=== PATIENT | female | born 1940 | race Hispanic/Latino ===

== ENCOUNTER 2017-10-24 17:06 | Inpatient (IN) | payer MEDICARE ==
[~2017-10-24] VITALS: Ht 154.9 cm; Wt 66.8 kg
[~2017-10-24 17:06] MED LIST: ATORVASTATIN CA20 MG PO; CAPSAICIN TOP; CARVEDILOL3.125 MG PO; CLOPIDOGREL75 MG PO; ECONAZOLE NITRA15 GM TOP; FUROSEMIDE40 MG PO; HEMATINIC-FOLI1 EACH PO; HYDRALAZINE HCL25 MG PO; JANUVIA100 MG PO; LOSARTAN POTASS25 MG PO; METOPROLOL TART25 MG PO; PREDNISONE10 MG PO; PROTONIX IV40 MG IV; SPIRIVA18 MCG INH; VASOTEC20 MG PO; enalapril PO; furosemide PO; metformin PO; pantoprazole PO
[2017-10-24] MEDS ORDERED: SODIUM CHLORIDE 0.9% 250ML 250 ML IV ONE (17:45)
[2017-10-24 17:48] LABS: BASOPHILS % 0.3 % (0.0-1.0); EOSINOPHILS # (AUTO) 0.1 (0.0-0.4); EOSINOPHILS % 0.8 % (0.0-6.0); LYMPHOCYTES % 13.1 % (18.0-39.1); MEAN CORPUSCULAR HEMOGLOBIN 35.2 pg (28-32); MEAN CORPUSCULAR HGB CONC 33.2 g/dL (31-35); MEAN CORPUSCULAR VOLUME 106.1 fL (81-99); MONOCYTES # (AUTO) 0.6 (0.2-0.8); NEUTROPHILS # (AUTO) 5.7 (2.1-6.9); NEUTROPHILS % 75.9 % (38.7-80.0); PLATELET COUNT 187 x10e3/uL (140-360); RED BLOOD COUNT 1.96 x10e6/uL (3.6-5.1); RED CELL DISTRIBUTION WIDTH 15.9 % (11.7-14.4)
[2017-10-24] MEDS ORDERED: LISINOPRIL2.5 MG PO (17:49)
[2017-10-24] MEDS ORDERED: METOPROLOL SUCC50 MG PO (17:49)
[2017-10-24] MEDS ORDERED: BUMETANIDE1 MG PO (17:49)
[2017-10-24 17:50] LABS: HEMATOCRIT 20.8 % (34.2-44.1); HEMOGLOBIN 6.9 g/dL (12.0-16.0)
[2017-10-24] MEDS ORDERED: WARFARIN SODIUM3 MG PO (17:51)
[2017-10-24] MEDS ORDERED: DIPHENHYDRAMINE25 M1 PO (17:51)
[2017-10-24] MEDS ORDERED: AMIODARONE HCL200 MG PO (17:51)
[2017-10-24 17:53] LABS: INR 1.95; PROTHROMBIN TIME 20.9 seconds (11.9-14.5)
[2017-10-24 17:54] LABS: PARTIAL THROMBOPLASTIN TIME 33.7 seconds (23.8-35.5)
[2017-10-24] MEDS ORDERED: PANTOPRAZOLE 40 MG 10ML VIAL IV ONE (17:56)
[2017-10-24 18:00] LABS: ANION GAP 12.3 mmol/L (8-16); CALCIUM 8.6 mg/dL (8.4-10.2); CREATININE, SERUM 1.54 mg/dL (0.57-1.11); POTASSIUM 3.3 mmol/L (3.5-5.1)
[2017-10-24] MEDS ORDERED: PANTOPRAZOLE INJ 40 MG in SODIUM CHLORIDE 0.9% 50ML 50 ML IV SCH (18:00)
[2017-10-24] MEDS ORDERED: PHYTONADIONE 10 MG/ML AMP SQ ONE ×2 (18:15→23:15)
--- NOTE | 2017-10-24 18:17 | Diagnostic Imaging Report ---
PROCEDURE: A single AP view of the chest. COMPARISON: Chest radiograph 06/04/2016 INDICATIONS: SOB, LOW HEMOGLOBIN FINDINGS: Lines/tubes: Right IJ catheter dual lumen dialysis catheter with tip overlying the cavoatrial junction. Left chest wall AICD with leads overlying the right atrium, coronary sinus, and right ventricle. Lungs: The lungs are well inflated. Mild interstitial edema. There is no evidence of pneumonia. Pleura: There is no pleural effusion or pneumothorax. Heart and mediastinum: Stable moderate enlargement of the cardiac silhouette. Bones: No acute bony abnormality. Median sternotomy wires. IMPRESSION: Stable cardiomegaly with mild interstitial edema. Dictated by: Eitan Brantley M.D. on 10/24/2017 at 18:22 Electronically approved by: Eitan Brantley M.D. on 10/24/2017 at 18:22
[2017-10-24] MEDS ORDERED: SODIUM CHLORIDE FLUSH 10 ML SYR INJ PRN (19:00)
[2017-10-24] MEDS ORDERED: DEXTROSE 50% SYRINGE 50 ML IV PRN (19:00)
[2017-10-24] MEDS ORDERED: PANTOPRAZOLE INJ 80 MG in SODIUM CHLORIDE 0.9% 100 ML IV SCH (19:00)
[2017-10-24] MEDS ORDERED: POTASSIUM CHLORIDE 20MEQ/100ML 100 ML IV ONE (19:15)
[2017-10-24] MEDS ORDERED: ONDANSETRON HCL INJ 2 MG/ML VIAL IV PRN (19:15)
[2017-10-24] MEDS ORDERED: ACETAMINOPHEN 325 MG TAB PO PRN (19:15)
[2017-10-24] MEDS ORDERED: HYDRALAZINE HCL 20 MG/ML VIAL IV PRN (19:15)
[2017-10-24] MEDS: PANTOPRAZOL 40MG/SOD CHL 0.9% 50 ML IV SCH (19:30)
[2017-10-24] MEDS ORDERED: ATORVASTATIN 20 MG TAB PO SCH (21:00)
[2017-10-24] MEDS ORDERED: SIMVASTATIN 40 MG TAB PO SCH (21:00)
[2017-10-24 22:00] VITALS: BP 150/78
[2017-10-24 23:00] VITALS: BP 159/54
[2017-10-24] MEDS: HYDRALAZINE HCL 25 MG TAB PO SCH (23:39)
[2017-10-24] MEDS: ATORVASTATIN 40 MG TAB PO SCH (23:40)
[2017-10-24] MEDS: INSULIN REGULAR, HUMAN 100 UNIT/1 ML 3ML VIAL SQ SCH (23:40)
[2017-10-25] VITALS (7 sets, daily range): BP systolic 121–164; BP diastolic 34–82
[2017-10-25] MEDS ORDERED: ALBUTEROL/IPRATROPIUM 3 ML NEB NEB PRN
[2017-10-25] MEDS: PANTOPRAZOL 40MG/SOD CHL 0.9% 50 ML IV SCH ×5 (04:32→20:00)
[2017-10-25 04:43] LABS: BASOPHILS % 0.3 % (0.0-1.0); EOSINOPHILS # (AUTO) 0.1 (0.0-0.4); EOSINOPHILS % 1.5 % (0.0-6.0); HEMATOCRIT 24.7 % (34.2-44.1); HEMOGLOBIN 8.3 g/dL (12.0-16.0); LYMPHOCYTES # (AUTO) 0.8 (1.0-3.2); LYMPHOCYTES % 12.3 % (18.0-39.1); MEAN CORPUSCULAR HEMOGLOBIN 33.3 pg (28-32); MEAN CORPUSCULAR HGB CONC 33.6 g/dL (31-35); MONOCYTES # (AUTO) 0.6 (0.2-0.8); MONOCYTES % 8.7 % (4.4-11.3); NEUTROPHILS % 75.7 % (38.7-80.0); PLATELET COUNT 137 x10e3/uL (140-360); RED BLOOD COUNT 2.49 x10e6/uL (3.6-5.1)
[2017-10-25 04:47] LABS: MEAN CORPUSCULAR VOLUME 99.2 fL (81-99); RED CELL DISTRIBUTION WIDTH 18.8 % (11.7-14.4)
[2017-10-25 04:52] LABS: INR 1.65; PROTHROMBIN TIME 18.3 seconds (11.9-14.5)
[2017-10-25 04:53] LABS: PARTIAL THROMBOPLASTIN TIME 26.9 seconds (23.8-35.5)
[2017-10-25 04:58] LABS: ANION GAP 12.5 mmol/L (8-16); CALCIUM 7.8 mg/dL (8.4-10.2); POTASSIUM 3.5 mmol/L (3.5-5.1)
[2017-10-25 05:03] LABS: CREATININE, SERUM 2.45 mg/dL (0.57-1.11)
[2017-10-25] MEDS ORDERED: CALCIUM GLUCONATE 10% INJ 9.3 MEQ in SODIUM CHLORIDE 0.9% 100 ML 100 ML IV ONE (07:30)
[2017-10-25] MEDS: INSULIN REGULAR, HUMAN 100 UNIT/1 ML 3ML VIAL SQ SCH ×4 (07:30→21:53)
[2017-10-25] MEDS: DOCUSATE SODIUM 100 MG CAP PO SCH ×2 (09:00→17:00)
[2017-10-25] MEDS: CARVEDILOL 3.125 MG TAB PO SCH ×2 (09:00→17:00)
[2017-10-25] MEDS: LISINOPRIL 2.5 MG TAB PO SCH (09:00)
[2017-10-25] MEDS: SITAGLIPTIN 100 MG TAB PO SCH (09:00)
[2017-10-25] MEDS: POLYETHYLENE GLYCOL 3350 17 GM PACK PO SCH ×2 (09:00→17:00)
[2017-10-25] MEDS: HYDRALAZINE HCL 25 MG TAB PO SCH ×3 (09:00→21:00)
[2017-10-25] MEDS: BUMETANIDE 1 MG TAB PO SCH (09:00)
[2017-10-25] MEDS: AMIODARONE HCL 200 MG TAB PO SCH (09:00)
[2017-10-25] MEDS: METOPROLOL SUCCINATE 50 MG TAB XL PO SCH (09:00)
[2017-10-25] MEDS ORDERED: PHYTONADIONE 10 MG/ML AMP IV ONE (11:00)
[2017-10-25] MEDS ORDERED: PHYTONADIONE 10MG/ML 20 MG in SODIUM CHLORIDE 0.9% 100 ML IV ONE (12:00)
[2017-10-25 12:11] LABS: HEMATOCRIT 26.6 % (34.2-44.1); HEMOGLOBIN 8.9 g/dL (12.0-16.0)
[2017-10-25] MEDS: TIOTROPIUM 18 MCG INH POWDER INH SCH (13:00)
[2017-10-25 14:42] LABS: INR 1.39
[2017-10-25] MEDS ORDERED: PROPOFOL IV EMULSION 10 MG/ML 20 ML VIAL ONE (16:50)
--- NOTE | 2017-10-25 17:11 | Consultation ---
DATE OF CONSULTATION: October 25, 2017 NEPHROLOGY CONSULTATION REASON FOR CONSULTATION: End-stage renal disease, fluid overload. Ms. Blelo is a 77-year-old female with the following problem list: Morbid obesity, end-stage renal disease, diabetes mellitus type 2, hypertension. The patient was admitted after shortened dialysis treatment due to GI bleed. She is due to undergo an endoscopy very shortly. The family is at the bedside. The patient is complaining of shortness of breath. She has had dark stools. She had been on Plavix. FAMILY HISTORY: Noncontributory. SOCIAL HISTORY: No tobacco, alcohol, illicits or recreational drug use. MEDICATIONS: Per medication list. ALLERGIES: PER ALLERGY LIST. PHYSICAL EXAMINATION GENERAL: Alert, oriented, and in no acute distress. VITAL SIGNS: Blood pressure 157/66, heart rate 62 per minute. HEENT: Fundi not visualized. Conjunctivae anicteric. NECK: Supple. LUNGS: Bilateral rales. HEART: Normal heart sounds. No additional sounds. ABDOMEN: Soft and nontender. No organomegaly. Obese. EXTREMITIES: No cyanosis, clubbing or edema. Dialysis access is right tunneled internal jugular catheter. LABORATORY DATA: Noted and reviewed. ASSESSMENT AND PLAN: 1. End-stage renal disease. The patient will be receiving hemodialysis today for fluid overload and due to her incomplete dialysis treatment yesterday. 2. Anemia, [id number], secondary to gastrointestinal bleed. 3. Hypertension. Blood pressure is fair. 4. Gastrointestinal bleed. The patient is undergoing a workup per gastroenterology. 5. Disposition: Will follow this patient with you. Job#: [id number]
[2017-10-25 17:29] LABS: HEMATOCRIT 28.3 % (34.2-44.1); HEMOGLOBIN 9.4 g/dL (12.0-16.0)
--- NOTE | 2017-10-25 21:23 | Discharge Summary ---
No dictation 15 seconds. SMITA GOTTI MD Job#: [id number]
[2017-10-26] VITALS (7 sets, daily range): BP systolic 81–156; BP diastolic 38–69
[2017-10-26] MEDS: ATORVASTATIN 40 MG TAB PO SCH ×2 (00:18→21:46)
[2017-10-26] MEDS: PANTOPRAZOL 40MG/SOD CHL 0.9% 50 ML IV SCH ×3 (01:00→06:00)
[2017-10-26 05:09] LABS: BASOPHILS % 0.3 % (0.0-1.0); EOSINOPHILS # (AUTO) 0.1 (0.0-0.4); EOSINOPHILS % 1.5 % (0.0-6.0); HEMATOCRIT 27.7 % (34.2-44.1); HEMOGLOBIN 9.1 g/dL (12.0-16.0); LYMPHOCYTES # (AUTO) 0.8 (1.0-3.2); LYMPHOCYTES % 10.9 % (18.0-39.1); MEAN CORPUSCULAR HEMOGLOBIN 33.5 pg (28-32); MEAN CORPUSCULAR HGB CONC 32.9 g/dL (31-35); MEAN CORPUSCULAR VOLUME 101.8 fL (81-99); MONOCYTES # (AUTO) 0.5 (0.2-0.8); MONOCYTES % 7.5 % (4.4-11.3); NEUTROPHILS # (AUTO) 5.7 (2.1-6.9); NEUTROPHILS % 79.1 % (38.7-80.0); PLATELET COUNT 152 x10e3/uL (140-360); RED BLOOD COUNT 2.72 x10e6/uL (3.6-5.1); RED CELL DISTRIBUTION WIDTH 19.5 % (11.7-14.4)
[2017-10-26 05:29] LABS: ANION GAP 15.7 mmol/L (8-16); CALCIUM 8.4 mg/dL (8.4-10.2); MAGNESIUM 1.9 MG/DL (1.3-2.1); POTASSIUM 3.7 mmol/L (3.5-5.1)
[2017-10-26 05:31] LABS: CREATININE, SERUM 4.07 mg/dL (0.57-1.11)
[2017-10-26] MEDS ORDERED: FUROSEMIDE INJ 10 MG/ML 4 ML VIAL IV ONE ×2 (07:00→12:00)
[2017-10-26] MEDS: INSULIN REGULAR, HUMAN 100 UNIT/1 ML 3ML VIAL SQ SCH ×4 (07:30→21:00)
[2017-10-26] MEDS: POLYETHYLENE GLYCOL 3350 17 GM PACK PO SCH ×2 (09:00→16:05)
[2017-10-26] MEDS: DOCUSATE SODIUM 100 MG CAP PO SCH ×2 (09:00→16:05)
--- NOTE | 2017-10-26 09:24 | Operative Report ---
DATE OF PROCEDURE: October 26, 2017 REFERRING PHYSICIAN: Dr. Daniel Rowan. PROCEDURE PERFORMED: Esophagogastroduodenoscopy. INDICATIONS FOR ESOPHAGOGASTRODUODENOSCOPY: Anemia. History of melena. MEDICATION: Patient was done under MAC. Please see anesthesiologist's note. PROCEDURE: With patient in the left lateral decubitus position, the flexible fiberoptic Olympus gastroscope was introduced into the esophagus under direct visualization without any difficulty. There was some patchy erythema noted in the distal esophagus. The scope was then advanced with ease into the stomach, and mucosa overlying the antrum and the body revealed some patchy erythema and low-grade edema, and biopsies were obtained and sent to stain for H. pylori. Pylorus was intubated with ease, and the scope was advanced all the way to the 2nd portion of the duodenum. The scope was then withdrawn slowly, and mucosa overlying the proximal 2nd portion and the duodenal bulb appeared to be within normal limits. The scope was then withdrawn back into the stomach and retroflexed, and mucosa overlying the fundus and the cardia appeared to be within normal limits. The scope was then straightened out. The stomach was decompressed. The scope was subsequently withdrawn. Patient tolerated the procedure well. IMPRESSION: 1. Distal esophagitis, mild. 2. Gastritis biopsied. Biopsies sent to stain for H. pylori. PLAN: Follow up histology. Findings do not necessarily explain patient's anemia, will need colonoscopy. Job#: [id number] EV cc:DANIEL ROWAN MD
[2017-10-26] MEDS: AMIODARONE HCL 200 MG TAB PO SCH (11:22)
[2017-10-26] MEDS: SITAGLIPTIN 100 MG TAB PO SCH (11:22)
[2017-10-26] MEDS: HYDRALAZINE HCL 25 MG TAB PO SCH ×3 (11:27→21:46)
[2017-10-26] MEDS: BUMETANIDE 1 MG TAB PO SCH (11:27)
[2017-10-26] MEDS: LISINOPRIL 2.5 MG TAB PO SCH (11:28)
[2017-10-26] MEDS: CARVEDILOL 3.125 MG TAB PO SCH ×2 (11:29→16:59)
[2017-10-26] MEDS: METOPROLOL SUCCINATE 50 MG TAB XL PO SCH (11:29)
[2017-10-26 12:13] LABS: HEMATOCRIT 27.2 % (34.2-44.1); HEMOGLOBIN 8.9 g/dL (12.0-16.0)
[2017-10-26] MEDS: PANTOPRAZOLE SOD 40 MG TABEC PO SCH (12:21)
[2017-10-26] MEDS ORDERED: PEG (High)/E-LYTE SOLN 4,000 ML BTL PO ONE (13:30)
[2017-10-26 18:08] LABS: HEMATOCRIT 26.2 % (34.2-44.1); HEMOGLOBIN 8.6 g/dL (12.0-16.0)
[2017-10-26] MEDS: TIOTROPIUM 18 MCG INH POWDER INH SCH (23:30)
[2017-10-27] VITALS (35 sets, daily range): BP systolic 100–162; BP diastolic 43–75
[2017-10-27] MEDS ORDERED: ONDANSETRON HCL INJ 2 MG/ML VIAL IV STA (00:55)
[2017-10-27 05:34] LABS: BASOPHILS % 0.3 % (0.0-1.0); EOSINOPHILS # (AUTO) 0.2 (0.0-0.4); EOSINOPHILS % 3.5 % (0.0-6.0); HEMOGLOBIN 8.4 g/dL (12.0-16.0); LYMPHOCYTES # (AUTO) 0.9 (1.0-3.2); MEAN CORPUSCULAR HEMOGLOBIN 33.9 pg (28-32); MEAN CORPUSCULAR HGB CONC 32.3 g/dL (31-35); MEAN CORPUSCULAR VOLUME 104.8 fL (81-99); MONOCYTES # (AUTO) 0.6 (0.2-0.8); MONOCYTES % 8.6 % (4.4-11.3); NEUTROPHILS # (AUTO) 4.8 (2.1-6.9); NEUTROPHILS % 73.7 % (38.7-80.0); PLATELET COUNT 134 x10e3/uL (140-360); RED BLOOD COUNT 2.48 x10e6/uL (3.6-5.1); RED CELL DISTRIBUTION WIDTH 18.8 % (11.7-14.4)
[2017-10-27 05:54] LABS: ANION GAP 14.3 mmol/L (8-16); CALCIUM 7.7 mg/dL (8.4-10.2); CREATININE, SERUM 5.35 mg/dL (0.57-1.11); MAGNESIUM 1.7 MG/DL (1.3-2.1); POTASSIUM 4.3 mmol/L (3.5-5.1)
[2017-10-27] MEDS: INSULIN REGULAR, HUMAN 100 UNIT/1 ML 3ML VIAL SQ SCH ×4 (07:30→20:21)
[2017-10-27] MEDS: PANTOPRAZOLE SOD 40 MG TABEC PO SCH (07:30)
[2017-10-27] MEDS ORDERED: SODIUM CHLORIDE 0.9% 1000ML 2,000 ML ONE (07:55)
[2017-10-27] MEDS ORDERED: SODIUM CHLORIDE 0.9% 250ML 250 ML IV ONE (08:20)
[2017-10-27] MEDS: HYDRALAZINE HCL 25 MG TAB PO SCH ×3 (09:00→20:22)
[2017-10-27] MEDS: METOPROLOL SUCCINATE 50 MG TAB XL PO SCH (09:00)
[2017-10-27] MEDS: BUMETANIDE 1 MG TAB PO SCH (09:00)
[2017-10-27] MEDS: LISINOPRIL 2.5 MG TAB PO SCH (09:00)
[2017-10-27] MEDS: CARVEDILOL 3.125 MG TAB PO SCH ×2 (09:00→17:47)
[2017-10-27] MEDS: SITAGLIPTIN 100 MG TAB PO SCH (09:00)
[2017-10-27] MEDS: AMIODARONE HCL 200 MG TAB PO SCH (09:00)
[2017-10-27] MEDS ORDERED: CITRATE OF MAGNESIA 300ML BOTTLE PO ONE (10:30)
[2017-10-27] MEDS ORDERED: HEPARIN SOD (PORCINE) 1000 UNIT/ML SDV ONE (10:49)
[2017-10-27] MEDS ORDERED: CALCIUM GLUCONATE 10% INJ 9.3 MEQ in SODIUM CHLORIDE 0.9% 100 ML 100 ML IV ONE (11:45)
[2017-10-27] MEDS ORDERED: SODIUM CHLORIDE 0.9% 1000ML 2,000 ML IV PRN (11:45)
[2017-10-27] MEDS ORDERED: HEPARIN SOD (PORCINE) 1000 UNIT/ML SDV IV PRN (11:45)
[2017-10-27] MEDS: DOCUSATE SODIUM 100 MG CAP PO SCH ×2 (13:02→16:10)
[2017-10-27] MEDS: POLYETHYLENE GLYCOL 3350 17 GM PACK PO SCH ×2 (13:02→16:10)
[2017-10-27 13:47] LABS: HEMATOCRIT 35.7 % (34.2-44.1); HEMOGLOBIN 11.7 g/dL (12.0-16.0)
[2017-10-27 18:49] LABS: HEMATOCRIT 31.7 % (34.2-44.1); HEMOGLOBIN 10.5 g/dL (12.0-16.0)
[2017-10-27] MEDS: TIOTROPIUM 18 MCG INH POWDER INH SCH (19:30)
[2017-10-27] MEDS: ATORVASTATIN 40 MG TAB PO SCH (20:59)
[2017-10-28] VITALS (7 sets, daily range): BP systolic 97–123; BP diastolic 44–52
[2017-10-28 05:34] LABS: CALCIUM 7.8 mg/dL (8.4-10.2); CREATININE, SERUM 4.26 mg/dL (0.57-1.11); MAGNESIUM 2.1 MG/DL (1.3-2.1)
[2017-10-28 05:56] LABS: BASOPHILS % 0.4 % (0.0-1.0); EOSINOPHILS # (AUTO) 0.3 (0.0-0.4); EOSINOPHILS % 3.1 % (0.0-6.0); HEMATOCRIT 32.5 % (34.2-44.1); HEMOGLOBIN 10.6 g/dL (12.0-16.0); LYMPHOCYTES # (AUTO) 0.8 (1.0-3.2); LYMPHOCYTES % 9.6 % (18.0-39.1); MEAN CORPUSCULAR HEMOGLOBIN 32.7 pg (28-32); MEAN CORPUSCULAR HGB CONC 32.6 g/dL (31-35); MEAN CORPUSCULAR VOLUME 100.3 fL (81-99); MONOCYTES # (AUTO) 0.8 (0.2-0.8); MONOCYTES % 9.8 % (4.4-11.3); NEUTROPHILS # (AUTO) 6.4 (2.1-6.9); NEUTROPHILS % 76.5 % (38.7-80.0); PLATELET COUNT 140 x10e3/uL (140-360); RED BLOOD COUNT 3.24 x10e6/uL (3.6-5.1); RED CELL DISTRIBUTION WIDTH 19.9 % (11.7-14.4)
[2017-10-28] MEDS: INSULIN REGULAR, HUMAN 100 UNIT/1 ML 3ML VIAL SQ SCH ×3 (07:30→20:53)
[2017-10-28] MEDS: HYDRALAZINE HCL 25 MG TAB PO SCH ×3 (08:15→20:52)
[2017-10-28] MEDS: CARVEDILOL 3.125 MG TAB PO SCH ×2 (08:15→17:27)
[2017-10-28] MEDS: BUMETANIDE 1 MG TAB PO SCH (08:15)
[2017-10-28] MEDS: SITAGLIPTIN 100 MG TAB PO SCH (08:15)
[2017-10-28] MEDS: AMIODARONE HCL 200 MG TAB PO SCH (08:15)
[2017-10-28] MEDS: PANTOPRAZOLE SOD 40 MG TABEC PO SCH (08:15)
[2017-10-28] MEDS: LISINOPRIL 2.5 MG TAB PO SCH (08:15)
[2017-10-28] MEDS: METOPROLOL SUCCINATE 50 MG TAB XL PO SCH (08:15)
[2017-10-28] MEDS: DOCUSATE SODIUM 100 MG CAP PO SCH (09:00)
[2017-10-28] MEDS: POLYETHYLENE GLYCOL 3350 17 GM PACK PO SCH (09:00)
[2017-10-28] MEDS ORDERED: GLUCAGON FOR INJ 1 MG VIAL IV ONE (14:17)
[2017-10-28] MEDS ORDERED: HYOSCYAMINE SULFATE 0.5 MG/ML AMP IV ONE (14:17)
[2017-10-28] MEDS ORDERED: DOCUSATE SODIUM 100 MG CAP PO PRN (17:00)
[2017-10-28] MEDS ORDERED: POLYETHYLENE GLYCOL 3350 17 GM PACK PO PRN (17:00)
[2017-10-28] MEDS: TIOTROPIUM 18 MCG INH POWDER INH SCH (19:20)
[2017-10-28] MEDS: ATORVASTATIN 40 MG TAB PO SCH (20:53)
[2017-10-28] MEDS ORDERED: MELATONIN 3 MG TAB PO PRN (21:00)
--- NOTE | 2017-10-29 01:50 | Operative Report ---
DATE OF PROCEDURE: October 27, 2017 REFERRING PHYSICIAN: Dr. Daniel Rowan. PROCEDURES PERFORMED: Colonoscopy and polypectomy. INDICATION FOR COLONOSCOPY: Anemia. MEDICATION: Patient was done under MAC. Please see anesthesiologist's note. PROCEDURE: With the patient in left lateral decubitus position, flexible fiberoptic Olympus colonoscope was inserted into the rectum with ease and advanced all the way to the ileocolic anastomosis. The anastomosis was intact. One polyp was snared from the ascending colon. The transverse and descending appeared to be within normal limits. One polyp was hot biopsied from the sigmoid colon. The scope was then retroflexed into the distal rectum and small internal hemorrhoids were noted, none of which was actively bleeding. The scope was then straightened out. It was subsequently withdrawn. Patient tolerated the procedure well. IMPRESSIONS 1. Ileocolic anastomosis, intact. 2. Ascending colon polyp, snared. 3. Sigmoid colon polyp, hot biopsied. 4. Internal hemorrhoids, none actively bleeding. PLAN 1. Follow up histology. 2. Resume renal diet. 3. Patient will need a followup colonoscopy in 3 years. Job#: [id number] CF cc:DANIEL ROWAN MD
[2017-10-29 05:18] LABS: BASOPHILS % 0.4 % (0.0-1.0); EOSINOPHILS # (AUTO) 0.2 (0.0-0.4); EOSINOPHILS % 2.6 % (0.0-6.0); HEMATOCRIT 29.1 % (34.2-44.1); HEMOGLOBIN 9.4 g/dL (12.0-16.0); MEAN CORPUSCULAR HEMOGLOBIN 33.1 pg (28-32); MEAN CORPUSCULAR HGB CONC 32.3 g/dL (31-35); MEAN CORPUSCULAR VOLUME 102.5 fL (81-99); MONOCYTES # (AUTO) 0.8 (0.2-0.8); MONOCYTES % 10.5 % (4.4-11.3); NEUTROPHILS # (AUTO) 5.6 (2.1-6.9); NEUTROPHILS % 72.8 % (38.7-80.0); PLATELET COUNT 129 x10e3/uL (140-360); RED BLOOD COUNT 2.84 x10e6/uL (3.6-5.1); RED CELL DISTRIBUTION WIDTH 18.7 % (11.7-14.4)
[2017-10-29 06:00] LABS: ANION GAP 16.5 mmol/L (8-16); CALCIUM 7.8 mg/dL (8.4-10.2); CREATININE, SERUM 6.21 mg/dL (0.57-1.11); MAGNESIUM 2.2 MG/DL (1.3-2.1); POTASSIUM 4.5 mmol/L (3.5-5.1)
[2017-10-29] MEDS: INSULIN REGULAR, HUMAN 100 UNIT/1 ML 3ML VIAL SQ SCH ×2 (07:30→11:30)
[2017-10-29 08:00] VITALS: BP 115/51
[2017-10-29] MEDS: BUMETANIDE 1 MG TAB PO SCH (08:00)
[2017-10-29] MEDS: SITAGLIPTIN 100 MG TAB PO SCH (08:00)
[2017-10-29] MEDS: AMIODARONE HCL 200 MG TAB PO SCH (08:00)
[2017-10-29] MEDS: PANTOPRAZOLE SOD 40 MG TABEC PO SCH (08:00)
[2017-10-29] MEDS ORDERED: FERROUS SULFAT325 MG PO (08:10)
[2017-10-29] MEDS ORDERED: ASCORBIC ACID500 MG PO (08:10)
[2017-10-29] MEDS ORDERED: PANTOPRAZOLE SO40 MG PO (08:12)
[2017-10-29] MEDS ORDERED: DOCUSATE SODIU100 MG PO (08:16)
[2017-10-29] MEDS: LISINOPRIL 2.5 MG TAB PO SCH (09:00)
[2017-10-29] MEDS: METOPROLOL SUCCINATE 50 MG TAB XL PO SCH (09:00)
[2017-10-29] MEDS: CARVEDILOL 3.125 MG TAB PO SCH (09:00)
[2017-10-29] MEDS: HYDRALAZINE HCL 25 MG TAB PO SCH (09:00)
[2017-10-29] MEDS ORDERED: ALBUMIN 25% 25GM 0.25 GM/ML BTL IV ONE (10:15)
[2017-10-29] MEDS ORDERED: ALBUMIN 25% 25GM 100 ML IV ONE (10:30)
[2017-10-29 12:13] VITALS: BP 146/45
[2017-10-29 12:19] VITALS: BP 146/45
[2017-10-29 15:45] VITALS: BP 133/66
--- NOTE | 2017-10-29 16:46 | Discharge Summary ---
ADMISSION DIAGNOSES 1. Gastrointestinal bleed. 2. End stage renal disease. 3. Hypertension. 4. Type 2 diabetes. 5. Hyperlipidemia. 6. Congestive heart failure. 7. Hypokalemia. 8. Hypocalcemia. DISCHARGE DIAGNOSES 1. Gastrointestinal bleed. 2. End stage renal disease. 3. Hypertension. 4. Type 2 diabetes. 5. Hyperlipidemia. 6. Congestive heart failure. 7. Hypokalemia. 8. Hypocalcemia. 9. Esophagitis. 10. Gastritis. 11. Internal hemorrhoids. 12. Sigmoid colon polyp. 13. Ascending colon polyp. 14. Ileocolic anastomosis. HISTORY: Patient has a history of type 2 diabetes, CHF with defibrillator, CAD with stent, hyperlipidemia, hypertension, end stage renal disease with dialysis Friday, Friday, Friday and an PR in 2013. Surgical history of AICD placement, cardiac stent and a CABG in 2016. HOSPITAL COURSE: A 77-year-old female complains of dark stools that began Friday. She also complained of nausea on Friday but was able to tolerate food. After dialysis patient was brought due to a hemoglobin of 6.9, patient is confused and HPI received from daughter. On admission, patient was given 2 PRBCs, put on a PPI drip. She was kept n.p.o. for an EGD and nephrology was consulted for dialysis. Chest x-ray on admission showed stable cardiomegaly with mild interstitial edema. EGD showed distal esophagitis and gastritis. Since that did not explain the patient's bleeding, patient also had a colonoscopy the following day that showed ileocolic anastomosis, ascending colon polyp, sigmoid colon polyp, internal hemorrhoids, none actively bleeding. Patient is now tolerating her food and received an additional PRBC on October 27 with dialysis. Patient will be discharged October 29 with a stable hemoglobin of 9.4, hematocrit 29.1, WBC 7.68, sodium 134, potassium 4.5, creatinine 6.21 before dialysis, GFR of 7 before dialysis. Patient will discharge home as she is tolerating diet and no longer having bloody or black stool as well as stable hemoglobin. She will discharge after dialysis. Patient and family agree to plan. She will return home with family as well as physical therapy. Dictated by: Micheline Caro NP. DANIEL RAMOS MD Job#: [id number] DG
--- NOTE | 2017-10-31 11:29 | Operative Report ---
DATE OF PROCEDURE: October 27, 2017 REFERRING PHYSICIAN: Dr. Daniel Abdi PROCEDURE PERFORMED: Colonoscopy and polypectomy note. INDICATIONS FOR COLONOSCOPY: Anemia. MEDICATION: Patient was done under MAC. Please see anesthesiologist's note. PROCEDURE: With patient in left lateral decubitus position, a flexible fiberoptic Olympus colonoscope was inserted into the rectum with ease and advanced all the way to the ileocolic anastomosis. Anastomosis was intact. One polyp was snared from the ascending colon. Transverse and descending appeared to be within normal limits. One polyp was hot biopsied from the sigmoid colon. The rectum appeared to be within normal limits. The scope was then retroflexed into the distal rectum and small internal hemorrhoids were noted, none of which was actively bleeding. The scope was then straightened out. It was subsequently withdrawn. Patient tolerated the procedure well. IMPRESSION 1. Ileocolic anastomosis intact. 2. Ascending colon polyps snared. 3. Sigmoid colon polyp hot biopsied. 4. Internal hemorrhoids none actively bleeding. PLAN: Follow up histology. Initiate renal diet. Patient might benefit from a followup colonoscopy in 3 years. Patient will need to have a small bowel series to complete workup. Job#: [id number] DG cc:DANIEL RAMOS MD
== END 2017-10-29 15:50 | disposition home health service (06) | DRG 377 ==
LOC: ER 17:06 → ERHOLD 18:56 → ICU 20:56 → IMCU 10-25 01:05
PROVIDERS: ADMIT Internal Medicine; ATTEND Internal Medicine
PROC: 5A1D70Z Performance of Urinary Filtration, Intermittent, Less than 6 Hours Per Day (ICD-10-PCS; 2017-10-25)
PROC: 0DB78ZX Excision of Stomach, Pylorus, Via Natural or Artificial Opening Endoscopic, Diagnostic (ICD-10-PCS; 2017-10-26)
PROC: 5A1D70Z Performance of Urinary Filtration, Intermittent, Less than 6 Hours Per Day (ICD-10-PCS; 2017-10-27)
PROC: 30243N1 Transfusion of Nonautologous Red Blood Cells into Central Vein, Percutaneous Approach (ICD-10-PCS; 2017-10-27)
PROC: 0DBK8ZX Excision of Ascending Colon, Via Natural or Artificial Opening Endoscopic, Diagnostic (ICD-10-PCS; principal; 2017-10-27 14:38)
PROC: 0DBN8ZX Excision of Sigmoid Colon, Via Natural or Artificial Opening Endoscopic, Diagnostic (ICD-10-PCS; 2017-10-27 14:38)
PROC: 5A1D70Z Performance of Urinary Filtration, Intermittent, Less than 6 Hours Per Day (ICD-10-PCS; 2017-10-29)
DX: K92.2 Gastrointestinal hemorrhage, unspecified (principal); N18.6 End stage renal disease; I13.2 Hypertensive heart and chronic kidney disease with heart failure and with stage 5 chronic kidney disease, or end stage renal disease; D62 Acute posthemorrhagic anemia; E11.22 Type 2 diabetes mellitus with diabetic chronic kidney disease; Z99.2 Dependence on renal dialysis; Z79.4 Long term (current) use of insulin; E78.5 Hyperlipidemia, unspecified; K29.70 Gastritis, unspecified, without bleeding; K63.5 Polyp of colon; Z95.1 Presence of aortocoronary bypass graft; Z95.810 Presence of automatic (implantable) cardiac defibrillator; E87.6 Hypokalemia; K64.8 Other hemorrhoids; I50.9 Heart failure, unspecified
CPT/HCPCS: 36415; 43239; 45378; 45384; 45385; 71045; 80048; 80053; 82140; 82947; 82948; 83036; 83735; 83880; 84132; 85014; 85018; 85025; 85610; 85730; 86704; 86707; 86850; 86900; 86920; 87340; 87350; 88305; 88312; 90962; 93005; 94640; 96361; 96365; 96372; 96376; 97139; 99285; J0360; J0610; J1610; J1644; J1940; J1980; J2405; J3430; J7030; J7050; P9016; P9047

== ENCOUNTER 2017-11-20 14:24 | Emergency (ER) | payer MEDICARE ==
[~2017-11-20] VITALS: Ht 307.3 cm; Wt 66.7 kg
[~2017-11-20 14:24] MED LIST changes: +AMIODARONE HCL200 MG PO; +ASCORBIC ACID500 MG PO; +BUMETANIDE1 MG PO; +DIPHENHYDRAMINE25 M1 PO; +DOCUSATE SODIU100 MG PO; +FERROUS SULFAT325 MG PO; +LISINOPRIL2.5 MG PO; +METOPROLOL SUCC50 MG PO; +PANTOPRAZOLE SO40 MG PO; +WARFARIN SODIUM3 MG PO
== END 2017-11-20 15:17 | disposition left against medical advice (07) ==
LOC: ER 14:24
DX: I10 Essential (primary) hypertension (principal)
CPT/HCPCS: 36415; 82948

== ENCOUNTER 2018-02-02 14:16 | Observation (INO) | payer MEDICARE ==
[~2018-02-02] VITALS: Ht 307.3 cm; Wt 65.4 kg
--- OUTSIDE RECORDS SUMMARY | 2018-02-02 14:22 | XMS REPORT ---
Author Author Isadora Suero Organization [employer] Address Unknown Phone Unavailable Care Team Providers Care Exterminator Name Role Phone Isadora Suero CP Unavailable Allergies No Known Allergies Problems Problem Type Condition Code Onset Dates Condition Status Problem Patient unable to exercise Z72.89 Active Problem Presence of automatic implantable cardioverter-defibrillator Z95.810 Active Problem Atherosclerotic heart disease of [place] coronary artery with angina pectoris I25.119 Active Problem Atherosclerosis of coronary artery bypass graft of [place] heart without angina pectoris I25.810 Active Problem Status post catheter ablation of atrial flutter Z98.89 Active Problem Acute on chronic combined systolic and diastolic congestive heart failure I50.43 Active Problem 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 Active Problem End stage renal disease N18.6 Active Problem Cri (chronic renal insufficiency), stage 4 (severe) N18.4 Active Problem Stented coronary artery Z95.5 Active Problem Paroxysmal atrial fibrillation I48.0 Active Problem Status post aorto-coronary artery bypass graft Z95.1 Active Problem S/P PTCA (percutaneous transluminal coronary angioplasty) Z98.61 Active Problem Systolic CHF, chronic I50.22 Active Problem Former smokeless tobacco use Z87.891 Active Problem OH, old I25.2 Active Problem CAD in [place] artery I25.10 Active Problem Diabetes mellitus type II, controlled E11.9 Active Problem Hypercholesteremia E78.00 Active Problem LBBB (left bundle branch block) I44.7 Active Problem ICD (implantable cardioverter-defibrillator) battery depletion Z45.02 Active Problem Abnormal EKG R94.31 Active Medications Medication Code System Code Instructions Start Date End Date Status Dosage Lisinopril [facility] [id number] 2.5 MG Orally Once a day August 06, 2017 Active 1 tablet Results No Known Results Summary Purpose [employer] Submission
--- OUTSIDE RECORDS SUMMARY | 2018-02-02 14:22 | XMS REPORT | Continuity of Care Document ---
Author Author [facility] Interface Address Unknown Phone Unavailable Problems Problem Status Onset Date Classification Date Reported Comments Source CHRONIC STOLIC CONGESTIVE HEART FAILURE, Active 12/26/2016 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 Problem 12/03/2017 Isadora Suero Acute on chronic combined systolic and diastolic congestive heart failure Active Problem 12/03/2017 Isadora Suero Status post catheter ablation of atrial flutter Active Problem 12/03/2017 Isadora Suero End stage renal disease Active Problem 12/03/2017 Isadora Suero ICD battery depletion Active Problem 12/03/2017 Isadora Suero Atherosclerosis of coronary artery bypass graft of [place] heart without angina pectoris Active Problem 12/03/2017 Isadora Suero Cri , stage 4 (severe) Active Problem 12/03/2017 Isadora Suero Stented coronary artery Active Problem 12/03/2017 Isadora Suero Paroxysmal atrial fibrillation Active Problem 12/03/2017 Isadora Suero Status post aorto-coronary artery bypass graft Active Problem 12/03/2017 Isadora Suero Abnormal EKG Active Problem 12/03/2017 Isadora Suero S/P PTCA Active Problem 12/03/2017 Isadora Suero Generalized osteoarthritis Active Problem 12/03/2017 Isadora Suero Former smokeless tobacco use Active Problem 12/03/2017 Isadora Suero Hypercholesteremia Active Problem 12/03/2017 Isadora Suero [place], old Active Problem 12/03/2017 Isadora Suero LBBB Active Problem 12/03/2017 Isadora Suero Diabetes mellitus type II, controlled Active Problem 12/03/2017 Isadora Suero Systolic CHF, chronic Active Problem 12/03/2017 Isadora Suero CAD in [place] artery Active Problem 12/03/2017 Isadora Suero 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 , sequela Active Diagnosis 07/19/2017 Isadora Suero Diabetes mellitus Active Diagnosis 07/20/2015 Isadora Suero Generalized osteoarthrosis Active Diagnosis 07/20/2015 Isadora Suero Hypercholesterolemia Active Diagnosis 07/20/2015 Isadora Suero HTN heart dis, benign, with CHF Active Problem 03/02/2015 Isadora Suero Abnormal EKG Active Diagnosis 07/20/2015 Isadora Suero CAD, [place] Coronary Artery Active Diagnosis 07/20/2015 Isadora Suero S/P PTCA Active Diagnosis 07/20/2015 Isadora Suero Equivalent angina Active Diagnosis 07/20/2015 Isadora Suero [place] Old myocardial infarction Active Diagnosis 07/20/2015 Isadora Suero Hypercholesteremia Active Diagnosis 07/20/2015 Isadora Suero Renal failure Active Problem 03/02/2015 Isadora Suero Equivalent angina Active Diagnosis 07/20/2015 Isadora Suero CHF Chronic Systolic Heart Failure Active Diagnosis 07/20/2015 Isadora Suero Anemia Active Problem 03/02/2015 Isadora Suero AI Active Problem 03/02/2015 Isadora Suero Mitral regurgitation Active Problem 03/02/2015 Isadora Suero Nonrheumatic tricuspid insufficiency Active Problem 03/02/2015 Isadora Suero Former smoker Active Diagnosis 07/20/2015 Isadora Suero Bronchitis Active Diagnosis 07/20/2015 Isadora Suero LBBB Active Diagnosis 07/20/2015 Isadora Suero Asthma Resolved Problem [facility]/02[facility] COPD (<span ID="[id number]">Confirmed</span>) Resolved Problem 02/02/2017 [facility] CAD (<span ID="[id number]">Confirmed</span>) Resolved Problem 02/02/2017 [facility] ESRD on hemodialysis<sup>1</sup> Resolved Problem 02/02/2017 as of 3 months ago on HD [facility] DM - Diabetes mellitus Resolved Problem 02/02/2017 [facility] HTN - Hypertension Resolved Problem 02/02/2017 [facility] Hyperlipidemia Resolved Problem 02/02/2017 [facility] [place] (<span ID="[id number]">Confirmed</span>) Resolved Problem 02/02/2017 [facility] CHRONIC COMBINED SYSTOLIC AND DIASTOLIC Active [facility] Medications Medication Details Route Status Patient Instructions Ordering Provider Order Date Source Lisinopril 1 tablet Orally Active 2.5 MG Orally Once a day Nimo 08/06/2017 Isadora Suero atorvastatin 40 mg, 1 tab, Route: PO, Drug form: TAB, Daily, Dosing Weight 68.295, kg, Start date: 01/30/17 21:00:00 [employer], Duration: 30 day, Stop date: 02/28/17 21:00:00 CSTNotes: (Same as: Lipitor) Inactive 01/31/2017 [facility] Acetaminophen 300 MG / Codeine Phosphate 30 MG Oral Tablet [Tylenol with Codeine #3] 1 - 2 tab, PO, Q8H, PRN Pain, X 4 day, # 30 tab, 0 Refill(s) Active 01/30/2017 [facility] Bumetanide 2 mg, 4 tab, Route: PO, Drug form: TAB, Daily, Dosing Weight 68.295, kg, Start date: 01/30/17 9:00:00 [employer], Duration: 30 day, Stop date: 02/28/17 9:00:00 CSTNotes: (Same As: Bumex) Inactive 01/30/2017 [facility] Amiodarone 200 mg, 1 tab, Route: PO, Drug form: TAB, Daily, Dosing Weight 68.295, kg, Start date: 01/30/17 9:00:00 [employer], Duration: 30 day, Stop date: 02/28/17 9:00:00 CSTNotes: (Same as: Cordarone) Inactive 01/30/2017 [facility] tiotropium 0.018 MG/ACTUAT Inhalant Powder [Spiriva] 18 microgram, 1 inhalation, Route: INHALATION, Drug form: CAP, Daily, Dosing Weight 68.295, kg, Start date: 01/30/17 9:00:00 [employer], Duration: 30 day, Stop date: 02/28/17 9:00:00 CSTNotes: (Same As: Spiriva) Inactive 01/30/2017 [facility] Prednisone 5 mg, 1 tab, Route: PO, Drug form: TAB, Daily, Dosing Weight 68.295, kg, Start date: 01/30/17 9:00:00 [employer], Duration: 30 day, Stop date: 02/28/17 9:00:00 CSTNotes: Take with food. Inactive 01/30/2017 [facility] Zofran 4 mg, 2 mL, Route: IVP, Drug form: INJ, Q8H, Dosing Weight 68.295, kg, PRN Nausea, Start date: 01/30/17 5:10:00 [employer], Duration: 30 day, Stop date: 03/01/17 5:09:00 CSTNotes: (Same as: Zofran) MEDICATION WASTE Product Size: 4 mg Product Wasted: ___ mg Inactive 01/30/2017 [facility] Melatonin 3 mg, 1 tab, Route: PO, Drug form: TAB, Bedtime, Dosing Weight 68.295, kg, PRN Sleep, Start date: 01/29/17 21:09:00 [employer], Duration: 30 day, Stop date: 02/28/17 21:08:00 CSTNotes: (Same as: Melatonin) No Longer Active 01/30/2017 [facility] Acetaminophen 325 MG / Hydrocodone Bitartrate 5 MG Oral Tablet [[place] 5/325] 1 tab, Route: PO, Drug Form: TAB, Dosing Weight 68.295, kg, Q6H, PRN Pain Score 1-3, Start date: 01/29/17 21:09:00 [employer], Duration: 30 day, Stop date: 02/28/17 21:08:00 CSTNotes: (Same as: [place] 325/5) Do not exceed 4gm/day of acetaminophen. No Longer Active 01/30/2017 [facility] metoprolol tartrate 50 mg, 1 tab, Route: PO, Drug form: TAB, Q12H, Dosing Weight 68.295, kg, Start date: 01/29/17 21:00:00 [employer], Duration: 30 day, Stop date: 02/28/17 9:00:00 CSTNotes: (Same as: Lopressor) No Longer Active 01/30/2017 [facility] Saline Flush 0.9% 10 ml, Route: IVP, Drug Form: INJ, Dosing Weight 68.295, kg, Q12H, Start date: 01/29/17 21:00:00 [employer], Duration: 30 day, Stop date: 02/28/17 9:00:00 CSTNotes: (Same as: BD Posiflush) No Longer Active 01/30/2017 [facility] Glucagon 1 mg, Route: IM, Drug form: PDR/INJ, PRN, Dosing Weight 68.295, kg, PRN Blood Glucose Results, Start date: 01/29/17 14:20:00 [employer], Duration: 30 day, Stop date: 02/28/17 14:19:00 [employer] No Longer Active 01/29/2017 [facility] Dextrose 50% Syringe 12.5 gm, 25 mL, Route: IVP, Drug Form: INJ, Dosing Weight 68.295, kg, PRN, PRN Blood Glucose Results, Start date: 01/29/17 14:20:00 [employer], Duration: 30 day, Stop date: 02/28/17 14:19:00 [employer] No Longer Active 01/29/2017 [facility] Saline Flush 0.9% 10 ml, Route: IVP, Drug Form: INJ, Dosing Weight 68.295, kg, PRN, PRN Line Flush, Start date: 01/29/17 14:18:00 [employer], Duration: 30 day, Stop date: 02/28/17 14:17:00 CSTNotes: (Same as: BD Posiflush) No Longer Active 01/29/2017 [facility] heparin 2,100 unit, Route: DIALYSIS, ONCALL, Dosing Weight 68.295, kg, Start date: 01/29/17 14:00:00 [employer], Duration: 1 doses or times Inactive 01/29/2017 [facility] Phenergan 12.5 mg, Route: IV Central, ONCE, Dosing Weight 68.295, kg, Start date: 01/29/17 11:49:00 [employer], Stop date: 01/29/17 11:49:00 [employer] Inactive 01/29/2017 [facility] acetaminophen (ANES) Route: IV, Drug form: INJ, ONCE, Stop date: 01/29/17 11:01:00 [employer] Inactive 01/29/2017 [facility] fentaNYL (ANES) Route: IV, Drug form: INJ, ONCE, Stop date: 01/29/17 9:02:00 [employer] Inactive 01/29/2017 [facility] cisatracurium (ANES) Route: IV, Drug form: INJ, ONCE, Stop date: 01/29/17 9:02:00 [employer] Inactive 01/29/2017 [facility] lidocaine (ANES) Route: IV, Drug form: INJ, ONCE, Stop date: 01/29/17 9:02:00 [employer] Inactive 01/29/2017 [facility] ceFAZolin (ANES) Route: IV, Drug form: INJ, ONCE, Stop date: 01/29/17 9:02:00 [employer] Inactive 01/29/2017 [facility] propofol (ANES) Route: IV, Drug form: INJ, ONCE, Stop date: 01/29/17 9:02:00 [employer] Inactive 01/29/2017 [facility] Naloxone 0.4 mg, 1 mL, Route: IVP, Drug form: INJ, Q2MIN, Dosing Weight 68.295, kg, PRN Narcotic Reversal, Start date: 01/29/17 8:34:00 [employer], Duration: 8 doses or times, Stop date: 01/30/17 0:00:00 CSTNotes: Same as Narcan Inactive 01/29/2017 [facility] Hydralazine 10 mg, 0.5 mL, Route: IVP, Drug form: INJ, Q20Min, Dosing Weight 68.295, kg, PRN Elevated BP, Start date: 01/29/17 8:34:00 [employer], Duration: 2 doses or times, Stop date: 01/30/17 0:00:00 CSTNotes: (Same as: Apresoline) Push over 5 minutes Inactive 01/29/2017 [facility] Ondansetron 4 mg, Route: IVP, ONCE, Dosing Weight 68.295, kg, PRN Nausea & Vomiting, Start date: 01/29/17 8:34:00 [employer] Inactive 01/29/2017 [facility] Fentanyl 25 microgram, 0.5 mL, Route: IVP, Drug form: INJ, Q5Min, Dosing Weight 68.295, kg, PRN Pain Score 4-6, Priority: Routine, Start date: 01/29/17 8:34:00 [employer], Duration: 4 doses or times, Stop date: 01/30/17 0:00:00 CSTNotes: (Same as: Sublimaze) Preservative free. Inactive 01/29/2017 [facility] Flumazenil 0.2 mg, 2 mL, Route: IVP, Drug form: INJ, PRN, Dosing Weight 68.295, kg, PRN Benzodiazepine Reversal, Initial dose, Start date: 01/29/17 8:34:00 [employer], Duration: 30 day, Stop date: 02/28/17 8:33:00 [employer] Notes: (Same as: Romazicon) Inactive 01/29/2017 [facility] sodium chloride 0.9% 1000 ml INJ (ANES) Route: IV, Total Volume: 1,000, Start date: 01/29/17 8:10:00 [employer], Stop date: 01/29/17 9:10:00 [employer] Inactive 01/29/2017 [facility] Insulin, Aspart, Human SUB-Q, PRN, PRN Blood Glucose Results, fsbg >160, 0 Refill(s) Active 01/29/2017 [facility] tiotropium 0.018 MG/ACTUAT Inhalant Powder [Spiriva] 18 microgram=1 cap, INHALATION, Daily, 0 Refill(s) Active 01/29/2017 [facility] AMIODarone 200 mg oral tablet 200 mg=1 tab, PO, Daily, 0 Refill(s) Active 01/29/2017 [facility] atorvastatin 40 mg oral tablet 40 mg=1 tab, PO, Daily, 0 Refill(s) Active 01/29/2017 [facility] predniSONE 10 mg oral tablet 5 mg=0.5 tab, PO, Daily, 0 Refill(s) Active 01/29/2017 [facility] metoprolol tartrate 50 mg oral tablet 50 mg=1 tab, PO, BID, 0 Refill(s) Active 01/29/2017 [facility] bumetanide 2 mg oral tablet 2 mg=1 tab, PO, Daily, 0 Refill(s) Active 01/29/2017 [facility] Aspirin Adult Low Strength 1 tablet Orally Active 81 MG Orally Once a day Nimo 02/06/2015 Isadora Suero Azithromycin 2 tablets on the first day, then 1 tablet daily for 4 days Orally Active 250 MG Orally Once a day Nimo 09/14/2014 Isadora Suero Hematinic/Folic Acid 1 tablet Orally Active 324-1 MG Orally Once a day Nimo 11/04/2013 Isadora Suero Bumetanide 1 tablet Orally Active 2 MG Orally twice a day (bid) Nimo Suero PredniSONE 1 tablet Orally Active 10 mg Orally as directed Nimo Suero Insulin 70/30 not defined NA Active Nimo Suero Ipratropium [place] 2 applications in each nostril as needed Nasally Active 0.03 % Nasally Twice a day Nimo Suero Metoprolol Succinate ER 1 tablet Orally Active 50 MG Orally Once a day Nimo Suero Warfarin Sodium 1 tablet Orally Active 3 MG Orally Once a day Nimo Suero Bumetanide 1 tablet Orally Active 2 MG Orally twice a day (bid) Nimo Suero Budesonide 2 ml Inhalation Active 0.5 MG/2ML Inhalation Once a day Nimo Suero Levalbuterol HCl 3 ml Inhalation Active 1.25 MG/3ML Inhalation every 8 hrs Nimo Suero Atorvastatin Calcium 1 tablet Orally Active 40 MG Orally Once a day Nimo Suero Tiotropium [place] Monohydrate 1 capsule Inhalation Active 18 MCG Inhalation Once a day Nimo Suero Amiodarone HCl 1 tablet Orally Active 200 MG Orally Once a day Nimo Suero Aspirin Adult Low Strength 1 tablet Orally Active 81 MG Orally Once a day Nimo Suero PredniSONE 1 tablet Orally Active 10 mg Orally as directed Nimo Suero Warfarin Sodium 1 tablet Orally Active 2 MG Orally Once a day Nimo Suero Spiriva HandiHaler not defined Inhalation Active 18 MCG Inhalation Nimo Suero Minocycline 1 capsule Orally Active 100 MG Orally every 12 hrs [facility] Losartan Potassium 1 tablet Orally Active 25 MG Orally Once a day [facility] Warfarin Sodium 1 tablet Orally Active 1 MG Orally Once a day [facility] Furosemide 1 tablet Orally Active 40 MG Orally Once a day [facility] Aspirin Adult Low Strength 1 tablet Orally Active 81 MG Orally Once a day [facility] Losartan Potassium 1 tablet Orally Active 25 MG Orally Once a day [facility] Atorvastatin Calcium 1 tablet Orally Active 40 MG Orally Once a day [facility] Tiotropium [place] Monohydrate 1 capsule Inhalation Active 18 MCG Inhalation Once a day [facility] Spiriva HandiHaler 1 capsule Inhalation Active 18 MCG Inhalation Once a day [facility] Carvedilol 1 tablet with food Orally Active 6.25 MG Orally Twice a day [facility] Metformin HCl 1 tablet Orally Active 1000 mg Orally Twice a day [facility] Pantoprazole Sodium 1 tablet Orally Active 40 mg Orally Once a day [facility] Furosemide 1 tablet Orally Active 20 MG Orally Once a day [facility] Clopidogrel Bisulfate 1 tablet Orally No Longer Active 75 mg Orally Once a day [facility] Metoprolol Tartrate 1/2 tablet Orally Active 25 MG Orally Twice a day [facility] Enalapril Maleate 1 tablet Orally Active 2.5 MG Orally Twice a day [facility] Aspirin 1 tablet Orally No Longer Active 81 MG Orally Once a day [facility] Warfarin Sodium 1 tablet Orally Active 5 MG Orally Once a day [facility] Minocycline 1 tablet Orally Active 100 MG Orally Twice a day [facility] Tylenol Unknown Orally Active 500 MG/15ML Orally [facility] Hydrochlorothiazide-25 mg 1 tablet Orally No Longer Active 25 MG Orally Once a day [facility] Allergies, Adverse Reactions, Alerts Substance Category Reaction Severity Reaction type Status Date Reported Comments Source N.K.D.A. Adverse Reaction Info Not Available Adverse Reaction Active 02/11/2017 Isadora Suero Immunizations Immunization Date Given Site Status Last Updated Comments Source Results Order Name Results Value Reference Range Date Interpretation Comments Source CHEM PANEL Phosphorus 3.3 mg/dL 2.5 - 4.5 01/30/2017 [facility] Chest 1view DX Chest 1view DX EXAM: XR CHEST 1 VIEW DATE: 01/30/2017 10:03 AM [employer] INDICATION: - post ppm COMPARISON: 03/13/2016 TECHNIQUE: AP chest FINDINGS: Lines, tubes and hardware: A new left chest wall automatic implantable cardiac defibrillator has its leads in the right atrium, coronary sinus, and right ventricle. A right IJ central line terminates in the distal SVC. Lungs and pleura: No definite pneumothorax is seen within the limitations of this semierect radiograph. A streaky opacity in the left midlung likely represents subsegmental atelectasis. The costophrenic sulci are sharp. Heart and mediastinum: The cardiomediastinal silhouette is mildly enlarged. The aorta is mildly tortuous. Bones: Changes of median sternotomy are noted. IMPRESSION: 1. Interval placement of a new left chest wall automatic implantable cardiac defibrillator without evidence of a pneumothorax. 2. Subsegmental atelectasis of the left midlung. 3. Cardiomegaly. 01/30/2017 - - Read by: Demetris Patterson MD Dictated Date/time: 01/30/17 11:24 Electronically Signed by: Demetris Patterson MD 01/30/17 11:27 FINAL REPORT [facility] CHEM PANEL Magnesium Lvl 2.1 mg/dL 1.8 - 2.4 01/30/2017 [facility] CHEM PANEL BUN 12 mg/dL 7 - 22 01/30/2017 [facility] CHEM PANEL Calcium Lvl 8.7 mg/dL 8.5 - 10.5 01/30/2017 [facility] CHEM PANEL Creatinine Lvl 2.02 mg/dL 0.50 - 1.40 01/30/2017 [facility] CHEM PANEL Glucose Lvl 120 mg/dL 70 - 99 01/30/2017 [facility] CHEM PANEL Sodium Lvl 138 meq/L 135 - 145 01/30/2017 [facility] CHEM PANEL Potassium Lvl 4.3 meq/L 3.5 - 5.1 01/30/2017 [facility] CHEM PANEL AGAP 11.3 meq/L 10.0 - 20.0 01/30/2017 [facility] CHEM PANEL Chloride Lvl 102 meq/L 95 - 109 01/30/2017 [facility] CHEM PANEL CO2 29 meq/L 24 - 32 01/30/2017 [facility] CHEM PANEL eGFR 23 mL/min/1.73m2 01/30/2017 Result Comment: The eGFR is calculated using the CKD-EPI formula. In most young, healthy individuals the eGFR will be >90 mL/min/1.73m2. The eGFR declines with age. An eGFR of 60-89 may be normal in some populations, particularly the elderly, for whom the CKD-EPI formula has not been extensively validated. Use of the eGFR is not recommended in the following populations: Individuals with unstable creatinine concentrations, including patients and those with serious co-morbid conditions. Patients with extremes in muscle mass or diet. The data above are obtained from the National Kidney Disease Education Program (NKDEP) which additionally recommends that when the eGFR is used in patients with extremes of body mass index for purposes of drug dosing, the eGFR should be multiplied by the estimated BMI. [facility] HEMATOLOGY PT 15.2 s 12.0 - 14.7 01/30/2017 [facility] HEMATOLOGY INR 1.19 0.85 - 1.17 01/30/2017 [facility] HEMATOLOGY PTT 25.7 s 22.9 - 35.8 01/30/2017 [facility] HEMATOLOGY Hct 26.9 % 36.0 - 48.0 01/30/2017 [facility] HEMATOLOGY MPV 8.4 fL 7.4 - 10.4 01/30/2017 [facility] HEMATOLOGY MCV 96.7 fL 80.0 - 98.0 01/30/2017 [facility] HEMATOLOGY MCH 32.6 pg 27.0 - 31.0 01/30/2017 [facility] HEMATOLOGY MCHC 33.8 g/dL 32.0 - 36.0 01/30/2017 [facility] HEMATOLOGY RDW 19.3 % 11.5 - 14.5 01/30/2017 [facility] HEMATOLOGY Platelet 136 K/CMM 133 - 450 01/30/2017 [facility] HEMATOLOGY WBC 8.2 K/CMM 3.7 - 10.4 01/30/2017 [facility] HEMATOLOGY RBC 2.78 M/CMM 4.20 - 5.40 01/30/2017 [facility] HEMATOLOGY Hgb 9.1 g/dL 12.0 - 16.0 01/30/2017 [facility] HEMATOLOGY Lymphocytes # 1.0 K/CMM 1.0 - 5.5 01/30/2017 [facility] HEMATOLOGY Monocytes # 0.7 K/CMM 0.0 - 0.8 01/30/2017 [facility] HEMATOLOGY Eosinophils # 0.1 K/CMM 0.0 - 0.5 01/30/2017 [facility] HEMATOLOGY Segs 78.0 % 45.0 - 75.0 01/30/2017 [facility] HEMATOLOGY Lymphocytes 11.8 % 20.0 - 40.0 01/30/2017 [facility] HEMATOLOGY Monocytes 8.8 % 2.0 - 12.0 01/30/2017 [facility] HEMATOLOGY Basophils 0.3 % 0.0 - 1.0 01/30/2017 [facility] HEMATOLOGY Segs-Bands # 6.4 K/CMM 1.5 - 8.1 01/30/2017 [facility] HEMATOLOGY Eosinophils 1.1 % 0.0 - 4.0 01/30/2017 [facility] IMMUNOLOGY Hep B Core Ab Negative *NA* (01/29/17 7:47 PM) Negative 01/30/2017 [facility] IMMUNOLOGY Hep C Ab Negative *NA* (01/29/17 7:47 PM) 01/30/2017 [facility] IMMUNOLOGY Hep Bs Ab null <=7.4 mIU/mL 01/30/2017 [facility] IMMUNOLOGY Hep Bs Ag Negative *NA* (01/29/17 7:47 PM) Negative 01/30/2017 [facility] CARDIAC ENZYMES BNP 1815 pg/mL <=100 pg/mL 01/29/2017 [facility] CHEM PANEL Magnesium Lvl 2.0 mg/dL 1.8 - 2.4 01/29/2017 [facility] CHEM PANEL Globulin 3.2 g/dL 2.7 - 4.2 01/29/2017 [facility] CHEM PANEL A/G Ratio 0.8 0.7 - 1.6 01/29/2017 [facility] CHEM PANEL AST 41 unit/L 0 - 37 01/29/2017 [facility] CHEM PANEL Total Protein 5.8 g/dL 6.4 - 8.4 01/29/2017 [facility] CHEM PANEL Bili Total 0.4 mg/dL 0.2 - 1.3 01/29/2017 [facility] CHEM PANEL Albumin Lvl 2.6 g/dL 3.5 - 5.0 01/29/2017 [facility] CHEM PANEL Alk Phos 87 unit/L 39 - 136 01/29/2017 [facility] CHEM PANEL ALT 30 unit/L 0 - 65 01/29/2017 [facility] CHEM PANEL eGFR 10 mL/min/1.73m2 01/29/2017 Result Comment: The eGFR is calculated using the CKD-EPI formula. In most young, healthy individuals the eGFR will be >90 mL/min/1.73m2. The eGFR declines with age. An eGFR of 60-89 may be normal in some populations, particularly the elderly, for whom the CKD-EPI formula has not been extensively validated. Use of the eGFR is not recommended in the following populations: Individuals with unstable creatinine concentrations, including patients and those with serious co-morbid conditions. Patients with extremes in muscle mass or diet. The data above are obtained from the National Kidney Disease Education Program (NKDEP) which additionally recommends that when the eGFR is used in patients with extremes of body mass index for purposes of drug dosing, the eGFR should be multiplied by the estimated BMI. [facility] CHEM PANEL B/C Ratio 12 6 - 25 01/29/2017 [facility] CHEM PANEL Sodium Lvl 136 meq/L 135 - 145 01/29/2017 [facility] CHEM PANEL Creatinine Lvl 4.16 mg/dL 0.50 - 1.40 01/29/2017 [facility] CHEM PANEL BUN 50 mg/dL 7 - 22 01/29/2017 [facility] CHEM PANEL AGAP 15.1 meq/L 10.0 - 20.0 01/29/2017 [facility] CHEM PANEL Calcium Lvl 7.2 mg/dL 8.5 - 10.5 01/29/2017 [facility] CHEM PANEL CO2 27 meq/L 24 - 32 01/29/2017 [facility] CHEM PANEL Chloride Lvl 99 meq/L 95 - 109 01/29/2017 [facility] CHEM PANEL Potassium Lvl 5.1 meq/L 3.5 - 5.1 01/29/2017 [facility] CHEM PANEL Glucose Lvl 97 mg/dL 70 - 99 01/29/2017 [facility] HEMATOLOGY INR 1.22 0.85 - 1.17 01/29/2017 [facility] HEMATOLOGY PT 15.5 s 12.0 - 14.7 01/29/2017 [facility] HEMATOLOGY PTT 26.1 s 22.9 - 35.8 01/29/2017 [facility] LIPIDS VLDL 27 01/29/2017 [facility] LIPIDS LDL (Calculated) 65 mg/dL <=99 mg/dL 01/29/2017 [facility] LIPIDS Trig 135 mg/dL <=149 mg/dL 01/29/2017 [facility] LIPIDS Chol 169 mg/dL <=199 mg/dL 01/29/2017 [facility] LIPIDS HDL 77 mg/dL >=61 mg/dL 01/29/2017 [facility] LIPIDS CHD Risk 2.19 3.90 - 5.80 01/29/2017 [facility] SPECIAL CHEMISTRY Hgb A1C 7.0 % <=5.6 % 01/29/2017 [facility] BLOOD BANK RESULTS RBC product Product available (01/29/17 8:59 AM) 01/29/2017 [facility] BLOOD BANK RESULTS Antibody Scrn Negative (01/29/17 6:33 AM) 01/29/2017 [facility] BLOOD BANK RESULTS ABO/Rh A POS 01/29/2017 [facility] CHEM PANEL Magnesium Lvl 2.0 mg/dL 1.8 - 2.4 01/29/2017 [facility] CHEM PANEL Total Protein 6.1 g/dL 6.4 - 8.4 01/29/2017 [facility] CHEM PANEL Bili Total 0.4 mg/dL 0.2 - 1.3 01/29/2017 [facility] CHEM PANEL AST 24 unit/L 0 - 37 01/29/2017 [facility] CHEM PANEL ALT 29 unit/L 0 - 65 01/29/2017 [facility] CHEM PANEL Albumin Lvl 2.7 g/dL 3.5 - 5.0 01/29/2017 [facility] CHEM PANEL Alk Phos 105 unit/L 39 - 136 01/29/2017 [facility] CHEM PANEL eGFR 10 mL/min/1.73m2 01/29/2017 Result Comment: The eGFR is calculated using the CKD-EPI formula. In most young, healthy individuals the eGFR will be >90 mL/min/1.73m2. The eGFR declines with age. An eGFR of 60-89 may be normal in some populations, particularly the elderly, for whom the CKD-EPI formula has not been extensively validated. Use of the eGFR is not recommended in the following populations: Individuals with unstable creatinine concentrations, including patients and those with serious co-morbid conditions. Patients with extremes in muscle mass or diet. The data above are obtained from the National Kidney Disease Education Program (NKDEP) which additionally recommends that when the eGFR is used in patients with extremes of body mass index for purposes of drug dosing, the eGFR should be multiplied by the estimated BMI. [facility] CHEM PANEL Chloride Lvl 99 meq/L 95 - 109 01/29/2017 [facility] CHEM PANEL Potassium Lvl 4.7 meq/L 3.5 - 5.1 01/29/2017 [facility] CHEM PANEL Sodium Lvl 136 meq/L 135 - 145 01/29/2017 [facility] CHEM PANEL Calcium Lvl 7.4 mg/dL 8.5 - 10.5 01/29/2017 [facility] CHEM PANEL CO2 29 meq/L 24 - 32 01/29/2017 [facility] CHEM PANEL Creatinine Lvl 4.02 mg/dL 0.50 - 1.40 01/29/2017 [facility] CHEM PANEL BUN 53 mg/dL 7 - 22 01/29/2017 [facility] CHEM PANEL Glucose Lvl 157 mg/dL 70 - 99 01/29/2017 [facility] CHEM PANEL A/G Ratio 0.8 0.7 - 1.6 01/29/2017 [facility] CHEM PANEL Globulin 3.4 g/dL 2.7 - 4.2 01/29/2017 [facility] CHEM PANEL AGAP 12.7 meq/L 10.0 - 20.0 01/29/2017 [facility] CHEM PANEL B/C Ratio 13 6 - 25 01/29/2017 [facility] HEMATOLOGY Eosinophils 1.4 % 0.0 - 4.0 01/29/2017 [facility] HEMATOLOGY Basophils 0.5 % 0.0 - 1.0 01/29/2017 [facility] HEMATOLOGY Segs-Bands # 5.0 K/CMM 1.5 - 8.1 01/29/2017 [facility] HEMATOLOGY Lymphocytes # 1.2 K/CMM 1.0 - 5.5 01/29/2017 [facility] HEMATOLOGY Lymphocytes 17.7 % 20.0 - 40.0 01/29/2017 [facility] HEMATOLOGY Segs 72.0 % 45.0 - 75.0 01/29/2017 [facility] HEMATOLOGY Monocytes # 0.6 K/CMM 0.0 - 0.8 01/29/2017 [facility] HEMATOLOGY Eosinophils # 0.1 K/CMM 0.0 - 0.5 01/29/2017 [facility] HEMATOLOGY Monocytes 8.4 % 2.0 - 12.0 01/29/2017 [facility] HEMATOLOGY PTT 35.5 s 22.9 - 35.8 01/29/2017 [facility] HEMATOLOGY INR 1.21 0.85 - 1.17 01/29/2017 [facility] HEMATOLOGY PT 15.4 s 12.0 - 14.7 01/29/2017 [facility] HEMATOLOGY MCHC 33.7 g/dL 32.0 - 36.0 01/29/2017 [facility] HEMATOLOGY RDW 19.0 % 11.5 - 14.5 01/29/2017 [facility] HEMATOLOGY MCH 32.0 pg 27.0 - 31.0 01/29/2017 [facility] HEMATOLOGY Platelet 143 K/CMM 133 - 450 01/29/2017 [facility] HEMATOLOGY MPV 7.8 fL 7.4 - 10.4 01/29/2017 [facility] HEMATOLOGY MCV 94.8 fL 80.0 - 98.0 01/29/2017 [facility] HEMATOLOGY RBC 2.68 M/CMM 4.20 - 5.40 01/29/2017 [facility] HEMATOLOGY WBC 7.0 K/CMM 3.7 - 10.4 01/29/2017 [facility] HEMATOLOGY Hct 25.4 % 36.0 - 48.0 01/29/2017 [facility] HEMATOLOGY Hgb 8.6 g/dL 12.0 - 16.0 01/29/2017 [facility] BLOOD BANK RESULTS RBC product Product available (01/29/17 6:29 AM) 01/29/2017 [facility] Chest 2 views DX Chest 2 views DX EXAM: Chest 2 views DX HISTORY: CHF, shortness of breath, Biv Icd COMPARISON: 09/20/2014 The cardiac silhouette is prominent with pacing leads placed since the prior study. The leads project in expected position. No pneumothorax is seen. No significant pleural effusion. Moderate discogenic degenerative changes are noted. IMPRESSION: No acute abnormality. 03/13/2016 - - Read by: Terrell Javed MD Dictated Date/time: 03/13/16 15:21 Electronically Signed by: Terrell Javed MD 03/13/16 15:22 FINAL REPORT JUVENAL Mcgee Chest 2 views DX Chest 2 views DX CHEST RADIOGRAPHY CLINICAL HISTORY: 305.1 tobacco use disorder COMPARISON IMAGIN04/08/2013 FINDINGS: Two views of the chest were acquired and submitted for evaluation. There is bibasilar airspace disease noted. The left hemidiaphragm is not well visualized, underlying effusion cannot be excluded. Cardiac silhouette and pulmonary vascularity within normal limits. Degenerative changes of the spine noted. IMPRESSION: Bibasilar airspace disease. Recommend follow-up chest radiograph in 4 to 6 weeks to ensure resolution. 09/20/2014 - - Read by: Marry Stout DO Dictated Date/time: 09/20/14 10:54 Electronically Signed by: Marry Stout DO 09/20/14 11:00 FINAL REPORT JUVENAL ROJASJazz Arely Vital Signs Vital Sign Value Date Comments Source Weight 146 02/11/2017 Isadora Suero Height 64 02/11/2017 Isadora Suero Temperature Oral (F) 97.5 F 02/11/2017 Isadora Suero Heart Rate 60 02/11/2017 Isadora Lozoya Jerjennifer Diastolic (mm Hg) 76 02/11/2017 Mohlily O Mikieouseymour Systolic (mm Hg) 122 02/11/2017 Isadora Sanchezdi Respitory Rate 18 01/30/2017 [facility] Systolic (mm Hg) 105 01/30/2017 [facility] Diastolic (mm Hg) 52 01/30/2017 [facility] Systolic (mm Hg) 106 01/30/2017 [facility] Diastolic (mm Hg) 51 01/30/2017 [facility] Temperature Oral (F) 97.9 F 01/30/2017 [facility] Systolic (mm Hg) 114 01/30/2017 [facility] Diastolic (mm Hg) 55 01/30/2017 [facility] Temperature Oral (F) 97.4 F 01/30/2017 [facility] Temperature Oral (F) 99.6 F 01/30/2017 [facility] Respitory Rate 18 01/30/2017 [facility] Respitory Rate 17 01/29/2017 [facility] Weight 68.295 01/29/2017 [facility] BMI Calculated 25.84 01/29/2017 [facility] Height 162.56 cm 01/29/2017 [facility] Weight 140 12/26/2016 Mohamed O Jeroudi Height 64 12/26/2016 Mohamed O Jeroudi Temperature Oral (F) 96.9 F 12/26/2016 Mohamed O Jeroudi Heart Rate 60 12/26/2016 Mohamed O Jeroudi Diastolic (mm Hg) 70 12/26/2016 Mohamed O Jeroudi Systolic (mm Hg) 130 12/26/2016 Mohamed O Jeroudi Weight 140 11/21/2016 Mohamed O Jeroudi Height 64 11/21/2016 Mohamed O Jeroudi Temperature Oral (F) 97.1 F 11/21/2016 Mohamed O Jeroudi Heart Rate 60 11/21/2016 Mohamed O Jeroudi Diastolic (mm Hg) 80 11/21/2016 Mohamed O Jeroudi Systolic (mm Hg) 130 11/21/2016 Mohamed O Jeroudi Weight 144 10/10/2016 Mohamed O Jeroudi Height 64 10/10/2016 Mohamed O Jeroudi Temperature Oral (F) 97.6 F 10/10/2016 Mohamed O Jeroudi Heart Rate 60 10/10/2016 Mohamed O Jeroudi Diastolic (mm Hg) 80 10/10/2016 Mohamed O Jeroudi Systolic (mm Hg) 132 10/10/2016 Mohamed O Jeroudi Weight 160 09/19/2016 Mohamed O Jeroudi Height 64 09/19/2016 Mohamed O Jeroudi Temperature Oral (F) 97.3 F 09/19/2016 Mohamed O Jeroudi Heart Rate 60 09/19/2016 Mohamed O Jeroudi Diastolic (mm Hg) 82 09/19/2016 Mohamed O Jeroudi Systolic (mm Hg) 130 09/19/2016 Mohamed O Jeroudi Weight 160 09/09/2016 Mohamed O Jeroudi Height 64 09/09/2016 Mohamed O Jeroudi Temperature Oral (F) 98.2 F 09/09/2016 Mohamed O Jeroudi Heart Rate 60 09/09/2016 Mohamed O Jeroudi Diastolic (mm Hg) 92 09/09/2016 Mohamed O Jeroudi Systolic (mm Hg) 146 09/09/2016 Mohamed O Jeroudi Weight 148 03/29/2015 Mohamed O Jeroudi Height 64 03/29/2015 Mohamed O Jeroudi Temperature Oral (F) 97.3 F 03/29/2015 Mohamed O Jeroudi Heart Rate 60 03/29/2015 Mohamed O Jeroudi Diastolic (mm Hg) 70 03/29/2015 Mohamed O Jeroudi Systolic (mm Hg) 140 03/29/2015 Mohamed O Jeroudi Weight 149 03/08/2015 Mohamed O Jeroudi Height 64 03/08/2015 Mohamed O Jeroudi Temperature Oral (F) 97 F 03/08/2015 Mohamed O Jeroudi Heart Rate 60 03/08/2015 Mohamed O Jeroudi Diastolic (mm Hg) 60 03/08/2015 Mohamed O Jeroudi Systolic (mm Hg) 110 03/08/2015 Mohamed O Jeroudi Weight 149 02/06/2015 Mohamed O Jeroudi Height 64 02/06/2015 Mohamed O Jeroudi Temperature Oral (F) 96.3 F 02/06/2015 Mohamed O Jeroudi Heart Rate 63 02/06/2015 Mohamed O Jeroudi Diastolic (mm Hg) 60 02/06/2015 Mohamed O Jeroudi Systolic (mm Hg) 110 02/06/2015 Mohamed O Jeroudi Weight 144 01/02/2015 Mohamed O Jeroudi Height 64 01/02/2015 Mohamed O Jeroudi Temperature Oral (F) 96.7 F 01/02/2015 Mohamed O Jeroudi Heart Rate 63 01/02/2015 Mohamed O Jeroudi Diastolic (mm Hg) 60 01/02/2015 Mohamed O Jeroudi Systolic (mm Hg) 110 01/02/2015 Mohamed O Jeroudi Weight 148 09/14/2014 Mohamed O Jeroudi Height 64 09/14/2014 Mohamed O Jeroudi Temperature Oral (F) 97.2 F 09/14/2014 Isadora Darell Suero Heart Rate 91 09/14/2014 Isadora Darell Mikiejennifer Diastolic (mm Hg) 80 09/14/2014 Isadora Suero Systolic (mm Hg) 130 09/14/2014 Isadora Suero Weight 155 11/04/2013 Isadora Suero Height 64 11/04/2013 Isadora Suero Temperature Oral (F) 97.2 F 11/04/2013 Isadora Delunajennifer Heart Rate 75 11/04/2013 Isadora Darell Mikiejennifer Diastolic (mm Hg) 65 11/04/2013 Isadora Delunajennifer Systolic (mm Hg) 130 11/04/2013 Isadora Suero Encounters Location Location Details Encounter Type Encounter Number Reason For Visit Attending Provider ADM Date DC Date Status Source Isadora Suero MD PA F/U for LAb results [id number] 11/04/2013 11/04/2013 Isadora Suero MD PA F/U for LAb results [id number] 11/04/2013 11/04/2013 Isadora Suero MD PA F/U for LAb results [id number] 11/04/2013 11/04/2013 Isadora Suero MD PA F/U for LAb results [id number] 11/04/2013 11/04/2013 Isadora Suero MD PA F/U for LAb results [id number] 11/04/2013 11/04/2013 Isadora Suero MD PA F/U for LAb results [id number] 11/04/2013 11/04/2013 Isadora Suero, MD PA F/U for LAb results [id number] 11/04/2013 11/04/2013 Isadora Suero [facility] [place] [facility] [id number] Johanna Talbot 12/07/2013 12/08/2013 [facility] [place] MD MARLA Cummins Unknown [id number] 09/14/2014 09/14/2014 MD MARLA Chau Unknown [id number] 09/14/2014 09/14/2014 MD MARLA Chau Unknown [id number] 09/14/2014 09/14/2014 MD MARLA Chau Unknown [id number] 09/14/2014 09/14/2014 Isadora Suero MD PA Unknown [id number] 09/14/2014 09/14/2014 Isadora Suero [facility] [place] [facility] [id number] Enrique Farrar 09/20/2014 09/21/2014 [facility] [place] Isadora Suero MD PA hospital follow up [id number] 01/02/2015 01/02/2015 MD MARLA Chau hospital follow up [id number] 01/02/2015 01/02/2015 MD MARLA Chau hospital follow up [id number] 01/02/2015 01/02/2015 MD MARLA Chau hospital follow up [id number] 01/02/2015 01/02/2015 MD MARLA Chau hospital follow up [id number] 01/02/2015 01/02/2015 Isadora Suero MD PA 4 weeks [id number] 02/06/2015 02/06/2015 Isadora Suero MD PA 4 weeks [id number] 02/06/2015 02/06/2015 Isadora Suero MD PA 4 weeks [id number] 02/06/2015 02/06/2015 Isadora Suero MD PA 4 weeks [id number] 02/06/2015 02/06/2015 Isadora Suero MD PA 4 weeks [id number] 02/06/2015 02/06/2015 Isadora Suero MD PA Unknown [id number] 03/01/2015 03/01/2015 Isadora Suero MD PA Unknown [id number] 03/01/2015 03/01/2015 Isadora Suero MD PA Unknown [id number] 03/01/2015 03/01/2015 Isadora Suero MD PA Unknown [id number] 03/01/2015 03/01/2015 Isadora Suero MD PA Unknown [id number] 03/01/2015 03/01/2015 Isadora Suero MD PA Unknown [id number] 03/01/2015 03/01/2015 Isadora Suero MD PA Results and pacemaker check [id number] 03/08/2015 03/08/2015 Isadora Suero MD PA Results and pacemaker check [id number] 03/08/2015 03/08/2015 Isadora Suero MD PA Results and pacemaker check [id number] 03/08/2015 03/08/2015 Isadora Suero MD PA Results and pacemaker check [id number] 03/08/2015 03/08/2015 Isadora Suero MD PA Results and pacemaker check [id number] 03/08/2015 03/08/2015 Isadora Suero MD PA Unknown [id number] 03/29/2015 03/29/2015 Isadora Suero MD PA Unknown [id number] 03/29/2015 03/29/2015 Isadora Suero MD PA Unknown [id number] 03/29/2015 03/29/2015 Isadora Suero MD PA Unknown [id number] 03/29/2015 03/29/2015 Isadora Suero MD PA Unknown [id number] 03/29/2015 03/29/2015 Isadora Suero [facility] [place] [facility] [id number] Isadora Suero 03/13/2016 03/14/2016 [facility] Inpatient [id number] Oliviakieshadanny Hematpour 01/29/2017 01/30/2017 [facility] Procedures Procedure Code Date Perfomer Comments Source Removal of permanent pacemaker pulse generator with replacement of pacemaker pulse generator; multiple lead system [id number] 01/29/2017 [facility] Kidney operation [id number] [facility] CABG x 2 - Coronary artery bypass grafts x 2 [id number] [facility] Cardiac catheterization<sup>1</sup> [id number] with stent placement [facility] Dialysis catheter [id number] [facility] Kidney operation [id number] [facility]
[2018-02-02 15:28] LABS: BASOPHILS % 0.1 % (0.0-1.0); EOSINOPHILS # (AUTO) 0.1 (0.0-0.4); EOSINOPHILS % 1.5 % (0.0-6.0); HEMATOCRIT 31.2 % (34.2-44.1); HEMOGLOBIN 10.2 g/dL (12.0-16.0); LYMPHOCYTES # (AUTO) 0.9 (1.0-3.2); LYMPHOCYTES % 11.4 % (18.0-39.1); MEAN CORPUSCULAR HEMOGLOBIN 34.2 pg (28-32); MEAN CORPUSCULAR HGB CONC 32.7 g/dL (31-35); MEAN CORPUSCULAR VOLUME 104.7 fL (81-99); MONOCYTES # (AUTO) 0.6 (0.2-0.8); MONOCYTES % 7.7 % (4.4-11.3); NEUTROPHILS # (AUTO) 6.1 (2.1-6.9); NEUTROPHILS % 77.9 % (38.7-80.0); PLATELET COUNT 160 x10e3/uL (140-360); RED BLOOD COUNT 2.98 x10e6/uL (3.6-5.1); RED CELL DISTRIBUTION WIDTH 18.4 % (11.7-14.4)
[2018-02-02 15:46] LABS: ALBUMIN 3.3 g/dL (3.5-5.0); ALBUMIN/GLOBULIN RATIO 1.1 (0.8-2.0); ANION GAP 20.2 mmol/L (8-16); CALCIUM 7.9 mg/dL (8.4-10.2); CREATININE, SERUM 2.32 mg/dL (0.57-1.11); POTASSIUM 4.2 mmol/L (3.5-5.1)
[2018-02-02] MEDS ORDERED: PANTOPRAZOLE 40 MG 10ML VIAL IV ONE (16:24)
[2018-02-02 16:37] LABS: INR 1.19; PROTHROMBIN TIME 16.1 seconds (11.9-14.5)
[2018-02-02 16:38] LABS: PARTIAL THROMBOPLASTIN TIME 29.7 seconds (23.8-35.5)
[2018-02-02 16:52] LABS: CREATINE KINASE MB 0.8 ng/mL (0-5.0)
[2018-02-02] MEDS ORDERED: DEXTROSE 50% SYRINGE 50 ML IV PRN (17:00)
[2018-02-02] MEDS ORDERED: SODIUM CHLORIDE FLUSH 10 ML SYR INJ PRN (17:00)
[2018-02-02] MEDS: PANTOPRAZOL 40MG/SOD CHL 0.9% 50 ML IV SCH ×2 (17:39→22:54)
--- OUTSIDE RECORDS SUMMARY | 2018-02-02 18:31 | XMS REPORT | Clinical Summary ---
Author Author [facility] Address Unknown Phone Unavailable Care Team Providers Care Project Internship Name Role Phone Enrique Farrar PCP Allergies No Known Allergies Medications End Date Status Medication Sig Dispensed Refills Start Date Active tiotropium (SPIRIVA) 18 Inhale 18 mcg 0 mcg inhalation capsule by mouth via inhaler daily. Active predniSONE (DELTASONE) 10 Take 10 mg by 0 MG tablet mouth daily TAKE WITH FOOD . Active atorvastatin (LIPITOR) 40 Take 40 mg by 0 MG tablet mouth daily. Active warfarin (COUMADIN) 1 MG Coumadin 3 mg 30 tablet 0 tablet daily, follow 7 PT/INR with your micro lab analyst for dose adjustment. Goal INR 2-3. First PT/INR Friday with your Medical Billing Service. . Active lisinopril Take 2.5 mg 0 (PRINIVIL,ZESTRIL) 2.5 MG by mouth tablet daily. Active bumetanide (BUMEX) 2 MG Take 2 mg by 0 tablet mouth daily. Active metoprolol (TOPROL-XL) 50 Take 50 mg by 0 MG 24 hr tablet mouth daily. Active amiodarone (PACERONE) 200 Take 200 mg 0 MG tablet by mouth daily. 08/26/2018 Active traMADol (ULTRAM) 50 mg Take 1 tablet 20 tablet 0 tablet (50 mg total) 8 by mouth every 6 (six) hours as needed for Pain. Max Daily Amount: 200 mg 09/04/2017 aspirin 81 MG chewable Take 1 tablet 90 tablet 3 tablet (81 mg total) 7 by mouth daily. Active Problems Problem Noted Date ESRD (end stage renal disease) on dialysis 08/26/2017 ASCENCION (acute kidney injury) 08/24/2016 Oliguria 08/24/2016 Atrial fibrillation 08/24/2016 Acute respiratory insufficiency, postoperative 08/20/2016 Shock circulatory 08/20/2016 Left main coronary artery disease 08/16/2016 Anemia 08/16/2016 Chronic systolic heart failure 08/16/2016 Type 2 diabetes mellitus with hyperglycemia, without long-term current use 08/16/2016 of insulin CAD (coronary atherosclerotic disease): history of PCI in 201308/16/2016 CKD (chronic kidney disease) stage 3, GFR 30-59 ml/min 08/16/2016 COPD (chronic obstructive pulmonary disease) 08/16/2016 Abnormal LFTs 02/23/2014 Metabolic syndrome 01/27/2014 Hepatitis, unspecified 01/27/2014 ASCVD (arteriosclerotic cardiovascular disease) Encounters Care Team Description Date Type Specialty Sandra Parekh MD 08/26/2017 Anesthesia Event John Galindo MD REVISION/LIGATION,A-V FISTULA 08/26/2017 Surgery John Galindo MD Abnormal LFTs 08/26/2017 Hospital Encounter Danelle Monzon RN 08/25/2017 Orders Only Transplant John Galindo MD End stage renal disease (HCC) (Primary Dx) 08/07/2017 Outside Orders Central Scheduling after 02/01/2017 Family History Medical History Relation Name Comments Asthma Mother Relation Name Status Comments Father Mother Social History Date Tobacco Use Types Packs/Day Years Used Former Smoker Smokeless Tobacco: Former Quit: 06/23/2013 User Alcohol Use Drinks/Week oz/Week Comments No Sex Assigned at Date Recorded Not on file Industry Job Start Date Occupation Not on file Not on file Not on file Travel End Travel History Travel Start No recent travel history available. Last Filed Vital Signs Time Taken Vital Sign Reading 08/26/2017 10:15 PM CDT Blood Pressure 156/70 08/26/2017 10:15 PM CDT Pulse 72 08/26/2017 10:15 PM CDT Temperature 36.9 C (98.4 F) 08/26/2017 10:15 PM CDT Respiratory Rate 21 08/26/2017 10:15 PM CDT Oxygen Saturation 95% - Inhaled Oxygen - Concentration 08/26/2017 10:38 AM CDT Weight 70.5 kg (155 lb 6.4 oz) 08/26/2017 10:38 AM CDT Height 167.6 cm (5' 6") 08/26/2017 10:38 AM CDT Body Mass Index 25.08 Plan of Treatment Health Maintenance Due Date Last Done Comments INFLUENZA VACCINE 12/22/2017 Implants Device Identifier Shelf Expiration Date Model / Serial / Lot Implanted Type Area Manufactur er 08/21/2017 [id number] / / [id number] Cath Dlys Trialysis Pwr 30cm Catheter Right: Groin [id number] - [id number] Dialysis BARD:ACCES Implanted: Qty: 1 on 08/20/2016 by Trim Mounter S RAMSES Galindo, John Chang MD Procedures Comments Procedure Name Priority Date/Time Associated Diagnosis TRANSFUSION SERVICE 08/28/2017 REPORT - SCAN 7:52 AM CDT REVISION/LIGATION,A-V 08/26/2017 ESRD (end stage renal FISTULA 6:00 PM CDT disease) (HCC) POCT-GLUCOSE METER Routine 08/26/2017 4:44 PM CDT IR VENOGRAM - EXTREMITY STAT 08/26/2017 UNILATERAL 3:26 PM CDT ECG 12-LEAD Routine 08/26/2017 12:19 PM CDT CBC W/PLT COUNT & AUTO STAT 08/26/2017 DIFFERENTIAL 11:27 AM CDT TYPE AND SCREEN, STAT 08/26/2017 AUTOMATED 11:27 AM CDT HGB/HCT (H&H) - STAT LAB Routine 08/26/2017 11:27 AM CDT GLUCOSE-STAT LAB STAT 08/26/2017 11:27 AM CDT POTASSIUM-STAT LAB STAT 08/26/2017 11:27 AM CDT CBC W/PLT COUNT & AUTO STAT 08/26/2017 DIFFERENTIAL 11:27 AM CDT BASIC METABOLIC PANEL (7) STAT 08/26/2017 11:27 AM CDT PROTHROMBIN TIME/INR STAT 08/26/2017 11:27 AM CDT RHYTHM STRIP - SCAN 04/03/2017 2:21 PM SENIOR DIRECTOR CREATIVE SERVICES after 02/01/2017 Results * TRANSFUSION SERVICE REPORT - SCAN (08/28/2017 7:52 AM CDT) Narrative Performed At * POC-Glucose meter (08/26/2017 4:44 PM CDT) POC-Glucose Meter 99Comment: TESTED AT [facility] 70 - 110 mg/dL [address] Specimen Blood Performing Organization Address City/State/[place] [address] [facility] * IR Venogram - Extremity Unilateral (08/26/2017 3:26 PM CDT) Narrative Performed At FINAL REPORT [facility] Left upper extremity venogram, 08/26/2017. History: Left upper extremity swelling, concern for subclavian occlusion Modality: Fluoroscopy. Approach:Left forearm IV. Specimen: None. Fluoroscopy Time: 2.0 min.Dose: 9.5 mGy. Technique:Contrast was injected via a left forearm IV.Sequential digital images of the left upper extremity were obtained from the wrist through central veins. DSA run of the central vasculature was performed. The patient tolerated the procedure well and left the department in the same condition. 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 Numerous chest wall collaterals are present. 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 History: Left upper extremity swelling, concern for subclavian occlusion Modality: Fluoroscopy. Approach: Left forearm IV. Specimen: None. Fluoroscopy Time: 2.0 min. Dose: 9.5 mGy. Technique: Contrast was injected via a left forearm IV. Sequential digital images of the left upper extremity were obtained from the wrist through central veins. DSA run of the central vasculature was performed. The patient tolerated the procedure well and left the department in the same condition. 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 Numerous chest wall collaterals are present. 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 Signed: Nasim Delgado MD Report Verified Date/Time: 08/26/2017 15:55:31 Reading Location: [place] [address] Angio Body Reading Room Performing Organization Address City/[facility] Phone Number [facility] * Electrocardiogram, 12-lead (08/26/2017 12:19 PM CDT) Narrative Performed At Ventricular Rate 82 BPM GE MUSE Atrial Rate 82 BPM P-R Interval 142 ms QRS Duration 162 ms Q-T Interval 478 ms QTC Calculation(Bazett) 558 ms P [place] 71 degrees R [place] -67 degrees T [place] 90 degrees Electronic ventricular pacemaker No previous ECGs available Underlying atrial rhythm is likely sinus. Confirmed by MD Aburto Mahboob ([id number]) on 08/26/2017 4:12:04 PM Procedure Note Interface, External Ris In - 08/26/2017 4:12 PM CDT Ventricular Rate 82 BPM Atrial Rate 82 BPM P-R Interval 142 ms QRS Duration 162 ms Q-T Interval 478 ms QTC Calculation(Bazett) 558 ms P [place] 71 degrees R [place] -67 degrees T [place] 90 degrees Electronic ventricular pacemaker No previous ECGs available Underlying atrial rhythm is likely sinus. Confirmed by MD Aburto Mahboob ([id number]) on 08/26/2017 4:12:04 PM Performing Organization Address City/[facility] Phone Number [facility] * Potassium-Stat Lab (08/26/2017 11:27 AM CDT) Potassium 3.7 3.6 - 5.5 meq/L [facility] Specimen Blood, Arterial Performing Organization Address City/State[facility] Phone Number [address] * Glucose-Stat Lab (08/26/2017 11:27 AM CDT) Glucose 119 (H) 70 - 110 mg/dL [facility] Specimen Blood, Arterial Performing Organization Address [facility] Phone Number [address] * Type and screen, automated (08/26/2017 11:27 AM CDT) ABO/RH AUTOMATED (BEAKER) A POSITIVE [facility] Ab Scrn NEGATIVE [facility] Specimen Blood Performing Organization Address [facility] Phone Number [address] * HGB/HCT (H&H)-Stat Lab (08/26/2017 11:27 AM CDT) Hemoglobin 11.4 (L) 12.0 - 15.0 g/dL [facility] Hematocrit 34.0 (L) 36.0 - 45.0 % [facility] Specimen Blood, Arterial Performing Organization Address [facility] Phone Number [address] * CBC with platelet count + automated diff (08/26/2017 11:27 AM CDT) WBC 6.4 3.5 - 10.5 K/L [facility] RBC 3.13 (L) 3.93 - 5.22 M/L [facility] Hemoglobin 10.5 (L) 11.2 - 15.7 GM/DL [facility] Hematocrit 32.2 (L) 34.1 - 44.9 % [facility] MCV 102.9 (H) 79.4 - 94.8 fL [facility] MCH 33.5 (H) 25.6 - 32.2 pg [facility] MCHC 32.6 32.2 - 35.5 GM/DL [facility] RDW 15.4 (H) 11.7 - 14.4 % [facility] Platelets 146 (L) 150 - 450 K/CU MM [facility] MPV 9.9 9.4 - 12.3 fL [facility] nRBC 0 0 - 0 /100 WBC [facility] % Neutros 61 % [facility] % Lymphs 20 % [facility] % Monos 10 % [facility] % Eos 8 % [facility] % Baso 0 % [facility] # Neutros 3.90 1.56 - 6.13 K/L [facility] # Lymphs 1.27 1.18 - 3.74 K/L [facility] # Monos 0.62 (H) 0.24 - 0.36 K/L [facility] # Eos 0.50 (H) 0.04 - 0.36 K/L [facility] # Baso 0.02 0.01 - 0.08 K/L [facility] Immature 1 0 - 1 % [facility] Granulocytes-[facility] Specimen Blood Performing Organization Address City/State/Zipcode Phone Number [facility] [address] [place] [address] MEDICAL CENTER * Prothrombin time/INR (08/26/2017 11:27 AM CDT) Protime 15.5 (H) 11.7 - 14.7 seconds [facility] INR 1.2 <=5.9 [facility] Specimen Blood Narrative Performed At RECOMMENDED COUMADIN/WARFARIN INR THERAPY RANGES [facility] STANDARD DOSE: 2.0 - 3.0 Includes: PROPHYLAXIS for venous thrombosis, [facility] systemic embolization; TREATMENT for venous thrombosis and/or pulmonary embolus. HIGH RISK: Target INR is 2.5-3.5 for patients with mechanical heart valves. Performing Organization Address City/[facility] Phone Number [facility] [address] [place], [place] [id number] [facility] * Basic Metabolic Panel (08/26/2017 11:27 AM CDT) Sodium 140 136 - 145 meq/L [facility] Potassium 3.8 3.5 - 5.1 meq/L [facility] Chloride 99 98 - 107 meq/L [facility] CO2 30 (H) 22 - 29 meq/L [facility] BUN 13 7 - 21 mg/dL [facility] Creatinine 3.51 (H) 0.57 - 1.25 mg/dL [facility] Glucose 120 (H) 70 - 105 mg/dL [facility] Calcium 8.5 8.4 - 10.2 mg/dL [facility] EGFR 13Comment: ESTIMATED GFR IS mL/min/1.[address] [facility] NOT ACCURATE CREATININE [facility] CLEARANCE IN PREDICTING GLOMERULAR FILTRATION RATE. ESTIMATED GFR IS NOT APPLICABLE FOR DIALYSIS PATIENTS. Specimen Blood Performing Organization Address City/[facility] Phone Number [facility] [address] [place] [address] [facility] * RHYTHM STRIP - SCAN (04/03/2017 2:21 PM SENIOR DIRECTOR CREATIVE SERVICES) Narrative Performed At after 02/01/2017 Insurance Payer Benefit Subscriber ID Type Phone Address Plan / Group CARE IMPROVEMENT MEDICARE CARE xxxxxxxxx D [id number] Advance Directives For more information, please contact: [facility] [address] [place] [address] Date Inactivated Comments Code Status Date Activated 08/27/2017 12:53 AM Full Code 08/26/2017 10:34 AM This code status was determined by: Patient 09/05/2016 1:31 AM Full Code 08/20/2016 2:50 PM This code status was determined by: Person holding Power of Foreign Broadcast Specialist 08/20/2016 2:50 PM Full Code 08/16/2016 12:29 AM This code status was determined by: Patient
[2018-02-02 19:58] LABS: HEMATOCRIT 25.8 % (34.2-44.1); HEMOGLOBIN 8.4 g/dL (12.0-16.0)
[2018-02-02] MEDS: INSULIN REGULAR, HUMAN 100 UNIT/1 ML 3ML VIAL SQ SCH (22:15)
[2018-02-02 22:40] VITALS: BP 175/72
[2018-02-02 23:11] VITALS: BP 175/72
[2018-02-03] VITALS (7 sets, daily range): BP systolic 111–175; BP diastolic 47–72
[2018-02-03 00:26] LABS: HEMATOCRIT 27.4 % (34.2-44.1); HEMOGLOBIN 8.7 g/dL (12.0-16.0)
[2018-02-03] MEDS: PANTOPRAZOL 40MG/SOD CHL 0.9% 50 ML IV SCH ×5 (02:45→22:38)
[2018-02-03 05:47] LABS: HEMATOCRIT 26.7 % (34.2-44.1); HEMOGLOBIN 8.6 g/dL (12.0-16.0)
[2018-02-03] MEDS: INSULIN REGULAR, HUMAN 100 UNIT/1 ML 3ML VIAL SQ SCH ×4 (07:30→21:00)
[2018-02-03] MEDS: BUMETANIDE 1 MG TAB PO SCH (09:25)
[2018-02-03] MEDS: HYDRALAZINE HCL 25 MG TAB PO SCH ×3 (09:25→21:00)
[2018-02-03] MEDS: CARVEDILOL 3.125 MG TAB PO SCH ×2 (09:26→17:00)
[2018-02-03] MEDS: DOCUSATE SODIUM 100 MG CAP PO SCH ×2 (09:26→17:01)
[2018-02-03] MEDS: AMIODARONE HCL 200 MG TAB PO SCH (09:26)
[2018-02-03] MEDS: ASCORBIC ACID 500 MG TAB PO SCH (09:27)
[2018-02-03] MEDS: METOPROLOL SUCCINATE 50 MG TAB XL PO SCH (09:27)
[2018-02-03] MEDS: LISINOPRIL 2.5 MG TAB PO SCH (09:27)
[2018-02-03] MEDS: SITAGLIPTIN 100 MG TAB PO SCH (09:27)
[2018-02-03] MEDS: FERROUS SULFATE 325 MG TAB PO SCH (09:27)
--- NOTE | 2018-02-03 13:27 | Consultation ---
DATE OF CONSULTATION: February 03, 2018 HISTORY OF PRESENT ILLNESS: This is a 77-year-old female with multiple medical issues who was admitted because of gradual development of anemia apparently. Patient is currently supine, lying in no apparent distress. Denies shortness of breath, nausea or vomiting. Labs show white count 7.8. Hemoglobin 10.2. Potassium 4.2 with a creatinine 2.3. She is status post packed RBC transfusion. LFTs noted. Calcium 7.9. She was last dialyzed yesterday. PAST MEDICAL HISTORY 1. History of GI bleed. 2. Anemia with prior transfusions. 3. Congestive heart failure. 4. Coronary artery disease. 5. Type-2 diabetes. 6. Chronic kidney disease due to type-2 diabetes. 7. History of hypertension. 8. Prior history of cigarette smoking, now has quit. 9. Had an AR, status post angioplasty and stent placement. 10. History of AICD placement. 11. History of secondary hyperparathyroidism. ALLERGIES: NO APPARENT DRUG ALLERGIES. CURRENT MEDICATIONS: Patient is on: 1. Spiriva inhaler. 2. Januvia 100 mg daily. 3. Pantoprazole. 4. Metoprolol 50 mg daily. 5. Lisinopril 2.5 mg daily. 6. Hydralazine 25 mg p.o. t.i.d. 7. Carvedilol 6.25 twice a day. 8. Bumex 2 mg p.o. daily. 9. Amiodarone 200 mg daily. 10. Ascorbic acid 500 mg p.o. daily. SOCIAL HISTORY: Does not smoke or drink. FAMILY HISTORY: Significant for type-2 diabetes and hypertension. PHYSICAL EXAMINATION GENERAL: Awake, alert, lying supine in no apparent distress. VITALS: Blood pressure 111/47. Pulse rate 60. Afebrile. Oxygen saturation 100% on 3 liters nasal cannula. HEAD AND NECK: Arcus senilis noted. Oral mucosa is moist. Neck veins are not distended. LUNGS: Occasional bibasilar rales. HEART: S1 and S2 audible. Soft 2/6 to 3/6 ejection systolic murmur heard over the left sternal border. ABDOMEN: Otherwise soft and nontender. Distended abdomen. Flanks full. No visceromegaly. LOWER EXTREMITIES: No edema. IMPRESSION AND PLAN 1. End-stage renal disease. 2. Mild congestive heart failure. 3. Anemia. 4. Hypertension. 5. Type-2 diabetes. 6. Multiple comorbidities. 7. Possible gastrointestinal bleed. GI has been consulted. Defer workup to GI. I will plan on dialysis tomorrow morning. Will start fluid restriction. Renal diet as well as phosphorus binders. Please see orders. Job#: [id number]
[2018-02-03 14:55] LABS: HEMATOCRIT 27.7 % (34.2-44.1); HEMOGLOBIN 8.7 g/dL (12.0-16.0)
[2018-02-03] MEDS: SEVELAMER CARBONATE 800 MG TAB PO SCH (17:01)
[2018-02-03] MEDS ORDERED: ATORVASTATIN 20 MG TAB PO SCH (21:00)
[2018-02-03] MEDS: ATORVASTATIN 40 MG TAB PO SCH (21:00)
[2018-02-03 21:02] LABS: HEMATOCRIT 26.9 % (34.2-44.1); HEMOGLOBIN 8.5 g/dL (12.0-16.0)
[2018-02-04] VITALS: BP 124/52
[2018-02-04 04:00] VITALS: BP 130/56
[2018-02-04] MEDS: PANTOPRAZOL 40MG/SOD CHL 0.9% 50 ML IV SCH ×5 (05:18→23:49)
[2018-02-04 05:58] LABS: BASOPHILS % 0.4 % (0.0-1.0); EOSINOPHILS # (AUTO) 0.2 (0.0-0.4); EOSINOPHILS % 3.7 % (0.0-6.0); HEMATOCRIT 26.9 % (34.2-44.1); HEMOGLOBIN 8.5 g/dL (12.0-16.0); LYMPHOCYTES # (AUTO) 0.9 (1.0-3.2); LYMPHOCYTES % 15.7 % (18.0-39.1); MEAN CORPUSCULAR HEMOGLOBIN 33.9 pg (28-32); MEAN CORPUSCULAR HGB CONC 31.6 g/dL (31-35); MEAN CORPUSCULAR VOLUME 107.2 fL (81-99); MONOCYTES # (AUTO) 0.4 (0.2-0.8); MONOCYTES % 7.7 % (4.4-11.3); NEUTROPHILS # (AUTO) 3.9 (2.1-6.9); NEUTROPHILS % 71.8 % (38.7-80.0); PLATELET COUNT 123 x10e3/uL (140-360); RED BLOOD COUNT 2.51 x10e6/uL (3.6-5.1); RED CELL DISTRIBUTION WIDTH 17.9 % (11.7-14.4)
[2018-02-04 06:04] LABS: INR 1.06; PROTHROMBIN TIME 14.8 seconds (11.9-14.5)
[2018-02-04 06:12] LABS: ANION GAP 15.7 mmol/L (8-16); CALCIUM 7.3 mg/dL (8.4-10.2); CREATININE, SERUM 4.92 mg/dL (0.57-1.11); MAGNESIUM 1.8 MG/DL (1.3-2.1); POTASSIUM 4.7 mmol/L (3.5-5.1)
[2018-02-04 06:34] LABS: B-TYPE NATRIURETIC PEPTIDE2 545.6 pg/mL (0-100)
[2018-02-04 06:50] LABS: FOLATE 8.6 ng/mL (7.0-15.4)
[2018-02-04] MEDS: TIOTROPIUM 18 MCG INH POWDER INH SCH (06:55)
[2018-02-04 07:27] LABS: FERRITIN 629.51 ng/mL (4.63-204.00)
[2018-02-04] MEDS: INSULIN REGULAR, HUMAN 100 UNIT/1 ML 3ML VIAL SQ SCH ×4 (07:30→21:00)
[2018-02-04 08:11] VITALS: BP 117/56
[2018-02-04] MEDS: CARVEDILOL 3.125 MG TAB PO SCH ×2 (09:00→18:55)
[2018-02-04] MEDS: ASCORBIC ACID 500 MG TAB PO SCH (09:00)
[2018-02-04] MEDS: HYDRALAZINE HCL 25 MG TAB PO SCH ×3 (09:00→21:00)
[2018-02-04] MEDS: SITAGLIPTIN 100 MG TAB PO SCH (09:00)
[2018-02-04] MEDS: DOCUSATE SODIUM 100 MG CAP PO SCH ×2 (09:00→18:54)
[2018-02-04 09:22] VITALS: BP 117/56
[2018-02-04] MEDS: LISINOPRIL 2.5 MG TAB PO SCH (09:22)
[2018-02-04] MEDS: SEVELAMER CARBONATE 800 MG TAB PO SCH ×3 (09:22→17:00)
[2018-02-04] MEDS: BUMETANIDE 1 MG TAB PO SCH (09:22)
[2018-02-04] MEDS: AMIODARONE HCL 200 MG TAB PO SCH (09:22)
[2018-02-04] MEDS: METOPROLOL SUCCINATE 50 MG TAB XL PO SCH (09:22)
[2018-02-04] MEDS: FERROUS SULFATE 325 MG TAB PO SCH (09:22)
[2018-02-04 12:21] LABS: HEMATOCRIT 28.6 % (34.2-44.1); HEMOGLOBIN 9.1 g/dL (12.0-16.0)
[2018-02-04 12:40] VITALS: BP 110/55
[2018-02-04] MEDS ORDERED: HEPARIN SOD (PORCINE) 1000 UNIT/ML SDV IV PRN (16:15)
[2018-02-04] MEDS ORDERED: SODIUM CHLORIDE 0.9% 1000ML 2,000 ML IV PRN (16:15)
[2018-02-04 16:58] LABS: HEMATOCRIT 26.7 % (34.2-44.1); HEMOGLOBIN 8.4 g/dL (12.0-16.0)
[2018-02-04 20:00] VITALS: BP 100/50
[2018-02-04] MEDS: ATORVASTATIN 40 MG TAB PO SCH (21:19)
[2018-02-05] VITALS: BP 98/45
[2018-02-05 04:00] VITALS: BP 119/58
[2018-02-05 04:46] LABS: BASOPHILS % 0.2 % (0.0-1.0); EOSINOPHILS # (AUTO) 0.2 (0.0-0.4); HEMATOCRIT 27.9 % (34.2-44.1); HEMOGLOBIN 8.5 g/dL (12.0-16.0); LYMPHOCYTES # (AUTO) 0.8 (1.0-3.2); LYMPHOCYTES % 14.6 % (18.0-39.1); MEAN CORPUSCULAR HEMOGLOBIN 33.1 pg (28-32); MEAN CORPUSCULAR HGB CONC 30.5 g/dL (31-35); MEAN CORPUSCULAR VOLUME 108.6 fL (81-99); MONOCYTES # (AUTO) 0.5 (0.2-0.8); MONOCYTES % 9.4 % (4.4-11.3); NEUTROPHILS # (AUTO) 3.9 (2.1-6.9); NEUTROPHILS % 72.2 % (38.7-80.0); PLATELET COUNT 129 x10e3/uL (140-360); RED BLOOD COUNT 2.57 x10e6/uL (3.6-5.1); RED CELL DISTRIBUTION WIDTH 18.1 % (11.7-14.4)
[2018-02-05 05:10] LABS: ANION GAP 13.3 mmol/L (8-16); CALCIUM 7.5 mg/dL (8.4-10.2); CREATININE, SERUM 3.23 mg/dL (0.57-1.11); MAGNESIUM 1.8 MG/DL (1.3-2.1); POTASSIUM 4.3 mmol/L (3.5-5.1)
[2018-02-05] MEDS: PANTOPRAZOL 40MG/SOD CHL 0.9% 50 ML IV SCH ×3 (05:36→14:30)
[2018-02-05] MEDS: INSULIN REGULAR, HUMAN 100 UNIT/1 ML 3ML VIAL SQ SCH ×3 (07:30→16:30)
[2018-02-05 08:00] VITALS: BP 115/53
[2018-02-05 08:10] VITALS: BP 119/58
[2018-02-05] MEDS: TIOTROPIUM 18 MCG INH POWDER INH SCH (08:16)
[2018-02-05] MEDS: LISINOPRIL 2.5 MG TAB PO SCH (08:35)
[2018-02-05] MEDS: DOCUSATE SODIUM 100 MG CAP PO SCH ×2 (08:35→17:25)
[2018-02-05] MEDS: BUMETANIDE 1 MG TAB PO SCH (08:35)
[2018-02-05] MEDS: HYDRALAZINE HCL 25 MG TAB PO SCH ×2 (08:35→15:00)
[2018-02-05] MEDS: METOPROLOL SUCCINATE 50 MG TAB XL PO SCH (08:35)
[2018-02-05] MEDS: ASCORBIC ACID 500 MG TAB PO SCH (08:35)
[2018-02-05] MEDS: CARVEDILOL 3.125 MG TAB PO SCH ×2 (08:35→17:26)
[2018-02-05] MEDS: AMIODARONE HCL 200 MG TAB PO SCH (08:35)
[2018-02-05] MEDS: SITAGLIPTIN 100 MG TAB PO SCH (09:00)
[2018-02-05] MEDS ORDERED: PANTOPRAZOLE SO40 MG PO (09:18)
[2018-02-05] MEDS ORDERED: FERROUS SULFAT325 MG PO ×2 (09:21→09:29)
[2018-02-05] MEDS ORDERED: DOCUSATE SODIU100 MG PO (09:21)
[2018-02-05] MEDS ORDERED: OSCAL D PO (09:21)
[2018-02-05] MEDS ORDERED: ASCORBIC ACID500 MG PO (09:21)
[2018-02-05] MEDS ORDERED: LORAZEPAM INJ 2 MG/ML VIAL IV NR (09:30)
[2018-02-05] MEDS: FERROUS SULFATE 325 MG TAB PO SCH (09:41)
[2018-02-05] MEDS ORDERED: FUROSEMIDE INJ 10 MG/ML 2 ML VIAL IV NR (09:45)
[2018-02-05] MEDS: SEVELAMER CARBONATE 800 MG TAB PO SCH ×3 (09:47→17:26)
[2018-02-05] MEDS ORDERED: PROPOFOL IV EMULSION 10 MG/ML 50 ML VIAL ONE (11:00)
[2018-02-05 12:00] VITALS: BP 108/54
[2018-02-05 12:13] LABS: HEMATOCRIT 29.3 % (34.2-44.1); HEMOGLOBIN 8.9 g/dL (12.0-16.0)
[2018-02-05 16:52] VITALS: BP 118/50
--- NOTE | 2018-02-05 17:14 | Operative Report ---
DATE OF PROCEDURE: February 05, 2018 REFERRING PHYSICIAN: Dr. Daniel Rowan. PROCEDURE PERFORMED: Esophagogastroduodenoscopy with biopsies. INDICATIONS FOR PROCEDURE: Anemia, guaiac positive stools. MEDICATION: Patient was done under MAC. Please see anesthesiologist's note. PROCEDURE: With the patient in the left lateral decubitus position, the flexible fiberoptic Olympus gastroscope was introduced into the esophagus under direct visualization without any difficulty. There was some patchy erythema noted in the distal esophagus. The scope was then advanced with ease into the stomach, traversing a small sliding hiatal hernia. Mucosa overlying the antrum and the body revealed some patchy erythema and moderate edema, and biopsies were obtained and sent to stain for H. pylori. Pylorus was of normal contour and shape, was intubated with ease, and the scope was advanced all the way to the 2nd portion of the duodenum. The scope was then withdrawn slowly, and approximately a 5 mm nodule was noted in the distal bulb and that was biopsied. The scope was then withdrawn back into the stomach and retroflexed. Mucosa overlying the fundus and the cardia appeared to be within normal limits. The scope was then straightened out. It was subsequently withdrawn. Patient tolerated procedure well. IMPRESSION: 1. Distal esophagitis, mild. 2. Small sliding hiatal hernia. 3. Gastritis biopsied. Biopsies sent to stain for H. pylori. 4. Approximately 5 mm nodule, distal duodenal bulb, biopsied. PLAN: Follow up histology. Continue current therapy. Job#: [id number] EV cc:DANIEL ROWAN MD
--- NOTE | 2018-02-05 20:18 | Discharge Summary ---
ADMISSION DIAGNOSES 1. Gastrointestinal bleed. 2. End-stage renal disease requiring dialysis. 3. Hypertension. 4. Hyperlipidemia. 5. Atrial fibrillation. 6. Coronary artery disease with stent. 7. Congestive heart failure. DISCHARGE DIAGNOSES 1. Gastrointestinal bleed. 2. End-stage renal disease requiring dialysis. 3. Hypertension. 4. Hyperlipidemia. 5. Atrial fibrillation. 6. Coronary artery disease with stent. 7. Congestive heart failure. 8. Hyponatremia. 9. Hypocalcemia. 10. Gastritis. 11. Esophagitis. HISTORY: The patient has a history of end-stage renal disease with dialysis Friday, Friday, Friday, hypertension, type 2 diabetes, hyperlipidemia, CHF, gastritis, CAD with stent, atrial fibrillation. SURGICAL HISTORY: AICD placement, CABG in 2017, left AV fistula placement, right chest HD catheter placement. FAMILY HISTORY: The patient's daughters have diabetes. SOCIAL HISTORY: The patient denies alcohol and illicit drug use. She admits to quitting tobacco 5 years ago. HOSPITAL COURSE: A 77-year-old female who complains of black stool since last week. Over the last one to two days, the stools have not been black every time. She complains of nausea, but denies vomiting, diarrhea and fever. She was brought from dialysis yesterday per dialysis center staff. On admission, the patient's hemoglobin was 10.2 which quickly dropped to 8.6 the next day. She was started on a PPI drip and GI was consulted. Nephrology was also consulted for dialysis. The patient was resumed on home dose of Bumex, metoprolol and amiodarone. Echo showed an EF of 30% to 35%. EKG showed ventricular pacing. The patient had an EGD on the day of discharge that showed esophagitis and gastritis. The patient will discharge home on home medicines including amiodarone, Lipitor, Bumex, lisinopril, metoprolol, Januvia, Spiriva. She got a new prescription for Protonix, iron. She will also resume her Coumadin 3 mg daily. She will follow up with Dr. Sanford in one week and primary care in one to two weeks. The patient and daughter understand discharge instructions and agree to plan. Vital signs stable. The patient is afebrile. Dictated by: Micheline Caro NP DANIEL RAMOS MD Job#: [id number] [facility]
== END 2018-02-05 18:38 | disposition home or self-care (01) ==
LOC: ER 14:16 → ERHOLD 18:27 → INTOOBSV 18:27 → MED/SURG 22:41 → MED/SURG2 02-04 12:50
PROVIDERS: ADMIT Internal Medicine; ATTEND Internal Medicine
DX: K92.1 Melena (principal); E11.22 Type 2 diabetes mellitus with diabetic chronic kidney disease; N18.6 End stage renal disease; D63.1 Anemia in chronic kidney disease; E11.65 Type 2 diabetes mellitus with hyperglycemia; Z99.2 Dependence on renal dialysis; Z95.0 Presence of cardiac pacemaker; Z95.1 Presence of aortocoronary bypass graft; Z95.810 Presence of automatic (implantable) cardiac defibrillator; I13.2 Hypertensive heart and chronic kidney disease with heart failure and with stage 5 chronic kidney disease, or end stage renal disease; I50.9 Heart failure, unspecified; E78.5 Hyperlipidemia, unspecified; E83.51 Hypocalcemia; I25.10 Atherosclerotic heart disease of native coronary artery without angina pectoris; Z95.5 Presence of coronary angioplasty implant and graft; K20.9 Esophagitis, unspecified; K44.9 Diaphragmatic hernia without obstruction or gangrene; K31.7 Polyp of stomach and duodenum; K21.9 Gastro-esophageal reflux disease without esophagitis; I48.91 Unspecified atrial fibrillation; E87.1 Hypo-osmolality and hyponatremia; Z83.3 Family history of diabetes mellitus; K29.50 Unspecified chronic gastritis without bleeding; K29.80 Duodenitis without bleeding
CPT/HCPCS: 36415 ×4; 43239; 80048 ×2; 80053; 82270; 82550; 82553; 82607; 82728; 82746; 82948 ×4; 83036; 83540; 83735 ×2; 83880 ×2; 84466; 84484; 85014 ×4; 85018 ×4; 85025 ×3; 85610 ×2; 85730 ×2; 86706; 86707; 86850; 86900; 87340; 87350; 88305; 88312; 90935; 93005; 93306; 96361; 99284; G0378 ×4; J1644; J1940; J2060; J7030; 96360

== ENCOUNTER → 2018-03-03 | Outpatient (CLI) | payer MEDICARE ==
[~2018-03-03] MED LIST changes: +OSCAL D PO
--- NOTE | 2018-03-05 10:42 | Diagnostic Imaging Report ---
Examination: Small bowel series. Clinical indication: Anemia. Technique: Barium was ingested by mouth and multiple spot images were obtained of the small bowel, with compression images of the terminal ileum. Fluoroscopy time: 0.3 minutes Air Kerma: 25 mGy Findings: Field Observer abdominal radiograph shows a nonobstructive bowel gas pattern. Multilevel degenerative disc changes of the lumbar spine and degenerative joint disease of the hips. No mass effect or organomegaly. Left upper quadrant calcifications are likely atherosclerotic calcifications of the splenic artery. Small bowel loops are normal in caliber and distribution. Peristalsis, as observed under fluoroscopy, is normal. No evidence of mass or fixed stricture. Spot compression views of the terminal ileum were normal. Lung bases are clear. Cardiomegaly with postsurgical changes of the mediastinum partially visualized. Multiple healing right-sided rib fractures incidentally noted. Impression: Unremarkable fluoroscopic small bowel series. Signed by: Dr. Jose Figueroa M.D. on 03/05/2018 10:39 AM
== END ==
LOC: DX 07:43
PROVIDERS: ATTEND Internal Medicine Gastroenterology
DX: D64.9 Anemia, unspecified (principal)
CPT/HCPCS: 74250

== ENCOUNTER 2018-07-03 17:41 | Inpatient (IN) | payer MEDICARE ==
[~2018-07-03] VITALS: Ht 307.3 cm; Wt 70.3 kg
--- OUTSIDE RECORDS SUMMARY | 2018-07-03 17:44 | XMS REPORT | Clinical Summary ---
Author Author [facility] Address Unknown Phone Unavailable Care Team Providers Care Complaint Investigations Officer Name Role Phone Enrique Farrar PCP Allergies [...] tablet daily, follow 7 PT/INR with your sap portal architect for dose adjustment. Goal INR 2-3. First PT/INR Friday with your Airplane Flight Attendant. . Active lisinopril Take 2.5 mg 0 [...] Dx) 08/07/2017 Outside Orders Central Scheduling after 07/02/2017 Family History Medical History Relation Name Comments [...] Body Mass Index 25.08 Plan of Treatment Not on file Implants Device Identifier Shelf Expiration Date Model / Serial / Lot Implanted Type Area Manufactur er 08/21/2017 [id number] / / [id number] Cath Dlys Trialysis Pwr 30cm Catheter Right: Groin CR [id number] - [id number] Dialysis BARD:ACCES Implanted: Qty: 1 on 08/20/2016 by [facility] Galindo, John Chang MD Procedures [...] PROTHROMBIN TIME/INR STAT 08/26/2017 11:27 AM CDT after 07/02/2017 Results * TRANSFUSION SERVICE REPORT - SCAN (08/28/2017 7:52 AM CDT) Narrative Performed At * POC-Glucose meter (08/26/2017 4:44 PM CDT) POC-Glucose Meter 99Comment: TESTED AT [facility] 70 - 110 mg/dL [address] Specimen Blood Performing Organization Address City/State/[place] [address] [facility] * IR Venogram - Extremity Unilateral (08/26/2017 3:26 PM CDT) Narrative Performed At [facility] Left upper extremity venogram, 08/26/2017. History: Left [...] MD Report Verified Date/Time:08/26/2017 15:55:31 Reading Location: [place] [id number] Angio Body Reading Room Procedure Note Interface, [...] Report Verified Date/Time: 08/26/2017 15:55:31 Reading Location: [place] [id number] Angio Body Reading Room Performing Organization Address City/State/[facility] Phone Number [facility] * Electrocardiogram, 12-lead (08/26/2017 12:19 PM CDT) Narrative Performed At Ventricular Rate 82 BPM GE MUSE Atrial Rate 82 BPM P-R Interval 142 ms QRS Duration 162 ms Q-T Interval 478 ms QTC Calculation(Bazett) 558 ms P Linden 71 degrees R Linden -67 degrees T Linden 90 degrees Electronic ventricular pacemaker No previous ECGs available Underlying atrial rhythm is likely sinus. Confirmed by MD Aburto Mahboob ([id number]) on 08/26/2017 4:12:04 PM Procedure Note Interface, External Ris In - 08/26/2017 4:12 PM CDT Ventricular Rate 82 BPM Atrial Rate 82 BPM P-R Interval 142 ms QRS Duration 162 ms Q-T Interval 478 ms QTC Calculation(Bazett) 558 ms P Linden 71 degrees R Linden -67 degrees T [place]en 90 degrees Electronic ventricular pacemaker No previous ECGs available Underlying atrial rhythm is likely sinus. Confirmed by MD Aburto Mahboob ([id number]) on 08/26/2017 4:12:04 PM Performing Organization Address City/State/Zipcode Phone Number [facility] * Potassium-Stat Lab (08/26/2017 11:27 AM CDT) Potassium 3.7 3.6 - 5.5 meq/L [facility] Specimen Blood, Arterial Performing Organization Address City/State/Zipcode Phone Number [place] [phone] * Glucose-Stat Lab (08/26/2017 11:27 AM CDT) Glucose 119 (H) 70 - 110 mg/dL [facility] Specimen Blood, Arterial Performing Organization Address [facility] Phone Number [address] * Type and screen, automated (08/26/2017 11:27 AM CDT) ABO/RH AUTOMATED (BEAKER) A POSITIVE [facility] Ab Scrn NEGATIVE [facility] Specimen Blood Performing Organization Address [facility] Phone Number [address] * HGB/HCT (H&H)-Stat Lab (08/26/2017 11:27 AM CDT) Hemoglobin 11.4 (L) 12.0 - 15.0 g/dL [facility] Hematocrit 34.0 (L) 36.0 - 45.0 % [facility] Specimen Blood, Arterial Performing Organization Address [facility] Phone Number [address] * CBC with platelet count + automated diff (08/26/2017 11:27 AM CDT) WBC 6.4 3.5 - 10.5 K/L [facility] RBC 3.13 (L) 3.93 - 5.22 M/L [facility] Hemoglobin 10.5 (L) 11.2 - 15.7 GM/DL [facility] Hematocrit 32.2 (L) 34.1 - 44.9 % [facility] MCV 102.9 (H) 79.4 - 94.8 fL [facility] MCH 33.5 (H) 25.6 - 32.2 pg [facility] MCHC 32.6 32.2 - 35.5 GM/DL [facility] RDW 15.4 (H) 11.7 - 14.4 % [facility] Platelets 146 (L) 150 - 450 K/CU MM [facility] MPV 9.9 9.4 - 12.3 fL [facility] nRBC 0 0 - 0 /100 WBC [facility] % Neutros 61 % [facility] % Lymphs 20 % [facility] % Monos 10 % [facility] % Eos 8 % [facility] % Baso 0 % [facility] # Neutros 3.90 1.56 - 6.13 K/L [facility] # Lymphs 1.27 1.18 - 3.74 K/L [facility] # Monos 0.62 (H) 0.24 - 0.36 K/L [facility] # Eos 0.50 (H) 0.04 - 0.36 K/L [facility] # Baso 0.02 0.01 - 0.08 K/L [facility] Immature 1 0 - 1 % [facility] Granulocytes-[facility] Specimen Blood Performing Organization Address City/State/Zipcode Phone Number [facility] [address] [place] [address] MED[facility]ENTER * Prothrombin time/INR (08/26/2017 11:27 AM CDT) Protime 15.5 (H) 11.7 - 14.7 seconds [facility] INR 1.2 <=5.9 [facility] Specimen Blood Narrative Performed At RECOMMENDED COUMADIN/WARFARIN INR THERAPY RANGES [facility] STANDARD DOSE: 2.0 - 3.0 Includes: PROPHYLAXIS for venous thrombosis, [facility] systemic embolization; TREATMENT for venous thrombosis and/or pulmonary embolus. HIGH RISK: Target INR is 2.5-3.5 for patients with mechanical heart valves. Performing Organization Address [facility] Phone Number [facility] [address] [place], [place] [id number] [facility] * Basic Metabolic Panel (08/26/2017 11:27 AM CDT) Sodium 140 136 - 145 meq/L [facility] Potassium 3.8 3.5 - 5.1 meq/L [facility] Chloride 99 98 - 107 meq/L [facility] CO2 30 (H) 22 - 29 meq/L [facility] BUN 13 7 - 21 mg/dL [facility] Creatinine 3.51 (H) 0.57 - 1.25 mg/dL [facility] Glucose 120 (H) 70 - 105 mg/dL [facility] Calcium 8.5 8.4 - 10.2 mg/dL [facility] EGFR 13Comment: ESTIMATED GFR IS mL/min/1.73 sq m [facility] NOT ACCURATE CREATININE [facility] CLEARANCE IN PREDICTING GLOMERULAR FILTRATION RATE. ESTIMATED GFR IS NOT APPLICABLE FOR DIALYSIS PATIENTS. Specimen Blood Performing Organization Address City/[facility] Phone Number [facility] [address] [place] [address] [facility] after 07/02/2017 Insurance Payer Benefit Subscriber ID Type Phone Address Plan / Group CARE IMPROVEMENT MEDICARE CARE xxxxxxxxx [facility] Advance Directives For more information, please contact: [facility] [address] [place] [address] Date Inactivated Comments Code Status Date Activated 08/27/2017 12:53 AM Full Code 08/26/2017 10:34 AM This code status was determined by: Patient 09/05/2016 1:31 AM Full Code 08/20/2016 2:50 PM This code status was determined by: Person holding Power of Insights Manager 08/20/2016 2:50 PM Full Code 08/16/2016 12:29 AM This code status was determined by: Patient
--- OUTSIDE RECORDS SUMMARY | 2018-07-03 17:45 | XMS REPORT ---
Author Author Isadora Suero Organization [employer] Address Unknown Phone Unavailable Care Team Providers Care Sql Server Dba Name Role Phone Isadora Suero CP Unavailable Allergies, Adverse Reactions, Alerts Substance Reaction Event Type N.K.D.A. Info Not Available Non Drug Allergy Problems Problem Type Condition Code Onset Dates Condition Status Assessment Abnormal EKG R94.31 Active Assessment MT, old I25.2 Active Assessment LBBB (left bundle branch block) I44.7 Active Assessment Diabetes mellitus type II, controlled E11.9 Active Assessment Stented coronary artery Z95.5 Active Assessment 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 (ICD), sequela T82.118S Active Assessment Presence of automatic implantable cardioverter-defibrillator Z95.810 Active Assessment End stage renal disease N18.6 Active Assessment Acute on chronic combined systolic and diastolic congestive heart failure I50.43 Active Problem LBBB (left bundle branch block) I44.7 Active Assessment Atherosclerosis of coronary artery bypass graft of [place] heart without angina pectoris I25.810 Active Problem Abnormal EKG R94.31 Active Assessment Paroxysmal atrial fibrillation I48.0 Active Problem Patient unable to exercise Z72.89 Active Problem Presence of automatic implantable cardioverter-defibrillator Z95.810 Active Problem Atherosclerotic heart disease of [place] coronary artery with angina pectoris I25.119 Active Problem Atherosclerosis of coronary artery bypass graft of [place] heart without angina pectoris I25.810 Active Problem Acute on chronic combined systolic and diastolic congestive heart failure I50.43 Active Problem Status post catheter ablation of atrial flutter Z98.89 Active Problem 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 Active Problem End stage renal disease N18.6 Active Problem Cri (chronic renal insufficiency), stage 4 (severe) N18.4 Active Problem Stented coronary artery Z95.5 Active Problem Paroxysmal atrial fibrillation I48.0 Active Problem Status post aorto-coronary artery bypass graft Z95.1 Active Assessment Status post catheter ablation of atrial flutter Z98.89 Active Problem S/P PTCA (percutaneous transluminal coronary angioplasty) Z98.61 Active Assessment Hypercholesteremia E78.00 Active Problem Systolic CHF, chronic I50.22 Active Problem Former smokeless tobacco use Z87.891 Active Problem MT, old I25.2 Active Problem CAD in [place] artery I25.10 Active Problem Diabetes mellitus type II, controlled E11.9 Active Problem Hypercholesteremia E78.00 Active Problem ICD (implantable cardioverter-defibrillator) battery depletion Z45.02 Active Medications Medication Code System Code Instructions Start Date End Date Status Dosage Warfarin Sodium [facility] 07491180129 3 MG Orally Once a day Active 1 tablet Atorvastatin Calcium [facility] 42725019305 40 mg Orally Once a day Active 1 tablet Amiodarone HCl [facility] 83672875326 200 MG Orally Once a day Active 1 tablet Levalbuterol HCl [facility] 16868249909 1.25 MG/3ML Inhalation every 8 hrs Active 3 ml Spiriva HandiHaler [facility] 25949312084 18 MCG Inhalation Active not defined Insulin 70/30 NDC 0 Active not defined Bumetanide [facility] 09355876222 2 MG Orally Once a day Active 1 tablet Metoprolol Succinate ER [facility] 26201151654 50 MG Orally Once a day Active 1 tablet PredniSONE [facility] 16284514007 10 mg Orally as directed Active 1 tablet Vital Signs Date/Time: July 08, 2017 BMI 26.95 Index Weight 157 lbs Height 64 in Temperature 97.5 F Cardiac Monitoring Heart Rate 60 /min Blood Pressure Diastolic 70 mm Hg Blood Pressure Systolic 142 mm Hg Results No Known Results Summary Purpose [employer] Submission
--- OUTSIDE RECORDS SUMMARY | 2018-07-03 17:45 | XMS REPORT ---
Author Author Mariama Suero Organization [employer] Address Unknown Phone Unavailable Care Team Providers Care Grader Green Meat Name Role Phone Mariama Suero Unavailable Allergies, Adverse Reactions, Alerts Substance Reaction Event Type N.K.D.A. Info Not Available Non Drug Allergy Problems Problem Type Condition Code Onset Dates Condition Status Assessment Abnormal EKG R94.31 Active Assessment PA, old I25.2 Active Assessment LBBB (left bundle [...] Atherosclerosis of coronary artery bypass graft of [place] heart without angina pectoris I25.810 Active Problem Abnormal EKG R94.31 Active Assessment Paroxysmal atrial fibrillation I48.0 Active Problem Patient unable to exercise Z72.89 Active Problem Presence of automatic implantable cardioverter-defibrillator Z95.810 Active Problem Atherosclerotic heart disease of [place] coronary artery with angina pectoris I25.119 Active Problem Atherosclerosis of coronary artery bypass graft of [place] heart without angina pectoris I25.810 Active Problem [...] Former smokeless tobacco use Z87.891 Active Problem PA, old I25.2 Active Problem CAD in [place] artery I25.10 Active Problem Diabetes mellitus type II, controlled E11.9 Active Problem Hypercholesteremia E78.00 Active Problem ICD (implantable cardioverter-defibrillator) battery depletion Z45.02 Active Medications Medication Code System Code Instructions Start Date End Date Status Dosage Atorvastatin Calcium [facility]NOTE 2] 84445637557 40 mg Orally Once a day Active 1 tablet Metoprolol Succinate ER [facility] [place]NOTE 2] 03499169183 50 MG Orally Once a day Active 1 tablet Warfarin Sodium [facility] [place]NOTE 2] 49602680190 3 MG Orally Tu//Sat/Sun; 2 Tablets Fri/Fri/Friday Active 1 tablet Bumetanide [facility] [place]NOTE 2] 81567151044 2 MG Orally Once a day Active 1 tablet Amiodarone HCl [facility] [place]NOTE 2] 19446638270 200 MG Orally Once a day Active 1 tablet PredniSONE [facility] [place]NOTE 2] 88721677369 10 mg Orally as directed Active 1 tablet Lisinopril [facility] [place]NOTE 2] 69901471466 2.5 MG Orally Once a day August 06, 2017 Active 1 tablet Vital Signs Date/Time: Dec 02, 2017 BMI 26.60 Index Weight 155 lbs Height 64 in Temperature 97.7 F Cardiac Monitoring Heart Rate 60 /min Blood Pressure Diastolic 74 mm Hg Blood Pressure Systolic 124 mm Hg Results No Known Results Summary Purpose [employer] Submission
--- OUTSIDE RECORDS SUMMARY | 2018-07-03 17:45 | XMS REPORT | Continuity of Care Document ---
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 Problem 05/27/2018 Isadora Suero Acute on chronic combined systolic and diastolic congestive heart failure Active Diagnosis 05/27/2018 Isadora Suero Status post catheter ablation of atrial flutter Active Problem 05/27/2018 Isadora Suero End stage renal disease Active Diagnosis 05/27/2018 Isadora Suero ICD battery depletion Active Problem 05/27/2018 Isadora Suero Status post aorto-coronary artery bypass graft Active Problem 05/27/2018 Isadora Suero Atherosclerosis of coronary artery bypass graft of [place] heart without angina pectoris Active Diagnosis 05/27/2018 Isadora Suero Cri , stage 4 (severe) Active Problem 05/27/2018 Isadora Suero Stented coronary artery Active Diagnosis 05/27/2018 Isadora Suero Paroxysmal atrial fibrillation Active Diagnosis 05/27/2018 Isadora Suero Abnormal EKG Active Diagnosis 05/27/2018 Isadora Suero S/P PTCA Active Problem 05/27/2018 Isadora Suero Generalized osteoarthritis Active Problem 05/27/2018 Isadora Suero Former smokeless tobacco use Active Problem 05/27/2018 Isadora Suero Hypercholesteremia Active Diagnosis 05/27/2018 Isadora Suero HI, old Active Diagnosis 05/27/2018 Isadora Suero LBBB Active Diagnosis 05/27/2018 Isadora Suero Diabetes mellitus type II, controlled Active Diagnosis 05/27/2018 Isadora Suero Systolic CHF, chronic Active Problem 05/27/2018 Isadora Suero CAD in [place] artery Active Problem 05/27/2018 Isadora Suero 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 , sequela Active Diagnosis 05/27/2018 Isadora Suero Diabetes mellitus Active Diagnosis 07/20/2015 Isadora Suero Generalized osteoarthrosis Active Diagnosis 07/20/2015 Isadora Suero Hypercholesterolemia Active Diagnosis 07/20/2015 Isadora Suero HTN heart dis, benign, with CHF Active Problem 03/02/2015 Isadora Suero Abnormal EKG Active Diagnosis 07/20/2015 Isadora Suero CAD, [place] Coronary Artery Active Diagnosis 07/20/2015 Isadora Suero S/P PTCA Active Diagnosis 07/20/2015 Isadora Suero Equivalent angina Active Diagnosis 07/20/2015 Isadora Suero HI Old myocardial infarction Active Diagnosis 07/20/2015 Isadora [...] Isadora Suero Asthma [facility] (<span ID="[id number]">Confirmed</span>) Resolved Problem 02/02/2017 [facility] CAD (<span ID="[id number]">Confirmed</span>) Resolved Problem 02/02/2017 [facility] ESRD on hemodialysis<sup>1</sup> Resolved Problem 02/02/2017 as of 3 months ago on HD [facility] DM - Diabetes mellitus Resolved Problem 02/02/2017 [facility] HTN - Hypertension Resolved Problem 02/02/2017 [facility] Hyperlipidemia Resolved Problem 02/02/2017 [facility] HI (<span ID="[id number]">Confirmed</span>) Resolved Problem 02/02/2017 [facility] CHRONIC COMBINED SYSTOLIC AND DIASTOLIC Active [facility] Medications Medication Details Route Status Patient Instructions Ordering Provider Order Date Source Lisinopril 1 tablet Orally Active 2.5 MG Orally Once a day Nimo 08/06/2017 Isadora Suero atorvastatin 40 mg, 1 tab, Route: PO, Drug form: TAB, Daily, Dosing Weight 68.295, kg, Start date: 01/30/17 21:00:00 ASSISTANT CLINICAL DIRECTOR, Duration: 30 day, Stop date: 02/28/17 21:00:00 CSTNotes: (Same as: Lipitor) Inactive 01/31/2017 [facility] Acetaminophen 300 MG / Codeine Phosphate 30 MG Oral Tablet [Tylenol with Codeine #3] 1 - 2 tab, PO, Q8H, PRN Pain, X 4 day, # 30 tab, 0 Refill(s) Active 01/30/2017 [facility] Bumetanide 2 mg, 4 tab, Route: PO, Drug form: TAB, Daily, Dosing Weight 68.295, kg, Start date: 01/30/17 9:00:00 ASSISTANT CLINICAL DIRECTOR, Duration: 30 day, Stop date: 02/28/17 9:00:00 CSTNotes: (Same As: Bumex) Inactive 01/30/2017 [facility] Amiodarone 200 mg, 1 tab, Route: PO, Drug form: TAB, Daily, Dosing Weight 68.295, kg, Start date: 01/30/17 9:00:00 ASSISTANT CLINICAL DIRECTOR, Duration: 30 day, Stop date: 02/28/17 9:00:00 CSTNotes: (Same as: Cordarone) Inactive 01/30/2017 [facility] tiotropium 0.018 MG/ACTUAT Inhalant Powder [Spiriva] 18 microgram, 1 inhalation, Route: INHALATION, Drug form: CAP, Daily, Dosing Weight 68.295, kg, Start date: 01/30/17 9:00:00 ASSISTANT CLINICAL DIRECTOR, Duration: 30 day, Stop date: 02/28/17 9:00:00 CSTNotes: (Same As: Spiriva) Inactive 01/30/2017 [facility] Prednisone 5 mg, 1 tab, Route: PO, Drug form: TAB, Daily, Dosing Weight 68.295, kg, Start date: 01/30/17 9:00:00 ASSISTANT CLINICAL DIRECTOR, Duration: 30 day, Stop date: 02/28/17 9:00:00 CSTNotes: Take with food. Inactive 01/30/2017 [facility] Zofran 4 mg, 2 mL, Route: IVP, Drug form: INJ, Q8H, Dosing Weight 68.295, kg, PRN Nausea, Start date: 01/30/17 5:10:00 ASSISTANT CLINICAL DIRECTOR, Duration: 30 day, Stop date: 03/01/17 5:09:00 CSTNotes: (Same as: Zofran) MEDICATION WASTE Product Size: 4 mg Product Wasted: ___ mg Inactive 01/30/2017 [facility] Melatonin 3 mg, 1 tab, Route: PO, Drug form: TAB, Bedtime, Dosing Weight 68.295, kg, PRN Sleep, Start date: 01/29/17 21:09:00 ASSISTANT CLINICAL DIRECTOR, Duration: 30 day, Stop date: 02/28/17 21:08:00 CSTNotes: (Same as: Melatonin) No Longer Active 01/30/2017 [facility] Acetaminophen 325 MG / Hydrocodone Bitartrate 5 MG Oral Tablet [[place] 5/325] 1 tab, Route: PO, Drug Form: TAB, Dosing Weight 68.295, kg, Q6H, PRN Pain Score 1-3, Start date: 01/29/17 21:09:00 ASSISTANT CLINICAL DIRECTOR, Duration: 30 day, Stop date: 02/28/17 21:08:00 CSTNotes: (Same as: [place] 325/5) Do not exceed 4gm/day of acetaminophen. No Longer Active 01/30/2017 [facility] metoprolol tartrate 50 mg, 1 tab, Route: PO, Drug form: TAB, Q12H, Dosing Weight 68.295, kg, Start date: 01/29/17 21:00:00 ASSISTANT CLINICAL DIRECTOR, Duration: 30 day, Stop date: 02/28/17 9:00:00 CSTNotes: (Same as: Lopressor) No Longer Active 01/30/2017 [facility] Saline Flush 0.9% 10 ml, Route: IVP, Drug Form: INJ, Dosing Weight 68.295, kg, Q12H, Start date: 01/29/17 21:00:00 ASSISTANT CLINICAL DIRECTOR, Duration: 30 day, Stop date: 02/28/17 9:00:00 CSTNotes: (Same as: BD Posiflush) No Longer Active 01/30/2017 [facility] Glucagon 1 mg, Route: IM, Drug form: PDR/INJ, PRN, Dosing Weight 68.295, kg, PRN Blood Glucose Results, Start date: 01/29/17 14:20:00 ASSISTANT CLINICAL DIRECTOR, Duration: 30 day, Stop date: 02/28/17 14:19:00 ASSISTANT CLINICAL DIRECTOR No Longer Active 01/29/2017 [facility] Dextrose 50% Syringe 12.5 gm, 25 mL, Route: IVP, Drug Form: INJ, Dosing Weight 68.295, kg, PRN, PRN Blood Glucose Results, Start date: 01/29/17 14:20:00 ASSISTANT CLINICAL DIRECTOR, Duration: 30 day, Stop date: 02/28/17 14:19:00 ASSISTANT CLINICAL DIRECTOR No Longer Active 01/29/2017 [facility] Saline Flush 0.9% 10 ml, Route: IVP, Drug Form: INJ, Dosing Weight 68.295, kg, PRN, PRN Line Flush, Start date: 01/29/17 14:18:00 ASSISTANT CLINICAL DIRECTOR, Duration: 30 day, Stop date: 02/28/17 14:17:00 CSTNotes: (Same as: BD Posiflush) No Longer Active 01/29/2017 [facility] heparin 2,100 unit, Route: DIALYSIS, ONCALL, Dosing Weight 68.295, kg, Start date: 01/29/17 14:00:00 ASSISTANT CLINICAL DIRECTOR, Duration: 1 doses or times Inactive 01/29/2017 [facility] Phenergan 12.5 mg, Route: IV Central, ONCE, Dosing Weight 68.295, kg, Start date: 01/29/17 11:49:00 ASSISTANT CLINICAL DIRECTOR, Stop date: 01/29/17 11:49:00 ASSISTANT CLINICAL DIRECTOR Inactive 01/29/2017 [facility] acetaminophen (ANES) Route: IV, Drug form: INJ, ONCE, Stop date: 01/29/17 11:01:00 ASSISTANT CLINICAL DIRECTOR Inactive 01/29/2017 [facility] fentaNYL (ANES) Route: IV, Drug form: INJ, ONCE, Stop date: 01/29/17 9:02:00 ASSISTANT CLINICAL DIRECTOR Inactive 01/29/2017 [facility] cisatracurium (ANES) Route: IV, Drug form: INJ, ONCE, Stop date: 01/29/17 9:02:00 ASSISTANT CLINICAL DIRECTOR Inactive 01/29/2017 [facility] lidocaine (ANES) Route: IV, Drug form: INJ, ONCE, Stop date: 01/29/17 9:02:00 ASSISTANT CLINICAL DIRECTOR Inactive 01/29/2017 [facility] ceFAZolin (ANES) Route: IV, Drug form: INJ, ONCE, Stop date: 01/29/17 9:02:00 ASSISTANT CLINICAL DIRECTOR Inactive 01/29/2017 [facility] propofol (ANES) Route: IV, Drug form: INJ, ONCE, Stop date: 01/29/17 9:02:00 ASSISTANT CLINICAL DIRECTOR Inactive 01/29/2017 [facility] Naloxone 0.4 mg, 1 mL, Route: IVP, Drug form: INJ, Q2MIN, Dosing Weight 68.295, kg, PRN Narcotic Reversal, Start date: 01/29/17 8:34:00 ASSISTANT CLINICAL DIRECTOR, Duration: 8 doses or times, Stop date: 01/30/17 0:00:00 CSTNotes: Same as Narcan Inactive 01/29/2017 [facility] Hydralazine 10 mg, 0.5 mL, Route: IVP, Drug form: INJ, Q20Min, Dosing Weight 68.295, kg, PRN Elevated BP, Start date: 01/29/17 8:34:00 ASSISTANT CLINICAL DIRECTOR, Duration: 2 doses or times, Stop date: 01/30/17 0:00:00 CSTNotes: (Same as: Apresoline) Push over 5 minutes Inactive 01/29/2017 [facility] Ondansetron 4 mg, Route: IVP, ONCE, Dosing Weight 68.295, kg, PRN Nausea & Vomiting, Start date: 01/29/17 8:34:00 ASSISTANT CLINICAL DIRECTOR Inactive 01/29/2017 [facility] Fentanyl 25 microgram, 0.5 mL, Route: IVP, Drug form: INJ, Q5Min, Dosing Weight 68.295, kg, PRN Pain Score 4-6, Priority: Routine, Start date: 01/29/17 8:34:00 ASSISTANT CLINICAL DIRECTOR, Duration: 4 doses or times, Stop date: 01/30/17 0:00:00 CSTNotes: (Same as: Sublimaze) Preservative free. Inactive 01/29/2017 [facility] Flumazenil 0.2 mg, 2 mL, Route: IVP, Drug form: INJ, PRN, Dosing Weight 68.295, kg, PRN Benzodiazepine Reversal, Initial dose, Start date: 01/29/17 8:34:00 ASSISTANT CLINICAL DIRECTOR, Duration: 30 day, Stop date: 02/28/17 8:33:00 ASSISTANT CLINICAL DIRECTOR Notes: (Same as: Romazicon) Inactive 01/29/2017 [facility] sodium chloride 0.9% 1000 ml INJ (ANES) Route: IV, Total Volume: 1,000, Start date: 01/29/17 8:10:00 ASSISTANT CLINICAL DIRECTOR, Stop date: 01/29/17 9:10:00 ASSISTANT CLINICAL DIRECTOR Inactive 01/29/2017 [facility] Insulin, Aspart, Human SUB-Q, PRN, PRN Blood Glucose Results, fsbg >160, 0 Refill(s) Active 01/29/2017 [facility] tiotropium 0.018 MG/ACTUAT Inhalant Powder [Spiriva] 18 microgram=1 cap, INHALATION, Daily, 0 Refill(s) Active 01/29/2017 [facility] AMIODarone 200 mg oral tablet 200 mg=1 tab, PO, Daily, 0 Refill(s) Active 01/29/2017 [facility] atorvastatin 40 mg oral tablet 40 mg=1 tab, PO, Daily, 0 Refill(s) Active 01/29/2017 [facility] predniSONE 10 mg oral tablet 5 mg=0.5 tab, PO, Daily, 0 Refill(s) Active 01/29/2017 [facility] metoprolol tartrate 50 mg oral tablet 50 mg=1 tab, PO, BID, 0 Refill(s) Active 01/29/2017 [facility] bumetanide 2 mg oral tablet 2 mg=1 tab, PO, Daily, 0 Refill(s) Active 01/29/2017 [facility] Aspirin Adult Low Strength 1 tablet Orally [...] 10 mg Orally as directed Nimo Suero Minocycline 1 capsule Orally Active 100 MG Orally every 12 hrs Nimo Suero Tiotropium [place] Monohydrate 1 capsule Inhalation Active 18 MCG Inhalation Once a day Nimo Suero Metoprolol Succinate ER 1 tablet Orally Active 50 MG Orally Once a day Nimo Suero PredniSONE 1 tablet Orally Active 10 mg Orally as directed Nimo Suero Atorvastatin Calcium 1 tablet Orally Active 40 MG Orally Once a day Nimo Suero Levalbuterol HCl 3 ml Inhalation Active 1.25 MG/3ML Inhalation every 8 hrs Nimo Suero Ipratropium [place] 2 applications in each nostril as needed Nasally Active 0.03 % Nasally Twice a day Nimo Suero Bumetanide 1 tablet Orally Active 2 MG Orally Once a day Nimo Suero Amiodarone HCl 1 tablet Orally Active 200 MG Orally Once a day Nimo Suero Aspirin Adult Low Strength 1 tablet Orally Active 81 MG Orally Once a day Nimo Suero Insulin 70/30 not defined NA Active Nimo Suero Warfarin Sodium 1 tablet Orally Active 3 MG Orally Once a day Nimo Suero Budesonide 2 ml Inhalation Active 0.5 MG/2ML Inhalation Once a day Nimo Suero Warfarin Sodium 1 tablet Orally Active 1 MG Orally Once a day Nimo Suero Spiriva HandiHaler not defined Inhalation Active 18 MCG Inhalation [facility] Warfarin Sodium 1 tablet Orally Active 2 MG Orally Once a day [facility] Losartan Potassium 1 tablet Orally Active 25 MG Orally Once a day [facility] Furosemide 1 tablet Orally Active 40 MG Orally Once a day [facility] Clopidogrel Bisulfate 1 tablet Orally No Longer Active 75 mg Orally Once a day [facility] Pantoprazole Sodium 1 tablet Orally Active 40 mg Orally Once a day [facility] Metoprolol Tartrate 1/2 tablet Orally Active 25 MG Orally Twice a day [facility] Metformin HCl 1 tablet Orally Active 1000 mg Orally Twice a day [facility] Enalapril Maleate 1 tablet Orally Active 2.5 MG Orally Twice a day [facility] Atorvastatin Calcium 1 tablet Orally Active 40 MG Orally Once a day [facility] Tiotropium [place] Monohydrate 1 capsule Inhalation Active 18 MCG Inhalation Once a day [facility] Furosemide 1 tablet Orally Active 20 MG Orally Once a day [facility] Aspirin 1 tablet Orally No Longer Active 81 MG Orally Once a day [facility] Losartan Potassium 1 tablet Orally Active 25 MG Orally Once a day [facility] Spiriva HandiHaler 1 capsule Inhalation Active 18 MCG Inhalation Once a day [facility] Carvedilol 1 tablet with food Orally Active 6.25 MG Orally Twice a day [facility] Aspirin Adult Low Strength 1 tablet Orally Active 81 MG Orally Once a day [facility] Minocycline 1 tablet Orally Active 100 MG Orally Twice a day [facility] Hydrochlorothiazide-25 mg 1 tablet Orally No Longer Active 25 MG Orally Once a day [facility] Tylenol Unknown Orally Active 500 MG/15ML Orally [facility] Warfarin Sodium 1 tablet Orally Active 5 MG Orally Once a day [facility] Atorvastatin Calcium 1 tablet Orally Active 40 mg Orally Once a day [facility] Allergies, Adverse Reactions, Alerts Substance Category Reaction Severity Reaction type Status Date Reported Comments Source N.K.D.A. Adverse Reaction Info Not Available Adverse Reaction Active 12/02/2017 Isadora Suero Immunizations Immunization Date Given Site Status Last Updated Comments Source Results Order Name Results Value Reference Range Date Interpretation Comments Source CHEM PANEL Phosphorus 3.3 mg/dL 2.5 - 4.5 01/30/2017 [facility] Chest 1view DX Chest 1view DX EXAM: XR CHEST 1 VIEW DATE: 01/30/2017 10:03 AM ASSISTANT CLINICAL DIRECTOR INDICATION: - post ppm COMPARISON: 03/13/2016 TECHNIQUE: [...] Demetris Patterson MD 01/30/17 11:27 FINAL REPORT [facility] CHEM PANEL Magnesium Lvl 2.1 mg/dL 1.8 - 2.4 01/30/2017 [facility] CHEM PANEL BUN 12 mg/dL 7 - 22 01/30/2017 [facility] CHEM PANEL Calcium Lvl 8.7 mg/dL 8.5 - 10.5 01/30/2017 [facility] CHEM PANEL Creatinine Lvl 2.02 mg/dL 0.50 - 1.40 01/30/2017 [facility] CHEM PANEL Glucose Lvl 120 mg/dL 70 - 99 01/30/2017 [facility] CHEM PANEL Sodium Lvl 138 meq/L 135 - 145 01/30/2017 [facility] CHEM PANEL Potassium Lvl 4.3 meq/L 3.5 - 5.1 01/30/2017 [facility] CHEM PANEL AGAP 11.3 meq/L 10.0 - 20.0 01/30/2017 [facility] CHEM PANEL Chloride Lvl 102 meq/L 95 - 109 01/30/2017 [facility] CHEM PANEL CO2 29 meq/L 24 - 32 01/30/2017 [facility] CHEM PANEL eGFR 23 mL/min/1.73m2 01/30/2017 Result [...] should be multiplied by the estimated BMI. [facility] HEMATOLOGY PT 15.2 s 12.0 - 14.7 01/30/2017 [facility] HEMATOLOGY INR 1.19 0.85 - 1.17 01/30/2017 [facility] HEMATOLOGY PTT 25.7 s 22.9 - 35.8 01/30/2017 [facility] HEMATOLOGY Hct 26.9 % 36.0 - 48.0 01/30/2017 [facility] HEMATOLOGY MPV 8.4 fL 7.4 - 10.4 01/30/2017 [facility] HEMATOLOGY MCV 96.7 fL 80.0 - 98.0 01/30/2017 [facility] HEMATOLOGY MCH 32.6 pg 27.0 - 31.0 01/30/2017 [facility] HEMATOLOGY MCHC 33.8 g/dL 32.0 - 36.0 01/30/2017 [facility] HEMATOLOGY RDW 19.3 % 11.5 - 14.5 01/30/2017 [facility] HEMATOLOGY Platelet 136 K/CMM 133 - 450 01/30/2017 [facility] HEMATOLOGY WBC 8.2 K/CMM 3.7 - 10.4 01/30/2017 [facility] HEMATOLOGY RBC 2.78 M/CMM 4.20 - 5.40 01/30/2017 [facility] HEMATOLOGY Hgb 9.1 g/dL 12.0 - 16.0 01/30/2017 [facility] HEMATOLOGY Lymphocytes # 1.0 K/CMM 1.0 - 5.5 01/30/2017 [facility] HEMATOLOGY Monocytes # 0.7 K/CMM 0.0 - 0.8 01/30/2017 [facility] HEMATOLOGY Eosinophils # 0.1 K/CMM 0.0 - 0.5 01/30/2017 [facility] HEMATOLOGY Segs 78.0 % 45.0 - 75.0 01/30/2017 [facility] HEMATOLOGY Lymphocytes 11.8 % 20.0 - 40.0 01/30/2017 [facility] HEMATOLOGY Monocytes 8.8 % 2.0 - 12.0 01/30/2017 [facility] HEMATOLOGY Basophils 0.3 % 0.0 - 1.0 01/30/2017 [facility] HEMATOLOGY Segs-Bands # 6.4 K/CMM 1.5 - 8.1 01/30/2017 [facility] HEMATOLOGY Eosinophils 1.1 % 0.0 - 4.0 01/30/2017 [facility] IMMUNOLOGY Hep B Core Ab Negative *NA* (01/29/17 7:47 PM) Negative 01/30/2017 [facility] IMMUNOLOGY Hep C Ab Negative *NA* (01/29/17 7:47 PM) 01/30/2017 [facility] IMMUNOLOGY Hep Bs Ab null <=7.4 mIU/mL 01/30/2017 [facility] IMMUNOLOGY Hep Bs Ag Negative *NA* (01/29/17 7:47 PM) Negative 01/30/2017 [facility] CARDIAC ENZYMES BNP 1815 pg/mL <=100 pg/mL 01/29/2017 [facility] CHEM PANEL Magnesium Lvl 2.0 mg/dL 1.8 - 2.4 01/29/2017 [facility] CHEM PANEL Globulin 3.2 g/dL 2.7 - 4.2 01/29/2017 [facility] CHEM PANEL A/G Ratio 0.8 0.7 - 1.6 01/29/2017 [facility] CHEM PANEL AST 41 unit/L 0 - 37 01/29/2017 [facility] CHEM PANEL Total Protein 5.8 g/dL 6.4 - 8.4 01/29/2017 [facility] CHEM PANEL Bili Total 0.4 mg/dL 0.2 - 1.3 01/29/2017 [facility] CHEM PANEL Albumin Lvl 2.6 g/dL 3.5 - 5.0 01/29/2017 [facility] CHEM PANEL Alk Phos 87 unit/L 39 - 136 01/29/2017 [facility] CHEM PANEL ALT 30 unit/L 0 - 65 01/29/2017 [facility] CHEM PANEL eGFR 10 mL/min/1.73m2 01/29/2017 Result [...] should be multiplied by the estimated BMI. [facility] CHEM PANEL B/C Ratio 12 6 - 25 01/29/2017 [facility] CHEM PANEL Sodium Lvl 136 meq/L 135 - 145 01/29/2017 [facility] CHEM PANEL Creatinine Lvl 4.16 mg/dL 0.50 - 1.40 01/29/2017 [facility] CHEM PANEL BUN 50 mg/dL 7 - 22 01/29/2017 [facility] CHEM PANEL AGAP 15.1 meq/L 10.0 - 20.0 01/29/2017 [facility] CHEM PANEL Calcium Lvl 7.2 mg/dL 8.5 - 10.5 01/29/2017 [facility] CHEM PANEL CO2 27 meq/L 24 - 32 01/29/2017 [facility] CHEM PANEL Chloride Lvl 99 meq/L 95 - 109 01/29/2017 [facility] CHEM PANEL Potassium Lvl 5.1 meq/L 3.5 - 5.1 01/29/2017 [facility] CHEM PANEL Glucose Lvl 97 mg/dL 70 - 99 01/29/2017 [facility] HEMATOLOGY INR 1.22 0.85 - 1.17 01/29/2017 [facility] HEMATOLOGY PT 15.5 s 12.0 - 14.7 01/29/2017 [facility] HEMATOLOGY PTT 26.1 s 22.9 - 35.8 01/29/2017 [facility] LIPIDS VLDL 27 01/29/2017 [facility] LIPIDS LDL (Calculated) 65 mg/dL <=99 mg/dL 01/29/2017 [facility] LIPIDS Trig 135 mg/dL <=149 mg/dL 01/29/2017 [facility] LIPIDS Chol 169 mg/dL <=199 mg/dL 01/29/2017 [facility] LIPIDS HDL 77 mg/dL >=61 mg/dL 01/29/2017 [facility] LIPIDS CHD Risk 2.19 3.90 - 5.80 01/29/2017 [facility] SPECIAL CHEMISTRY Hgb A1C 7.0 % <=5.6 % 01/29/2017 [facility] BLOOD BANK RESULTS RBC product Product available (01/29/17 8:59 AM) 01/29/2017 [facility] BLOOD BANK RESULTS Antibody Scrn Negative (01/29/17 6:33 AM) 01/29/2017 [facility] BLOOD BANK RESULTS ABO/Rh A POS 01/29/2017 [facility] CHEM PANEL Magnesium Lvl 2.0 mg/dL 1.8 - 2.4 01/29/2017 [facility] CHEM PANEL Total Protein 6.1 g/dL 6.4 - 8.4 01/29/2017 [facility] CHEM PANEL Bili Total 0.4 mg/dL 0.2 - 1.3 01/29/2017 [facility] CHEM PANEL AST 24 unit/L 0 - 37 01/29/2017 [facility] CHEM PANEL ALT 29 unit/L 0 - 65 01/29/2017 [facility] CHEM PANEL Albumin Lvl 2.7 g/dL 3.5 - 5.0 01/29/2017 [facility] CHEM PANEL Alk Phos 105 unit/L 39 - 136 01/29/2017 [facility] CHEM PANEL eGFR 10 mL/min/1.73m2 01/29/2017 Result [...] should be multiplied by the estimated BMI. [facility] CHEM PANEL Chloride Lvl 99 meq/L 95 - 109 01/29/2017 [facility] CHEM PANEL Potassium Lvl 4.7 meq/L 3.5 - 5.1 01/29/2017 [facility] CHEM PANEL Sodium Lvl 136 meq/L 135 - 145 01/29/2017 [facility] CHEM PANEL Calcium Lvl 7.4 mg/dL 8.5 - 10.5 01/29/2017 [facility] CHEM PANEL CO2 29 meq/L 24 - 32 01/29/2017 [facility] CHEM PANEL Creatinine Lvl 4.02 mg/dL 0.50 - 1.40 01/29/2017 [facility] CHEM PANEL BUN 53 mg/dL 7 - 22 01/29/2017 [facility] CHEM PANEL Glucose Lvl 157 mg/dL 70 - 99 01/29/2017 [facility] CHEM PANEL A/G Ratio 0.8 0.7 - 1.6 01/29/2017 [facility] CHEM PANEL Globulin 3.4 g/dL 2.7 - 4.2 01/29/2017 [facility] CHEM PANEL AGAP 12.7 meq/L 10.0 - 20.0 01/29/2017 [facility] CHEM PANEL B/C Ratio 13 6 - 25 01/29/2017 [facility] HEMATOLOGY Eosinophils 1.4 % 0.0 - 4.0 01/29/2017 [facility] HEMATOLOGY Basophils 0.5 % 0.0 - 1.0 01/29/2017 [facility] HEMATOLOGY Segs-Bands # 5.0 K/CMM 1.5 - 8.1 01/29/2017 [facility] HEMATOLOGY Lymphocytes # 1.2 K/CMM 1.0 - 5.5 01/29/2017 [facility] HEMATOLOGY Lymphocytes 17.7 % 20.0 - 40.0 01/29/2017 [facility] HEMATOLOGY Segs 72.0 % 45.0 - 75.0 01/29/2017 [facility] HEMATOLOGY Monocytes # 0.6 K/CMM 0.0 - 0.8 01/29/2017 [facility] HEMATOLOGY Eosinophils # 0.1 K/CMM 0.0 - 0.5 01/29/2017 [facility] HEMATOLOGY Monocytes 8.4 % 2.0 - 12.0 01/29/2017 [facility] HEMATOLOGY PTT 35.5 s 22.9 - 35.8 01/29/2017 [facility] HEMATOLOGY INR 1.21 0.85 - 1.17 01/29/2017 [facility] HEMATOLOGY PT 15.4 s 12.0 - 14.7 01/29/2017 [facility] HEMATOLOGY MCHC 33.7 g/dL 32.0 - 36.0 01/29/2017 [facility] HEMATOLOGY RDW 19.0 % 11.5 - 14.5 01/29/2017 [facility] HEMATOLOGY MCH 32.0 pg 27.0 - 31.0 01/29/2017 [facility] HEMATOLOGY Platelet 143 K/CMM 133 - 450 01/29/2017 [facility] HEMATOLOGY MPV 7.8 fL 7.4 - 10.4 01/29/2017 [facility] HEMATOLOGY MCV 94.8 fL 80.0 - 98.0 01/29/2017 [facility] HEMATOLOGY RBC 2.68 M/CMM 4.20 - 5.40 01/29/2017 [facility] HEMATOLOGY WBC 7.0 K/CMM 3.7 - 10.4 01/29/2017 [facility] HEMATOLOGY Hct 25.4 % 36.0 - 48.0 01/29/2017 [facility] HEMATOLOGY Hgb 8.6 g/dL 12.0 - 16.0 01/29/2017 [facility] BLOOD BANK RESULTS RBC product Product available (01/29/17 6:29 AM) 01/29/2017 [facility] Chest 2 views DX Chest 2 views [...] Stout DO 09/20/14 11:00 FINAL REPORT JUVENAL Eugeneadena Vital Signs Vital Sign Value Date Comments Source Weight 155 12/02/2017 [facility] Height 64 12/02/2017 [facility] Temperature Oral (F) 97.7 F 12/02/2017 [facility] Heart Rate 60 12/02/2017 [facility] Diastolic (mm Hg) 74 12/02/2017 [facility] Systolic (mm Hg) 124 12/02/2017 [facility] Weight 154 09/30/2017 [facility] Height 64 09/30/2017 [facility] Temperature Oral (F) 98.2 F 09/30/2017 [facility] Heart Rate 60 09/30/2017 [facility] Diastolic (mm Hg) 62 09/30/2017 [facility] Systolic (mm Hg) 118 09/30/2017 [facility] Weight 157 07/08/2017 [facility] Height 64 07/08/2017 [facility] Temperature Oral (F) 97.5 F 07/08/2017 [facility] Heart Rate 60 07/08/2017 [facility] Diastolic (mm Hg) 70 07/08/2017 [facility] Systolic (mm Hg) 142 07/08/2017 [facility] Weight 146 02/11/2017 [facility] Height 64 02/11/2017 [facility] Temperature Oral (F) 97.5 F 02/11/2017 [facility] Heart Rate 60 02/11/2017 [facility] Diastolic (mm Hg) 76 02/11/2017 [facility] Systolic (mm Hg) 122 02/11/2017 [facility] Respitory Rate 18 01/30/2017 [facility] Systolic (mm Hg) 105 01/30/2017 [facility] Diastolic (mm Hg) 52 01/30/2017 [facility] Systolic (mm Hg) 106 01/30/2017 [facility] Diastolic (mm Hg) 51 01/30/2017 [facility] Temperature Oral (F) 97.9 F 01/30/2017 [facility] Systolic (mm Hg) 114 01/30/2017 [facility] Diastolic (mm Hg) 55 01/30/2017 [facility] Temperature Oral (F) 97.4 F 01/30/2017 [facility] Temperature Oral (F) 99.6 F 01/30/2017 [facility] Respitory Rate 18 01/30/2017 [facility] Respitory Rate 17 01/29/2017 [facility] Weight 68.295 01/29/2017 [facility] BMI Calculated 25.84 01/29/2017 [facility] Height 162.56 cm 01/29/2017 [facility] Weight 140 12/26/2016 [facility] O Jer[facility]i Height 64 12/26/2016 Mohamed O [...] Jeroudi Temperature Oral (F) 97.2 F 09/14/2014 [facility] O [facility] Heart Rate 91 09/14/2014 [facility] Diastolic (mm Hg) 80 09/14/2014 [facility] Systolic (mm Hg) 130 09/14/2014 [facility] Weight 155 11/04/2013 [facility] Height 64 11/04/2013 [facility] Temperature Oral (F) 97.2 F 11/04/2013 [facility] O [facility] Heart Rate 75 11/04/2013 [facility] Diastolic (mm Hg) 65 11/04/2013 [facility] O Jer[facility]i Systolic (mm Hg) 130 11/04/2013 [facility]i Encounters Location Location Details Encounter Type Encounter Number Reason For Visit Attending Provider ADM Date DC Date Status Source Isadora Suero MD PA F/U for LAb results [id number] 11/04/2013 11/04/2013 Isadora Suero MD PA F/U for LAb results [id number] 11/04/2013 11/04/2013 Isadora Suero MD PA F/U for LAb results [id number] 11/04/2013 11/04/2013 Isadora Suero MD PA F/U for LAb results [id number] 11/04/2013 11/04/2013 Isadora Suero MD PA F/U for LAb results [id number] 11/04/2013 11/04/2013 Isadora Suero MD PA F/U for LAb results [id number] 11/04/2013 11/04/2013 Isadora Suero MD PA F/U for LAb results [id number] 11/04/2013 11/04/2013 Isadora Suero [facility] [place] [facility] [id number] Johanna [facility] 12/07/2013 12/08/2013 [facility] Unknown [id number] 09/14/2014 09/14/2014 Isadora Suero MD PA Unknown [id number] 09/14/2014 09/14/2014 Isadora Suero MD PA Unknown [id number] 09/14/2014 09/14/2014 MD MARLA Chau Unknown [id number] 09/14/2014 09/14/2014 MD MARLA Chau Unknown [id number] 09/14/2014 09/14/2014 Isadora Suero [facility] [place] [facility] [id number] Enrique Charan 09/20/2014 09/21/2014 [facility] MD MARLA [place] [facility] follow up [id number] 01/02/2015 01/02/2015 MD MARLA Chau hospital follow up [id number] 01/02/2015 01/02/2015 MD MARLA Chau hospital follow up [id number] 01/02/2015 01/02/2015 MD MARLA Chau hospital follow up [id number] 01/02/2015 01/02/2015 MD MARLA Chau hospital follow up [id number] 01/02/2015 01/02/2015 MD MARLA Chau 4 weeks [id number] 02/06/2015 02/06/2015 MD MARLA Chau 4 weeks [id number] 02/06/2015 02/06/2015 Isadora Suero MD PA 4 weeks [id number] 02/06/2015 02/06/2015 Isadora Suero MD PA 4 weeks [id number] 02/06/2015 02/06/2015 Isadora Suero MD PA 4 weeks [id number] 02/06/2015 02/06/2015 MD MARLA Chau Unknown [id number] 03/01/2015 03/01/2015 Isadora Suero MD PA Unknown [id number] 03/01/2015 03/01/2015 Isadora Suero MD PA Unknown [id number] 03/01/2015 03/01/2015 Isadora Suero MD PA Unknown [id number] 03/01/2015 03/01/2015 Isadora Suero MD PA Unknown [id number] 03/01/2015 03/01/2015 Isadora Suero MD PA Unknown [id number] 03/01/2015 03/01/2015 Isadora Suero MD PA Results and pacemaker check [id number] 03/08/2015 03/08/2015 Isadora Suero MD PA Results and pacemaker check [id number] 03/08/2015 03/08/2015 Isadora Suero MD PA Results and pacemaker check [id number] 03/08/2015 03/08/2015 Isadora Suero MD PA Results and pacemaker check [id number] 03/08/2015 03/08/2015 Isadora Suero MD PA Results and pacemaker check [id number] 03/08/2015 03/08/2015 Isadora Suero MD PA Unknown [id number] 03/29/2015 03/29/2015 Isadora Suero MD PA Unknown [id number] 03/29/2015 03/29/2015 Isadora Suero MD PA Unknown [id number] 03/29/2015 03/29/2015 Isadora Suero MD PA Unknown [id number] 03/29/2015 03/29/2015 Isadora Suero MD PA Unknown [id number] 03/29/2015 03/29/2015 Isadora Suero [facility] [place] [facility] [id number] Jessicalily Delunajennifer 03/13/2016 03/14/2016 [facility] [id number] Dedra Hematpour 01/29/2017 01/30/2017 [facility] Procedures Procedure Code Date Perfomer Comments Source Removal of permanent pacemaker pulse generator with replacement of pacemaker pulse generator; multiple lead system [id number] 01/29/2017 [facility] Kidney operation [id number] HARSAH Diaza CABG x 2 - Coronary artery bypass grafts x 2 [id number] [facility] Cardiac catheterization<sup>1</sup> [id number] with stent placement [facility] Dialysis catheter [id number] [facility] Kidney operation [id number] [facility]
--- OUTSIDE RECORDS SUMMARY | 2018-07-03 17:45 | XMS REPORT ---
Author Author Isadora Suero Organization [employer] Address Unknown Phone Unavailable Care Team Providers Care Round Kiln Drawer Name Role Phone Isadora Suero CP Unavailable Allergies, Adverse Reactions, Alerts Substance Reaction Event Type N.K.D.A. 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.] Former smokeless tobacco use Z87.891 Active Problem LA, 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 Active Problem CAD in [place] artery I25.10 Active Problem Diabetes mellitus type II, controlled E11.9 Active Problem Hypercholesteremia E78.00 Active Problem ICD (implantable cardioverter-defibrillator) battery depletion Z45.02 Active Medications Medication Code System Code Instructions Start Date End Date Status Dosage Amiodarone HCl [facility] 36663719326 200 MG Orally Once a day Active 1 tablet Bumetanide [facility] 30246405491 2 MG Orally Once a day Active 1 tablet PredniSONE [facility] 97999731329 10 mg Orally as directed Active 1 tablet Levalbuterol HCl [facility] 83731108786 1.25 MG/3ML Inhalation every 8 hrs Active 3 ml Lisinopril [facility] 91853395254 2.5 MG Orally Once a day August 06, 2017 Active 1 tablet Warfarin Sodium [facility] 82336625883 3 MG Orally Once a day Active 1 tablet Atorvastatin Calcium [facility] 67816900321 40 mg Orally Once a day Active 1 tablet Metoprolol Succinate ER [facility] 20861711908 50 MG Orally Once a day Active 1 tablet Spiriva HandiHaler [facility] 26369073028 18 MCG Inhalation Active not defined Insulin 70/30 NDC 0 Active not defined Vital Signs Date/Time: September 30, 2017 BMI 26.43 Index Weight 154 lbs Height 64 in Temperature 98.2 F Cardiac Monitoring Heart Rate 60 /min Blood Pressure Diastolic 62 mm Hg Blood Pressure Systolic 118 mm Hg Results No Known Results Summary Purpose [employer] Submission
--- NOTE | 2018-07-03 17:58 | NUR ---
Pt offerred the language line for translation. Pt refused stated she wanted her daughter to translate if necessary because she is her apprentice technician.
[2018-07-03] MEDS ORDERED: ALBUTEROL/IPRATROPIUM 3 ML NEB NEB ONE (18:15)
[2018-07-03 18:48] LABS: BASOPHILS % 0.4 % (0.0-1.0); EOSINOPHILS % 0.1 % (0.0-6.0); HEMATOCRIT 38.1 % (34.2-44.1); HEMOGLOBIN 12.2 g/dL (12.0-16.0); LYMPHOCYTES # (AUTO) 0.5 (1.0-3.2); LYMPHOCYTES % 4.5 % (18.0-39.1); MEAN CORPUSCULAR HEMOGLOBIN 32.5 pg (28-32); MEAN CORPUSCULAR VOLUME 101.6 fL (81-99); MONOCYTES # (AUTO) 0.9 (0.2-0.8); MONOCYTES % 8.6 % (4.4-11.3); NEUTROPHILS # (AUTO) 8.8 (2.1-6.9); NEUTROPHILS % 85.1 % (38.7-80.0); PLATELET COUNT 136 x10e3/uL (140-360); RED BLOOD COUNT 3.75 x10e6/uL (3.6-5.1); RED CELL DISTRIBUTION WIDTH 14.6 % (11.7-14.4)
--- NOTE | 2018-07-03 18:51 | Diagnostic Imaging Report ---
EXAMINATION: CHEST SINGLE (PORTABLE) INDICATION: Shortness of breath ^SOB ^[id number] ^1822 COMPARISON: 10/24/2017 Findings: TUBES and LINES: AICD is intact. LUNGS: Lungs are not well inflated. There are bibasilar atelectasis. There is perihilar interstitial opacities, consistent with interstitial edema. PLEURA: No pleural effusion or pneumothorax. HEART AND MEDIASTINUM: Cardiac size is moderately enlarged. There are atherosclerotic calcifications within the aorta. BONES AND SOFT TISSUES: No acute osseous lesion. Soft tissues are unremarkable. UPPER ABDOMEN: No free air under the diaphragm. IMPRESSION: 1. Findings consistent with cardiogenic pulmonary edema. 2. No evidence of lobar pneumonia. Signed by: Dr. Bereket Winn M.D. on 07/03/2018 6:47 PM
[2018-07-03 19:07] LABS: ALBUMIN 3.5 g/dL (3.5-5.0); ALBUMIN/GLOBULIN RATIO 0.9 (0.8-2.0); CALCIUM 9.1 mg/dL (8.4-10.2); CREATININE, SERUM 2.18 mg/dL (0.57-1.11); MAGNESIUM 1.8 MG/DL (1.3-2.1)
[2018-07-03] MEDS ORDERED: SODIUM CHLORIDE 0.9% 250ML 250 ML IV ONE (19:15)
[2018-07-03 19:56] LABS: INR 2.87; PROTHROMBIN TIME 30.8 seconds (11.9-14.5)
[2018-07-03 19:57] LABS: PARTIAL THROMBOPLASTIN TIME 82.8 seconds (23.8-35.5)
[2018-07-03] MEDS ORDERED: FUROSEMIDE INJ 10 MG/ML 4 ML VIAL IV ONE (20:00)
[2018-07-03] MEDS ORDERED: VANCOMYCIN 1GM/NS 250 ML 250 ML IV ONE (20:30)
[2018-07-03 20:53] LABS: ABG HCO3 30 mmol/L (23-28); ABG PCO2 45 mmHg (41-51); ABG PH 7.43 (7.31-7.41); ABG PO2 86 mmHg (80-105)
[2018-07-03 21:07] LABS: CLARITY,URINE SL CLOUDY (CLEAR); COLOR,URINE STRAW (YELLOW); KETONES,URINE TRACE (NEGATIVE); LEUKOCYTE ESTERASE ,URINE NEGATIVE (NEGATIVE); NITRITE,URINE NEGATIVE (NEGATIVE); PROTEIN,URINE DIPSTICK 2+ (NEGATIVE); URINE UROBILINOGEN 0.2 mg/dL (0.2 - 1)
[2018-07-03 21:08] LABS: BILIRUBIN,URINE 1+ (NEGATIVE)
[2018-07-03] MEDS: CEFEPIME 2 GM/NS 0.9% 100 ML 100 ML IV SCH (21:11)
[2018-07-03 21:18] LABS: BACTERIA,URINE FEW /HPF; EPITHELIAL CELLS,URINE FEW /LPF
[2018-07-03] MEDS ORDERED: DEXTROSE 50% SYRINGE 50 ML IV PRN (21:30)
--- OUTSIDE RECORDS SUMMARY | 2018-07-03 21:40 | XMS REPORT | Clinical Summary ---
Author Author [facility] Address Unknown Phone Unavailable Care Team Providers Care In Shop Service Technician Name Role Phone Enrique Farrar PCP Allergies [...] tablet daily, follow 7 PT/INR with your sql server consultant for dose adjustment. Goal INR 2-3. First PT/INR Friday with your Beam House Inspector. . Active lisinopril Take 2.5 mg 0 [...] Lot Implanted Type Area Manufactur er 08/21/2017 [id number] / / [id number] Cath Dlys Trialysis Pwr 30cm Catheter Right: Groin CR [id number] - [id number] Dialysis BARD:ACCES Implanted: Qty: 1 on 08/20/2016 by Mcc S RAMSES Galindo, John Chang MD Procedures [...] PM CDT) POC-Glucose Meter 99Comment: TESTED AT [facility] 70 - 110 mg/dL [address] Specimen Blood Performing Organization Address City/State/[place] [address] [facility] * IR Venogram - Extremity Unilateral (08/26/2017 3:26 PM CDT) Narrative Performed At FINAL REPORT [facility] Left upper extremity venogram, 08/26/2017. History: Left [...] MD Report Verified Date/Time:08/26/2017 15:55:31 Reading Location: [place] [address] Angio Body Reading Room Procedure Note Interface, [...] Report Verified Date/Time: 08/26/2017 15:55:31 Reading Location: [place] [address] Angio Body Reading Room Performing Organization Address City/State/[facility] Phone Number [facility] * Electrocardiogram, 12-lead (08/26/2017 12:19 PM CDT) Narrative Performed At Ventricular Rate 82 BPM GE MUSE Atrial Rate 82 BPM P-R Interval 142 ms QRS Duration 162 ms Q-T Interval 478 ms QTC Calculation(Bazett) 558 ms P Elburn 71 degrees R Elburn -67 degrees T Elburn 90 degrees Electronic ventricular pacemaker No previous ECGs available Underlying atrial rhythm is likely sinus. Confirmed by MD Aburto Mahboob ([id number]) on 08/26/2017 4:12:04 PM Procedure Note Interface, External Ris In - 08/26/2017 4:12 PM CDT Ventricular Rate 82 BPM Atrial Rate 82 BPM P-R Interval 142 ms QRS Duration 162 ms Q-T Interval 478 ms QTC Calculation(Bazett) 558 ms P Elburn 71 degrees R Elburn -67 degrees T [place]burn 90 degrees Electronic ventricular pacemaker No previous ECGs available Underlying atrial rhythm is likely sinus. Confirmed by MD Aburto Mahboob ([id number]) on 08/26/2017 4:12:04 PM Performing Organization Address City/State/Zipcode Phone Number [facility] * Potassium-Stat Lab (08/26/2017 11:27 AM CDT) Potassium 3.7 3.6 - 5.5 meq/L [facility] Specimen Blood, Arterial Performing Organization Address City/State/Zipcode Phone Number [place] [phone] [address] * Glucose-Stat Lab (08/26/2017 11:27 AM CDT) Glucose 119 (H) 70 - 110 mg/dL [facility] Specimen Blood, Arterial Performing Organization Address [facility] Phone Number [address] * Type and screen, automated (08/26/2017 11:27 AM CDT) ABO/RH AUTOMATED (BEAKER) A POSITIVE [facility] Ab Scrn NEGATIVE [facility] Specimen Blood Performing Organization Address [facility] Phone Number [address] * HGB/HCT (H&H)-Stat Lab (08/26/2017 11:27 AM CDT) Hemoglobin 11.4 (L) 12.0 - 15.0 g/dL [facility] Hematocrit 34.0 (L) 36.0 - 45.0 % [facility] Specimen Blood, Arterial Performing Organization Address [facility] Phone Number [address] * CBC with platelet count + automated diff (08/26/2017 11:27 AM CDT) WBC 6.4 3.5 - 10.5 K/L [facility] RBC 3.13 (L) 3.93 - 5.22 M/L [facility] Hemoglobin 10.5 (L) 11.2 - 15.7 GM/DL [facility] Hematocrit 32.2 (L) 34.1 - 44.9 % [facility] MCV 102.9 (H) 79.4 - 94.8 fL [facility] MCH 33.5 (H) 25.6 - 32.2 pg [facility] MCHC 32.6 32.2 - 35.5 GM/DL [facility] RDW 15.4 (H) 11.7 - 14.4 % [facility] Platelets 146 (L) 150 - 450 K/CU MM [facility] MPV 9.9 9.4 - 12.3 fL [facility] nRBC 0 0 - 0 /100 WBC [facility] % Neutros 61 % [facility] % Lymphs 20 % [facility] % Monos 10 % [facility] % Eos 8 % [facility] % Baso 0 % [facility] # Neutros 3.90 1.56 - 6.13 K/L [facility] # Lymphs 1.27 1.18 - 3.74 K/L [facility] # Monos 0.62 (H) 0.24 - 0.36 K/L [facility] # Eos 0.50 (H) 0.04 - 0.36 K/L [facility] # Baso 0.02 0.01 - 0.08 K/L [facility] Immature 1 0 - 1 % [facility] Granulocytes-[facility] Specimen Blood Performing Organization Address City/State/Zipcode Phone Number [facility] [address] [place] [address] MED[facility]ENTER * Prothrombin time/INR (08/26/2017 11:27 AM CDT) Protime 15.5 (H) 11.7 - 14.7 seconds [facility] INR 1.2 <=5.9 [facility] Specimen Blood Narrative Performed At RECOMMENDED COUMADIN/WARFARIN INR THERAPY RANGES [facility] STANDARD DOSE: 2.0 - 3.0 Includes: PROPHYLAXIS for venous thrombosis, [facility] systemic embolization; TREATMENT for venous thrombosis and/or pulmonary embolus. HIGH RISK: Target INR is 2.5-3.5 for patients with mechanical heart valves. Performing Organization Address [facility] Phone Number [facility] [address] [place], [place] [id number] [facility] * Basic Metabolic Panel (08/26/2017 11:27 AM CDT) Sodium 140 136 - 145 meq/L [facility] Potassium 3.8 3.5 - 5.1 meq/L [facility] Chloride 99 98 - 107 meq/L [facility] CO2 30 (H) 22 - 29 meq/L [facility] BUN 13 7 - 21 mg/dL [facility] Creatinine 3.51 (H) 0.57 - 1.25 mg/dL [facility] Glucose 120 (H) 70 - 105 mg/dL [facility] Calcium 8.5 8.4 - 10.2 mg/dL [facility] EGFR 13Comment: ESTIMATED GFR IS mL/min/1.73 sq m [facility] NOT ACCURATE CREATININE [facility] CLEARANCE IN PREDICTING GLOMERULAR FILTRATION RATE. ESTIMATED GFR IS NOT APPLICABLE FOR DIALYSIS PATIENTS. Specimen Blood Performing Organization Address City/[facility] Phone Number [facility] [address] [place] [address] [facility] after 07/02/2017 Insurance Payer Benefit Subscriber ID Type Phone Address Plan / Group CARE IMPROVEMENT MEDICARE CARE xxxxxxxxx [facility] Advance Directives For more information, please contact: [facility] [address] [place] [address] Date Inactivated Comments Code Status Date Activated 08/27/2017 12:53 AM Full Code 08/26/2017 10:34 AM This code status was determined by: Patient 09/05/2016 1:31 AM Full Code 08/20/2016 2:50 PM This code status was determined by: Person holding Power of [place] 08/20/2016 2:50 PM Full Code 08/16/2016 12:29 AM This code status was determined by: Patient
[2018-07-03] MEDS: AZITHROMYCIN 500MG/NS 250 ML 250 ML IV SCH (21:51)
[2018-07-03] MEDS: ACETAMINOPHEN 325 MG TAB PO PRN (21:52)
[2018-07-04] VITALS (10 sets, daily range): BP systolic 107–127; BP diastolic 51–63
[2018-07-04] MEDS ORDERED: VANCOMYCIN 1GM/NS 250 ML 250 ML ONE (00:41)
--- NOTE | 2018-07-04 07:10 | NUR ---
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 Dr. Amador team called and aware of the patient.
[2018-07-04] MEDS: INSULIN LISPRO 100 UNIT/1 ML 3ML VIAL SQ SCH ×4 (07:30→21:00)
[2018-07-04 08:00] LABS: BASOPHILS % 0.4 % (0.0-1.0); EOSINOPHILS # (AUTO) 0.2 (0.0-0.4); EOSINOPHILS % 2.9 % (0.0-6.0); HEMATOCRIT 32.8 % (34.2-44.1); HEMOGLOBIN 10.2 g/dL (12.0-16.0); LYMPHOCYTES # (AUTO) 0.4 (1.0-3.2); LYMPHOCYTES % 6.7 % (18.0-39.1); MEAN CORPUSCULAR HEMOGLOBIN 31.9 pg (28-32); MEAN CORPUSCULAR HGB CONC 31.1 g/dL (31-35); MEAN CORPUSCULAR VOLUME 102.5 fL (81-99); MONOCYTES # (AUTO) 0.5 (0.2-0.8); MONOCYTES % 9.2 % (4.4-11.3); NEUTROPHILS # (AUTO) 4.4 (2.1-6.9); NEUTROPHILS % 79.2 % (38.7-80.0); PLATELET COUNT 106 x10e3/uL (140-360); RED CELL DISTRIBUTION WIDTH 14.8 % (11.7-14.4)
[2018-07-04 08:08] LABS: ALBUMIN 2.8 g/dL (3.5-5.0); ALBUMIN/GLOBULIN RATIO 0.9 (0.8-2.0); ANION GAP 13.3 mmol/L (8-16); CALCIUM 8.1 mg/dL (8.4-10.2); CREATININE, SERUM 3.47 mg/dL (0.57-1.11); POTASSIUM 4.3 mmol/L (3.5-5.1)
[2018-07-04 08:29] LABS: CREATINE KINASE MB 1.5 ng/mL (0-5.0)
[2018-07-04] MEDS ORDERED: FUROSEMIDE INJ 10 MG/ML 4 ML VIAL IV SCH (09:00)
[2018-07-04 09:30] LABS: ANISOCYTOSIS SLIGHT; EOSINOPHILS % (MANUAL) 2 % (0-7); LYMPHOCYTES % (MANUAL) 8 % (19-48); MONOCYTES % (MANUAL) 9 % (3.4-9.0); NEUTROPHILS % (MANUAL) 81 % (40-74); PLATELET ESTIMATE SLIGHTLY DECREASED; PLATELET MORPHOLOGY COMMENT NORMAL; RBC MORPHOLOGY COMMENT NORMAL
[2018-07-04] MEDS ORDERED: HYDROXYZINE HCL25 MG PO (10:02)
--- NOTE | 2018-07-04 10:40 | NUR ---
Called Dr. Jernigan made him aware of renal consult. Received orders to contact [facility] hemodialysis for stat dialysis.
--- NOTE | 2018-07-04 10:56 | NUR ---
Called [facility] dialysis center to request stat hemodialysis.
[2018-07-04] MEDS ORDERED: BUMETANIDE 1 MG TAB PO SCH (11:00)
[2018-07-04] MEDS: METOPROLOL SUCCINATE 50 MG TAB XL PO SCH (11:00)
[2018-07-04] MEDS: CEFEPIME 2 GM/NS 0.9% 100 ML 100 ML IV SCH (11:12)
[2018-07-04] MEDS: AMIODARONE HCL 200 MG TAB PO SCH (11:19)
[2018-07-04] MEDS ORDERED: SODIUM CHLORIDE 0.9% 250ML 500 ML IV PRN (14:00)
[2018-07-04] MEDS ORDERED: SODIUM CHLORIDE 0.9% 1000ML 2,000 ML IV PRN (14:00)
[2018-07-04] MEDS ORDERED: HEPARIN SOD (PORCINE) 1000 UNIT/ML SDV IV PRN (14:00)
--- NOTE | 2018-07-04 14:19 | Consultation ---
DATE OF CONSULTATION: 07/04/2018 HISTORY OF PRESENT ILLNESS: The patient is well known to me. She is a 77-year-old lady with underlying history of diabetes, end-stage renal disease, history of congestive heart failure, coronary artery disease, multiple comorbidities, anemia, chronic kidney disease, secondary hyperparathyroidism, end-organ damage due to diabetes, has been admitted with possible pneumonia and CHF. She is currently lying supine, in no apparent distress. Daughter at the bedside. Admits to cough, phlegm production, does not remember which color. Denies fevers. Denies chills. Denies any nausea, vomiting, or diarrhea. ALLERGIES: NO APPARENT DRUG ALLERGIES. CURRENT MEDICATIONS: Albuterol and Atrovent nebulizer, amiodarone 200 mg daily, cefepime 1 g q.12, furosemide 40 b.i.d., Bumex 2 mg daily, azithromycin, insulin, metoprolol, and warfarin 3 mg at bedtime. PAST SURGICAL HISTORY: History of access placement for dialysis, history of coronary artery bypass surgery, and history of AICD placement. PHYSICAL EXAMINATION: GENERAL: Awake, alert, and sitting up. VITAL SIGNS: Blood pressure of 126/62, pulse rate 77, afebrile. HEAD AND NECK: Cornea clear. Mucosa moist. Neck veins could not be appreciated. LUNGS: Rales noted in right base with end-expiratory rhonchi bilaterally. HEART: S1 and S2 audible. No rubs or gallops. ABDOMEN: Otherwise soft and nontender. Distended abdomen with flanks full. LOWER EXTREMITIES: No edema. LABS: Show sodium 141, potassium 4.3, bicarbonate 30, creatinine 3.47. Hemoglobin 10.2. IMPRESSION: Likely congestive heart failure plus rule out bronchitis, possible left lower lobe pneumonia in a lady with coronary artery disease, bypass surgery, diabetes, automatic implantable cardioverter-defibrillator, congestive heart failure, end-stage renal disease, status post dialysis yesterday. PLAN: Agree with that. Albuterol and Atrovent nebulizers, I will adjust dose of cefepime, discontinue IV Lasix and Bumex at this point in time. We will dialyze and ultrafilter on hemodialysis. Please see orders. MD JOHNNIE Singh/MAGDALENA Schulz: 07/04/2018 13:21:53 /[id number]
[2018-07-04 15:21] LABS: CREATINE KINASE MB 1.5 ng/mL (0-5.0)
--- NOTE | 2018-07-04 18:38 | NUR ---
Handoff report to nurse Eden RN, made aware warfarin needs to be given after PT/INR results. Verbalized understanding.
[2018-07-04 19:13] LABS: INR 1.8; PROTHROMBIN TIME 21.5 seconds (11.9-14.5)
[2018-07-04] MEDS ORDERED: HYDRALAZINE HCL 20 MG/ML VIAL IV PRN (20:30)
[2018-07-04] MEDS ORDERED: ONDANSETRON HCL INJ 2MG/ML 2ML 2 MG/ML VIAL IV PRN (20:30)
[2018-07-04] MEDS ORDERED: SODIUM CHLORIDE 0.9% 250ML 250 ML ONE (20:38)
[2018-07-04] MEDS: WARFARIN SOD 3 MG TAB PO SCH (20:58)
[2018-07-04] MEDS: AZITHROMYCIN 500MG/NS 250 ML 250 ML IV SCH (22:00)
[2018-07-05] VITALS (7 sets, daily range): BP systolic 86–121; BP diastolic 46–54
[2018-07-05 06:29] LABS: INR 1.59; PROTHROMBIN TIME 19.6 seconds (11.9-14.5)
[2018-07-05] MEDS: INSULIN LISPRO 100 UNIT/1 ML 3ML VIAL SQ SCH ×4 (07:30→21:05)
[2018-07-05] MEDS: AMIODARONE HCL 200 MG TAB PO SCH (09:02)
[2018-07-05] MEDS: METOPROLOL SUCCINATE 50 MG TAB XL PO SCH (09:02)
[2018-07-05] MEDS: CEFEPIME 2 GM/NS 0.9% 100 ML 100 ML IV SCH (10:15)
[2018-07-05] MEDS: ALBUTEROL/IPRATROPIUM 3 ML NEB NEB PRN ×2 (14:36→19:30)
[2018-07-05] MEDS: PANTOPRAZOLE SOD 40 MG TABEC PO SCH (18:08)
[2018-07-05] MEDS: WARFARIN SOD 3 MG TAB PO SCH (18:08)
--- NOTE | 2018-07-05 19:20 | NUR ---
BS rounds completed with morning nurse. Pt alert to name. Right side lying in bed. Denies pain at this time. Call soto within reach. Bed low and locked. Will continue to monitor.
[2018-07-05] MEDS ORDERED: ATORVASTATIN 20 MG TAB PO SCH (21:00)
[2018-07-05] MEDS: AZITHROMYCIN 500MG/NS 250 ML 250 ML IV SCH (21:04)
[2018-07-05] MEDS: ACETAMINOPHEN 325 MG TAB PO PRN (22:32)
[2018-07-06] VITALS (8 sets, daily range): BP systolic 98–125; BP diastolic 44–58
[2018-07-06 06:55] LABS: BASOPHILS % 0.5 % (0.0-1.0); EOSINOPHILS # (AUTO) 0.4 (0.0-0.4); EOSINOPHILS % 7.7 % (0.0-6.0); HEMATOCRIT 31.1 % (34.2-44.1); HEMOGLOBIN 9.8 g/dL (12.0-16.0); LYMPHOCYTES # (AUTO) 0.8 (1.0-3.2); LYMPHOCYTES % 14.5 % (18.0-39.1); MEAN CORPUSCULAR HEMOGLOBIN 32.6 pg (28-32); MEAN CORPUSCULAR HGB CONC 31.5 g/dL (31-35); MEAN CORPUSCULAR VOLUME 103.3 fL (81-99); MONOCYTES # (AUTO) 0.8 (0.2-0.8); MONOCYTES % 13.6 % (4.4-11.3); NEUTROPHILS # (AUTO) 3.6 (2.1-6.9); PLATELET COUNT 97 x10e3/uL (140-360); RED BLOOD COUNT 3.01 x10e6/uL (3.6-5.1); RED CELL DISTRIBUTION WIDTH 14.7 % (11.7-14.4)
[2018-07-06 07:18] LABS: ANION GAP 11.5 mmol/L (8-16); CREATININE, SERUM 5.74 mg/dL (0.57-1.11); MAGNESIUM 2.1 MG/DL (1.3-2.1); POTASSIUM 4.5 mmol/L (3.5-5.1)
[2018-07-06] MEDS: INSULIN LISPRO 100 UNIT/1 ML 3ML VIAL SQ SCH ×4 (07:30→21:28)
[2018-07-06 07:43] LABS: THYROID STIMULATING HORMONE 0.074 uIU/mL (0.350-4.940)
[2018-07-06 07:45] LABS: INR 1.83; PROTHROMBIN TIME 21.8 seconds (11.9-14.5)
[2018-07-06] MEDS: SITAGLIPTIN 100 MG TAB PO SCH (08:39)
[2018-07-06] MEDS: PANTOPRAZOLE SOD 40 MG TABEC PO SCH (08:39)
[2018-07-06] MEDS: AMIODARONE HCL 200 MG TAB PO SCH (08:39)
--- NOTE | 2018-07-06 08:39 | NUR ---
PATIENT IN STABLE CONDITION WITH NO S/S OF RESPIRATORY DISTRESS. NO PAIN VOICED. PATIENT IS CURRENTLY RECEIVING DIALYSIS. TELEMETRY AND O2 APPLIED. BED ALARM ON. CALL LIGHT IS WITHIN REACH, PATIENT INSTRUCTED TO CALL FOR ASSISTANCE NEEDED.
--- NOTE | 2018-07-06 12:05 | NUR ---
PATIENT HAS BEEN RECEIVING DIALYSIS SINCE THIS MORNING- PATIENT HAS REMAIN ON HER BACK.
--- NOTE | 2018-07-06 13:10 | NUR ---
CALLED AND SPOKE WITH JELANI DIAZ N.P. REGARDING FLUID RESTRICTION ORDER- ORDER TO CALL RENAL. CALL PLACED OUT TO DR. BURGOS/DR. ALEJANDRO REGARDING FLUID RESTRICTION ORDER- AWAITING CALLBACK.
[2018-07-06] MEDS ORDERED: ONDANSETRON HCL 4 MG ORAL DISINTEGRATING TAB PO PRN (13:15)
[2018-07-06] MEDS: CEFEPIME 2 GM/NS 0.9% 100 ML 100 ML IV SCH (13:23)
[2018-07-06] MEDS: METOPROLOL SUCCINATE 50 MG TAB XL PO SCH (13:23)
[2018-07-06] MEDS: WARFARIN SOD 3 MG TAB PO SCH (16:17)
--- NOTE | 2018-07-06 17:08 | NUR ---
CALL PLACED OUT TO DR. BURGOS REGARDING FLUIDS RESTRICTION ORDER- AWAITING CALLBACK.
--- NOTE | 2018-07-06 19:31 | NUR ---
PATIENT IN STABLE CONDITION WITH NO S/S OF RESPIRATORY DISTRESS. NO PAIN VOICED. PATIENT RECEIVED DIALYSIS TODAY 2.8 LITERS REMOVED. TELEMETRY AND O2 (3L NC) APPLIED. DAUGHTER PRESENT IN ROOM. CALL LIGHT IS WITHIN REACH, PATIENT INSTRUCTED TO CALL FOR ASSISTANCE NEEDED. BEDSIDE REPORT GIVEN TO ONCOMING NURSE.
--- NOTE | 2018-07-06 19:56 | NUR ---
PT IS RESTING IN BED WITH DAUGHTER AT BEDSIDE. RESPIRATION IS EVEN AND UNLABORED, NO DISTRESS NOTED. BED IN THE LOWEST POSITION, LOCKED, BED ALARM ON, AND CALL LIGHT WITHIN REACH. WILL CONTINUE TO MONITOR.
[2018-07-06] MEDS: ALBUTEROL/IPRATROPIUM 3 ML NEB NEB PRN (20:05)
[2018-07-06] MEDS: AZITHROMYCIN 500MG/NS 250 ML 250 ML IV SCH (21:25)
[2018-07-06] MEDS: ATORVASTATIN 40 MG TAB PO SCH (21:25)
[2018-07-06] MEDS: ACETAMINOPHEN 325 MG TAB PO PRN (21:39)
[2018-07-07] VITALS (7 sets, daily range): BP systolic 92–122; BP diastolic 52–60
[2018-07-07 05:53] LABS: INR 1.73; PROTHROMBIN TIME 20.9 seconds (11.9-14.5)
--- NOTE | 2018-07-07 07:00 | NUR ---
PATIENT IN STABLE CONDITION WITH NO S/S OF RESPIRATORY DISTRESS. NO PAIN VOICED. 02 AND TELEMETRY APPLIED. CALL LIGHT IS WITHIN REACH, PATIENT INSTRUCTED TO CALL FOR ASSISTANCE NEEDED.
[2018-07-07] MEDS: INSULIN LISPRO 100 UNIT/1 ML 3ML VIAL SQ SCH ×4 (07:30→21:00)
[2018-07-07] MEDS: ALBUTEROL/IPRATROPIUM 3 ML NEB NEB PRN (08:05)
[2018-07-07] MEDS: METOPROLOL SUCCINATE 50 MG TAB XL PO SCH (08:15)
[2018-07-07] MEDS: CEFEPIME 2 GM/NS 0.9% 100 ML 100 ML IV SCH (08:15)
[2018-07-07] MEDS: PANTOPRAZOLE SOD 40 MG TABEC PO SCH (08:18)
[2018-07-07] MEDS: AMIODARONE HCL 200 MG TAB PO SCH (08:18)
[2018-07-07] MEDS: SITAGLIPTIN 100 MG TAB PO SCH (08:18)
[2018-07-07] MEDS: WARFARIN SOD 3 MG TAB PO SCH (17:03)
--- NOTE | 2018-07-07 19:17 | NUR ---
PATIENT IN STABLE CONDITION WITH NO S/S OF RESPIRATORY DISTRESS. NO PAIN VOICED. TELEMETRY AND 02 APPLIED. DIAPER APPLIED. BED ALARM ON. CALL LIGHT IS WITHIN REACH, PATIENT INSTRUCTED TO CALL FOR ASSISTANCE NEEDED. BEDSIDE REPORT GIVEN TO ONCOMING NURSE.
--- NOTE | 2018-07-07 19:39 | NUR ---
PT IS RESTING IN BED. RESPIRATION IS EVEN AND UNLABORED, NO DISTRESS NOTED. BED IN THE LOWEST POSITION, LOCKED, BED ALARM ON, AND CALL LIGHT WITHIN REACH. WILL CONTINUE TO MONITOR.
[2018-07-07] MEDS: AZITHROMYCIN 500MG/NS 250 ML 250 ML IV SCH (22:21)
[2018-07-07] MEDS: ATORVASTATIN 40 MG TAB PO SCH (22:21)
[2018-07-08] VITALS (7 sets, daily range): BP systolic 96–136; BP diastolic 51–93
[2018-07-08] MEDS: INSULIN LISPRO 100 UNIT/1 ML 3ML VIAL SQ SCH ×4 (07:30→21:00)
[2018-07-08 07:42] LABS: INR 2.19
[2018-07-08 08:10] LABS: BASOPHILS % 0.6 % (0.0-1.0); EOSINOPHILS # (AUTO) 0.6 (0.0-0.4); EOSINOPHILS % 8.7 % (0.0-6.0); HEMATOCRIT 33.2 % (34.2-44.1); HEMOGLOBIN 10.4 g/dL (12.0-16.0); LYMPHOCYTES # (AUTO) 1.1 (1.0-3.2); LYMPHOCYTES % 16.6 % (18.0-39.1); MEAN CORPUSCULAR HEMOGLOBIN 31.8 pg (28-32); MEAN CORPUSCULAR HGB CONC 31.3 g/dL (31-35); MEAN CORPUSCULAR VOLUME 101.5 fL (81-99); MONOCYTES # (AUTO) 0.6 (0.2-0.8); NEUTROPHILS # (AUTO) 4.3 (2.1-6.9); NEUTROPHILS % 63.6 % (38.7-80.0); PLATELET COUNT 121 x10e3/uL (140-360); RED BLOOD COUNT 3.27 x10e6/uL (3.6-5.1); RED CELL DISTRIBUTION WIDTH 14.6 % (11.7-14.4)
[2018-07-08] MEDS: PANTOPRAZOLE SOD 40 MG TABEC PO SCH (08:15)
[2018-07-08] MEDS: AMIODARONE HCL 200 MG TAB PO SCH (08:16)
[2018-07-08] MEDS: CEFEPIME 2 GM/NS 0.9% 100 ML 100 ML IV SCH (08:17)
[2018-07-08 08:31] LABS: ANION GAP 17.1 mmol/L (8-16); CREATININE, SERUM 6.24 mg/dL (0.57-1.11); POTASSIUM 5.1 mmol/L (3.5-5.1)
[2018-07-08] MEDS: METOPROLOL SUCCINATE 50 MG TAB XL PO SCH (09:00)
--- NOTE | 2018-07-08 16:44 | NUR ---
CM ATTEMPTED TO GET IMM LETTER SIGNED. PT RECEIVING HD AND WAS ASLEEP.
[2018-07-08] MEDS: WARFARIN SOD 3 MG TAB PO SCH (17:00)
--- NOTE | 2018-07-08 19:20 | NUR ---
BS rounds completed with morning nurse. Pt alert to name. Sitting in chair on side of bed. Denies pain at this time. Daughter c/o Pt has increased weakness in left hand. Call soto within reach. Bed low and locked. Will continue to monitor.
--- NOTE | 2018-07-08 19:25 | NUR ---
n/o Stat CT Brain. Neuro checks q 4hrs.
--- NOTE | 2018-07-08 20:10 | NUR ---
Back for Radiology. Alert to name. Lethargic. Eye open to speech. Resp even and unlabored. Confusion to place and time. Able to localize pain. Pupils 3mm, brisk response. Weakness to right and left arms. Weakness to bilateral lower extremities. Will continue to monitor. Call soto within reach. Daughter at bedside.
--- NOTE | 2018-07-08 20:36 | Diagnostic Imaging Report ---
EXAMINATION: Head CT without contrast. HISTORY:Altered mental status and weakness. COMPARISON:None. TECHNIQUE: Multidetector axial images were obtained from the foramen magnum to the vertex without contrast. The images were reconstructed using brain and bone algorithms. Thin section brain images were reformatted into coronal and sagittal planes. Dose modulation, iterative reconstruction, and/or weight based adjustment of the mA/kV was utilized to reduce the radiation dose to as low as reasonably achievable. Intravenous contrast: None IMAGE QUALITY: Suboptimal evaluation due to motion artifacts particularly at the level of skull base and posterior fossa. FINDINGS: Skull/scalp: No lytic or blastic. lesions. No surgical changes. Parenchyma: Nonspecific bilateral frontoparietal patchy white matter hypodensity are likely related to small vessel ischemic changes. Focal hypodensity in right inferior frontal subcortical white matter and left subinsular region represents age indeterminate possible chronic vascular insults. No acute hemorrhage, mass or acute major vascular territorial infarct. Arteries: No density suggestive of thrombosis. Atherosclerotic calcification in bilateral carotid siphon and V4 segment of left vertebral artery. Dural sinuses: No abnormal density suggestive of thrombosis. Ventricles: No hydrocephalus or displacement. Extra-axial spaces: Small posterior fossa, retrocerebellar extra-axial cystic lesion with internal septation and minimal regional mass effect represents an arachnoid cyst. Brain volume: Generalized age-related cerebral volume loss. Craniocervical junction: No mass, Chiari malformation, or basilar invagination. Sella: No mass. Paranasal/mastoid sinuses: Mild mucosal thickening in left ethmoid sinus. IMPRESSION: 1. No acute intracranial abnormality, particularly no acute hemorrhage, mass or acute major vascular territorial infarct. 2. Mild supratentorial white matter microvascular ischemic changes. 3. Age indeterminate possible chronic vascular insult in right inferior frontal subcortical white matter and left subinsular region. 4. Generalized age-related cerebral volume loss. Signed by: Dr. Sushma Herrera M.D. on 07/08/2018 8:33 PM
[2018-07-08] MEDS: ATORVASTATIN 40 MG TAB PO SCH (21:44)
[2018-07-08] MEDS: AZITHROMYCIN 500MG/NS 250 ML 250 ML IV SCH (21:45)
[2018-07-09] VITALS (7 sets, daily range): BP systolic 98–118; BP diastolic 58–79
[2018-07-09] MEDS ORDERED: DIPHENHYDRAMINE HCL 25 MG CAP PO PRN (00:45)
[2018-07-09] MEDS: ACETAMINOPHEN 325 MG TAB PO PRN (01:05)
--- NOTE | 2018-07-09 01:45 | NUR ---
BS rounds completed with YANELI Bansal. Daughter at bedside. Pt itching and has increased confusion. Ordered routine labs, including ammonia levels. Ordered consult with neurology, Dr. Recio. Pt alert, unresponsive to questions. Daughter verbalized understanding of continued treatment. Call soto within reach. Will continue to monitor.
[2018-07-09] MEDS: ALBUTEROL/IPRATROPIUM 3 ML NEB NEB PRN (06:33)
[2018-07-09] MEDS: INSULIN LISPRO 100 UNIT/1 ML 3ML VIAL SQ SCH ×4 (07:30→20:33)
[2018-07-09] MEDS: AMIODARONE HCL 200 MG TAB PO SCH (09:54)
[2018-07-09] MEDS: PANTOPRAZOLE SOD 40 MG TABEC PO SCH (09:54)
[2018-07-09] MEDS: CEFEPIME 2 GM/NS 0.9% 100 ML 100 ML IV SCH (09:54)
[2018-07-09] MEDS: METOPROLOL SUCCINATE 50 MG TAB XL PO SCH (09:55)
[2018-07-09 11:08] LABS: ANION GAP 14.1 mmol/L (8-16); CALCIUM 8.7 mg/dL (8.4-10.2); CREATININE, SERUM 3.66 mg/dL (0.57-1.11); MAGNESIUM 2.2 MG/DL (1.3-2.1); POTASSIUM 4.1 mmol/L (3.5-5.1)
[2018-07-09 11:10] LABS: BASOPHILS % 0.4 % (0.0-1.0); EOSINOPHILS # (AUTO) 0.5 (0.0-0.4); EOSINOPHILS % 5.9 % (0.0-6.0); HEMATOCRIT 35.7 % (34.2-44.1); HEMOGLOBIN 11.2 g/dL (12.0-16.0); LYMPHOCYTES % 12.6 % (18.0-39.1); MEAN CORPUSCULAR HEMOGLOBIN 32.1 pg (28-32); MEAN CORPUSCULAR HGB CONC 31.4 g/dL (31-35); MEAN CORPUSCULAR VOLUME 102.3 fL (81-99); MONOCYTES # (AUTO) 0.8 (0.2-0.8); MONOCYTES % 9.4 % (4.4-11.3); NEUTROPHILS # (AUTO) 5.8 (2.1-6.9); NEUTROPHILS % 70.3 % (38.7-80.0); PLATELET COUNT 132 x10e3/uL (140-360); RED BLOOD COUNT 3.49 x10e6/uL (3.6-5.1); RED CELL DISTRIBUTION WIDTH 14.9 % (11.7-14.4)
[2018-07-09] MEDS: FUROSEMIDE INJ 10 MG/ML 4 ML VIAL IV SCH ×2 (11:30→20:33)
--- NOTE | 2018-07-09 14:52 | NUR ---
RECEIVED ORDER FOR HOME HEALTH FOR SN EVAL AND TREAT AND PT EVAL AND TREAT. MET W THE PT AND FAMILY AT THE BEDSIDE. DTR STATES HER MOTHER IS ALREADY ON SERVICE W [employer] @ OFF: [phone] / FAX: [phone]. [address], [place], [place] [address]
--- NOTE | 2018-07-09 15:48 | Diagnostic Imaging Report ---
Examination: Single AP view of the chest. COMPARISON: July 03, 2018 INDICATION: Pneumonia congestive failure DISCUSSION: Lines/tubes: Dialysis catheter with tip overlying the SVC. Lungs: Pulmonary venous congestion. Pleura: No pleural effusion or pneumothorax. Heart and mediastinum: Prominent heart size. Bones and soft tissues: No acute bony abnormalities. IMPRESSION: 1. Cardiomegaly with pulmonary venous congestion. Signed by: Dr. Partha Ratliff M.D. on 07/09/2018 3:44 PM
--- NOTE | 2018-07-09 16:43 | NUR ---
IMM LETTER EXPLAINED. DTR VERBALIZED UNDERSTANDING. DTR SIGNED. COPY TO PT AND COPY TO CHART.
--- NOTE | 2018-07-09 17:05 | NUR ---
Nutrition Screen Note RD Recommendation for Physician: None Plan of Care: RD following, monitoring for adequacy and tolerance Nutrition reason for involvement: Nutrition Risk Trigger - MST Primary Diagnose(s):pneumonia, CHF, ESRD Ht: 63in Wt:155.19lbs BMI:27.56 kg/m2 IBW:115lbs RD Assessment:(07/09/2018) Pt is eating well. Pt denies any difficulty chewing or swallowing nor has any N,V, D. Current Diet: 1800 calorie renal diabetes diet Malnutrition Evaluation (date of eval) The patient does not meet criteria for a specified degree of malnutrition at this time. Will re-evaluate at follow-up as appropriate. Diet Education Needs Assessment: Diet education not indicated. Diet Adequacy: Meeting calorie needs, Meeting protein needs, Meeting fluid needs. Tolerance: Tolerating PO Nutrition Care Level: Curt Colunga RD, LD, CNSC
[2018-07-09] MEDS: DIVALPROEX SODIUM 250 MG TAB...DR PO SCH (17:14)
[2018-07-09] MEDS: WARFARIN SOD 3 MG TAB PO SCH (17:14)
--- NOTE | 2018-07-09 18:11 | Consultation ---
DATE OF CONSULTATION: Pulmonary consultation. HISTORY OF PRESENT ILLNESS: Ms. Bello is a 77-year-old female. She has end-stage renal disease. She presented to the emergency room with a complaint of shortness of breath. She initially was seen in the emergency room on 07/03. The patient was admitted for pneumonia and acute COPD exacerbation. The patient is on supplemental oxygen and DuoNeb. She is under Dr. Rowan's service and Dr. Jernigan is her radio interference investigator. Patient is on routine hemodialysis. She is currently feeling better. Denying any complaints. She had shortness of breath. However, shortness of breath was worse per the daughter when she came in. Currently, she is on IV cefepime, DuoNeb, was on azithromycin which she finished a course and has been discontinued on 07/09. She underwent chest x-ray on the , which showed evidence of pulmonary edema. REVIEW OF SYSTEMS: GENERAL: Denies any fevers, chills. HEAD: Denies any head trauma. ENT: Denies any earaches. CVS: Denies any chest pain. RESPIRATORY: Shortness of breath. GI: Denies any nausea, vomiting. The rest of the review of systems are negative except as in HPI. PAST MEDICAL HISTORY: Congestive heart failure, end-stage renal disease, type 2 diabetes mellitus, hypertension, chronic atrial fibrillation, patient has AICD, hyperlipidemia, chronic skin changes. FAMILY AND SOCIAL HISTORY: She has a remote history of smoking. She denies any alcohol use. PHYSICAL EXAMINATION: VITAL SIGNS: Temperature 97.2, pulse of 81, blood pressure 112/63, respiratory rate of 18. HEENT: Head is atraumatic, normocephalic. NECK: Supple. CHEST: Clear to auscultation bilaterally, reduce on the bases. HEART: S1, S2 audible. ABDOMEN: Soft, nontender. EXTREMITIES: No clubbing, cyanosis, or edema. NEUROLOGIC: Awake and alert. LABORATORY DATA: White count of 6.69, hemoglobin 10.4, platelets 121. Chemistry reviewed. Chest x-ray reviewed showing increased congestion. ASSESSMENT/PLAN: Ms. Bello is a 77-year-old female with end-stage renal disease, came in with shortness of breath, remote history of smoking, diagnosed with chronic obstructive pulmonary disease, follows up with Dr. Wynn. Current problems: 1. Acute exacerbation of chronic obstructive pulmonary disease. 2. Possible bronchitis. 3. Acute on chronic heart failure, systolic heart failure. 4. AICD status. 5. Chronic atrial fibrillation. PLAN: Continue the patient on nebulizer treatment as ordered. Oxygen as needed to keep the O2 saturation more than or equal to 92%. The patient is on hemodialysis per Nephrology recommendation. Discussed with the patient's daughter needs to follow up with myself or Dr. Wynn in in 2-3 weeks after discharge. Thank you for this consult. MD SUSAN Read/MAGDALENA /[id number]
--- NOTE | 2018-07-09 19:05 | NUR ---
Completed BS rounds with morning nurse. Pt alert to name. Right side lying in bed. Denies pain at this time. Call soto within reach. Bed low and locked. Will continue to monitor.
--- NOTE | 2018-07-09 19:22 | Consultation ---
DATE OF CONSULTATION: 07/09/2018 Cardiology Consultation REASON FOR CONSULTATION: Evaluate cardiac status. HISTORY OF PRESENT ILLNESS: Ms. Bello is a 77-year-old lady, who is well known to our service. She has a past medical history of hypertension, type 2 diabetes with complications, hypercholesterolemia, end-stage renal disease, on hemodialysis, advanced ischemic cardiomyopathy with prior history of OK in 2013 with LAD infarction and subsequent LAD PCI and history of two-vessel CABG in July of [address] Galindo. She has had a [employer]-D implantation initially in December of 2014 complicated by LV lead dislodgement and had to have a device revision about in January of [address] Acevedo. She developed central venous stenosis and had to have her left arm fistula ligated due to severe left upper extremity swelling after failed multiple angioplasties. She has had a very complicated rough history over the past several years, but in the last 2-3 years, she has had multiple hospitalizations with volume overload and decompensation and on account of her heavy smoking history, she has also a prior history of COPD and frequent bronchopneumonia. In the clinic, the patient was treated for another episode of volume overload and superimposed mild COPD exacerbation and possible pneumonia. The patient is cared for by her family and they maintained a very close eye on her. Nonetheless, she is known to sneak out and drink gallons of fluid at a time due to her "thirsty state" and as result she runs into trouble with volume overload. Family has gone into great lengths to place child locks in the fridge as well as areas where there is fluid. However, they continually have an uphill girard dealing with her. She presents to this institution with another episode of volume overload, orthopnea, lower extremity swelling, and subsequently developed cough productive of sputum and has been treated with aggressive dialysis and antibiotic therapy. I had a long visit with the daughter discussing her overall poor prognosis and introduced the concept of perhaps hospice and palliative care. I believe that the patient's insubordination desire to drink whatever she wants is her way of lashing out as she has become increasingly more dependent on her family for her care and hopefully this is her way of saying that she is tired of living. Nonetheless, from a cardiac standpoint, she does not endorse any chest discomfort. She reports that her breathing is markedly improved. Overall reports that her swelling has come down substantially. PAST MEDICAL HISTORY: 1. Hypertension, essential. 2. Hypercholesteremia. 3. Coronary artery disease with prior history of LAD PCI in 2013 after massive anterior wall OK and subsequent two-vessel CABG in July of 2016. 4. End-stage renal disease, on hemodialysis Friday, Friday, Friday. Currently, most recently had a right IJ hemodialysis and has had previous left arm fistula that had to be surgically ligated due to swelling and central venous obstruction issues. 5. Type 2 diabetes and complications. 6. COPD. 7. COPD and heavy smoker. 8. Prior history of atrial flutter with ablation in November 2014. 9. Paroxysmal atrial fibrillation, on anticoagulant therapy and amiodarone therapy. PAST SURGICAL HISTORY: 1. BiV ICD initially in January of 2015 with subsequent revision in January of 2017 with a [employer] device. 2. Two-vessel bypass in July of 2016. 3. Prior history of left arm fistula with subsequent fistula reversal in 2017. FAMILY HISTORY: Mother at 70 years of age due to bleeding. Father at 88 from an accident. Had a daughter at the age of 56 from heart attack. Son has hemodialysis, age 45. SOCIAL HISTORY: She is . She is a former smoker, quit in June 2013. Denies any alcohol or illicit drug use. ALLERGIES: NO KNOWN DRUG ALLERGIES. CURRENT MEDICATIONS: Include amiodarone 200 mg daily, atorvastatin 40 mg daily, Bumex 2 mg daily, Colace 100 mg b.i.d., hydralazine 25 mg t.i.d., lisinopril 2.5 mg daily, Toprol-XL 50 mg daily, Protonix 40 mg daily, prednisone 10 mg daily, Januvia 100 mg daily, Spiriva 18 mcg inhaled daily, and Coumadin 2 mg daily. REVIEW OF SYSTEMS: GENERAL: Positive for fatigue, malaise. Denies any current fevers or chills. HEENT: Has occasional headaches. Denies any new visual complaints. No sore throat, stuffy nose. RESPIRATORY: Denies any pleuritic chest pain. Has a productive cough as noted above. Has chronic uxeegaoa-wq-ymwbco exertional dyspnea. CARDIOVASCULAR: Positive for orthopnea and PND. Denies any chest pain or discomfort. Findings as noted above. GI : Fair appetite. Occasional constipation. No bright red blood per rectum, melena, hematemesis. HEMATOLOGY: Positive for easy bruising. No bleeding. : Has incontinence and urinary frequency. MUSCULOSKELETAL: Has knee pains, arthritis, and claudication type symptoms with improved edema in her legs. SKIN: There are chronic atrophic skin changes throughout her body. Easy bruising and frailty of the skin. NEUROLOGIC: Fair coordination, memory, speech. Does have a gait abnormality with weakness in her legs that is generalized. PSYCH: The patient feels frustrated as noted above. PHYSICAL EXAMINATION: VITAL SIGNS: Height of 64 inches. Weight is 155 pounds, temperature above 97.2, pulse of 81, respiratory rate 18, blood pressure 112/63. GENERAL: This is a chronically ill lady, who appears much older than stated age. Currently in no apparent distress. HEENT: Normocephalic, atraumatic. Pupils equal, round, reactive to light. Extraocular moves are intact. Oropharynx is clear. NECK: No elevation of jugular venous pulsation. There is no thyromegaly. There are faint bilateral carotid bruits. CARDIOVASCULAR: Regular rate and rhythm. Normal S1, S2. A 3/6 systolic murmur at the right upper sternal border. LUNGS: Shows a right IJ tunneled hemodialysis catheter. There is a sternotomy site that is healed. There is a left shoulder ICD site. There is poor air flow throughout lung thornton and diminished air entry compatible with COPD changes with crackles. ABDOMEN: Soft, nontender, obese. Normoactive bowel sounds. No hepatosplenomegaly. BACK: No costovertebral angle tenderness. EXTREMITIES: Warm with absent radial pulses, absent pedal pulses. There is atrophic skin changes throughout with chronic scaliness and frailty in the skin with rashes and erosions throughout. NEUROLOGIC: She is alert and oriented. Cranial nerves II through XII are intact. There is a gait abnormality and generalized weakness in her legs that are symmetric that is 5-. PSYCH: Denies any current depression. LABORATORY DATA: White count of 8.3, hemoglobin 11.2, hematocrit 35.7, platelets of 132. Sodium 139, potassium 4.1, chloride 102, bicarb 27, BUN 17, creatinine 0.66, glucose of 89, calcium 8.7, magnesium 2.2. INR 2.19. BNP on admission was 3534. 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 Chest x-ray shows on admission showed cardiomegaly and pulmonary edema. DIAGNOSES: 1. Raaht-zt-rohzxky decompensated systolic and diastolic heart failure secondary to dietary nonadherence. 2. End-stage renal disease, on hemodialysis Friday, Friday, Friday. 3. Coronary artery disease with bypass grafts without angina. 4. Hypertension, essential. 5. Hypercholesteremia. 6. Paroxysmal atrial fibrillation. 7. History of BiV ICD implant. 8. Type 2 diabetes with complications. PLAN/RECOMMENDATIONS: 1. From a cardiovascular standpoint, the patient does not endorse any angina symptoms and clinically appears to be improving from her volume status with hemodialysis. Appreciate Pulmonary team and consultants. 2. Overall, patient cannot continue to do this, where she sneaks out, drinks gallons of water at a time, gallons of milk, and family is having to lock up her fluid with child locks and so forth. I have discussed with the family extensively that this may be her way of expressing that she is tired of living like this and have introduced the concept of palliative care and perhaps hospice therapy. 3. For the meantime, we will continue her heart failure regimen, which includes beta-ree, PATIENCE inhibitor, etc. 4. Statin therapy. 5. On systemic anticoagulant therapy for thromboembolic prophylaxis for her atrial fibrillation and currently her INR is at goal for 2-3. 6. We will continue to follow this patient with you. Thank you for this referral. MD JL Lewis/MAGDALENA /[id number]
--- NOTE | 2018-07-09 19:52 | Consultation ---
DATE OF CONSULTATION: 07/09/2018 Neurology Consult Note HISTORY OF PRESENT ILLNESS: Ms. Bello is a 77-year-old woman with an extensive past medical history, admitted to [facility] on July 03, 2018 with pneumonia, CHF exacerbation, and end-stage renal disease, on hemodialysis Mondays, Wednesdays, and Fridays. A neurological consultation is requested for evaluation of new onset shaking in the patient's hands and arms. Some time on July 08, 2018, the patient's daughter noticed shaking in Ms. Bello's hands and arms. She describes the shaking as quick jerking movements occurring intermittently without a rhythmic quality. According to the patient's daughter, Ms. Bello appeared more somnolent and confused on July 08, 2018. Ms. Bello is generally weak, but the patient's daughter reports possible worsened weakness of the left arm on July 08, 2018. However, upon speaking with hospital staff, the patient is much more awake and alert today as compared to yesterday, 07/08/2018. Ms. Bello has been generally weak since her admission on July 03, 2018. None of the hospital staff has noticed greater weakness on one side of the body versus the other. There is no known personal history of seizures. There is no known family history of seizures. There is no known history of prior head trauma or meningitis/encephalitis. REVIEW OF SYSTEMS: Unable to obtain secondary to the patient being encephalopathic. PAST MEDICAL HISTORY: Hypertension, hyperlipidemia, diabetes mellitus, congestive heart failure, end-stage renal disease, on hemodialysis Mondays, Wednesdays, and Fridays, prior strokes with unknown residual deficits. PAST SURGICAL HISTORY: Tesio (hemodialysis access) in the right chest wall, AICD placement and replacement (multiple times), AV fistula placement and repair. PAST HOSPITALIZATIONS: Surgeries/procedures as listed, multiple prior hospitalizations secondary to noncompliance with treatment regimen. FAMILY MEDICAL HISTORY: There is no known significant family medical history. SOCIAL HISTORY: Ms. Bello is . She is retired. There is no reported tobacco, alcohol, or recreational drug use. HOME MEDICATIONS: Please see the list of home medications available in the electronic medical record. HOSPITAL MEDICATIONS: Please see the list of hospital medications available in the electronic medical record. ALLERGIES: NO KNOWN DRUG ALLERGIES. NO KNOWN FOOD ALLERGIES. NO KNOWN ALLERGIES TO LATEX. NO KNOWN ALLERGIES TO IODINE OR OTHER CONTRAST MATERIALS. PHYSICAL EXAMINATION: VITAL SIGNS: Height approximately 62 inches, weight 155 pounds, BMI 28.35 kg/m2, blood pressure 98/61 mmHg, pulse 70 beats per minute, respiratory rate 18 breaths per minute, oxygen saturation 97% on room air. GENERAL: The patient is awake and alert, mildly distressed. Overweight. HEENT: Normocephalic, atraumatic. Pupils are equal, round, and sluggishly reactive to light. Moist mucous membranes. NECK: Supple. No appreciable thyromegaly. No appreciable carotid bruits. CARDIOVASCULAR: S1, S2, regular rate and rhythm. No murmurs, rubs, or gallops. RESPIRATORY: Clear to auscultation bilaterally. No wheezes, rhonchi, or rales. EXTREMITIES: The skin is warm and dry. No clubbing, cyanosis, or edema. The posterior tibial and dorsalis pedis pulses are 1+ and symmetric. SKIN: The skin appears scaly with abrasions and ecchymoses over both arms and both legs. NEUROLOGIC: Memory/Attention: The patient is awake and alert, oriented to person and place (hospital and city) only. Cranial Nerves: Cranial nerve I-not tested. Cranial nerves II, III, IV, and -pupils are equal, round, react sluggishly to light (from 4 mm to 2 mm). Extraocular movements are grossly intact. No nystagmus. Cranial nerve V-sensation to light touch is intact in the bilateral V1 through V3 distributions. Strength of the temporalis and masseter muscles is within normal limits. Cranial nerve VII-the face is subtly asymmetric on the left, but facial movements are symmetric. Strength appears to be within normal limits. Cranial nerve VIII-hearing is intact to finger rub bilaterally. Cranial nerve IX, X-the soft palate elevates equally and symmetrically. Cranial nerve XII-the tongue protrudes midline and moves symmetrically from [id number]. Strength: Bulk is diminished throughout. There are normal functional movements of both arms and both legs. Tone is normal. DTRs: Deep tendon reflexes are 1+ and symmetric at the triceps, biceps, and brachioradialis. Deep tendon reflexes are absent and symmetric at the patellas and Achilles. Plantar responses are flexor bilaterally. Sensation: Sensation is grossly intact to light touch in both arms and both legs. Gait: Deferred. Speech: Spontaneous speech is mildly dysarthric without aphasia. Involuntary movements: Intermittent, nonrhythmic jerking movements are seen in both hands and both arms (myoclonus). Pronator drift: As per motor exam. LABORATORY DATA: Unable to review at this time. DIAGNOSTIC STUDIES: Electrocardiogram of 07/03/2018, ventricular paced rhythm at 89 beats per minute. Other diagnostic studies are unavailable for review at this time. ASSESSMENT AND PLAN: Ms. Bello is a 77-year-old woman with an extensive past medical history, admitted to [facility] on July 03, 2018, with pneumonia, congestive heart failure exacerbation, and end-stage renal disease. On July 08, 2018, the patient was noted to have myoclonus affecting both hands and both arms. Ms. Bello has undergone as thorough neurological examination as is possible with the findings detailed above. Unfortunately, due to unavailability of the electronic medical record, the patient's laboratory data and diagnostic studies cannot be reviewed at this time. 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 Treatment will be as follows: 1. Valproic acid 250 mg by mouth twice daily. 2. Defer treatment of the remaining medical comorbidities to the primary and other services following the patient. Thank you for this consultation. I will continue to follow the patient while she remains in the hospital. TIME SPENT: 50 minutes. Nereyda Recio MD CP/MAGDALENA /[id number] JEFFREY
[2018-07-09] MEDS: ATORVASTATIN 40 MG TAB PO SCH (20:33)
[2018-07-09] MEDS ORDERED: FUROSEMIDE INJ 10 MG/ML 4 ML VIAL IV SCH (21:00)
[2018-07-10] VITALS (7 sets, daily range): BP systolic 86–120; BP diastolic 45–59
[2018-07-10 05:05] LABS: HEMATOCRIT 32.7 % (34.2-44.1); HEMOGLOBIN 10.6 g/dL (12.0-16.0); MEAN CORPUSCULAR HGB CONC 32.4 g/dL (31-35); MEAN CORPUSCULAR VOLUME 98.8 fL (81-99); PLATELET COUNT 128 x10e3/uL (140-360); RED BLOOD COUNT 3.31 x10e6/uL (3.6-5.1); RED CELL DISTRIBUTION WIDTH 14.7 % (11.7-14.4)
[2018-07-10 05:06] LABS: BASOPHILS % 0.5 % (0.0-1.0); EOSINOPHILS # (AUTO) 0.8 (0.0-0.4); EOSINOPHILS % 10.7 % (0.0-6.0); LYMPHOCYTES # (AUTO) 1.1 (1.0-3.2); LYMPHOCYTES % 13.7 % (18.0-39.1); MONOCYTES # (AUTO) 0.7 (0.2-0.8); MONOCYTES % 9.2 % (4.4-11.3); NEUTROPHILS # (AUTO) 4.9 (2.1-6.9); NEUTROPHILS % 64.5 % (38.7-80.0)
[2018-07-10 06:15] LABS: ANION GAP 19.7 mmol/L (8-16); CALCIUM 8.6 mg/dL (8.4-10.2); MAGNESIUM 2.1 MG/DL (1.3-2.1); POTASSIUM 4.7 mmol/L (3.5-5.1)
[2018-07-10 06:26] LABS: CREATININE, SERUM 5.51 mg/dL (0.57-1.11)
[2018-07-10] MEDS: INSULIN LISPRO 100 UNIT/1 ML 3ML VIAL SQ SCH ×3 (07:30→16:30)
--- NOTE | 2018-07-10 07:50 | NUR ---
PATIENT IN STABLE CONDITION WITH NO S/S OF RESPIRATORY DISTRESS. NO PAIN VOICED. PATIENT IS SCHEDULE FOR DIALYSIS TODAY. BED ALARM DIAGRAMMER LIGHT IS WITHIN REACH, PATIENT INSTRUCTED TO CALL FOR ASSISTANCE NEEDED.
[2018-07-10] MEDS: PANTOPRAZOLE SOD 40 MG TABEC PO SCH (08:55)
[2018-07-10] MEDS: AMIODARONE HCL 200 MG TAB PO SCH (08:55)
[2018-07-10] MEDS: DIVALPROEX SODIUM 250 MG TAB...DR PO SCH ×2 (08:55→17:10)
--- NOTE | 2018-07-10 09:05 | NUR ---
PATIENT STARTED DIALYSIS AT 0900- PATIENT IN STABLE CONDITION WITH NO S/S OF RESPIRATORY DISTRESS.
[2018-07-10] MEDS ORDERED: ALBUMIN 25% 12.5GM 0.25 GM/ML BTL IV PRN (09:45)
[2018-07-10] MEDS ORDERED: MANNITOL 25% 12.5GM/50 ML VIAL IV PRN (09:45)
[2018-07-10] MEDS ORDERED: HEPARIN SOD (PORCINE) 1000 UNIT/ML SDV IV PRN (09:45)
--- NOTE | 2018-07-10 11:06 | NUR ---
Patient was having dialysis when AUTOMOTIVE SERVICE DIRECTOR attemped to see her. Cori Becerra PTA/Supervising Oscar MEDINA Addendum: 07/10/18 at 1108 by Cori Becerra PTA Amended: Links added.
[2018-07-10] MEDS ORDERED: DEPAKOTE250 MG PO (12:51)
[2018-07-10] MEDS ORDERED: MUCINEX DM ER1 EACH PO (12:51)
[2018-07-10] MEDS ORDERED: CEFTIN PO (12:51)
[2018-07-10] MEDS ORDERED: FUROSEMIDE40 MG PO (12:51)
[2018-07-10] MEDS ORDERED: PROAIR HFA INH8.5 GM INH (12:51)
--- NOTE | 2018-07-10 13:59 | NUR ---
SPOKE WITH N.P. REGARDING PATIENT HAVING 02 AT HOME. N.P. AWARE - ORDER TO CANCEL HOME O2 EVAL.
[2018-07-10] MEDS: FUROSEMIDE INJ 10 MG/ML 4 ML VIAL IV SCH (14:09)
[2018-07-10] MEDS: METOPROLOL SUCCINATE 50 MG TAB XL PO SCH (14:10)
[2018-07-10] MEDS: CEFEPIME 2 GM/NS 0.9% 100 ML 100 ML IV SCH (14:10)
[2018-07-10] MEDS ORDERED: VALPROIC A250 MG/51 PO (16:37)
[2018-07-10] MEDS: WARFARIN SOD 3 MG TAB PO SCH (17:10)
--- NOTE | 2018-07-10 17:38 | NUR ---
PATIENT DISCHARGE HOME WITH HOME HEATLH FOR PT. PATIENT OFF THE UNIT AT 1715 PER WHEELCHAIR ACCOMPANIED BY PCT TO THE FRONT OF THE HOSPITAL. PATIENT IN STABLE CONDITION WITH NO S/S OF RESPIRATORY DISTRESS. NO PAIN VOICED. IV OUT AT 1704 WITH TIP INTACT. TELEMETRY REMOVED. DIALYSIS PORT TO RIGHT UPPER CHEST IS DRESSED AND INTACT. PATIENT HAD 2.6 LITERS REMOVED FROM DIALYSIS TODAY. PATIENT INSTRUCTIONS, EDUCATION, AND MEDICATION GIVEN TO THE PATIENT'S DAUGHTER. ALL PERSONAL ITEMS WERE TAKEN BY THE PATIENT'S DAUGHTER.
--- NOTE | 2018-07-11 18:01 | Discharge Summary ---
ADMISSION DIAGNOSES: Acute exacerbation, chronic obstructive pulmonary disease, bronchopneumonia, acute on chronic systolic and diastolic congestive heart failure, type 2 diabetes with end-stage renal disease, hypertension with coronary artery disease and congestive heart failure and end-stage renal disease, chronic atrial fibrillation. 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 HISTORY: The patient has a history of hypertension, CAD, chronic systolic and diastolic CHF, end-stage renal disease, COPD, type 2 diabetes, CAD with stents, chronic atrial fibrillation with pacemaker. SURGICAL HISTORY: Hemodialysis graft, coronary stents, AICD. FAMILY HISTORY: Hypertension, type 2 diabetes, CAD. HOSPITAL COURSE: A 77-year-old female with end-stage renal disease and idiopathic cardiomyopathy with systolic and diastolic CHF, presents with dyspnea on exertion. Chest x-ray showed pulmonary edema. The patient also had a low-grade fever. She was started on cefepime and Zithromax as well as nebs. Nephrology was consulted. EKG showed V paced at 89. CT of the brain showed no acute abnormalities. Blood cultures negative. Urine culture negative. Flu negative. BNP on admission was 3500. Due to new onset tremors, Neurology was consulted. Also, the patient's wood shop teacher was consulted as they have a long history of. Per Cardiology recommendation, the patient is noncompliant with fluid restrictions. At times, the patient's sneaks out, drinks gallons of water and milk and the family is having to lock up her fluids with child blocks. We discussed with the family the possibility of palliative care and perhaps hospice. At this time, the patient's family just wants to take her home with physical therapy. 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 She was started on valproic acid. So, the patient was discharged home with PT, OT per family and physical therapy recommendation. Vital signs are stable. The patient is afebrile. She will be discharged with ProAir inhaler, Ceftin for two more days, Depakote, Lasix, and Mucinex. She will follow up with primary care in 1-2 weeks, Cardiology in 1-2 weeks and Neurology as discussed. The patient's family understands discharge instructions and agrees to plan. Dictated by Micheline Caro NP MD REGINALD Chapman/MAGDALENA /[id number]
== END 2018-07-10 17:15 | disposition home or self-care (01) | DRG 291 ==
LOC: ER 17:41 → ERHOLD 21:35 → IMCU 07-04 02:18 → MED/SURG3 07-04 18:52
PROVIDERS: ADMIT Internal Medicine; ATTEND Internal Medicine
DX: I13.2 Hypertensive heart and chronic kidney disease with heart failure and with stage 5 chronic kidney disease, or end stage renal disease (principal); J18.0 Bronchopneumonia, unspecified organism; I50.43 Acute on chronic combined systolic (congestive) and diastolic (congestive) heart failure; N18.6 End stage renal disease; J44.0 Chronic obstructive pulmonary disease with (acute) lower respiratory infection; J44.1 Chronic obstructive pulmonary disease with (acute) exacerbation; E11.22 Type 2 diabetes mellitus with diabetic chronic kidney disease; Z99.2 Dependence on renal dialysis; Z79.4 Long term (current) use of insulin; I48.91 Unspecified atrial fibrillation; Z79.01 Long term (current) use of anticoagulants; I25.10 Atherosclerotic heart disease of native coronary artery without angina pectoris
CPT/HCPCS: 36415; 36600; 70450; 71045; 80048; 80053; 81001; 82140; 82550; 82553; 82805; 82948; 83605; 83735; 83880; 84100; 84443; 84484; 85025; 85610; 85730; 86704; 86705; 86706; 87040; 87086; 87340; 87400; 93005; 94640; 96372; 97139; 99284; J0456; J1644; J1940; J2405; J3370; J7030; J7050

== ENCOUNTER 2018-07-18 06:14 | Observation (INO) | payer MEDICARE ==
[~2018-07-18] VITALS: Ht 157.5 cm; Wt 68.5 kg
[~2018-07-18 06:14] MED LIST changes: +CEFTIN PO; +DEPAKOTE250 MG PO; +HYDROXYZINE HCL25 MG PO; +MUCINEX DM ER1 EACH PO; +PROAIR HFA INH8.5 GM INH; +VALPROIC A250 MG/51 PO
--- OUTSIDE RECORDS SUMMARY | 2018-07-18 06:18 | XMS REPORT | Clinical Summary ---
Author Author [facility] Address Unknown Phone Unavailable Care Team Providers Care Plastics Factory Worker Name Role Phone Enrique Farrar PCP Allergies [...] tablet daily, follow 7 PT/INR with your brushing machine operator for dose adjustment. Goal INR 2-3. First PT/INR Friday with your Senior Market Research Analyst. . Active lisinopril Take 2.5 mg 0 [...] Dx) 08/07/2017 Outside Orders Central Scheduling after 07/17/2017 Family History Medical History Relation Name Comments [...] Lot Implanted Type Area Manufactur er 08/21/2017 [id number] / / [id number] Cath Dlys Trialysis Pwr 30cm Catheter Right: Groin CR [id number] - [id number] Dialysis BARD:ACCES Implanted: Qty: 1 on 08/20/2016 by Skilled Nursing S RAMSES Galindo, John Chang MD Procedures [...] TIME/INR STAT 08/26/2017 11:27 AM CDT after 07/17/2017 Results * TRANSFUSION SERVICE REPORT - SCAN (08/28/2017 7:52 AM CDT) Narrative Performed At * POC-Glucose meter (08/26/2017 4:44 PM CDT) POC-Glucose Meter 99Comment: TESTED AT [facility] 70 - 110 mg/dL [address] Specimen Blood Performing Organization Address City/State/[place] [address] [facility] * IR Venogram - Extremity Unilateral (08/26/2017 3:26 PM CDT) Specimen Narrative Performed At FINAL REPORT [facility] Left upper extremity venogram, 08/26/2017. History: [...] MD Report Verified Date/Time:08/26/2017 15:55:31 Reading Location: [place] [address] Angio Body Reading Room Procedure Note Interface, [...] Report Verified Date/Time: 08/26/2017 15:55:31 Reading Location: [place] [address] Angio Body Reading Room Performing Organization Address City/[facility] Phone Number [facility] R[facility] * Electrocardiogram, 12-lead (08/26/2017 12:19 PM CDT) Specimen Narrative Performed At Ventricular Rate 82 BPM GE MUSE Atrial Rate 82 BPM P-R Interval 142 ms QRS Duration 162 ms Q-T Interval 478 ms QTC Calculation(Bazett) 558 ms P [place] 71 degrees R [place] -67 degrees T [place] 90 degrees Electronic ventricular pacemaker No previous ECGs available Underlying atrial rhythm is likely sinus. Confirmed by MD Aburto Mahboob ([id number]) on 08/26/2017 4:12:04 PM Procedure Note Interface, External Ris In - 08/26/2017 4:12 PM CDT Ventricular Rate 82 BPM Atrial Rate 82 BPM P-R Interval 142 ms QRS Duration 162 ms Q-T Interval 478 ms QTC Calculation(Bazett) 558 ms P [place] 71 degrees R [place] -67 degrees T [place] 90 degrees Electronic ventricular pacemaker No previous ECGs available Underlying atrial rhythm is likely sinus. Confirmed by MD Aburto Mahboob ([id number]) on 08/26/2017 4:12:04 PM Performing Organization Address City/State/Zipcode Phone Number By[facility] MUSE * Potassium-Stat Lab (08/26/2017 11:27 AM CDT) Potassium 3.7 3.6 - 5.5 meq/L [facility] Specimen Blood, Arterial Performing Organization Address City/State/Zipcode Phone Number [facility] [address] * Glucose-Stat Lab (08/26/2017 11:27 AM CDT) Glucose 119 (H) 70 - 110 mg/dL [facility] Specimen Blood, Arterial Performing Organization Address [facility] Phone Number [address] * Type and screen, automated (08/26/2017 11:27 AM CDT) ABO/RH AUTOMATED (BEAKER) A POSITIVE [facility] Ab Scrn NEGATIVE [facility] Specimen Blood Performing Organization Address [facility] Phone Number [address] * HGB/HCT (H&H)-Stat Lab (08/26/2017 11:27 AM CDT) Hemoglobin 11.4 (L) 12.0 - 15.0 g/dL [facility] Hematocrit 34.0 (L) 36.0 - 45.0 % [facility] Specimen Blood, Arterial Performing Organization Address City/[facility] Phone Number [address] * CBC with platelet count + automated diff (08/26/2017 11:27 AM CDT) WBC 6.4 3.5 - 10.5 K/L [facility] RBC 3.13 (L) 3.93 - 5.22 M/L [facility] Hemoglobin 10.5 (L) 11.2 - 15.7 GM/DL [facility] Hematocrit 32.2 (L) 34.1 - 44.9 % [facility] MCV 102.9 (H) 79.4 - 94.8 fL [facility] MCH 33.5 (H) 25.6 - 32.2 pg [facility] MCHC 32.6 32.2 - 35.5 GM/DL [facility] RDW 15.4 (H) 11.7 - 14.4 % [facility] Platelets 146 (L) 150 - 450 K/CU MM [facility] MPV 9.9 9.4 - 12.3 fL [facility] nRBC 0 0 - 0 /100 WBC [facility] % Neutros 61 % [facility] % Lymphs 20 % [facility] % Monos 10 % [facility] % Eos 8 % [facility] % Baso 0 % [facility] # Neutros 3.90 1.56 - 6.13 K/L [facility] # Lymphs 1.27 1.18 - 3.74 K/L [facility] # Monos 0.62 (H) 0.24 - 0.36 K/L [facility] # Eos 0.50 (H) 0.04 - 0.36 K/L [facility] # Baso 0.02 0.01 - 0.08 K/L [facility] Immature 1 0 - 1 % [facility] Granulocytes-[facility] Specimen Blood Performing Organization Address City/State/Zipcode Phone Number [facility] [address] [place] [address] [facility] * Prothrombin time/INR (08/26/2017 11:27 AM CDT) Protime 15.5 (H) 11.7 - 14.7 seconds [facility] INR 1.2 <=5.9 [facility] Specimen Blood Narrative Performed At RECOMMENDED COUMADIN/WARFARIN INR THERAPY RANGES [facility] STANDARD DOSE: 2.0 - 3.0 Includes: PROPHYLAXIS for venous thrombosis, [facility] systemic embolization; TREATMENT for venous thrombosis and/or pulmonary embolus. HIGH RISK: Target INR is 2.5-3.5 for patients with mechanical heart valves. Performing Organization Address [facility] Phone Number [facility] [address] [place] [address] [facility] * Basic Metabolic Panel (08/26/2017 11:27 AM CDT) Sodium 140 136 - 145 meq/L [facility] Potassium 3.8 3.5 - 5.1 meq/L [facility] Chloride 99 98 - 107 meq/L [facility] CO2 30 (H) 22 - 29 meq/L [facility] BUN 13 7 - 21 mg/dL [facility] Creatinine 3.51 (H) 0.57 - 1.25 mg/dL [facility] Glucose 120 (H) 70 - 105 mg/dL [facility] Calcium 8.5 8.4 - 10.2 mg/dL [facility] EGFR 13Comment: ESTIMATED GFR IS mL/min/1.[address] [facility] NOT ACCURATE CREATININE [facility] CLEARANCE IN PREDICTING GLOMERULAR FILTRATION RATE. ESTIMATED GFR IS NOT APPLICABLE FOR DIALYSIS PATIENTS. Specimen Blood Performing Organization Address City/[facility] Phone Number [facility] [address] [place], [place] [id number] [facility] after 07/17/2017 Insurance Payer Benefit Subscriber ID Type Phone Address Plan / Group CARE IMPROVEMENT MEDICARE CARE xxxxxxxxx MGD [facility] Advance Directives For more information, please contact: [facility] [address] [place] [address] Date Inactivated Comments Code Status Date Activated 08/27/2017 12:53 AM Full Code 08/26/2017 10:34 AM This code status was determined by: Patient 09/05/2016 1:31 AM Full Code 08/20/2016 2:50 PM This code status was determined by: Person holding Power of Scanning Manager 08/20/2016 2:50 PM Full Code 08/16/2016 12:29 AM This code status was determined by: Patient
--- OUTSIDE RECORDS SUMMARY | 2018-07-18 07:31 | XMS REPORT | Clinical Summary ---
Author Author TONIA [facility] Address Unknown Phone Unavailable Care Team Providers Care Medical Auditor Name Role Phone Enrique Farrar PCP Allergies [...] tablet daily, follow 7 PT/INR with your delphi developer for dose adjustment. Goal INR 2-3. First PT/INR Friday with your Mining And Quarrying Machinery Repairer. . Active lisinopril Take 2.5 mg 0 [...] Lot Implanted Type Area Manufactur er 08/21/2017 [id number] / / [id number] Cath Dlys Trialysis Pwr 30cm Catheter Right: Groin CR [id number] - [id number] Dialysis BARD:ACCES Implanted: Qty: 1 on 08/20/2016 by [facility] Galindo, John Chang MD Procedures [...] PM CDT) POC-Glucose Meter 99Comment: TESTED AT [facility] 70 - 110 mg/dL [address] Specimen Blood Performing Organization Address City/State/[place] [address] [facility] * IR Venogram - Extremity Unilateral (08/26/2017 3:26 PM CDT) Specimen Narrative Performed At FINAL REPORT [facility] Left upper extremity venogram, 08/26/2017. History: Left [...] MD Report Verified Date/Time:08/26/2017 15:55:31 Reading Location: [place] [address] Angio Body Reading Room Procedure Note Interface, [...] Report Verified Date/Time: 08/26/2017 15:55:31 Reading Location: [place] [address] Angio Body Reading Room Performing Organization Address City/[facility] Phone Number [facility] * Electrocardiogram, 12-lead (08/26/2017 12:19 PM CDT) Specimen Narrative Performed At Ventricular Rate 82 BPM GE MUSE Atrial Rate 82 BPM P-R Interval 142 ms QRS Duration 162 ms Q-T Interval 478 ms QTC Calculation(Bazett) 558 ms P [place] 71 degrees R [place] -67 degrees T [place] 90 degrees Electronic ventricular pacemaker No previous ECGs available Underlying atrial rhythm is likely sinus. Confirmed by MD Aburto Mahboob ([id number]) on 08/26/2017 4:12:04 PM Procedure Note Interface, External Ris In - 08/26/2017 4:12 PM CDT Ventricular Rate 82 BPM Atrial Rate 82 BPM P-R Interval 142 ms QRS Duration 162 ms Q-T Interval 478 ms QTC Calculation(Bazett) 558 ms P [place] 71 degrees R [place] -67 degrees T [place] 90 degrees Electronic ventricular pacemaker No previous ECGs available Underlying atrial rhythm is likely sinus. Confirmed by MD Aburto Mahboob ([id number]) on 08/26/2017 4:12:04 PM Performing Organization Address City/State/Zipcode Phone Number [facility] [facility] * Potassium-Stat Lab (08/26/2017 11:27 AM CDT) Potassium 3.7 3.6 - 5.5 meq/L [facility] Specimen Blood, Arterial Performing Organization Address City/State/Zipcode Phone Number [facility] [address] * Glucose-Stat Lab (08/26/2017 11:27 AM CDT) Glucose 119 (H) 70 - 110 mg/dL [facility] Specimen Blood, Arterial Performing Organization Address [facility] Phone Number [address] * Type and screen, automated (08/26/2017 11:27 AM CDT) ABO/RH AUTOMATED (BEAKER) A POSITIVE [facility] Ab Scrn NEGATIVE [facility] Specimen Blood Performing Organization Address [facility] Phone Number [address] * HGB/HCT (H&H)-Stat Lab (08/26/2017 11:27 AM CDT) Hemoglobin 11.4 (L) 12.0 - 15.0 g/dL [facility] Hematocrit 34.0 (L) 36.0 - 45.0 % [facility] Specimen Blood, Arterial Performing Organization Address City/[facility] Phone Number [address] * CBC with platelet count + automated diff (08/26/2017 11:27 AM CDT) WBC 6.4 3.5 - 10.5 K/L [facility] RBC 3.13 (L) 3.93 - 5.22 M/L [facility] Hemoglobin 10.5 (L) 11.2 - 15.7 GM/DL [facility] Hematocrit 32.2 (L) 34.1 - 44.9 % [facility] MCV 102.9 (H) 79.4 - 94.8 fL [facility] MCH 33.5 (H) 25.6 - 32.2 pg [facility] MCHC 32.6 32.2 - 35.5 GM/DL [facility] RDW 15.4 (H) 11.7 - 14.4 % [facility] Platelets 146 (L) 150 - 450 K/CU MM [facility] MPV 9.9 9.4 - 12.3 fL [facility] nRBC 0 0 - 0 /100 WBC [facility] % Neutros 61 % [facility] % Lymphs 20 % [facility] % Monos 10 % [facility] % Eos 8 % [facility] % Baso 0 % [facility] # Neutros 3.90 1.56 - 6.13 K/L [facility] # Lymphs 1.27 1.18 - 3.74 K/L [facility] # Monos 0.62 (H) 0.24 - 0.36 K/L [facility] # Eos 0.50 (H) 0.04 - 0.36 K/L [facility] # Baso 0.02 0.01 - 0.08 K/L [facility] Immature 1 0 - 1 % [facility] Granulocytes-[facility] Specimen Blood Performing Organization Address City/State/Zipcode Phone Number [facility] [address] [place] [address] MEDICAL CENTER * Prothrombin time/INR (08/26/2017 11:27 AM CDT) Protime 15.5 (H) 11.7 - 14.7 seconds [facility] INR 1.2 <=5.9 [facility] Specimen Blood Narrative Performed At RECOMMENDED COUMADIN/WARFARIN INR THERAPY RANGES [facility] STANDARD DOSE: 2.0 - 3.0 Includes: PROPHYLAXIS for venous thrombosis, [facility] systemic embolization; TREATMENT for venous thrombosis and/or pulmonary embolus. HIGH RISK: Target INR is 2.5-3.5 for patients with mechanical heart valves. Performing Organization Address [facility] Phone Number [facility] [address] [place] [address] [facility] * Basic Metabolic Panel (08/26/2017 11:27 AM CDT) Sodium 140 136 - 145 meq/L [facility] Potassium 3.8 3.5 - 5.1 meq/L [facility] Chloride 99 98 - 107 meq/L [facility] CO2 30 (H) 22 - 29 meq/L [facility] BUN 13 7 - 21 mg/dL [facility] Creatinine 3.51 (H) 0.57 - 1.25 mg/dL [facility] Glucose 120 (H) 70 - 105 mg/dL [facility] Calcium 8.5 8.4 - 10.2 mg/dL [facility] EGFR 13Comment: ESTIMATED GFR IS mL/min/1.73 sq m [facility] NOT ACCURATE CREATININE [facility] CLEARANCE IN PREDICTING GLOMERULAR FILTRATION RATE. ESTIMATED GFR IS NOT APPLICABLE FOR DIALYSIS PATIENTS. Specimen Blood Performing Organization Address City/[facility] Phone Number [facility] [address], [place] [id number] [facility] after 07/17/2017 Insurance Payer Benefit Subscriber ID Type Phone Address Plan / Group CARE IMPROVEMENT MEDICARE CARE xxxxxxxxx [facility] Advance Directives For more information, please contact: [facility] [address] [place] [address] Date Inactivated Comments Code Status Date Activated 08/27/2017 12:53 AM Full Code 08/26/2017 10:34 AM This code status was determined by: Patient 09/05/2016 1:31 AM Full Code 08/20/2016 2:50 PM This code status was determined by: Person holding Power of Agent Telegrapher 08/20/2016 2:50 PM Full Code 08/16/2016 12:29 AM This code status was determined by: Patient
--- NOTE | 2018-07-18 08:49 | Diagnostic Imaging Report ---
LEFT KNEE X-RAY - 4 VIEWS HISTORY: Fall COMPARISON: None available. FINDINGS: Bones: No acute displaced fracture. Osseous alignment is within normal limits. Joints: Chronic degenerative changes adjacent to the proximal tibia. Soft tissues: Surgical clips overlying the distal femur. No joint effusion or soft tissue swelling. IMPRESSION: No acute radiographic abnormality. Signed by: Dr. Joselin Lofton M.D. on 07/18/2018 7:52 AM
[2018-07-18 09:15] VITALS: BP 155/67
[2018-07-18] MEDS ORDERED: LISINOPRIL2.5 MG PO (10:07)
[2018-07-18 10:16] VITALS: BP 155/61
[2018-07-18 10:34] VITALS: BP 155/67
[2018-07-18 11:47] VITALS: BP 110/52
--- NOTE | 2018-07-18 13:36 | NUR ---
SOCIAL WORK INITIAL ASSESSMENT Multifocal Button Inspector to bedside to discuss plan of care with patient/family. CM/SW role and care transitions discussed. Anticipated discharge plan discussed along with duration of care. CM/SW discussed patients right to make decisions in care. CM/SW work hours given. Patient lives: IN HOUSE WITH FAMILY Admit/Transfer: VIA ED POA/Emergency contact: DAUGHTER EVE [phone] Current/Previous Home Health: HAS HOME HEALTH BUT CANNOT REMEMBER NAME OF COMPANY, STATES THEY HAVENT BEEN OUT YET FROM LAST VISIT PCP/Follow-up Care: [facility] Current/Previous DME: ASKING FOR WHEELCHAIR, TOLD NURSE TO PUT IN ORDER Other Services: DIALYSIS MWF AT [facility] AT 1245 Employment Status: RETIRED Areas of Concerns: WANT WHEELCHAIR Referral Needs: NONE Education Needs: NONE IMM/PEREZ given and signed (if applicable): UPON ADMISSION Goal for discharge: RETURN HOME CM/SW left business card at the bedside with contact information. Name and number was also written on the patients whiteboard. Patient verbalized understanding of discussion. CM will follow-up with ongoing discharge and transition of care needs.
[2018-07-18] MEDS: ACETAMINOPHEN 325 MG TAB PO PRN (15:03)
[2018-07-18 16:11] VITALS: BP 138/63
[2018-07-18] MEDS ORDERED: ONDANSETRON HCL INJ 2MG/ML 2ML 2 MG/ML VIAL IV PRN (18:15)
[2018-07-18] MEDS ORDERED: HYDRALAZINE HCL 20 MG/ML VIAL IV PRN (18:15)
[2018-07-18 19:11] LABS: BASOPHILS % 0.5 % (0.0-1.0); EOSINOPHILS # (AUTO) 0.3 (0.0-0.4); EOSINOPHILS % 4.9 % (0.0-6.0); HEMATOCRIT 31.7 % (34.2-44.1); HEMOGLOBIN 10.2 g/dL (12.0-16.0); LYMPHOCYTES # (AUTO) 1.1 (1.0-3.2); LYMPHOCYTES % 18.1 % (18.0-39.1); MEAN CORPUSCULAR HEMOGLOBIN 32.4 pg (28-32); MEAN CORPUSCULAR HGB CONC 32.2 g/dL (31-35); MEAN CORPUSCULAR VOLUME 100.6 fL (81-99); MONOCYTES # (AUTO) 0.7 (0.2-0.8); NEUTROPHILS # (AUTO) 4.1 (2.1-6.9); NEUTROPHILS % 64.2 % (38.7-80.0); PLATELET COUNT 131 x10e3/uL (140-360); RED BLOOD COUNT 3.15 x10e6/uL (3.6-5.1); RED CELL DISTRIBUTION WIDTH 15.3 % (11.7-14.4)
[2018-07-18 19:29] LABS: INR 2.92; PROTHROMBIN TIME 31.2 seconds (11.9-14.5)
[2018-07-18 19:33] LABS: ANION GAP 16.5 mmol/L (8-16); CALCIUM 7.8 mg/dL (8.4-10.2); CREATININE, SERUM 5.1 mg/dL (0.57-1.11); POTASSIUM 4.5 mmol/L (3.5-5.1)
[2018-07-18 20:51] VITALS: BP 135/62
[2018-07-18] MEDS: GUAIFENESIN 600MG/DEXTROMETHORPHAN 30MG TABSR PO SCH (21:43)
[2018-07-18] MEDS: ATORVASTATIN 20 MG TAB PO SCH (21:43)
[2018-07-19] VITALS (7 sets, daily range): BP systolic 125–150; BP diastolic 59–76
--- NOTE | 2018-07-19 05:00 | NUR ---
Patient laying in bed with HOB slightly elevated. AAO x 3. Patient denies of any pain at this time. No sob noted. No acute distress noted. Patient in stable condition and will continue to monitor.
[2018-07-19 05:38] LABS: BASOPHILS % 0.5 % (0.0-1.0); EOSINOPHILS # (AUTO) 0.4 (0.0-0.4); HEMATOCRIT 30.7 % (34.2-44.1); HEMOGLOBIN 9.7 g/dL (12.0-16.0); LYMPHOCYTES # (AUTO) 0.9 (1.0-3.2); LYMPHOCYTES % 16.1 % (18.0-39.1); MEAN CORPUSCULAR HGB CONC 31.6 g/dL (31-35); MEAN CORPUSCULAR VOLUME 101.3 fL (81-99); MONOCYTES # (AUTO) 0.6 (0.2-0.8); MONOCYTES % 9.7 % (4.4-11.3); NEUTROPHILS # (AUTO) 3.9 (2.1-6.9); NEUTROPHILS % 65.8 % (38.7-80.0); PLATELET COUNT 112 x10e3/uL (140-360); RED BLOOD COUNT 3.03 x10e6/uL (3.6-5.1); RED CELL DISTRIBUTION WIDTH 15.2 % (11.7-14.4)
[2018-07-19 05:43] LABS: ANION GAP 15.9 mmol/L (8-16); CALCIUM 7.6 mg/dL (8.4-10.2); CREATININE, SERUM 5.76 mg/dL (0.57-1.11); MAGNESIUM 2.2 MG/DL (1.3-2.1); POTASSIUM 4.9 mmol/L (3.5-5.1)
[2018-07-19] MEDS: GUAIFENESIN 600MG/DEXTROMETHORPHAN 30MG TABSR PO SCH ×2 (07:21→16:13)
[2018-07-19] MEDS ORDERED: DEXTROSE 50% SYRINGE 50 ML IV PRN (07:30)
[2018-07-19] MEDS ORDERED: IPRATROPIUM BROMIDE 0.02% 2.5 ML NEB NEB PRN (07:30)
[2018-07-19] MEDS ORDERED: LEVALBUTEROL HCL SOLN NEBU 0.63 MG/3 ML NEB INH PRN (07:30)
[2018-07-19] MEDS: DIVALPROEX SODIUM 250 MG TAB...DR PO SCH ×2 (08:32→16:13)
[2018-07-19] MEDS: SITAGLIPTIN 100 MG TAB PO SCH (08:32)
[2018-07-19] MEDS: DOCUSATE SODIUM 100 MG CAP PO SCH ×2 (08:32→16:02)
[2018-07-19] MEDS: PANTOPRAZOLE SOD 40 MG TABEC PO SCH (08:32)
[2018-07-19] MEDS: BUMETANIDE 1 MG TAB PO SCH ×2 (08:32→16:12)
[2018-07-19] MEDS: VALPROATE 250MG/5ML ORAL LIQ 5ml PO SCH ×2 (08:32→16:13)
[2018-07-19] MEDS: METOPROLOL SUCCINATE 50 MG TAB XL PO SCH (08:33)
[2018-07-19] MEDS: LISINOPRIL 2.5 MG TAB PO SCH (08:33)
[2018-07-19] MEDS: FUROSEMIDE 40 MG TAB PO SCH (08:33)
[2018-07-19] MEDS: PREDNISONE 10 MG TAB PO SCH (08:33)
[2018-07-19] MEDS: INSULIN LISPRO 100 UNIT/1 ML 3ML VIAL SQ SCH ×4 (08:34→21:00)
[2018-07-19] MEDS: TIOTROPIUM 18 MCG INH POWDER INH SCH (09:00)
[2018-07-19] MEDS ORDERED: AMIODARONE HCL 200 MG TAB PO SCH (09:00)
[2018-07-19] MEDS ORDERED: WARFARIN SOD 3 MG TAB PO SCH ×2 (09:00→17:00)
[2018-07-19 09:09] LABS: INR 2.04; PROTHROMBIN TIME 23.7 seconds (11.9-14.5)
[2018-07-19] MEDS: ACETAMINOPHEN 325 MG TAB PO PRN ×2 (09:31→21:15)
--- NOTE | 2018-07-19 10:05 | NUR ---
NOTIFIED YANELI COLON WITH DR. RAMOS REGARDING POSITIVE STOOL OCCULT. NO NEW ORDERS AT THIS TIME.
--- NOTE | 2018-07-19 14:19 | Consultation ---
DATE OF CONSULTATION: 07/19/2018 Cardiac Consultation REASON FOR CONSULTATION: The patient with multiple medical health problem, advanced cardiac issues, who is in the hospital for proper cardiac care. HISTORY: This lady is a 77-year-old, who is known to me for many years. She was recently at this institution, where she was seen and evaluated on July 03, 2018. She was dismissed home on medication. She was fine, she is debilitated in general, then while she was working she felt very weak and she fell on her left knee. With this fall, the patient had bleeding from her left knee area. There was big skin cut. It took them very long time to try to stop the bleeding. They were quite worried about that. She was brought to the emergency room. In the emergency room, her INR was 4. The patient admitted for further management and cardiac consultation is obtained. As I mentioned, the patient is noted to have hypertension, diabetes mellitus severe complication, end-stage renal disease on dialysis, advanced ischemic cardiomyopathy with prior myocardial infarction in 2013 with two-vessel coronary artery bypass surgery in july 2016, HOSPICE NURSE pacemaker implantation in December 2014 complicated by left lead dislodgement and she needed to have device revision in January 2017 by her EP doctor. The patient furthermore does have central venous stenosis and she had left arm fistula and she needed to be ligated due to severe left upper extremity swelling after multiple angioplasties by Renal and Interventional Radiology services. She does have very complicated medical history over the last few years. She had multiple hospitalizations with volume overload and decompensation. She does have very severe advanced COPD secondary to her prior history of smoking in addition to several bronchopneumonia. The patient does have also chronic skin disease where she is so old that solar panel installation supervisor was no success. She does have chronic pruritus. The patient also is having problems with repeated admission with volume overload. The patient does have currently her usual class III to early class IV shortness of breath on exertion, easy fatigability, orthopnea, but no paroxysmal nocturnal dyspnea, no syncope, no presyncope. PAST MEDICAL HISTORY: 1. Hypertension. 2. Hypercholesteremia. 3. Coronary artery disease, PCI in 2013 after massive myocardial infarction where she has some miraculously survived it, she was having multiple system failure. Two-vessel coronary artery bypass surgery in 2016. 4. End-stage renal disease, on hemodialysis Friday, Friday, Friday. All dialysis done via the right hemodialysis catheter because left arm fistula needed to be ligated secondary to swelling of the left arm and ischemic left arm. 5. Type 2 diabetes mellitus complication. 6. COPD, ex-heavy smoker. 7. History of atrial flutter status post ablation in 2014. 8. Paroxysmal atrial fibrillation. 9. Biventricular ICD in January 2015 with revision in January 2017, [employer] device. 10. Two-vessel bypass surgery in July 2016. 11. Prior left arm fistula with reversal and ligation in 2017. 12. Chronic skin disease. SOCIAL HISTORY: She is a . She is ex-smoker, quit in 2013. She is not alcohol drinker. ALLERGIES: NONE. CURRENT MEDICATIONS: Include amiodarone 200 mg a day, Lipitor 40 mg a day, Bumex 2 mg a day, hydralazine 25 mg t.i.d., lisinopril 2.5 mg a day, Toprol-XL 50 mg a day, prednisone 10 mg a day, Januvia, Spiriva and her usual dosage Coumadin 2 mg, currently the patient taking 3 mg. Also, the patient on valproic sodium 250 mg twice a day. FAMILY HISTORY: Mother at age 70, questionable cause, she had "bleeding." Father at age 88 from an accident. She lost a daughter from heart attack at age 56. Already, her son is on dialysis. REVIEW OF SYSTEMS: GENERAL: Failure to thrive, malaise, weakness. HEENT: Decreased hearing and decreased vision. PULMONARY: Severe shortness of breath on exertion. CARDIAC: As per H and P. GI: Constipation at times. No melena, although she has stool occult positive. HEMATOLOGY: Easy bruising. : Urine incontinence. MUSCULOSKELETAL: Back pain, arthritis. NEUROLOGICAL: Tendency to fall with gait abnormality. SKIN: Chronic skin changes all over, chronic rash despite the patient being on prednisone, frailty of the skin and discoloration. PHYSICAL EXAMINATION: VITAL SIGNS: Height of 5 feet 2 inches, weight of 151 pounds, blood pressure 120/60, heart rate of 70, respiratory rate of 20. GENERAL: Chronically ill, much older than her stated age, quite debilitated. HEENT: Decreased hearing, decreased vision. NECK: No elevation of jugular venous pulsation. There is tunneled hemodialysis catheter. CARDIOVASCULAR: Regular rate and rhythm. Normal first and second heart sounds. A 3/6 systolic murmur at right upper sternal border. LUNGS: Decreased lung expansion. There is left shoulder ICD noted. Crackles are noted. ABDOMEN: Soft, obese. EXTREMITIES: Absent radial pulses bilaterally. Absent pedal pulses. Atrophic skin over her body and lower extremities with bruises. Over the left knee, there is a skin abrasion and skin changes and there is loss of skin over the left knee and there is no hematoma by physical exam. LABORATORY DATA: Sodium of 138, potassium of 4.9, BUN of 40, creatinine of 5.8, glucose of 84. White blood cell count of 5.9, hemoglobin of 9.7, hematocrit 30%, platelet count of 112,000. INR yesterday of 4.03, today is 2.04. IMPRESSION: 1. Fall with bleeding from the left knee secondary to trauma and fall. 2. INR is elevated at 4.03. 3. 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 4. End-stage renal disease, on dialysis. 5. Coronary artery disease status post prior bypass with no angina. 6. Hypertension. 7. Hypercholesterolemia. 8. Paroxysmal atrial fibrillation. 9. Biventricular ICD. 10. Diabetes mellitus with complication. 11. Fall and trauma to the left knee. 12. Debility. 13. Chronic skin lesion. RECOMMENDATION: Cardiac-mcallister, I would recommend the followin. Medication: Amiodarone 200 mg a day, lisinopril 2.5 mg a day, atorvastatin 40 mg a day, Lasix 40 mg a day, metoprolol succinate 50 mg a day. Warfarin should be decreased to 2 mg a day. 2. Of note, the patient although on amiodarone and this could be skin rash secondary to amiodarone, she was off amiodarone for long time and she was sent to be seen by Dermatology whom they did not believe that after biopsy, etc., her problem have anything to do with the amiodarone; however, it will be probably mcallister to stop that because of the patient's status and condition. Establishing code status on this patient will be beneficial. However, there is different opinion in her family about her code condition. The patient was unable to make a final decision regarding that approach. The patient's attended care discussed with the nursing staff. The patient' questions were answered. MD CHRISTY Torres/MAGDALENA /[id number]
--- NOTE | 2018-07-19 14:50 | NUR ---
Visit made by the Spiritual Care Department Pastoral Visitor, Noemí Rivas. PV provided pastoral presence, prayer, communion, hospitality, and supportive listening. Pastoral Visitor informed pt/family of the scope of Software Project Manager Services and availability. SYDNEY BERMUDEZ Sausage Maker Spiritual Care Department O: [phone] Pager: [phone] ([phone] number calling from)
[2018-07-19] MEDS ORDERED: ONDANSETRON HCL 4 MG ORAL DISINTEGRATING TAB PO PRN (15:45)
[2018-07-19] MEDS: WARFARIN SOD 1 MG TAB PO SCH (16:12)
[2018-07-19] MEDS: ATORVASTATIN 20 MG TAB PO SCH (21:14)
[2018-07-20] VITALS (9 sets, daily range): BP systolic 110–145; BP diastolic 56–72
[2018-07-20 05:19] LABS: BASOPHILS % 0.4 % (0.0-1.0); EOSINOPHILS # (AUTO) 0.3 (0.0-0.4); EOSINOPHILS % 4.5 % (0.0-6.0); HEMATOCRIT 27.4 % (34.2-44.1); HEMOGLOBIN 8.8 g/dL (12.0-16.0); LYMPHOCYTES # (AUTO) 1.3 (1.0-3.2); MEAN CORPUSCULAR HEMOGLOBIN 32.2 pg (28-32); MEAN CORPUSCULAR HGB CONC 32.1 g/dL (31-35); MEAN CORPUSCULAR VOLUME 100.4 fL (81-99); MONOCYTES # (AUTO) 0.7 (0.2-0.8); MONOCYTES % 9.1 % (4.4-11.3); NEUTROPHILS # (AUTO) 5.2 (2.1-6.9); NEUTROPHILS % 67.7 % (38.7-80.0); PLATELET COUNT 123 x10e3/uL (140-360); RED BLOOD COUNT 2.73 x10e6/uL (3.6-5.1); RED CELL DISTRIBUTION WIDTH 15.1 % (11.7-14.4)
[2018-07-20 05:36] LABS: INR 1.87; PROTHROMBIN TIME 22.2 seconds (11.9-14.5)
[2018-07-20 05:41] LABS: ANION GAP 16.5 mmol/L (8-16); CALCIUM 7.6 mg/dL (8.4-10.2); CREATININE, SERUM 6.97 mg/dL (0.57-1.11); MAGNESIUM 2.1 MG/DL (1.3-2.1); PHOSPHORUS 4.2 MG/DL (2.3-4.7); POTASSIUM 5.5 mmol/L (3.5-5.1)
[2018-07-20] MEDS: GUAIFENESIN 600MG/DEXTROMETHORPHAN 30MG TABSR PO SCH ×2 (05:42→18:00)
[2018-07-20 05:54] LABS: % IRON SATURATION 31 % (15-50); IRON 76 ug/dL (50-170); TOTAL IRON BINDING CAPACITY 242 ug/dL (261-478); TRANSFERRIN 173 mg/dL (180-382)
[2018-07-20 06:16] LABS: FERRITIN > 2000.00 ng/mL (4.63-204.00)
[2018-07-20 06:30] LABS: FOLATE 2.8 ng/mL (7.0-15.4)
[2018-07-20] MEDS: TIOTROPIUM 18 MCG INH POWDER INH SCH (07:00)
--- NOTE | 2018-07-20 07:00 | NUR ---
Walking rounds done. patient resting in bed in NAD. POC discussed in Sami per patient request. She was instructed to call for assistance as needed and verbalized understanding. Call soto within reach.
--- NOTE | 2018-07-20 07:30 | NUR ---
Multiple bruising on bilateral arms noted as well as itches to lower back. Per patient they are unchanged from when she was home.
[2018-07-20] MEDS ORDERED: AMIODARONE HCL 200 MG TAB PO SCH (09:00)
[2018-07-20] MEDS: METOPROLOL SUCCINATE 50 MG TAB XL PO SCH (09:00)
[2018-07-20] MEDS: LISINOPRIL 2.5 MG TAB PO SCH (09:00)
[2018-07-20] MEDS: PREDNISONE 10 MG TAB PO SCH (10:10)
[2018-07-20] MEDS: FUROSEMIDE 40 MG TAB PO SCH (10:10)
[2018-07-20] MEDS: SITAGLIPTIN 100 MG TAB PO SCH (10:10)
[2018-07-20] MEDS: DIVALPROEX SODIUM 250 MG TAB...DR PO SCH ×2 (10:10→17:06)
[2018-07-20] MEDS: DOCUSATE SODIUM 100 MG CAP PO SCH ×2 (10:10→17:06)
[2018-07-20] MEDS: BUMETANIDE 1 MG TAB PO SCH ×2 (10:10→17:06)
[2018-07-20] MEDS: FOLIC ACID 1 MG TAB PO SCH (10:10)
[2018-07-20] MEDS: PANTOPRAZOLE SOD 40 MG TABEC PO SCH (10:10)
--- NOTE | 2018-07-20 10:25 | NUR ---
ST Note: Order for speech and language evaluation noted. discussed case with SOFÍA Barrera. Pt sleeping and could not maintain level of alertness needed for adequate eval. Will f/u later.
--- NOTE | 2018-07-20 13:00 | NUR ---
Dialysis nurse at the bedside getting set up for treatment.
[2018-07-20] MEDS: WARFARIN SOD 1 MG TAB PO SCH (17:06)
--- NOTE | 2018-07-20 17:12 | NUR ---
ORDER RECEIVED FOR WC. MET W THE PT AT THE BEDSIDE, BUT WAS ASKED TO SPEAK W HER DAUGHTER. CALL WAS MADE TO EVE LAGUNAS / [facility] @ [phone]. [facility] PT HAS HOME O2 ONLY. [facility] PT RECEIVED O2 FROM [facility], BUT WAS NOT SURE. [facility] SHE WOULD BE OK W THEM OR ANY AGENCY IN NETWORK W HER MOTHER'S INSURANCE. INFORMED I WOULD TRY [facility] FIRST TO VERIFY IF THEY PROVIDE HOME O2 FOR THE PT. AGREED. TELEPHONE WAS CONSENT WAS GIVEN AND 2ND CM WITNESSED; SCOTT Blake REQUESTED WC BE DELIVERED TO THEIR HOME. CALL TO [facility] @ OFF: [phone]. SPOKE W GABO. [facility] PT DOES RECEIVE O2 FROM THEIR COMPANY. FAXED WC REFERRAL TO [facility] @ FAX: [phone].
--- NOTE | 2018-07-20 17:16 | NUR ---
WOUND CARE CONSULTATION: INITIAL EVALUATION DX: Coagulopathy and Laceration of Left Knee - S/P Fall at Home. LABS: WBC 7.6 HGB8.8 HCT27.4 NEUT%67.7 [id number] Wound Care Consulted for Left Knee Laceration Evaluation and TX Recommendation PATIENT VISIT: Patient Japanese speaking. Calm cooperative. Demonstrated ulceration to left knee. Partial thickness ulcer with sharp edges. No Drainage. Appears Stable with bruising to periwound. Verbalizes discomfort. Pain level of 4 on scale of 1-10. No other wounds identified Kai Score [address] Conservative PUP Active IMPRESSION: 1. Left Knee - S/P fall- Laceration RECOMMENDATION: 1. Left Knee - S/P fall- Laceration - Cleanse wound with NS and 4x4 gauze and pat dry thoroughly - Apply Xeroform Single Layer then Cover with 4x4 gauze and Kerlx Wrap Daily 2. Continue Conservative PUP. Addendum: 07/20/18 at 1722 by Jordan Isaacs RN Amended: Links added.
[2018-07-20] MEDS ORDERED: HEPARIN SOD (PORCINE) 1000 UNIT/ML SDV IV PRN (17:30)
[2018-07-20] MEDS ORDERED: SODIUM CHLORIDE 0.9% 1000ML 2,000 ML IV PRN (17:30)
--- NOTE | 2018-07-20 20:00 | NUR ---
INITIAL ASSESSMENT COMPLETE, PT FINISHED UP DIALYSIS, NO DISTRESS NOTED, PT SKIN THIN AND PRESENTS WITH A RASH ALL OVER, FAMILY STATES NORMAL FOR HER, QUINTION CATH TO RIGHT UPPER SHOULDER, IV TO RIGHT AC, OLD GRAFT TO LEFT FORE ARM, PT HAS TELE ON, LUXEMBOURGISH SPEAKING ONLY, VS STABLE, FAMILY AT BEDSIDE, CALL LIGHT IN REACH
[2018-07-20] MEDS: ATORVASTATIN 40 MG TAB PO SCH (21:00)
[2018-07-20] MEDS: ACETAMINOPHEN 325 MG TAB PO PRN (21:10)
[2018-07-21 00:12] VITALS: BP 146/64
[2018-07-21 05:23] LABS: BASOPHILS % 0.5 % (0.0-1.0); EOSINOPHILS # (AUTO) 0.2 (0.0-0.4); HEMATOCRIT 27.8 % (34.2-44.1); HEMOGLOBIN 8.9 g/dL (12.0-16.0); LYMPHOCYTES # (AUTO) 0.9 (1.0-3.2); LYMPHOCYTES % 16.3 % (18.0-39.1); MEAN CORPUSCULAR HEMOGLOBIN 32.2 pg (28-32); MEAN CORPUSCULAR VOLUME 100.7 fL (81-99); MONOCYTES # (AUTO) 0.6 (0.2-0.8); NEUTROPHILS # (AUTO) 3.6 (2.1-6.9); NEUTROPHILS % 66.7 % (38.7-80.0); PLATELET COUNT 115 x10e3/uL (140-360); RED BLOOD COUNT 2.76 x10e6/uL (3.6-5.1); RED CELL DISTRIBUTION WIDTH 15.1 % (11.7-14.4)
[2018-07-21 05:36] LABS: INR 1.46; PROTHROMBIN TIME 18.3 seconds (11.9-14.5)
[2018-07-21 05:41] LABS: ANION GAP 12.5 mmol/L (8-16); CREATININE, SERUM 3.88 mg/dL (0.57-1.11); POTASSIUM 4.5 mmol/L (3.5-5.1)
[2018-07-21 05:55] VITALS: BP 136/61
[2018-07-21] MEDS: GUAIFENESIN 600MG/DEXTROMETHORPHAN 30MG TABSR PO SCH ×2 (06:25→18:17)
--- NOTE | 2018-07-21 07:03 | NUR ---
Walking rounds done. Patient is awake and alertx3, only Luxembourgish speaking. POC discussed in Luxembourgish. Patient was instructed to call for assistance as needed and verbalized understanding. Bed in lowest position, locked and call soto within reach.
[2018-07-21] MEDS: SITAGLIPTIN 100 MG TAB PO SCH (08:17)
[2018-07-21] MEDS: LISINOPRIL 2.5 MG TAB PO SCH (08:17)
[2018-07-21] MEDS: PANTOPRAZOLE SOD 40 MG TABEC PO SCH (08:17)
[2018-07-21] MEDS: FOLIC ACID 1 MG TAB PO SCH (08:17)
[2018-07-21] MEDS: DOCUSATE SODIUM 100 MG CAP PO SCH ×2 (08:17→16:34)
[2018-07-21] MEDS: DIVALPROEX SODIUM 250 MG TAB...DR PO SCH ×2 (08:17→16:35)
[2018-07-21] MEDS: BUMETANIDE 1 MG TAB PO SCH ×2 (08:17→16:34)
[2018-07-21] MEDS: FUROSEMIDE 40 MG TAB PO SCH (08:17)
[2018-07-21] MEDS: PREDNISONE 10 MG TAB PO SCH (08:17)
[2018-07-21] MEDS: METOPROLOL SUCCINATE 50 MG TAB XL PO SCH (08:18)
[2018-07-21 08:58] VITALS: BP 159/68
--- NOTE | 2018-07-21 11:28 | NUR ---
ST NOTE: Order for Speech Language Evaluation acknowledged. Pt with improved level of alertness, verbal output functional. Spoke with SOFÍA Barrera, pt with [employer] and is now sleeping with no desire to be disturbed. Pt is Slovenian speaking only and relies on her daughter to put forth all medical information and chooses not to answer for herself.
[2018-07-21 12:18] VITALS: BP 133/64
[2018-07-21 16:23] VITALS: BP 109/54
[2018-07-21] MEDS ORDERED: WARFARIN SOD 1 MG TAB PO SCH (17:00)
[2018-07-21] MEDS ORDERED: WARFARIN SOD 2.5 MG TAB PO SCH (17:00)
[2018-07-21] MEDS ORDERED: XOPENEX0.63 MG/3 INH (19:50)
[2018-07-21] MEDS ORDERED: IPRATROPIU0.2 MG/1 M NEB (19:50)
[2018-07-21] MEDS ORDERED: FOLIC ACID1 MG PO (19:50)
[2018-07-21] MEDS ORDERED: AMIODARONE HCL200 MG PO (19:50)
[2018-07-21] MEDS ORDERED: COUMADIN2 MG PO (19:50)
[2018-07-21] MEDS: ATORVASTATIN 40 MG TAB PO SCH (19:55)
[2018-07-21 20:20] VITALS: BP 159/80
--- NOTE | 2018-07-22 10:28 | Discharge Summary ---
PERTINENT HISTORY AND PHYSICAL FINDINGS: Ms. Bello is a 77-year-old female, reportedly walking into hemodialysis on Friday when she became weak and fell to her left knee. Her daughter was present and helped her to fall gently. Her hemodialysis was cut short due to the patient's pain when she was home, wound continued to bleed and the patient was brought into emergency department. The daughter had held the Coumadin; however, bleeding had stopped. PAST MEDICAL HISTORY: 1. Hypertension. 2. Coronary artery disease with stents. 3. Chronic systolic and diastolic congestive heart failure. 4. Idiopathic cardiomyopathy. 5. End-stage renal disease. 6. COPD. 7. Type 2 diabetes mellitus. 8. Chronic atrial fibrillation. PAST SURGICAL HISTORY: 1. Two vessel coronary artery bypass graft. 2. Right chest hemodialysis catheter. 3. Left arm hemodialysis graft. 4. Coronary stents and AICD. FAMILY HISTORY: The patient's son and daughter both have diabetes. Family unaware of the patient's additional family history such as parents. SOCIAL HISTORY: The patient quit smoking in 2013. Denies alcohol, illicit drugs. ALLERGIES: NO KNOWN ALLERGIES. ADMITTING DIAGNOSES: 1. Left knee laceration. 2. Coagulopathy. 3. Hypertension with chronic systolic and diastolic congestive heart failure and end-stage renal disease. 4. Type 2 diabetes mellitus with end-stage renal disease. 5. Chronic atrial fibrillation. 6. Acute on chronic systolic and diastolic congestive heart failure. 7. End-stage renal disease. 8. Fluid overload secondary to short hemodialysis treatment on Friday. 9. Chronic obstructive pulmonary disease. 10. History of coronary artery disease with stents. 11. CABG. DISCHARGE DIAGNOSES: 1. Supratherapeutic INR/coagulopathy. 2. Status post fall with left knee laceration. 3. Hypertension complicated by combined systolic and diastolic congestive heart failure and end-stage renal disease. 4. Type 2 diabetes mellitus with end-stage renal disease. 5. Acute on chronic systolic and diastolic congestive heart failure. 6. End-stage renal disease, on hemodialysis. 7. Chronic atrial fibrillation. 8. Anemia due to gastrointestinal bleed. 9. Folic acid deficiency. 10. AICD in situ. Dosage of Coumadin was changed to 2 mg a day and amiodarone changed to every other day per Cardiology recommendations and monitoring was continued. The patient received wound care on the left knee laceration and had x-ray, which was negative. MEDICATIONS: 1. Bumex, Lasix, and metoprolol are all continued for high blood pressure. 2. Sliding scale insulin was used initially, but was discontinued due to hypoglycemia and Januvia was continued. 3. B-type natriuretic peptide gradually improved with hemodialysis. On admission, hemoglobin 10.2, hematocrit 31.7, platelets 131,000. PT 31.2, INR 2.92. B-type natriuretic peptide 3090, potassium 4.5, BUN 31, creatinine 5.1, GFR 8, calcium 7.8. On day of discharge, hemoglobin 8.9, hematocrit 27.8, platelets 115,000. PT 18.3, INR 1.46. Potassium 4.5, BUN 24, creatinine 3.88. GFR 11. B-type natriuretic peptide 2768. Fingerstick blood glucose levels today 76, 116. Fecal occult blood test on July 19 was positive. Telemetry on the day of discharge, ventricular paced rhythm with heart rate 65, heart rate controlled. The patient has been noncompliant with diet, but instructions are on discharge for the patient to continue with renal diabetic diet. Activity level as tolerated. Case Management had set up wheelchair orders today for Case Management to please add physical therapy via home health. Case was discussed with consultants. The patient's dialysis is to continue and Nephrology is okay with discharge at this time per YANELI Garcia, with Dr. uSero with Cardiology. The patient can be discharged home today on Coumadin 2 mg p.o. daily. We will continue the amiodarone at the same dose 200 mg p.o. every Friday, Friday, Friday only. Additional prescriptions include folic acid 1 mg p.o. daily, Xopenex, and Atrovent nebs p.r.n. The patient already has home oxygen and hand held nebulizer at home. The patient has follow up with her PCP, Dr. Enrique Farrar in 1 to 2 weeks and follow up with Nephrology and Cardiology as directed. Dictated by Rolf Sandoval NP Enrique Rowan MD HWP/MODL /[id number]
== END 2018-07-21 21:20 | disposition home or self-care (01) ==
LOC: FSED 06:14 → ERHOLD 07:25 → IMCU 08:50
PROVIDERS: ADMIT Internal Medicine; ATTEND Internal Medicine
DX: E87.5 Hyperkalemia (principal); S81.012A Laceration without foreign body, left knee, initial encounter; I13.2 Hypertensive heart and chronic kidney disease with heart failure and with stage 5 chronic kidney disease, or end stage renal disease; I50.43 Acute on chronic combined systolic (congestive) and diastolic (congestive) heart failure; N18.6 End stage renal disease; E11.22 Type 2 diabetes mellitus with diabetic chronic kidney disease; Z99.2 Dependence on renal dialysis; Z79.4 Long term (current) use of insulin; J44.9 Chronic obstructive pulmonary disease, unspecified; I25.10 Atherosclerotic heart disease of native coronary artery without angina pectoris; I25.82 Chronic total occlusion of coronary artery; Z95.5 Presence of coronary angioplasty implant and graft; I48.2 Chronic atrial fibrillation; Z79.01 Long term (current) use of anticoagulants; I42.9 Cardiomyopathy, unspecified; Z84.89 Family history of other specified conditions; R41.82 Altered mental status, unspecified; Z87.891 Personal history of nicotine dependence; W18.39XA Other fall on same level, initial encounter; Y93.01 Activity, walking, marching and hiking; Y92.89 Other specified places as the place of occurrence of the external cause; Z95.810 Presence of automatic (implantable) cardiac defibrillator; E78.00 Pure hypercholesterolemia, unspecified; T45.515A Adverse effect of anticoagulants, initial encounter; L98.9 Disorder of the skin and subcutaneous tissue, unspecified; I25.2 Old myocardial infarction; E53.8 Deficiency of other specified B group vitamins
CPT/HCPCS: 36415 ×4; 73560; 80048 ×4; 82270; 82607; 82728; 82746; 82948 ×4; 83540; 83735 ×4; 83880 ×4; 84100; 84466; 85025 ×4; 85610 ×4; 86704; 86707; 87340; 90935; 97116; 97162; 99284; G0378 ×4; J1644; J7512 ×3; S0164 ×3

== ENCOUNTER 2018-08-08 10:48 | Emergency (ER) | payer MEDICARE ==
[~2018-08-08] VITALS: Ht 157.5 cm; Wt 68.5 kg
[~2018-08-08 10:48] MED LIST changes: +COUMADIN2 MG PO; +FOLIC ACID1 MG PO; +IPRATROPIU0.2 MG/1 M NEB; +XOPENEX0.63 MG/3 INH
--- OUTSIDE RECORDS SUMMARY | 2018-08-08 10:52 | XMS REPORT | Clinical Summary ---
Author Author TONIA [facility] Address Unknown Phone Unavailable Care Team Providers Care Machine Design Engineer Name Role Phone Enrique Farrar PCP Allergies [...] tablet daily, follow 7 PT/INR with your wood grinder operator for dose adjustment. Goal INR 2-3. First PT/INR Friday with your Mason Tender. . Active lisinopril Take 2.5 mg 0 [...] Dx) 08/07/2017 Outside Orders Central Scheduling after 08/07/2017 Family History Medical History Relation Name Comments [...] Lot Implanted Type Area Manufactur er 08/21/2017 [id number] / / [id number] Cath Dlys Trialysis Pwr 30cm Catheter Right: Groin CR [id number] - [id number] Dialysis BARD:ACCES Implanted: Qty: 1 on 08/20/2016 by Long-Term S RAMSES Galindo, John Chang MD Procedures [...] TIME/INR STAT 08/26/2017 11:27 AM CDT after 08/07/2017 Results * TRANSFUSION SERVICE REPORT - SCAN (08/28/2017 7:52 AM CDT) Narrative Performed At * POC-Glucose meter (08/26/2017 4:44 PM CDT) POC-Glucose Meter 99Comment: TESTED AT [facility] 70 - 110 mg/dL [address] Specimen Blood Performing Organization Address City/State/[place] [address] [facility] * IR Venogram - Extremity Unilateral (08/26/2017 3:26 PM CDT) Specimen Narrative Performed At FINAL REPORT [facility] Left upper extremity venogram, 08/26/2017. History: Left [...] MD Report Verified Date/Time:08/26/2017 15:55:31 Reading Location: [place] [address] Angio Body Reading Room Procedure Note Interface, [...] Report Verified Date/Time: 08/26/2017 15:55:31 Reading Location: [place] [address] Angio Body Reading Room Performing Organization Address City/[facility] Phone Number Mosec, Mobile Secretary RIS * Electrocardiogram, 12-lead (08/26/2017 12:19 PM CDT) Specimen Narrative Performed At Ventricular Rate 82 BPM GE MUSE Atrial Rate 82 BPM P-R Interval 142 ms QRS Duration 162 ms Q-T Interval 478 ms QTC Calculation(Bazett) 558 ms P [place] 71 degrees R [place] -67 degrees T [place] 90 degrees Electronic ventricular pacemaker No previous ECGs available Underlying atrial rhythm is likely sinus. Confirmed by MD Aburto Mahboob ([id number]) on 08/26/2017 4:12:04 PM Procedure Note Interface, External Ris In - 08/26/2017 4:12 PM CDT Ventricular Rate 82 BPM Atrial Rate 82 BPM P-R Interval 142 ms QRS Duration 162 ms Q-T Interval 478 ms QTC Calculation(Bazett) 558 ms P [place] 71 degrees R [place] -67 degrees T [place] 90 degrees Electronic ventricular pacemaker No previous ECGs available Underlying atrial rhythm is likely sinus. Confirmed by MD Aburto Mahboob ([id number]) on 08/26/2017 4:12:04 PM Performing Organization Address City/State/Zipcode Phone Number [place]ose[place], Mobile Secretary MUSE * Potassium-Stat Lab (08/26/2017 11:27 AM CDT) Potassium 3.7 3.6 - 5.5 meq/L [facility] Specimen Blood, Arterial Performing Organization Address City/State/Zipcode Phone Number [facility] [address] * Glucose-Stat Lab (08/26/2017 11:27 AM CDT) Glucose 119 (H) 70 - 110 mg/dL [facility] Specimen Blood, Arterial Performing Organization Address [facility] Phone Number [address] * Type and screen, automated (08/26/2017 11:27 AM CDT) ABO/RH AUTOMATED (BEAKER) A POSITIVE [facility] Ab Scrn NEGATIVE [facility] Specimen Blood Performing Organization Address [facility] Phone Number [address] * HGB/HCT (H&H)-Stat Lab (08/26/2017 11:27 AM CDT) Hemoglobin 11.4 (L) 12.0 - 15.0 g/dL [facility] Hematocrit 34.0 (L) 36.0 - 45.0 % [facility] Specimen Blood, Arterial Performing Organization Address City/[facility] Phone Number [address] * CBC with platelet count + automated diff (08/26/2017 11:27 AM CDT) WBC 6.4 3.5 - 10.5 K/L [facility] RBC 3.13 (L) 3.93 - 5.22 M/L [facility] Hemoglobin 10.5 (L) 11.2 - 15.7 GM/DL [facility] Hematocrit 32.2 (L) 34.1 - 44.9 % [facility] MCV 102.9 (H) 79.4 - 94.8 fL [facility] MCH 33.5 (H) 25.6 - 32.2 pg [facility] MCHC 32.6 32.2 - 35.5 GM/DL [facility] RDW 15.4 (H) 11.7 - 14.4 % [facility] Platelets 146 (L) 150 - 450 K/CU MM [facility] MPV 9.9 9.4 - 12.3 fL [facility] nRBC 0 0 - 0 /100 WBC [facility] % Neutros 61 % [facility] % Lymphs 20 % [facility] % Monos 10 % [facility] % Eos 8 % [facility] % Baso 0 % [facility] # Neutros 3.90 1.56 - 6.13 K/L [facility] # Lymphs 1.27 1.18 - 3.74 K/L [facility] # Monos 0.62 (H) 0.24 - 0.36 K/L [facility] # Eos 0.50 (H) 0.04 - 0.36 K/L [facility] # Baso 0.02 0.01 - 0.08 K/L [facility] Immature 1 0 - 1 % [facility] Granulocytes-[facility] Specimen Blood Performing Organization Address City/State/Zipcode Phone Number [facility] [address] [place] [address] [facility] * Prothrombin time/INR (08/26/2017 11:27 AM CDT) Protime 15.5 (H) 11.7 - 14.7 seconds [facility] INR 1.2 <=5.9 [facility] Specimen Blood Narrative Performed At RECOMMENDED COUMADIN/WARFARIN INR THERAPY RANGES [facility] STANDARD DOSE: 2.0 - 3.0 Includes: PROPHYLAXIS for venous thrombosis, [facility] systemic embolization; TREATMENT for venous thrombosis and/or pulmonary embolus. HIGH RISK: Target INR is 2.5-3.5 for patients with mechanical heart valves. Performing Organization Address [facility] Phone Number [facility] [address], [place] [phone] [facility] * Basic Metabolic Panel (08/26/2017 11:27 AM CDT) Sodium 140 136 - 145 meq/L [facility] Potassium 3.8 3.5 - 5.1 meq/L [facility] Chloride 99 98 - 107 meq/L [facility] CO2 30 (H) 22 - 29 meq/L [facility] BUN 13 7 - 21 mg/dL [facility] Creatinine 3.51 (H) 0.57 - 1.25 mg/dL [facility] Glucose 120 (H) 70 - 105 mg/dL [facility] Calcium 8.5 8.4 - 10.2 mg/dL [facility] EGFR 13Comment: ESTIMATED GFR IS mL/min/1.73 sq m [facility] NOT ACCURATE CREATININE [facility] CLEARANCE IN PREDICTING GLOMERULAR FILTRATION RATE. ESTIMATED GFR IS NOT APPLICABLE FOR DIALYSIS PATIENTS. Specimen Blood Performing Organization Address City/[facility] Phone Number [facility] [address], [place] [phone] [facility] after 08/07/2017 Insurance Payer Benefit Subscriber ID Type Phone Address Plan / Group CARE IMPROVEMENT MEDICARE CARE xxxxxxxxx [facility] Advance Directives For more information, please contact: [facility] [address] [place] [address] Date Inactivated Comments Code Status Date Activated 08/27/2017 12:53 AM Full Code 08/26/2017 10:34 AM This code status was determined by: Patient 09/05/2016 1:31 AM Full Code 08/20/2016 2:50 PM This code status was determined by: Person holding Power of Business Analyst 08/20/2016 2:50 PM Full Code 08/16/2016 12:29 AM This code status was determined by: Patient
--- NOTE | 2018-08-08 12:04 | Diagnostic Imaging Report ---
Examination: Single AP view of the chest. COMPARISON: July 09, 2018 INDICATION: Dyspnea DISCUSSION: Sternotomy wires. Multi lead AICD/pacemaker. Lines/tubes: Dialysis catheter with tip overlying the cavoatrial junction. Lungs: Pulmonary venous congestion. Pleura: No pleural effusion or pneumothorax. Heart and mediastinum: Cardiomegaly Bones and soft tissues: No acute bony abnormalities. IMPRESSION: 1. Cardiomegaly with pulmonary venous congestion Signed by: Dr. Partha Ratliff M.D. on 08/08/2018 12:00 PM
== END 2018-08-08 13:14 | disposition home or self-care (01) ==
LOC: ER 10:48
DX: R06.09 Other forms of dyspnea (principal); R05 Cough; I12.0 Hypertensive chronic kidney disease with stage 5 chronic kidney disease or end stage renal disease; N18.6 End stage renal disease; Z99.2 Dependence on renal dialysis; J44.9 Chronic obstructive pulmonary disease, unspecified; E78.00 Pure hypercholesterolemia, unspecified; I25.2 Old myocardial infarction; Z95.1 Presence of aortocoronary bypass graft; Z95.810 Presence of automatic (implantable) cardiac defibrillator
CPT/HCPCS: 71045; 99283

== ENCOUNTER 2019-02-14 03:06 | Inpatient (IN) | payer MEDICARE, OTHER ==
[2019-02-14] VITALS (9 sets, daily range): BP systolic 105–139; BP diastolic 47–74
[~2019-02-14] VITALS: Ht 157.5 cm; Wt 63.5 kg
[2019-02-14] MEDS ORDERED: ALBUTEROL SULF 0.083% NEB SOLN 3 ML NEB NEB STA (03:13)
[2019-02-14] MEDS ORDERED: METHYLPREDNISOLONE SOD SUCC 125 MG/2ML VIAL IV ONE (03:15)
[2019-02-14] MEDS ORDERED: IPRATROPIUM BROMIDE 0.02% 2.5 ML NEB NEB ONE (03:15)
[2019-02-14] MEDS ORDERED: ALBUTEROL SULF 0.083% NEB SOLN 3 ML NEB ONE (03:26)
[2019-02-14] MEDS ORDERED: IPRATROPIUM BROMIDE 0.02% 2.5 ML NEB ONE (03:27)
[2019-02-14 04:03] LABS: BASOPHILS % 0.2 % (0.0-1.0); HEMATOCRIT 50.6 % (34.2-44.1); LYMPHOCYTES # (AUTO) 1.3 (1.0-3.2); LYMPHOCYTES % 14.7 % (18.0-39.1); MEAN CORPUSCULAR HEMOGLOBIN 29.8 pg (28-32); MEAN CORPUSCULAR HGB CONC 29.6 g/dL (31-35); MEAN CORPUSCULAR VOLUME 100.6 fL (81-99); MONOCYTES # (AUTO) 0.5 (0.2-0.8); MONOCYTES % 5.6 % (4.4-11.3); NEUTROPHILS # (AUTO) 6.7 (2.1-6.9); NEUTROPHILS % 78.8 % (38.7-80.0); PLATELET COUNT 144 x10e3/uL (140-360); RED BLOOD COUNT 5.03 x10e6/uL (3.6-5.1); RED CELL DISTRIBUTION WIDTH 15.9 % (11.7-14.4)
[2019-02-14 04:25] LABS: ALBUMIN 3.8 g/dL (3.5-5.0); ANION GAP 21.3 mmol/L (8-16); CALCIUM 9.4 mg/dL (8.4-10.2); CREATININE, SERUM 5.78 mg/dL (0.57-1.11); POTASSIUM 5.3 mmol/L (3.5-5.1)
[2019-02-14 04:32] LABS: CREATINE KINASE MB 2.9 ng/mL (0-5.0)
--- NOTE | 2019-02-14 04:40 | Diagnostic Imaging Report ---
EXAMINATION: CHEST SINGLE (PORTABLE) INDICATION: Short of breath COMPARISON: Chest radiograph 08/08/2018 FINDINGS: AP view TUBES and LINES: Right IJ central venous catheter, tip in the cavoatrial junction. Left chest wall cardiac device with leads in the right atrium, right ventricle, and coronary sinus. LUNGS/PLEURA: Lungs are well inflated. Prominent pulmonary vasculature. Perihilar/infrahilar and basilar hazy opacities. Peribronchial cuffing. Left hemidiaphragm obscured. No pneumothorax. Blunted right costophrenic sulcus. HEART AND MEDIASTINUM: Cardiac size is moderately enlarged. Post surgical changes along the left mediastinum. BONES AND SOFT TISSUES: No acute osseous lesion. Soft tissues are unremarkable. UPPER ABDOMEN: No free air under the diaphragm. IMPRESSION: Moderate cardiomegaly, pulmonary vascular congestion, and probable pulmonary edema. Trace pleural effusions are also possible. Underlying pneumonia is not excluded. Signed by: Len Anthony DO on 02/14/2019 4:37 AM
[2019-02-14] MEDS ORDERED: DEXTROSE 50% SYRINGE 50 ML IV PRN (05:00)
[2019-02-14] MEDS ORDERED: ASPIRIN 81 MG CHEW TAB PO ONE (05:00)
[2019-02-14] MEDS ORDERED: SODIUM CHLORIDE FLUSH 10 ML SYR INJ PRN (05:00)
[2019-02-14] MEDS: ALBUTEROL/IPRATROPIUM 3 ML NEB NEB SCH ×5 (07:10→23:28)
--- NOTE | 2019-02-14 07:27 | NUR ---
juliana at [facility] called to set up dialysis for pt; request for callback for eta
[2019-02-14] MEDS: METHYLPREDNISOLONE SOD SUCC 40 MG/ML VIAL 1ML IV SCH ×3 (07:58→21:49)
[2019-02-14] MEDS: INSULIN REGULAR, HUMAN 100 UNIT/1 ML 3ML VIAL SQ SCH ×4 (07:58→20:54)
--- NOTE | 2019-02-14 08:00 | NUR ---
dr birmingham at pt bedside
--- NOTE | 2019-02-14 08:58 | NUR ---
Patient arrived from ER to IMCU in stretcher, she is alert and oriented, Placed on Bi-pap, her face appears flushed, skin appears dry, with generalized white dry patches, patient is hemodialysis Friday, Friday, and Friday. Daughter reports Mrs. Bello, is a non-compliant with fluid intake and drinks excess water. She is alert and oriented x3, denies pain, has two wounds to right and left great toe, redness to sacral, area and buttocks. Patient able to self turn, she is in right lateral position. She has tunnel hemodialysis catheter to right upper chest wall in place, and IV access # 20 gauge to right antecubital area, saline lock. Will request wound care consult per protocol, and notify attending. Oriented to room and use of call light, instructed to use call light when needing assistance verbalized understanding. Belongings and call light within reach, daughter at bedside will continue to monitor.
--- NOTE | 2019-02-14 09:00 | NUR ---
Called Placed to hemodialysis [facility], to make them aware patient's needs hemodialysis.
--- NOTE | 2019-02-14 09:29 | Consultation ---
DATE OF CONSULTATION: 02/14/2019 REQUESTING PHYSICIAN: Dr. Cotter. REASON FOR CONSULTATION: ESRD. Thank you for allowing us to participate in Ms. eBllo's care. HISTORY OF PRESENT ILLNESS: This is a 78-year-old female with history of end-stage renal disease, dialyzes Friday, Friday, Friday via chronic tunneled catheter. Veins have been studied and due to comorbidities and vascular disease, felt not to be a good candidate for permanent access placement. She came in with worsening dyspnea. Chest x-ray showing fluid overload, somewhat hyperkalemic. Hemoglobin is 15. K is 5.3. She is on BiPAP, saturating okay. PAST MEDICAL HISTORY: 1. ESRD. 2. Atrial fibrillation. 3. Congestive heart failure, status post CABG. 4. Type 2 diabetes. 5. History of increased fluid gains. 6. Hypertension. 7. Peripheral vascular disease. 8. Eczema. 9. COPD. HOME MEDICATIONS: Albuterol p.r.n., amiodarone 200 mg a day, atorvastatin 40 mg a day, bumetanide 2 mg b.i.d., Depakote 250 mg b.i.d. folic acid, lisinopril 2.5 mg a day, prednisone 10 mg a day, Protonix 40 mg a day, warfarin as directed by General Medicine. SOCIAL HISTORY: Lives with family. Does not abuse alcohol or smoke. REVIEW OF SYSTEMS: CONSTITUTIONAL: No fever or chills. RESPIRATORY: Dyspnea is present. Cough is present. CARDIAC: No angina, syncope. SKIN: Chronic itching. Rest of review is negative. PHYSICAL EXAMINATION: GENERAL: Sitting up in bed, appears slightly dyspneic. BiPAP mask is on. VITAL SIGNS: Temperature is 98, pulse 79 irregular, blood pressure 132/62. HEENT: Grossly atraumatic. SKIN: Some erythema diffuse. CHEST: Scattered crackles at the bases. HEART: Regular rhythm. Normal heart sounds. EXTREMITIES: Trace edema. ABDOMEN: Benign. NEURO: Appears to be alert, she is generally appropriate, but there is concern for some dementia. LABORATORY DATA: Chest x-ray appears to suggest fluid overload. K is 5.3, creatinine 5.7, BUN 25. ASSESSMENT: 1. End-stage renal disease. 2. Fluid overload. 3. Underlying diabetic hypertensive end-organ damage. 4. Hyperkalemia. PLAN: Emergent dialysis today. We will get back to her Friday, Friday, Friday schedule tomorrow. Please see my orders for details. MD CHANELL Ch/MODL /[id number]
[2019-02-14] MEDS ORDERED: WARFARIN SODIUM3 MG PO (09:36)
--- NOTE | 2019-02-14 11:45 | NUR ---
Called placed to Dr. Regan Engle, to notify him hemodialysis nurse has not call [facility] for Dr. Engle's call back.
[2019-02-14 12:18] LABS: CREATINE KINASE MB 2.5 ng/mL (0-5.0)
[2019-02-14] MEDS ORDERED: SODIUM CHLORIDE 0.9% 1000ML 2,000 ML ONE (16:44)
[2019-02-14] MEDS ORDERED: SODIUM CHLORIDE 0.9% 250ML 500 ML IV PRN (17:30)
[2019-02-14] MEDS ORDERED: HEPARIN SOD (PORCINE) 1000 UNIT/ML SDV IV PRN (17:30)
[2019-02-14] MEDS ORDERED: SODIUM CHLORIDE 0.9% 1000ML 2,000 ML IV PRN (17:30)
--- NOTE | 2019-02-14 19:00 | NUR ---
Walking rounds and report received. Patient is getting dialysis at this time. She is alert, awake and able to make needs known. POC discussed in Malagasy. Pt instructed to call for assistance as needed and verbalized understanding. Bed in lowest position, locked and call soto within reach.
--- NOTE | 2019-02-14 20:02 | NUR ---
Called Dr. Llanos made him aware of consult.
--- NOTE | 2019-02-14 21:20 | NUR ---
Patient resting in NAD, respirations are equal and unlabored. Left great toe area uncovered, cleansed, and dry gauze applied until Wound care comes and reassesses. Patient stated it felt better. Call light at side.
[2019-02-14] MEDS: ATORVASTATIN 20 MG TAB PO SCH (21:32)
[2019-02-14 21:34] LABS: CREATINE KINASE MB 2.9 ng/mL (0-5.0)
[2019-02-15] VITALS (8 sets, daily range): BP systolic 95–136; BP diastolic 49–96
[2019-02-15] MEDS: ALBUTEROL/IPRATROPIUM 3 ML NEB NEB SCH ×6 (03:40→23:10)
[2019-02-15] MEDS: METHYLPREDNISOLONE SOD SUCC 40 MG/ML VIAL 1ML IV SCH (04:43)
[2019-02-15 05:30] LABS: BASOPHILS % 0.1 % (0.0-1.0); HEMOGLOBIN 12.6 g/dL (12.0-16.0); LYMPHOCYTES # (AUTO) 0.2 (1.0-3.2); LYMPHOCYTES % 1.7 % (18.0-39.1); MEAN CORPUSCULAR HEMOGLOBIN 30.2 pg (28-32); MEAN CORPUSCULAR HGB CONC 30.7 g/dL (31-35); MEAN CORPUSCULAR VOLUME 98.3 fL (81-99); MONOCYTES # (AUTO) 0.3 (0.2-0.8); MONOCYTES % 2.6 % (4.4-11.3); NEUTROPHILS # (AUTO) 11.7 (2.1-6.9); NEUTROPHILS % 94.9 % (38.7-80.0); PLATELET COUNT 137 x10e3/uL (140-360); RED BLOOD COUNT 4.17 x10e6/uL (3.6-5.1)
[2019-02-15 05:53] LABS: ANION GAP 17.4 mmol/L (8-16); CALCIUM 8.8 mg/dL (8.4-10.2); CREATININE, SERUM 4.8 mg/dL (0.57-1.11); POTASSIUM 4.4 mmol/L (3.5-5.1)
[2019-02-15 06:00] LABS: INR 1.15; PROTHROMBIN TIME 15.3 seconds (11.9-14.5)
--- NOTE | 2019-02-15 07:00 | NUR ---
Walking rounds and report given. Patient in NAD. Call soto within reach.
[2019-02-15 07:02] LABS: LYMPHOCYTES % (MANUAL) 2 % (19-48); MONOCYTES % (MANUAL) 3 % (3.4-9.0); NEUTROPHILS % (MANUAL) 95 % (40-74)
[2019-02-15 07:04] LABS: ANISOCYTOSIS SLIGHT; OVALOCYTES FEW; PLATELET ESTIMATE SLIGHTLY DECREASED; PLATELET MORPHOLOGY COMMENT FEW LARGE; POIKILOCYTOSIS SLIGHT; RBC MORPHOLOGY COMMENT ABNORMAL; TEAR DROP CELLS FEW
[2019-02-15] MEDS: INSULIN REGULAR, HUMAN 100 UNIT/1 ML 3ML VIAL SQ SCH ×4 (07:23→20:38)
[2019-02-15] MEDS: PANTOPRAZOLE SOD 40 MG TABEC PO SCH (07:29)
[2019-02-15] MEDS ORDERED: ACETAMINOPHEN 325 MG TAB PO PRN (08:00)
[2019-02-15] MEDS ORDERED: ONDANSETRON HCL INJ 2MG/ML 2ML 2 MG/ML VIAL IV PRN (08:00)
[2019-02-15] MEDS ORDERED: HYDRALAZINE HCL 20 MG/ML VIAL IV PRN (08:00)
[2019-02-15] MEDS: FUROSEMIDE 40 MG TAB PO SCH (08:20)
[2019-02-15] MEDS: METOPROLOL SUCCINATE 50 MG TAB XL PO SCH (08:20)
[2019-02-15] MEDS: SITAGLIPTIN 100 MG TAB PO SCH (08:20)
[2019-02-15] MEDS ORDERED: TIOTROPIUM 18 MCG INH POWDER INH SCH (09:00)
--- NOTE | 2019-02-15 09:03 | Consultation ---
DATE OF CONSULTATION: Pulmonary Critical Care Consultation CHIEF COMPLAINT: Dyspnea and cough. HISTORY OF PRESENT ILLNESS: The patient is a 78-year-old woman. She has a history of end-stage renal disease and receives dialysis Friday, Friday, and Friday. She also has a history of congestive heart failure and atrial fibrillation in the past. She came to the hospital complaining of worsening dyspnea. She had some cough. She also had hyperkalemia. She had fluid overload on her chest x-ray. She initially required BiPAP. She was subsequently sent to dialysis and had some improvement. She is now on a nasal cannula. PAST SURGICAL HISTORY: 1. Status post coronary artery bypass grafting. 2. Inability to obtain permanent vascular access. PAST MEDICAL HISTORY: 1. End-stage renal disease. 2. Congestive heart failure. 3. Atrial fibrillation. 4. Diabetes. 5. Peripheral vascular disease. SOCIAL HISTORY: The patient is not an active smoker or drinker. ALLERGIES: THE PATIENT HAS NO KNOWN DRUG ALLERGIES. REVIEW OF SYSTEMS: The patient is afebrile. She has no cough. She does not complain of headache or neck pain. She notes some congestion and cough. She does not complain of chest pain. She has no nausea or vomiting. She has no leg edema. She does complain of difficulty sleeping. She has no abnormal movements or focal abnormalities. PHYSICAL EXAMINATION: VITAL SIGNS: The blood pressure is 136/96 and the saturation is 97% on 3 L. Pulse is 97. HEENT: Shows no facial swelling or erythema. CARDIAC: Reveals regular rate and rhythm with normal S1, S2. LUNGS: Auscultation of lungs reveals crackles in the bases. There is no wheezing. ABDOMEN: Soft, nontender. There is no rebound or guarding. EXTREMITIES: Show no leg edema or calf tenderness. There is no cyanosis or clubbing. SKIN: Shows no rashes. LABORATORY DATA: The BUN to creatinine ratio is 23:4.8. The other electrolytes are within normal limits. White blood cell count is 12.3 and hemoglobin 12.6. The platelet count is 137. IMPRESSION: 1. Gtgbc-jb-qwgospo respiratory failure. 2. Ubfzo-va-upneotw systolic congestive heart failure. 3. Paroxysmal atrial fibrillation. 4. End-stage renal disease. 5. Diabetes. PLAN: 1. Repeat dialysis today. 2. Continue to wean oxygen. 3. Repeat chest x-ray later this afternoon. 4. Continue amiodarone, metoprolol, and current cardiac regimen. MD JARRET Armas/MAGDALENA /[id number]
[2019-02-15 10:24] LABS: CREATINE KINASE MB 1.4 ng/mL (0-5.0)
--- NOTE | 2019-02-15 10:44 | Progress Note ---
DATE: 02/15/2019 SUBJECTIVE: Seen on dialysis, tolerating procedure, still wheezing. OBJECTIVE: VITAL SIGNS: Blood pressure has been on the low side, temperature 97, pulse 97, blood pressure 136/96. CHEST: Scattered wheezes. EXTREMITIES: No definite trace sacral edema. NEURO: Appears to be alert, appropriate generally, more comfortable. LABORATORY DATA: Potassium is 4.4, creatinine 4.8, and BUN 23. ASSESSMENT: End-stage renal disease, fluid overload, history of being unable to or not participating in fluid restriction. PLAN: Hemodialysis today. Try one hour of ultrafiltration only and 2 hours of dialysis, try to removal of 3 L. Albumin support is reasonable. Please see my orders for details. Vimal Engle MD VKK/MODL /[id number]
[2019-02-15] MEDS ORDERED: ALBUMIN 25% 12.5GM 0.25 GM/ML BTL IV PRN (13:30)
[2019-02-15] MEDS ORDERED: AMIODARONE HCL 200 MG TAB PO SCH (15:00)
[2019-02-15] MEDS ORDERED: METHYLPREDNISOLONE SOD SUCC 40 MG/ML VIAL 1ML IV SCH (17:00)
--- NOTE | 2019-02-15 18:12 | NUR ---
Nutrition Screen Note RD Recommendation for Physician: -Continue current diet as ordered Plan of Care: RD following, monitoring for tolerance and adequacy Nutrition reason for involvement: Diagnosis - CHF Primary Diagnose(s): CHF, COPD, ESRD, hyperkalemia, hypoxia, respiratory distress PMH: ESRD, CHF, afib, diabetes, PVD Ht: 62 in Wt: 141 lb BMI: 25.8 kg/m2 IBW:[address] Assessment: (02/15/19) Chart reviewed. Labs and meds reviewed. Pt is a 78 year old female admitted with , COPD, ESRD, hyperkalemia, hypoxia, and respiratory distress. Spoke to family member at bedside. Family member stated that pt usually consumes >50% of meals. Family member was unsure of pts usual wt or if she had any recent wt changes. Pt had various weights in chart for this admission. On 02/14, pt had a wt of 151 lbs and today has a wt of 141 lbs. No N/V/D/C reported and no chewing/swallowing issues. Current Diet: ADA diet, 1.2 L/day fluid restriction, and 3 gm potassium per day Malnutrition Evaluation (02/15/19) The patient does not meet criteria for a specified degree of malnutrition at this time. Will re-evaluate at follow-up as appropriate. Diet Education Needs Assessment: Family member was not interested in receiving diet education for the patient Nutrition Care Level: low Signed: Chelsie Hawk, RD, LD
--- NOTE | 2019-02-15 20:33 | Diagnostic Imaging Report ---
EXAMINATION: CHEST 2 VIEWS INDICATION: ^Dyspnea cough ^[id number] ^2009 COMPARISON: Chest radiograph 02/14/2019 FINDINGS: PA and lateral views TUBES and LINES: Stable right IJ hemodialysis catheter with tip overlying the cavoatrial junction. 3-lead ICD device overlying the left upper chest with leads overlying the right atrial appendage, coronary sinus, right ventricle remain unchanged. LUNGS: Lungs are well inflated. Bilateral interstitial edema, improved. Bibasilar atelectasis, unchanged. PLEURA: No pleural effusion or pneumothorax. HEART AND MEDIASTINUM: Stable moderate enlargement of the cardiac silhouette. BONES AND SOFT TISSUES: Intact median sternotomy wires. Soft tissues are unremarkable. UPPER ABDOMEN: No free air under the diaphragm. IMPRESSION: Improving bilateral interstitial edema when compared to 02/14/2019. Signed by: Dr. Joselin Lofton M.D. on 02/15/2019 8:30 PM
[2019-02-15] MEDS: ATORVASTATIN 20 MG TAB PO SCH (20:38)
[2019-02-15] MEDS ORDERED: ZOLPIDEM TARTRATE 5 MG TAB PO SCH (21:00)
[2019-02-16 03:00] VITALS: BP 119/55
[2019-02-16] MEDS: ALBUTEROL/IPRATROPIUM 3 ML NEB NEB SCH ×3 (03:30→11:43)
[2019-02-16 05:14] LABS: BASOPHILS % 0.1 % (0.0-1.0); HEMATOCRIT 45.1 % (34.2-44.1); HEMOGLOBIN 13.5 g/dL (12.0-16.0); LYMPHOCYTES # (AUTO) 0.7 (1.0-3.2); MEAN CORPUSCULAR HEMOGLOBIN 29.6 pg (28-32); MEAN CORPUSCULAR HGB CONC 29.9 g/dL (31-35); MEAN CORPUSCULAR VOLUME 98.9 fL (81-99); MONOCYTES # (AUTO) 0.8 (0.2-0.8); MONOCYTES % 6.6 % (4.4-11.3); NEUTROPHILS # (AUTO) 10.7 (2.1-6.9); NEUTROPHILS % 86.7 % (38.7-80.0); PLATELET COUNT 142 x10e3/uL (140-360); RED BLOOD COUNT 4.56 x10e6/uL (3.6-5.1); RED CELL DISTRIBUTION WIDTH 16.1 % (11.7-14.4)
[2019-02-16 05:36] LABS: ALBUMIN 3.3 g/dL (3.5-5.0); ANION GAP 19.6 mmol/L (8-16); CREATININE, SERUM 5.27 mg/dL (0.57-1.11); POTASSIUM 4.6 mmol/L (3.5-5.1)
[2019-02-16 05:39] LABS: INR 1.11; PROTHROMBIN TIME 14.8 seconds (11.9-14.5)
[2019-02-16] MEDS: INSULIN REGULAR, HUMAN 100 UNIT/1 ML 3ML VIAL SQ SCH ×2 (07:30→11:30)
[2019-02-16] MEDS: PANTOPRAZOLE SOD 40 MG TABEC PO SCH (07:30)
[2019-02-16 08:00] VITALS: BP 126/81
[2019-02-16 09:00] VITALS: BP 126/81
[2019-02-16] MEDS: SITAGLIPTIN 100 MG TAB PO SCH (09:04)
[2019-02-16] MEDS: FUROSEMIDE 40 MG TAB PO SCH (09:05)
[2019-02-16] MEDS: METOPROLOL SUCCINATE 50 MG TAB XL PO SCH (09:09)
--- NOTE | 2019-02-16 09:48 | NUR ---
WOUND CARE CONSULT 78 YO FEMALE HX OF CHF ,COPD, HYPOXIA NOLA 18 ON CONSERVATIVE PUP AND ALTERNATING PRESSURE SURFACE LABS: WBC- 12.36,HGB -13.5, GLUCOSE- 119 PATIENT PRESENTS WITH VERY DRY SKIN AND ULCERATION TO LEFT GREAT TOE 1.4TVM1NH DRY ESCHAR SOME BLANCHABLE REDNESS NOTED TO PATIENT SACRUM AND BUTTOCKS RECOMMENDATIONS: NURSING TO CONTINUE TO MAINTAIN CONSERVATIVE PUP INTERVENTIONS AND ALTERNATING PRESSURE SURFACE NURSING TO CONTINUE TO ASSIST PATIENT OUT OF BED FOR MEALS AND MUCH TOLERATED NURSING TO APPLY DAILY VENELEX OINTMENT TO BILATERAL FEET AND TOES PATIENT MAY BENEFIT FROM A VASCULAR WORK UP FOR BILATERAL LOWER EXTREMITIES AND FOLLOW UP ON DISCHARGE WITH A WOUND CARE CLINIC INFORMATION SHARED WITH PATIENT Addendum: 02/16/19 at 0957 by Cornelio Palafox RN Amended: Links added.
[2019-02-16] MEDS ORDERED: BALSAM PERU/CASTOR OIL 60 GM OINT...G. TP SCH (11:30)
[2019-02-16 12:30] VITALS: BP 113/76
--- NOTE | 2019-02-16 13:39 | Progress Note ---
DATE: SUBJECTIVE: The patient feels better. She had dialysis scan yesterday. She is very eager to go home. PHYSICAL EXAMINATION: VITAL SIGNS: Stable. CARDIAC: Reveals regular rate and rhythm with normal S1 and S2. LUNGS: Auscultation of lungs shows clear breath sounds bilaterally. There is no wheezing. ABDOMEN: Soft, nontender. There is no rebound or guarding. EXTREMITIES: Show no leg edema or calf tenderness. There is no cyanosis or clubbing. IMPRESSION: 1. Vkqje-ka-zbcxzqi systolic congestive heart failure. 2. End-stage renal disease. 3. Diabetes. 4. Hypertension. PLAN: 1. Continue current cardiac regimen. 2. Follow up with Nephrology. Tone Llanos MD [facility] /[id number]
--- NOTE | 2019-02-16 14:30 | NUR ---
Patient discharged via W/C at 14:10 to daughter's awaiting car. Other daughter also at side. Written and verbal discharge instructions given.
[2019-02-16] MEDS ORDERED: WARFARIN SOD 3 MG TAB PO SCH (17:00)
[2019-02-16] MEDS ORDERED: ATORVASTATIN 40 MG TAB PO SCH (21:00)
--- NOTE | 2019-02-18 16:07 | Discharge Summary ---
ADMISSION DIAGNOSES: 1. Acute on chronic systolic congestive heart failure. 2. End-stage renal disease, on dialysis. 3. 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 4. Atrial fibrillation. 5. Hypertension with chronic systolic congestive heart failure. 6. Hyperkalemia. DISCHARGE DIAGNOSES: 1. Acute on chronic systolic congestive heart failure. 2. End-stage renal disease, on dialysis. 3. 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 4. Atrial fibrillation. 5. Hypertension with chronic systolic congestive heart failure. 6. Hyperkalemia. HISTORY: Hypertension, atrial fibrillation, end-stage renal disease, chronic systolic CHF, type 2 diabetes, and COPD. SURGICAL HISTORY: Two-vessel CABG, right chest dialysis catheter, left arm AV graft, coronary stents, and AICD. FAMILY HISTORY: Noncontributory. SOCIAL HISTORY: Former smoker. HOSPITAL COURSE: A 78-year-old female admits with complaints of shortness of breath that worsened today. Chest x-ray showed moderate cardiomegaly, pulmonary vascular congestion, and probable pulmonary edema. Nephrology was consulted and the patient had two days rstw-og-yudb of dialysis. The repeat chest x-ray showed improving bilateral interstitial edema. According to the family report, even though the patient has dialysis, she continues to drink as much fluid as she wants putting her into overload. The patient will discharge home on the same home medicines. She also has oxygen at home. The patient understands discharge instructions and agrees to plan. She will follow up with dialysis as scheduled and continue to keep fluid restriction. Vital signs stable. The patient afebrile. Dictated by Micheline Caro NP Enrique Rowan MD [facility] /[id number]
== END 2019-02-16 14:10 | disposition home or self-care (01) | DRG 291 ==
LOC: ER 03:06 → ERHOLD 05:08 → IMCU 08:52
PROVIDERS: ADMIT Internal Medicine; ATTEND Internal Medicine
PROC: 5A1D70Z Performance of Urinary Filtration, Intermittent, Less than 6 Hours Per Day (ICD-10-PCS; principal; 2019-02-14)
PROC: 5A1D70Z Performance of Urinary Filtration, Intermittent, Less than 6 Hours Per Day (ICD-10-PCS; 2019-02-15)
DX: I13.2 Hypertensive heart and chronic kidney disease with heart failure and with stage 5 chronic kidney disease, or end stage renal disease (principal); J96.20 Acute and chronic respiratory failure, unspecified whether with hypoxia or hypercapnia; I50.23 Acute on chronic systolic (congestive) heart failure; N18.6 End stage renal disease; J44.1 Chronic obstructive pulmonary disease with (acute) exacerbation; E11.22 Type 2 diabetes mellitus with diabetic chronic kidney disease; E87.5 Hyperkalemia; Z99.2 Dependence on renal dialysis; I48.0 Paroxysmal atrial fibrillation; E78.5 Hyperlipidemia, unspecified; Z95.810 Presence of automatic (implantable) cardiac defibrillator; Z99.81 Dependence on supplemental oxygen; Z87.891 Personal history of nicotine dependence; Z83.3 Family history of diabetes mellitus; Z82.49 Family history of ischemic heart disease and other diseases of the circulatory system; I25.2 Old myocardial infarction; Z79.01 Long term (current) use of anticoagulants; Z95.1 Presence of aortocoronary bypass graft; E11.51 Type 2 diabetes mellitus with diabetic peripheral angiopathy without gangrene
CPT/HCPCS: 36415; 71045; 71046; 80048; 80053; 82550; 82553; 82948; 83880; 84484; 85025; 85610; 93005; 93306; 94640; 94660; 96372; 99284; J1644; J1817; J2920; J2930; J7030

== ENCOUNTER 2021-01-03 10:47 | Emergency (ER) | payer MEDICARE ==
[~2021-01-03] VITALS: Ht 157.5 cm; Wt 63.5 kg
[2021-01-03 11:23] LABS: BASOPHILS % 0.3 % (0.0-1.0); EOSINOPHILS # (AUTO) 0.2 (0.0-0.4); EOSINOPHILS % 1.9 % (0.0-6.0); HEMATOCRIT 38.7 % (34.2-44.1); HEMOGLOBIN 11.6 g/dL (12.0-16.0); LYMPHOCYTES # (AUTO) 0.4 (1.0-3.2); LYMPHOCYTES % 4.8 % (18.0-39.1); MEAN CORPUSCULAR HEMOGLOBIN 32.8 pg (28-32); MEAN CORPUSCULAR VOLUME 109.3 fL (81-99); MONOCYTES # (AUTO) 0.4 (0.2-0.8); MONOCYTES % 4.4 % (4.4-11.3); NEUTROPHILS # (AUTO) 6.9 (2.1-6.9); NEUTROPHILS % 88.1 % (38.7-80.0); PLATELET COUNT 149 x10e3/uL (140-360); RED BLOOD COUNT 3.54 x10e6/uL (3.6-5.1); RED CELL DISTRIBUTION WIDTH 16.7 % (11.7-14.4)
[2021-01-03 12:17] LABS: ALBUMIN 3.2 g/dL (3.5-5.0); ANION GAP 17.1 mmol/L (8-16); CALCIUM 7.5 mg/dL (8.4-10.2); CREATININE, SERUM 5.39 mg/dL (0.57-1.11); POTASSIUM 4.1 mmol/L (3.5-5.1)
[2021-01-03] MEDS ORDERED: ACYCLOVIR800 MG PO (13:05)
[2021-01-03 13:35] VITALS: BP 115/54
== END 2021-01-03 13:37 | disposition home or self-care (01) ==
LOC: ER 11:02
DX: B02.9 Zoster without complications (principal); I10 Essential (primary) hypertension; E11.9 Type 2 diabetes mellitus without complications; Z20.822 Contact with and (suspected) exposure to COVID-19
CPT/HCPCS: 36415; 71045; 80053; 84484; 85025; 87040; 93005; 99284; U0002

== ENCOUNTER 2021-01-08 03:08 | Inpatient (IN) | payer MEDICARE ==
[~2021-01-08] VITALS: Ht 157.5 cm; Wt 63.5 kg
[~2021-01-08 03:08] MED LIST changes: +ACYCLOVIR800 MG PO
[2021-01-08 04:00] LABS: BASOPHILS % 0.5 % (0.0-1.0); EOSINOPHILS % 11.8 % (0.0-6.0); HEMOGLOBIN 11.4 g/dL (12.0-16.0); LYMPHOCYTES # (AUTO) 0.9 (1.0-3.2); LYMPHOCYTES % 11.5 % (18.0-39.1); MEAN CORPUSCULAR HEMOGLOBIN 32.9 pg (28-32); MEAN CORPUSCULAR VOLUME 109.5 fL (81-99); MONOCYTES # (AUTO) 0.5 (0.2-0.8); MONOCYTES % 6.3 % (4.4-11.3); NEUTROPHILS # (AUTO) 5.6 (2.1-6.9); NEUTROPHILS % 69.5 % (38.7-80.0); PLATELET COUNT 143 x10e3/uL (140-360); RED BLOOD COUNT 3.47 x10e6/uL (3.6-5.1); RED CELL DISTRIBUTION WIDTH 16.2 % (11.7-14.4)
[2021-01-08 04:23] LABS: ALBUMIN/GLOBULIN RATIO 0.9 (0.8-2.0); ANION GAP 20.7 mmol/L (8-16); CALCIUM 7.3 mg/dL (8.4-10.2); CREATININE, SERUM 6.9 mg/dL (0.57-1.11); POTASSIUM 4.7 mmol/L (3.5-5.1)
[2021-01-08 04:31] LABS: CREATINE KINASE MB 2.2 ng/mL (0-5.0)
[2021-01-08] MEDS ORDERED: ONDANSETRON HCL INJ 2MG/ML 2ML 2 MG/ML VIAL IV PRN (05:00)
[2021-01-08] MEDS: INSULIN REGULAR, HUMAN 100 UNIT/1 ML SQ SCH ×4 (07:30→20:01)
[2021-01-08 09:45] VITALS: BP 143/67
[2021-01-08] MEDS ORDERED: ALBUTEROL SULFATE HFA 8GM INHALATION AEROSOL INH PRN (10:00)
[2021-01-08] MEDS ORDERED: IPRATROPIUM BROMIDE 0.02% 2.5 ML NEB NEB PRN (10:00)
[2021-01-08] MEDS ORDERED: BUMETANIDE1 MG PO (10:21)
[2021-01-08] MEDS ORDERED: ZESTRIL2.5 MG PO (10:21)
[2021-01-08 10:45] VITALS: BP 120/51
[2021-01-08 10:46] VITALS: BP 120/51
[2021-01-08] MEDS ORDERED: AMIODARONE HCL 200 MG TAB PO SCH (11:00)
[2021-01-08] MEDS ORDERED: SODIUM CHLORIDE 0.9% 1000ML 2,000 ML ONE (11:27)
[2021-01-08] MEDS: SODIUM CHLORIDE FLUSH 10 ML SYR INJ PRN (11:30)
[2021-01-08] MEDS: DEXTROSE 50% SYRINGE 50 ML IV PRN ×2 (11:30→20:17)
[2021-01-08 12:15] LABS: CREATINE KINASE MB 2.5 ng/mL (0-5.0)
[2021-01-08] MEDS ORDERED: ACYCLOVIR 200 MG CAP PO SCH (13:00)
[2021-01-08] MEDS: AMIODARONE HCL 200 MG TAB PO SCH ×2 (14:00→17:39)
[2021-01-08] MEDS ORDERED: ACYCLOVIR SODIUM IV SCH (15:00)
[2021-01-08] MEDS ORDERED: SODIUM CHLORIDE 0.9% IV SCH (15:00)
[2021-01-08] MEDS ORDERED: BETAMETHASONE/CLOTRIMAZOLE CR 15 GM TUBE TOP ONE (16:45)
[2021-01-08 16:46] LABS: INR 1.85
[2021-01-08] MEDS ORDERED: SODIUM CHLORIDE 0.9% 250ML 500 ML IV PRN (17:00)
[2021-01-08] MEDS: DOCUSATE SODIUM 100 MG CAP PO SCH (17:00)
[2021-01-08] MEDS ORDERED: ALBUMIN 25% 12.5GM 0.25 GM/ML BTL IV PRN (17:00)
[2021-01-08] MEDS ORDERED: HEPARIN SOD (PORCINE) 1000 UNIT/ML SDV IV PRN (17:00)
[2021-01-08] MEDS ORDERED: SODIUM CHLORIDE 0.9% 1000ML 2,000 ML IV PRN (17:00)
[2021-01-08 17:01] LABS: CREATINE KINASE MB 2.8 ng/mL (0-5.0)
[2021-01-08] MEDS: CLINDAMYCIN 600MG / 50ML 50 ML IV SCH ×3 (17:40→23:47)
[2021-01-08 20:00] VITALS: BP 99/46
[2021-01-08] MEDS: ATORVASTATIN 20 MG TAB PO SCH (20:18)
[2021-01-08 23:47] VITALS: BP 101/42
[2021-01-09] MEDS: ACETAMINOPHEN 650 MG SUPP PR PRN (00:45)
[2021-01-09 04:27] VITALS: BP 98/62
[2021-01-09] MEDS: CLINDAMYCIN 600MG / 50ML 50 ML IV SCH ×3 (05:24→17:15)
[2021-01-09 05:37] LABS: BASOPHILS % 0.5 % (0.0-1.0); EOSINOPHILS # (AUTO) 0.2 (0.0-0.4); EOSINOPHILS % 3.4 % (0.0-6.0); HEMATOCRIT 32.2 % (34.2-44.1); HEMOGLOBIN 9.7 g/dL (12.0-16.0); LYMPHOCYTES # (AUTO) 0.6 (1.0-3.2); LYMPHOCYTES % 8.6 % (18.0-39.1); MEAN CORPUSCULAR HEMOGLOBIN 32.8 pg (28-32); MEAN CORPUSCULAR HGB CONC 30.1 g/dL (31-35); MEAN CORPUSCULAR VOLUME 108.8 fL (81-99); MONOCYTES # (AUTO) 0.6 (0.2-0.8); MONOCYTES % 8.8 % (4.4-11.3); NEUTROPHILS % 78.2 % (38.7-80.0); PLATELET COUNT 126 x10e3/uL (140-360); RED BLOOD COUNT 2.96 x10e6/uL (3.6-5.1)
[2021-01-09 05:57] LABS: ALBUMIN 2.6 g/dL (3.5-5.0); ALBUMIN/GLOBULIN RATIO 0.8 (0.8-2.0); ANION GAP 16.8 mmol/L (8-16); CALCIUM 7.5 mg/dL (8.4-10.2); CREATININE, SERUM 3.46 mg/dL (0.57-1.11); POTASSIUM 3.8 mmol/L (3.5-5.1)
[2021-01-09 06:10] LABS: CHOL/HDL RATIO 2.3 (3.0-3.6); MAGNESIUM 1.8 MG/DL (1.3-2.1)
[2021-01-09] MEDS: INSULIN REGULAR, HUMAN 100 UNIT/1 ML SQ SCH ×4 (07:30→21:00)
[2021-01-09 08:00] VITALS: BP 108/88
[2021-01-09] MEDS: MUPIROCIN 2% OINT 22 GM TUBE TOP SCH (08:11)
[2021-01-09] MEDS: CLOTRIMAZOLE 1% CR 15 GM TOP SCH ×2 (08:12→17:12)
[2021-01-09] MEDS: BALSAM PERU/CASTOR OIL 60 GM OINT...G. TP SCH (08:12)
[2021-01-09] MEDS: TIOTROPIUM 18 MCG INH POWDER INH SCH (09:00)
[2021-01-09] MEDS: FUROSEMIDE 40 MG TAB PO SCH (10:08)
[2021-01-09] MEDS: PREDNISONE 10 MG TAB PO SCH (10:08)
[2021-01-09] MEDS: LISINOPRIL 2.5 MG TAB PO SCH (10:08)
[2021-01-09] MEDS: DOCUSATE SODIUM 100 MG CAP PO SCH ×2 (10:08→17:10)
[2021-01-09] MEDS: PANTOPRAZOLE SOD 40 MG TABEC PO SCH (10:09)
[2021-01-09] MEDS: METOPROLOL SUCCINATE 50 MG TAB XL PO SCH (10:10)
[2021-01-09 10:30] LABS: EOSINOPHILS % (MANUAL) 3 % (0-7); LYMPHOCYTES % (MANUAL) 7 % (19-48); MONOCYTES % (MANUAL) 7 % (3.4-9.0); NEUTROPHILS % (MANUAL) 82 % (40-74); NUCLEATED RED BLOOD CELLS 1
[2021-01-09 10:31] LABS: ANISOCYTOSIS SLIGHT; PLATELET ESTIMATE SLIGHTLY DECREASED; PLATELET MORPHOLOGY COMMENT NORMAL; RBC MORPHOLOGY COMMENT NORMAL
[2021-01-09 12:00] VITALS: BP 90/51
[2021-01-09] MEDS: AMIODARONE HCL 200 MG TAB PO SCH (15:15)
[2021-01-09] MEDS: ACYCLOVIR SODIUM INJ 500 MG in SODIUM CHLORIDE 0.9% 100 ML 100 ML IV SCH (15:15)
[2021-01-09 16:00] VITALS: BP 98/41
[2021-01-09] MEDS: WARFARIN SOD 3 MG TAB PO SCH (17:10)
[2021-01-09 20:00] VITALS: BP 94/59
[2021-01-09 21:00] VITALS: BP 94/59
[2021-01-09] MEDS: ATORVASTATIN 20 MG TAB PO SCH (21:09)
[2021-01-10 00:30] VITALS: BP 98/48
[2021-01-10] MEDS: CLINDAMYCIN 600MG / 50ML 50 ML IV SCH ×4 (01:05→16:34)
[2021-01-10 05:00] VITALS: BP 95/53
[2021-01-10 05:09] LABS: BASOPHILS % 0.2 % (0.0-1.0); EOSINOPHILS # (AUTO) 0.2 (0.0-0.4); HEMATOCRIT 32.3 % (34.2-44.1); HEMOGLOBIN 9.7 g/dL (12.0-16.0); LYMPHOCYTES # (AUTO) 0.7 (1.0-3.2); LYMPHOCYTES % 8.6 % (18.0-39.1); MEAN CORPUSCULAR HEMOGLOBIN 32.1 pg (28-32); MONOCYTES # (AUTO) 0.7 (0.2-0.8); MONOCYTES % 8.6 % (4.4-11.3); NEUTROPHILS # (AUTO) 6.4 (2.1-6.9); NEUTROPHILS % 79.9 % (38.7-80.0); PLATELET COUNT 161 x10e3/uL (140-360); RED BLOOD COUNT 3.02 x10e6/uL (3.6-5.1); RED CELL DISTRIBUTION WIDTH 15.9 % (11.7-14.4)
[2021-01-10 05:23] LABS: ALBUMIN 2.7 g/dL (3.5-5.0); ALBUMIN/GLOBULIN RATIO 0.9 (0.8-2.0); ANION GAP 17.1 mmol/L (8-16); CALCIUM 7.4 mg/dL (8.4-10.2); CREATININE, SERUM 4.97 mg/dL (0.57-1.11); POTASSIUM 4.1 mmol/L (3.5-5.1)
[2021-01-10] MEDS: SODIUM CHLORIDE FLUSH 10 ML SYR INJ PRN (06:21)
[2021-01-10] MEDS: INSULIN REGULAR, HUMAN 100 UNIT/1 ML SQ SCH ×4 (07:30→21:00)
[2021-01-10] MEDS: METOPROLOL SUCCINATE 50 MG TAB XL PO SCH (09:00)
[2021-01-10] MEDS: LISINOPRIL 2.5 MG TAB PO SCH (09:00)
[2021-01-10] MEDS: PREDNISONE 10 MG TAB PO SCH (09:06)
[2021-01-10] MEDS: DOCUSATE SODIUM 100 MG CAP PO SCH ×2 (09:06→16:33)
[2021-01-10] MEDS: FUROSEMIDE 40 MG TAB PO SCH (09:06)
[2021-01-10] MEDS: TIOTROPIUM 18 MCG INH POWDER INH SCH (09:06)
[2021-01-10] MEDS: MUPIROCIN 2% OINT 22 GM TUBE TOP SCH (09:07)
[2021-01-10] MEDS: PANTOPRAZOLE SOD 40 MG TABEC PO SCH (09:07)
[2021-01-10] MEDS: BALSAM PERU/CASTOR OIL 60 GM OINT...G. TP SCH (09:08)
[2021-01-10] MEDS: CLOTRIMAZOLE 1% CR 15 GM TOP SCH ×2 (09:08→16:34)
[2021-01-10] MEDS ORDERED: SODIUM CHLORIDE 0.9% 1000ML 2,000 ML ONE (10:51)
[2021-01-10 11:02] LABS: LYMPHOCYTES % (MANUAL) 8 % (19-48); MONOCYTES % (MANUAL) 10 % (3.4-9.0); NEUTROPHILS % (MANUAL) 82 % (40-74); PLATELET ESTIMATE ADEQUATE
[2021-01-10 11:03] LABS: PLATELET MORPHOLOGY COMMENT NORMAL; RBC MORPHOLOGY COMMENT NORMAL
[2021-01-10 15:00] VITALS: BP 109/46
[2021-01-10] MEDS: ACYCLOVIR SODIUM INJ 500 MG in SODIUM CHLORIDE 0.9% 100 ML 100 ML IV SCH (15:00)
[2021-01-10] MEDS: AMIODARONE HCL 200 MG TAB PO SCH (16:28)
[2021-01-10] MEDS: WARFARIN SOD 3 MG TAB PO SCH (16:33)
[2021-01-10 20:00] VITALS: BP 88/46
[2021-01-10 20:52] VITALS: BP 88/46
[2021-01-10] MEDS: ATORVASTATIN 20 MG TAB PO SCH (22:09)
[2021-01-10] MEDS: ACETAMINOPHEN 650 MG SUPP PR PRN (23:30)
[2021-01-11] VITALS (10 sets, daily range): BP systolic 75–92; BP diastolic 22–44
[2021-01-11 04:21] LABS: BASOPHILS % 0.4 % (0.0-1.0); EOSINOPHILS # (AUTO) 0.3 (0.0-0.4); EOSINOPHILS % 3.5 % (0.0-6.0); HEMATOCRIT 29.4 % (34.2-44.1); HEMOGLOBIN 8.6 g/dL (12.0-16.0); LYMPHOCYTES # (AUTO) 0.6 (1.0-3.2); MEAN CORPUSCULAR HEMOGLOBIN 32.5 pg (28-32); MEAN CORPUSCULAR HGB CONC 29.3 g/dL (31-35); MEAN CORPUSCULAR VOLUME 110.9 fL (81-99); MONOCYTES # (AUTO) 0.6 (0.2-0.8); MONOCYTES % 8.7 % (4.4-11.3); NEUTROPHILS # (AUTO) 5.6 (2.1-6.9); NEUTROPHILS % 78.7 % (38.7-80.0); PLATELET COUNT 148 x10e3/uL (140-360); RED BLOOD COUNT 2.65 x10e6/uL (3.6-5.1); RED CELL DISTRIBUTION WIDTH 16.2 % (11.7-14.4)
[2021-01-11 04:40] LABS: ALBUMIN 2.3 g/dL (3.5-5.0); ALBUMIN/GLOBULIN RATIO 0.8 (0.8-2.0); ANION GAP 12.8 mmol/L (8-16); CALCIUM 7.4 mg/dL (8.4-10.2); CREATININE, SERUM 3.2 mg/dL (0.57-1.11); POTASSIUM 3.8 mmol/L (3.5-5.1)
[2021-01-11] MEDS: CLINDAMYCIN 600MG / 50ML 50 ML IV SCH ×2 (05:55)
[2021-01-11] MEDS: DEXTROSE 50% SYRINGE 50 ML IV PRN (05:56)
[2021-01-11] MEDS: INSULIN REGULAR, HUMAN 100 UNIT/1 ML SQ SCH ×4 (07:30→21:00)
[2021-01-11] MEDS: DOCUSATE SODIUM 100 MG CAP PO SCH ×2 (08:31→15:50)
[2021-01-11] MEDS: PREDNISONE 5 MG TAB PO SCH (08:31)
[2021-01-11] MEDS: PANTOPRAZOLE SOD 40 MG TABEC PO SCH (08:32)
[2021-01-11] MEDS: LISINOPRIL 2.5 MG TAB PO SCH (09:00)
[2021-01-11] MEDS: METOPROLOL SUCCINATE 50 MG TAB XL PO SCH (09:00)
[2021-01-11] MEDS: FUROSEMIDE 40 MG TAB PO SCH (09:00)
[2021-01-11] MEDS: TIOTROPIUM 18 MCG INH POWDER INH SCH (09:43)
[2021-01-11] MEDS: MUPIROCIN 2% OINT 22 GM TUBE TOP SCH (09:44)
[2021-01-11] MEDS: BALSAM PERU/CASTOR OIL 60 GM OINT...G. TP SCH (09:45)
[2021-01-11] MEDS: CLOTRIMAZOLE 1% CR 15 GM TOP SCH ×2 (09:45→15:14)
[2021-01-11 10:26] LABS: INR 7.29
[2021-01-11 10:27] LABS: PROTHROMBIN TIME 64.2 seconds (11.9-14.5)
[2021-01-11] MEDS ORDERED: PHYTONADIONE 1 MG/0.5 ML AMP IM ONE (13:15)
[2021-01-11] MEDS: AMIODARONE HCL 200 MG TAB PO SCH (14:14)
[2021-01-11] MEDS: VANCOMYCIN 250MG/5ML ORAL SOLN PO SCH ×2 (14:14→22:14)
[2021-01-11] MEDS: ACYCLOVIR SODIUM INJ 500 MG in SODIUM CHLORIDE 0.9% 100 ML 100 ML IV SCH (14:37)
[2021-01-11] MEDS: ACETAMINOPHEN 650 MG SUPP PR PRN (19:51)
[2021-01-11] MEDS: ATORVASTATIN 20 MG TAB PO SCH (22:12)
[2021-01-12] VITALS (8 sets, daily range): BP systolic 85–159; BP diastolic 35–89
[2021-01-12] MEDS: ACETAMINOPHEN 650 MG SUPP PR PRN (02:13)
[2021-01-12 04:48] LABS: BASOPHILS % 0.4 % (0.0-1.0); EOSINOPHILS # (AUTO) 0.5 (0.0-0.4); EOSINOPHILS % 5.6 % (0.0-6.0); HEMATOCRIT 30.9 % (34.2-44.1); HEMOGLOBIN 9.1 g/dL (12.0-16.0); LYMPHOCYTES # (AUTO) 0.7 (1.0-3.2); LYMPHOCYTES % 8.6 % (18.0-39.1); MEAN CORPUSCULAR HEMOGLOBIN 32.2 pg (28-32); MEAN CORPUSCULAR HGB CONC 29.4 g/dL (31-35); MEAN CORPUSCULAR VOLUME 109.2 fL (81-99); MONOCYTES # (AUTO) 0.7 (0.2-0.8); MONOCYTES % 7.9 % (4.4-11.3); NEUTROPHILS # (AUTO) 6.6 (2.1-6.9); NEUTROPHILS % 76.9 % (38.7-80.0); PLATELET COUNT 166 x10e3/uL (140-360); RED BLOOD COUNT 2.83 x10e6/uL (3.6-5.1); RED CELL DISTRIBUTION WIDTH 16.1 % (11.7-14.4)
[2021-01-12 05:05] LABS: ANION GAP 11.8 mmol/L (8-16); CALCIUM 7.4 mg/dL (8.4-10.2); CREATININE, SERUM 4.85 mg/dL (0.57-1.11); POTASSIUM 3.8 mmol/L (3.5-5.1)
[2021-01-12 06:16] LABS: PROTHROMBIN TIME 40.7 seconds (11.9-14.5)
[2021-01-12 06:17] LABS: INR 4.07
[2021-01-12] MEDS: VANCOMYCIN 250MG/5ML ORAL SOLN PO SCH ×2 (06:19→14:13)
[2021-01-12] MEDS: INSULIN REGULAR, HUMAN 100 UNIT/1 ML SQ SCH ×4 (07:22→20:37)
[2021-01-12] MEDS ORDERED: HEPARIN SOD (PORCINE) 1000 UNIT/ML SDV IV PRN (07:30)
[2021-01-12] MEDS ORDERED: SODIUM CHLORIDE 0.9% 250ML 500 ML IV PRN (07:30)
[2021-01-12] MEDS ORDERED: SODIUM CHLORIDE 0.9% 1000ML 2,000 ML IV PRN (07:30)
[2021-01-12] MEDS ORDERED: ALBUMIN 25% 12.5GM 0.25 GM/ML BTL IV PRN ×2 (07:30)
[2021-01-12] MEDS: PANTOPRAZOLE SOD 40 MG TABEC PO SCH (08:24)
[2021-01-12] MEDS: PREDNISONE 5 MG TAB PO SCH (08:24)
[2021-01-12] MEDS: DOCUSATE SODIUM 100 MG CAP PO SCH ×2 (08:24→16:10)
[2021-01-12] MEDS: MUPIROCIN 2% OINT 22 GM TUBE TOP SCH (09:34)
[2021-01-12] MEDS: BALSAM PERU/CASTOR OIL 60 GM OINT...G. TP SCH (09:35)
[2021-01-12] MEDS: CLOTRIMAZOLE 1% CR 15 GM TOP SCH ×2 (09:35→17:37)
[2021-01-12] MEDS: TIOTROPIUM 18 MCG INH POWDER INH SCH (09:44)
[2021-01-12] MEDS: ACYCLOVIR SODIUM INJ 500 MG in SODIUM CHLORIDE 0.9% 100 ML 100 ML IV SCH (14:13)
[2021-01-12] MEDS: AMIODARONE HCL 200 MG TAB PO SCH (14:13)
[2021-01-12] MEDS: NYSTATIN 15 GM POWDER UD BTL TOP SCH (18:38)
[2021-01-12] MEDS: ATORVASTATIN 40 MG TAB PO SCH (21:07)
[2021-01-13] VITALS (7 sets, daily range): BP systolic 91–141; BP diastolic 40–109
[2021-01-13 05:58] LABS: BASOPHILS % 0.4 % (0.0-1.0); EOSINOPHILS # (AUTO) 0.5 (0.0-0.4); EOSINOPHILS % 5.4 % (0.0-6.0); HEMOGLOBIN 8.5 g/dL (12.0-16.0); LYMPHOCYTES # (AUTO) 0.6 (1.0-3.2); MEAN CORPUSCULAR HEMOGLOBIN 32.9 pg (28-32); MEAN CORPUSCULAR HGB CONC 30.4 g/dL (31-35); MEAN CORPUSCULAR VOLUME 108.5 fL (81-99); MONOCYTES # (AUTO) 0.7 (0.2-0.8); MONOCYTES % 7.7 % (4.4-11.3); NEUTROPHILS # (AUTO) 7.4 (2.1-6.9); PLATELET COUNT 160 x10e3/uL (140-360); RED BLOOD COUNT 2.58 x10e6/uL (3.6-5.1); RED CELL DISTRIBUTION WIDTH 16.4 % (11.7-14.4)
[2021-01-13 06:03] LABS: INR 1.7; PROTHROMBIN TIME 20.7 seconds (11.9-14.5)
[2021-01-13 06:14] LABS: ANION GAP 12.7 mmol/L (8-16); CALCIUM 7.5 mg/dL (8.4-10.2); CREATININE, SERUM 3.15 mg/dL (0.57-1.11); POTASSIUM 3.7 mmol/L (3.5-5.1)
[2021-01-13] MEDS: ACETAMINOPHEN 650 MG SUPP PR PRN (07:19)
[2021-01-13] MEDS: INSULIN REGULAR, HUMAN 100 UNIT/1 ML SQ SCH ×4 (07:30→20:03)
[2021-01-13] MEDS: DOCUSATE SODIUM 100 MG CAP PO SCH ×2 (09:00→18:09)
[2021-01-13] MEDS ORDERED: FLUCONAZOLE 100 MG TAB PO SCH (09:00)
[2021-01-13] MEDS: TIOTROPIUM 18 MCG INH POWDER INH SCH (09:38)
[2021-01-13] MEDS: MUPIROCIN 2% OINT 22 GM TUBE TOP SCH (09:39)
[2021-01-13] MEDS: PANTOPRAZOLE SOD 40 MG TABEC PO SCH (09:39)
[2021-01-13] MEDS: BALSAM PERU/CASTOR OIL 60 GM OINT...G. TP SCH (09:39)
[2021-01-13] MEDS: PREDNISONE 5 MG TAB PO SCH (09:39)
[2021-01-13] MEDS: NYSTATIN 15 GM POWDER UD BTL TOP SCH ×2 (09:39→18:10)
[2021-01-13] MEDS: CLOTRIMAZOLE 1% CR 15 GM TOP SCH ×2 (09:40→18:10)
[2021-01-13] MEDS ORDERED: CLINDAMYCIN 600MG / 50ML 50 ML IV SCH (12:00)
[2021-01-13] MEDS: AMIODARONE HCL 200 MG TAB PO SCH (14:43)
[2021-01-13] MEDS: ATORVASTATIN 40 MG TAB PO SCH (20:03)
[2021-01-14 05:00] VITALS: BP 100/47
[2021-01-14 05:42] LABS: BASOPHILS % 0.4 % (0.0-1.0); EOSINOPHILS # (AUTO) 0.3 (0.0-0.4); EOSINOPHILS % 3.1 % (0.0-6.0); HEMATOCRIT 29.3 % (34.2-44.1); HEMOGLOBIN 8.7 g/dL (12.0-16.0); LYMPHOCYTES # (AUTO) 0.6 (1.0-3.2); LYMPHOCYTES % 6.2 % (18.0-39.1); MEAN CORPUSCULAR HGB CONC 29.7 g/dL (31-35); MONOCYTES # (AUTO) 0.7 (0.2-0.8); MONOCYTES % 8.3 % (4.4-11.3); NEUTROPHILS # (AUTO) 7.2 (2.1-6.9); NEUTROPHILS % 81.4 % (38.7-80.0); PLATELET COUNT 164 x10e3/uL (140-360); RED BLOOD COUNT 2.64 x10e6/uL (3.6-5.1); RED CELL DISTRIBUTION WIDTH 16.5 % (11.7-14.4)
[2021-01-14 06:03] LABS: ANION GAP 15.1 mmol/L (8-16); CALCIUM 7.7 mg/dL (8.4-10.2); CREATININE, SERUM 4.88 mg/dL (0.57-1.11); POTASSIUM 4.1 mmol/L (3.5-5.1)
[2021-01-14] MEDS: INSULIN REGULAR, HUMAN 100 UNIT/1 ML SQ SCH ×4 (07:30→21:00)
[2021-01-14 08:01] VITALS: BP 101/50
[2021-01-14] MEDS: DOCUSATE SODIUM 100 MG CAP PO SCH ×2 (08:37→16:14)
[2021-01-14] MEDS: PANTOPRAZOLE SOD 40 MG TABEC PO SCH (08:37)
[2021-01-14] MEDS: TIOTROPIUM 18 MCG INH POWDER INH SCH (08:37)
[2021-01-14] MEDS: PREDNISONE 5 MG TAB PO SCH (08:37)
[2021-01-14] MEDS: BALSAM PERU/CASTOR OIL 60 GM OINT...G. TP SCH (08:38)
[2021-01-14] MEDS: MUPIROCIN 2% OINT 22 GM TUBE TOP SCH (08:38)
[2021-01-14] MEDS: NYSTATIN 15 GM POWDER UD BTL TOP SCH ×2 (08:38→16:15)
[2021-01-14] MEDS: CLOTRIMAZOLE 1% CR 15 GM TOP SCH ×2 (08:38→16:15)
[2021-01-14 12:13] VITALS: BP 111/40
[2021-01-14] MEDS: FLUCONAZOLE 100 MG TAB PO SCH (12:38)
[2021-01-14] MEDS: AMIODARONE HCL 200 MG TAB PO SCH (13:28)
[2021-01-14 16:00] VITALS: BP 122/52
[2021-01-14] MEDS: TRAMADOL HCL 50 MG TAB PO PRN ×2 (17:08→23:58)
[2021-01-14] MEDS ORDERED: GUAIFENESIN 600 MG TAB PO PRN (19:30)
[2021-01-14 19:48] VITALS: BP 100/30
[2021-01-14 20:08] VITALS: BP 100/30
[2021-01-14] MEDS: ATORVASTATIN 40 MG TAB PO SCH (23:59)
[2021-01-15] VITALS: BP 107/49
[2021-01-15 04:00] VITALS: BP 100/51
[2021-01-15 05:04] LABS: BASOPHILS % 0.4 % (0.0-1.0); EOSINOPHILS # (AUTO) 0.2 (0.0-0.4); EOSINOPHILS % 1.5 % (0.0-6.0); HEMATOCRIT 29.2 % (34.2-44.1); HEMOGLOBIN 8.6 g/dL (12.0-16.0); LYMPHOCYTES # (AUTO) 0.6 (1.0-3.2); LYMPHOCYTES % 5.7 % (18.0-39.1); MEAN CORPUSCULAR HEMOGLOBIN 32.3 pg (28-32); MEAN CORPUSCULAR HGB CONC 29.5 g/dL (31-35); MEAN CORPUSCULAR VOLUME 109.8 fL (81-99); MONOCYTES # (AUTO) 0.7 (0.2-0.8); MONOCYTES % 7.5 % (4.4-11.3); NEUTROPHILS # (AUTO) 8.2 (2.1-6.9); NEUTROPHILS % 84.4 % (38.7-80.0); PLATELET COUNT 156 x10e3/uL (140-360); RED BLOOD COUNT 2.66 x10e6/uL (3.6-5.1); RED CELL DISTRIBUTION WIDTH 16.1 % (11.7-14.4)
[2021-01-15 05:44] LABS: ALBUMIN 2.2 g/dL (3.5-5.0); ALBUMIN/GLOBULIN RATIO 0.7 (0.8-2.0); ANION GAP 16.6 mmol/L (8-16); CALCIUM 7.7 mg/dL (8.4-10.2); CREATININE, SERUM 6.35 mg/dL (0.57-1.11); POTASSIUM 4.6 mmol/L (3.5-5.1)
[2021-01-15] MEDS: DEXTROSE 50% SYRINGE 50 ML IV PRN (06:10)
[2021-01-15 07:29] VITALS: BP 100/51
[2021-01-15] MEDS: INSULIN REGULAR, HUMAN 100 UNIT/1 ML SQ SCH ×4 (07:30→21:45)
[2021-01-15] MEDS: NYSTATIN 15 GM POWDER UD BTL TOP SCH ×2 (08:28→17:46)
[2021-01-15] MEDS: PANTOPRAZOLE SOD 40 MG TABEC PO SCH (08:28)
[2021-01-15] MEDS: CLOTRIMAZOLE 1% CR 15 GM TOP SCH ×2 (08:28→17:46)
[2021-01-15] MEDS: BALSAM PERU/CASTOR OIL 60 GM OINT...G. TP SCH (08:28)
[2021-01-15] MEDS: DOCUSATE SODIUM 100 MG CAP PO SCH ×2 (08:28→17:38)
[2021-01-15] MEDS: FLUCONAZOLE 100 MG TAB PO SCH (08:28)
[2021-01-15] MEDS: MUPIROCIN 2% OINT 22 GM TUBE TOP SCH (08:28)
[2021-01-15] MEDS: PREDNISONE 5 MG TAB PO SCH (08:28)
[2021-01-15 09:36] LABS: EOSINOPHILS % (MANUAL) 3 % (0-7); LYMPHOCYTES % (MANUAL) 3 % (19-48); MONOCYTES % (MANUAL) 4 % (3.4-9.0); NEUTROPHILS % (MANUAL) 90 % (40-74)
[2021-01-15 09:37] LABS: PLATELET ESTIMATE ADEQUATE; PLATELET MORPHOLOGY COMMENT NORMAL; RBC MORPHOLOGY COMMENT NORMAL
[2021-01-15] MEDS: TIOTROPIUM 18 MCG INH POWDER INH SCH (09:42)
[2021-01-15] MEDS ORDERED: DIPHENHYDRAMINE HCL INJ 50 MG/ML VIAL IV ONE (10:15)
[2021-01-15] MEDS: AMIODARONE HCL 200 MG TAB PO SCH (14:20)
[2021-01-15] MEDS ORDERED: SODIUM CHLORIDE 0.9% 1000ML 2,000 ML ONE (15:37)
[2021-01-15 19:41] VITALS: BP 108/49
[2021-01-15 20:25] VITALS: BP 108/49
[2021-01-15] MEDS: ATORVASTATIN 40 MG TAB PO SCH (21:43)
[2021-01-15] MEDS: TRAMADOL HCL 50 MG TAB PO PRN (21:44)
[2021-01-15] MEDS ORDERED: PREDNISONE5 MG PO (22:42)
[2021-01-15] MEDS ORDERED: NYSTATIN1 EAC2 TOP (22:47)
[2021-01-15 23:54] VITALS: BP 108/50
[2021-01-16 04:00] VITALS: BP 105/48
[2021-01-16 06:25] LABS: BASOPHILS # (AUTO) 0.1 (0.0-0.1); BASOPHILS % 0.6 % (0.0-1.0); EOSINOPHILS # (AUTO) 0.5 (0.0-0.4); EOSINOPHILS % 5.9 % (0.0-6.0); HEMATOCRIT 32.7 % (34.2-44.1); HEMOGLOBIN 9.9 g/dL (12.0-16.0); LYMPHOCYTES # (AUTO) 0.4 (1.0-3.2); LYMPHOCYTES % 4.8 % (18.0-39.1); MEAN CORPUSCULAR HEMOGLOBIN 32.8 pg (28-32); MEAN CORPUSCULAR HGB CONC 30.3 g/dL (31-35); MEAN CORPUSCULAR VOLUME 108.3 fL (81-99); MONOCYTES # (AUTO) 0.7 (0.2-0.8); MONOCYTES % 7.8 % (4.4-11.3); NEUTROPHILS # (AUTO) 7.3 (2.1-6.9); NEUTROPHILS % 80.3 % (38.7-80.0); PLATELET COUNT 162 x10e3/uL (140-360); RED BLOOD COUNT 3.02 x10e6/uL (3.6-5.1); RED CELL DISTRIBUTION WIDTH 16.1 % (11.7-14.4)
[2021-01-16] MEDS: INSULIN REGULAR, HUMAN 100 UNIT/1 ML SQ SCH ×3 (07:12→16:16)
[2021-01-16 07:40] LABS: ALBUMIN 2.2 g/dL (3.5-5.0); ALBUMIN/GLOBULIN RATIO 0.7 (0.8-2.0); ANION GAP 14.1 mmol/L (8-16); CALCIUM 8.1 mg/dL (8.4-10.2); CREATININE, SERUM 3.74 mg/dL (0.57-1.11); POTASSIUM 4.1 mmol/L (3.5-5.1)
[2021-01-16 07:43] LABS: EOSINOPHILS % (MANUAL) 6 % (0-7); LYMPHOCYTES % (MANUAL) 6 % (19-48); MONOCYTES % (MANUAL) 6 % (3.4-9.0); NEUTROPHILS % (MANUAL) 82 % (40-74); PLATELET ESTIMATE ADEQUATE; PLATELET MORPHOLOGY COMMENT NORMAL; RBC MORPHOLOGY COMMENT ABNORMAL
[2021-01-16 08:00] VITALS: BP 111/58
[2021-01-16] MEDS: BALSAM PERU/CASTOR OIL 60 GM OINT...G. TP SCH (08:14)
[2021-01-16] MEDS: DOCUSATE SODIUM 100 MG CAP PO SCH (08:14)
[2021-01-16] MEDS: NYSTATIN 15 GM POWDER UD BTL TOP SCH (08:14)
[2021-01-16] MEDS: FLUCONAZOLE 100 MG TAB PO SCH (08:14)
[2021-01-16] MEDS: PREDNISONE 5 MG TAB PO SCH (08:14)
[2021-01-16] MEDS: PANTOPRAZOLE SOD 40 MG TABEC PO SCH (08:14)
[2021-01-16 09:26] VITALS: BP 111/58
[2021-01-16] MEDS ORDERED: AMIODARONE HCL100 MG PO (11:40)
[2021-01-16] MEDS ORDERED: WARFARIN SODIUM3 MG PO (11:41)
[2021-01-16] MEDS ORDERED: METOPROLOL SUCC25 MG PO (11:43)
[2021-01-16 11:50] VITALS: BP 97/59
[2021-01-16] MEDS: TIOTROPIUM 18 MCG INH POWDER INH SCH (12:16)
[2021-01-16] MEDS ORDERED: ONDANSETRON HCL 4 MG ORAL DISINTEGRATING TAB PO PRN (13:30)
[2021-01-16] MEDS ORDERED: AMIODARONE HCL 200 MG TAB PO SCH (14:00)
[2021-01-16 16:00] VITALS: BP 111/60
[2021-01-16] MEDS ORDERED: WARFARIN SOD 2 MG TAB PO SCH (17:00)
[2021-01-16] MEDS ORDERED: METOPROLOL TARTRATE 25 MG TAB PO SCH (17:00)
== END 2021-01-16 16:00 | DRG 871 ==
LOC: ER 03:13 → ERHOLD 04:59 → IMCU 09:37
PROVIDERS: ADMIT Internal Medicine; ATTEND Internal Medicine
PROC: 5A1D70Z Performance of Urinary Filtration, Intermittent, Less than 6 Hours Per Day (ICD-10-PCS; principal; 2021-01-08)
PROC: 02HV33Z Insertion of Infusion Device into Superior Vena Cava, Percutaneous Approach (ICD-10-PCS; 2021-01-09)
DX: A41.9 Sepsis, unspecified organism (principal); I50.33 Acute on chronic diastolic (congestive) heart failure; N18.6 End stage renal disease; G93.41 Metabolic encephalopathy; I13.2 Hypertensive heart and chronic kidney disease with heart failure and with stage 5 chronic kidney disease, or end stage renal disease; J44.1 Chronic obstructive pulmonary disease with (acute) exacerbation; B02.8 Zoster with other complications; E11.22 Type 2 diabetes mellitus with diabetic chronic kidney disease; Z99.2 Dependence on renal dialysis; Z79.899 Other long term (current) drug therapy; E78.5 Hyperlipidemia, unspecified; L30.9 Dermatitis, unspecified; R65.20 Severe sepsis without septic shock; Z20.822 Contact with and (suspected) exposure to COVID-19
CPT/HCPCS: 36415; 36556; 70450; 71045; 74470; 76937; 77001; 80048; 80053; 80061; 82550; 82553; 82948; 83036; 83735; 83880; 84100; 84484; 85025; 85610; 86705; 86706; 87340; 87493; 90962; 93005; 93306; 97139; 99251; 99284; J1200; J2405; J7030; J7050; J7512; J7799; U0002

== ENCOUNTER 2021-01-30 12:02 | Inpatient (IN) | payer MEDICARE ==
[~2021-01-30] VITALS: Ht 157.5 cm; Wt 63.5 kg
[~2021-01-30 12:02] MED LIST changes: +AMIODARONE HCL100 MG PO; +METOPROLOL SUCC25 MG PO; +NYSTATIN1 EAC2 TOP; +PREDNISONE5 MG PO; +ZESTRIL2.5 MG PO
[2021-01-30 13:48] LABS: BASOPHILS % 0.6 % (0.0-1.0); EOSINOPHILS # (AUTO) 0.7 (0.0-0.4); EOSINOPHILS % 10.8 % (0.0-6.0); HEMATOCRIT 24.1 % (34.2-44.1); HEMOGLOBIN 7.5 g/dL (12.0-16.0); LYMPHOCYTES # (AUTO) 0.6 (1.0-3.2); MEAN CORPUSCULAR HGB CONC 31.1 g/dL (31-35); MEAN CORPUSCULAR VOLUME 106.2 fL (81-99); MONOCYTES # (AUTO) 0.5 (0.2-0.8); MONOCYTES % 7.6 % (4.4-11.3); NEUTROPHILS # (AUTO) 4.4 (2.1-6.9); NEUTROPHILS % 70.5 % (38.7-80.0); PLATELET COUNT 215 x10e3/uL (140-360); RED BLOOD COUNT 2.27 x10e6/uL (3.6-5.1); RED CELL DISTRIBUTION WIDTH 17.2 % (11.7-14.4)
[2021-01-30 14:01] LABS: ALBUMIN 2.1 g/dL (3.5-5.0); ALBUMIN/GLOBULIN RATIO 0.6 (0.8-2.0); ANION GAP 11.6 mmol/L (8-16); CALCIUM 7.5 mg/dL (8.4-10.2); CREATININE, SERUM 3.02 mg/dL (0.57-1.11); POTASSIUM 3.6 mmol/L (3.5-5.1)
[2021-01-30 14:29] LABS: CREATINE KINASE MB 0.7 ng/mL (0-5.0)
[2021-01-30] MEDS ORDERED: AMIODARONE HCL 200 MG TAB PO SCH (17:45)
[2021-01-30] MEDS ORDERED: ALBUTEROL SULFATE HFA 8GM INHALATION AEROSOL INH PRN (17:45)
[2021-01-30] MEDS ORDERED: IPRATROPIUM BROMIDE 0.02% 2.5 ML NEB NEB PRN (17:45)
[2021-01-30] MEDS ORDERED: LEVALBUTEROL HCL SOLN NEBU 0.63 MG/3 ML NEB INH PRN (17:45)
[2021-01-30 18:05] VITALS: BP 94/79
[2021-01-30 20:00] VITALS: BP 103/46
[2021-01-30] MEDS: INSULIN REGULAR, HUMAN 100 UNIT/1 ML SQ SCH (20:34)
[2021-01-30 20:45] VITALS: BP 103/46
[2021-01-30] MEDS: ATORVASTATIN 40 MG TAB PO SCH (20:45)
[2021-01-31] VITALS (8 sets, daily range): BP systolic 93–125; BP diastolic 42–95
[2021-01-31 05:21] LABS: BASOPHILS % 0.7 % (0.0-1.0); EOSINOPHILS # (AUTO) 0.8 (0.0-0.4); EOSINOPHILS % 13.7 % (0.0-6.0); HEMATOCRIT 25.5 % (34.2-44.1); HEMOGLOBIN 7.7 g/dL (12.0-16.0); LYMPHOCYTES # (AUTO) 0.6 (1.0-3.2); LYMPHOCYTES % 10.2 % (18.0-39.1); MEAN CORPUSCULAR HEMOGLOBIN 32.9 pg (28-32); MEAN CORPUSCULAR HGB CONC 30.2 g/dL (31-35); MONOCYTES # (AUTO) 0.6 (0.2-0.8); MONOCYTES % 9.9 % (4.4-11.3); NEUTROPHILS # (AUTO) 3.8 (2.1-6.9); PLATELET COUNT 212 x10e3/uL (140-360); RED BLOOD COUNT 2.34 x10e6/uL (3.6-5.1); RED CELL DISTRIBUTION WIDTH 16.9 % (11.7-14.4)
[2021-01-31 06:08] LABS: ALBUMIN 1.9 g/dL (3.5-5.0); ALBUMIN/GLOBULIN RATIO 0.6 (0.8-2.0); ANION GAP 12.6 mmol/L (8-16); CALCIUM 7.4 mg/dL (8.4-10.2); CREATININE, SERUM 3.92 mg/dL (0.57-1.11); POTASSIUM 3.6 mmol/L (3.5-5.1)
[2021-01-31 07:14] LABS: INR 1.31; PROTHROMBIN TIME 17.3 seconds (11.9-14.5)
[2021-01-31] MEDS: INSULIN REGULAR, HUMAN 100 UNIT/1 ML SQ SCH ×4 (07:30→20:38)
[2021-01-31] MEDS: METOPROLOL SUCCINATE 50 MG TAB XL PO SCH (09:00)
[2021-01-31] MEDS: PANTOPRAZOLE SOD 40 MG TABEC PO SCH (09:00)
[2021-01-31] MEDS ORDERED: BUMETANIDE 1 MG TAB PO SCH (09:00)
[2021-01-31] MEDS ORDERED: LISINOPRIL 2.5 MG TAB PO SCH (09:00)
[2021-01-31] MEDS ORDERED: SODIUM CHLORIDE 0.9% 1000ML 2,000 ML IV PRN (10:45)
[2021-01-31] MEDS ORDERED: HEPARIN SOD (PORCINE) 1000 UNIT/ML SDV IV PRN (10:45)
[2021-01-31] MEDS ORDERED: ALBUMIN 25% 12.5GM 0.25 GM/ML BTL IV PRN (10:45)
[2021-01-31] MEDS ORDERED: SODIUM CHLORIDE 0.9% 250ML 500 ML IV PRN (10:45)
[2021-01-31] MEDS ORDERED: IOPAMIDOL 370 MG/ML 200 ML INFUS..BTL INJ ONE (14:29)
[2021-01-31] MEDS ORDERED: SODIUM CHLORIDE 0.9% 50ML 50 ML ONE (14:29)
[2021-01-31] MEDS: AMIODARONE HCL 200 MG TAB PO SCH (15:00)
[2021-01-31] MEDS: ACETAMINOPHEN 325 MG TAB PO PRN ×2 (15:11→23:36)
[2021-01-31] MEDS ORDERED: SODIUM CHLORIDE 0.9% 250ML 250 ML IV ONE (16:00)
[2021-01-31 16:10] LABS: % IRON SATURATION 12 % (15-50); IRON 22 ug/dL (50-170); TOTAL IRON BINDING CAPACITY 179 ug/dL (261-478); TRANSFERRIN 128 mg/dL (180-382)
[2021-01-31] MEDS ORDERED: WARFARIN SOD 3 MG TAB PO SCH (17:00)
[2021-01-31] MEDS ORDERED: FUROSEMIDE 20 MG TAB PO SCH (18:00)
[2021-01-31] MEDS: WARFARIN SOD 3 MG TAB PO SCH (20:30)
[2021-01-31] MEDS: ATORVASTATIN 40 MG TAB PO SCH (20:31)
[2021-01-31] MEDS ORDERED: SODIUM CHLORIDE 0.9% 500ML 500 ML IV ONE (23:45)
[2021-02-01] VITALS (8 sets, daily range): BP systolic 84–116; BP diastolic 32–48
[2021-02-01 05:38] LABS: BASOPHILS % 0.6 % (0.0-1.0); EOSINOPHILS # (AUTO) 0.8 (0.0-0.4); EOSINOPHILS % 12.1 % (0.0-6.0); HEMATOCRIT 25.1 % (34.2-44.1); HEMOGLOBIN 7.4 g/dL (12.0-16.0); LYMPHOCYTES # (AUTO) 0.8 (1.0-3.2); LYMPHOCYTES % 12.1 % (18.0-39.1); MEAN CORPUSCULAR HEMOGLOBIN 33.3 pg (28-32); MEAN CORPUSCULAR HGB CONC 29.5 g/dL (31-35); MEAN CORPUSCULAR VOLUME 113.1 fL (81-99); MONOCYTES # (AUTO) 0.6 (0.2-0.8); MONOCYTES % 8.5 % (4.4-11.3); NEUTROPHILS # (AUTO) 4.3 (2.1-6.9); NEUTROPHILS % 65.9 % (38.7-80.0); PLATELET COUNT 191 x10e3/uL (140-360); RED BLOOD COUNT 2.22 x10e6/uL (3.6-5.1); RED CELL DISTRIBUTION WIDTH 17.5 % (11.7-14.4)
[2021-02-01 06:17] LABS: ALBUMIN 1.6 g/dL (3.5-5.0); ALBUMIN/GLOBULIN RATIO 0.6 (0.8-2.0); ALKALINE PHOSPHATASE 84 IU/L (40-150); ANION GAP 10.6 mmol/L (8-16); BLOOD UREA NITROGEN < 5 mg/dL (7-26); BUN/CREATININE RATIO 2 (6-25); CALCIUM 7.1 mg/dL (8.4-10.2); CARBON DIOXIDE 26 mmol/L (22-29); CHLORIDE 105 mmol/L (98-107); CREATININE, SERUM 2.32 mg/dL (0.57-1.11); EST GLOMERULAR FILTRATION RATE 20 ML/MIN (60-); GLUCOSE 72 mg/dL (74-118); POTASSIUM 3.6 mmol/L (3.5-5.1); SODIUM 138 mmol/L (136-145)
[2021-02-01 06:52] LABS: ALANINE AMINOTRANSFERASE 6 IU/L (0-55)
[2021-02-01] MEDS: INSULIN REGULAR, HUMAN 100 UNIT/1 ML SQ SCH ×4 (07:30→19:59)
[2021-02-01] MEDS: AMIODARONE HCL 200 MG TAB PO SCH (09:00)
[2021-02-01] MEDS: PANTOPRAZOLE SOD 40 MG TABEC PO SCH (10:07)
[2021-02-01] MEDS: METOPROLOL SUCCINATE 50 MG TAB XL PO SCH (10:07)
[2021-02-01] MEDS: SODIUM FERRIC GLUCONATE COMPLX 125 MG in SODIUM CHLORIDE 0.9% 100 ML 100 ML IV SCH (13:58)
[2021-02-01] MEDS: WARFARIN SOD 3 MG TAB PO SCH (16:19)
[2021-02-01] MEDS ORDERED: SODIUM CHLORIDE 0.9% 500ML 500 ML IV ONE (20:00)
[2021-02-01] MEDS: ATORVASTATIN 40 MG TAB PO SCH (21:51)
[2021-02-01] MEDS: ACETAMINOPHEN 325 MG TAB PO PRN (23:34)
[2021-02-02] VITALS (7 sets, daily range): BP systolic 81–120; BP diastolic 38–45
[2021-02-02 05:25] LABS: BASOPHILS % 0.5 % (0.0-1.0); EOSINOPHILS % 12.2 % (0.0-6.0); HEMATOCRIT 24.6 % (34.2-44.1); HEMOGLOBIN 7.4 g/dL (12.0-16.0); LYMPHOCYTES # (AUTO) 0.9 (1.0-3.2); LYMPHOCYTES % 11.4 % (18.0-39.1); MEAN CORPUSCULAR HEMOGLOBIN 33.6 pg (28-32); MEAN CORPUSCULAR HGB CONC 30.1 g/dL (31-35); MEAN CORPUSCULAR VOLUME 111.8 fL (81-99); MONOCYTES # (AUTO) 0.9 (0.2-0.8); MONOCYTES % 11.8 % (4.4-11.3); NEUTROPHILS % 63.5 % (38.7-80.0); PLATELET COUNT 225 x10e3/uL (140-360); RED CELL DISTRIBUTION WIDTH 17.5 % (11.7-14.4)
[2021-02-02 05:39] LABS: INR 1.6; PROTHROMBIN TIME 20.3 seconds (11.9-14.5)
[2021-02-02 05:50] LABS: ALBUMIN 1.7 g/dL (3.5-5.0); ALBUMIN/GLOBULIN RATIO 0.6 (0.8-2.0); ALKALINE PHOSPHATASE 96 IU/L (40-150); ANION GAP 11.9 mmol/L (8-16); CALCIUM 7.3 mg/dL (8.4-10.2); CARBON DIOXIDE 24 mmol/L (22-29); CHLORIDE 103 mmol/L (98-107); CREATININE, SERUM 3.55 mg/dL (0.57-1.11); EST GLOMERULAR FILTRATION RATE 12 ML/MIN (60-); GLUCOSE 70 mg/dL (74-118); POTASSIUM 3.9 mmol/L (3.5-5.1); SODIUM 135 mmol/L (136-145)
[2021-02-02 06:11] LABS: BLOOD UREA NITROGEN 9 mg/dL (7-26); BUN/CREATININE RATIO 3 (6-25)
[2021-02-02 06:15] LABS: ALANINE AMINOTRANSFERASE < 6 IU/L (0-55)
[2021-02-02] MEDS: INSULIN REGULAR, HUMAN 100 UNIT/1 ML SQ SCH ×3 (07:30→16:30)
[2021-02-02] MEDS: METOPROLOL SUCCINATE 50 MG TAB XL PO SCH (09:00)
[2021-02-02] MEDS: AMIODARONE HCL 200 MG TAB PO SCH (09:00)
[2021-02-02] MEDS: PANTOPRAZOLE SOD 40 MG TABEC PO SCH (09:11)
[2021-02-02] MEDS ORDERED: HEPARIN SOD (PORCINE) 1000 UNIT/ML SDV IV PRN (11:00)
[2021-02-02] MEDS: ACETAMINOPHEN 325 MG TAB PO PRN ×2 (12:20→23:00)
[2021-02-02] MEDS: SODIUM FERRIC GLUCONATE COMPLX 125 MG in SODIUM CHLORIDE 0.9% 100 ML 100 ML IV SCH (14:12)
[2021-02-02] MEDS: WARFARIN SOD 3 MG TAB PO SCH (17:21)
[2021-02-02] MEDS: ATORVASTATIN 40 MG TAB PO SCH (21:37)
[2021-02-03] VITALS (7 sets, daily range): BP systolic 90–127; BP diastolic 41–87
[2021-02-03] MEDS: ACETAMINOPHEN 325 MG TAB PO PRN ×2 (05:22→13:34)
[2021-02-03 06:38] LABS: BASOPHILS % 0.6 % (0.0-1.0); EOSINOPHILS # (AUTO) 0.9 (0.0-0.4); HEMATOCRIT 36.7 % (34.2-44.1); HEMOGLOBIN 11.9 g/dL (12.0-16.0); LYMPHOCYTES # (AUTO) 0.6 (1.0-3.2); MEAN CORPUSCULAR HEMOGLOBIN 32.5 pg (28-32); MEAN CORPUSCULAR HGB CONC 32.4 g/dL (31-35); MEAN CORPUSCULAR VOLUME 100.3 fL (81-99); MONOCYTES # (AUTO) 0.8 (0.2-0.8); MONOCYTES % 11.3 % (4.4-11.3); NEUTROPHILS # (AUTO) 4.7 (2.1-6.9); NEUTROPHILS % 66.7 % (38.7-80.0); PLATELET COUNT 179 x10e3/uL (140-360); RED BLOOD COUNT 3.66 x10e6/uL (3.6-5.1); RED CELL DISTRIBUTION WIDTH 19.8 % (11.7-14.4)
[2021-02-03 06:46] LABS: INR 1.86; PROTHROMBIN TIME 22.9 seconds (11.9-14.5)
[2021-02-03] MEDS ORDERED: EPOETIN ALFA-EPBX 10,000 UNIT/ML VIAL SC SCH (07:00)
[2021-02-03 07:04] LABS: ANION GAP 15.7 mmol/L (8-16); CALCIUM 7.9 mg/dL (8.4-10.2); CREATININE, SERUM 2.51 mg/dL (0.57-1.11); POTASSIUM 3.7 mmol/L (3.5-5.1)
[2021-02-03] MEDS: DEXTROSE 50% SYRINGE 50 ML IV PRN (07:07)
[2021-02-03] MEDS: PANTOPRAZOLE SOD 40 MG TABEC PO SCH (08:32)
[2021-02-03] MEDS: METOPROLOL SUCCINATE 50 MG TAB XL PO SCH (09:00)
[2021-02-03] MEDS: AMIODARONE HCL 200 MG TAB PO SCH (09:00)
[2021-02-03] MEDS: MIDODRINE HCL 5 MG TABLET PO SCH ×3 (09:42→16:37)
[2021-02-03] MEDS ORDERED: MIDODRINE HCL 5 MG TABLET PO SCH (12:00)
[2021-02-03] MEDS ORDERED: MIDODRINE 2.5 MG TAB PO SCH (14:00)
[2021-02-03] MEDS: WARFARIN SOD 3 MG TAB PO SCH (16:36)
[2021-02-03] MEDS: ATORVASTATIN 40 MG TAB PO SCH (21:04)
[2021-02-04] VITALS (8 sets, daily range): BP systolic 92–110; BP diastolic 43–72
[2021-02-04 06:42] LABS: BASOPHILS # (AUTO) 0.1 (0.0-0.1); BASOPHILS % 0.6 % (0.0-1.0); EOSINOPHILS # (AUTO) 0.8 (0.0-0.4); EOSINOPHILS % 9.6 % (0.0-6.0); HEMOGLOBIN 11.5 g/dL (12.0-16.0); LYMPHOCYTES # (AUTO) 0.7 (1.0-3.2); LYMPHOCYTES % 8.8 % (18.0-39.1); MEAN CORPUSCULAR HEMOGLOBIN 32.4 pg (28-32); MEAN CORPUSCULAR HGB CONC 31.9 g/dL (31-35); MEAN CORPUSCULAR VOLUME 101.4 fL (81-99); MONOCYTES # (AUTO) 0.7 (0.2-0.8); MONOCYTES % 8.2 % (4.4-11.3); NEUTROPHILS # (AUTO) 5.7 (2.1-6.9); NEUTROPHILS % 72.4 % (38.7-80.0); PLATELET COUNT 209 x10e3/uL (140-360); RED BLOOD COUNT 3.55 x10e6/uL (3.6-5.1); RED CELL DISTRIBUTION WIDTH 19.3 % (11.7-14.4)
[2021-02-04] MEDS: DEXTROSE 50% SYRINGE 50 ML IV PRN ×2 (06:50→15:02)
[2021-02-04] MEDS: MIDODRINE HCL 5 MG TABLET PO SCH ×3 (07:01→16:00)
[2021-02-04 07:13] LABS: ANION GAP 13.7 mmol/L (8-16); CALCIUM 8.3 mg/dL (8.4-10.2); CREATININE, SERUM 3.82 mg/dL (0.57-1.11); POTASSIUM 3.7 mmol/L (3.5-5.1)
[2021-02-04] MEDS: METOPROLOL SUCCINATE 50 MG TAB XL PO SCH (08:59)
[2021-02-04] MEDS: AMIODARONE HCL 200 MG TAB PO SCH (08:59)
[2021-02-04] MEDS: PANTOPRAZOLE SOD 40 MG TABEC PO SCH (08:59)
[2021-02-04] MEDS: ACETAMINOPHEN 325 MG TAB PO PRN ×2 (14:20→21:30)
[2021-02-04] MEDS: WARFARIN SOD 3 MG TAB PO SCH (16:00)
[2021-02-04] MEDS: ATORVASTATIN 40 MG TAB PO SCH (21:41)
[2021-02-05 01:06] VITALS: BP 100/52
[2021-02-05 05:23] VITALS: BP 99/49
[2021-02-05] MEDS: ACETAMINOPHEN 325 MG TAB PO PRN ×2 (05:23→11:30)
[2021-02-05] MEDS: DEXTROSE 50% SYRINGE 50 ML IV PRN (05:24)
[2021-02-05 05:26] LABS: BASOPHILS # (AUTO) 0.1 (0.0-0.1); EOSINOPHILS # (AUTO) 0.9 (0.0-0.4); HEMATOCRIT 37.1 % (34.2-44.1); HEMOGLOBIN 11.6 g/dL (12.0-16.0); LYMPHOCYTES # (AUTO) 1.2 (1.0-3.2); LYMPHOCYTES % 14.8 % (18.0-39.1); MEAN CORPUSCULAR HEMOGLOBIN 32.3 pg (28-32); MEAN CORPUSCULAR HGB CONC 31.3 g/dL (31-35); MEAN CORPUSCULAR VOLUME 103.3 fL (81-99); MONOCYTES # (AUTO) 0.9 (0.2-0.8); MONOCYTES % 11.8 % (4.4-11.3); NEUTROPHILS # (AUTO) 4.9 (2.1-6.9); PLATELET COUNT 230 x10e3/uL (140-360); RED BLOOD COUNT 3.59 x10e6/uL (3.6-5.1); RED CELL DISTRIBUTION WIDTH 19.1 % (11.7-14.4)
[2021-02-05 05:51] LABS: ALBUMIN 1.9 g/dL (3.5-5.0); ALBUMIN/GLOBULIN RATIO 0.7 (0.8-2.0); ANION GAP 13.8 mmol/L (8-16); CALCIUM 7.6 mg/dL (8.4-10.2); CREATININE, SERUM 4.89 mg/dL (0.57-1.11); POTASSIUM 3.8 mmol/L (3.5-5.1)
[2021-02-05 07:21] VITALS: BP 99/48
[2021-02-05 07:59] VITALS: BP 99/48
[2021-02-05] MEDS ORDERED: HEPARIN SOD (PORCINE) 1000 UNIT/ML SDV IV PRN (08:15)
[2021-02-05] MEDS: MIDODRINE HCL 5 MG TABLET PO SCH ×2 (08:21→11:30)
[2021-02-05] MEDS: PANTOPRAZOLE SOD 40 MG TABEC PO SCH (08:21)
[2021-02-05] MEDS: METOPROLOL SUCCINATE 50 MG TAB XL PO SCH (08:22)
[2021-02-05 11:39] VITALS: BP 127/67
[2021-02-05] MEDS ORDERED: MIDODRINE HCL5 MG PO (12:23)
== END 2021-02-05 15:02 | disposition home health service (06) | DRG 291 ==
LOC: ER 12:06 → ERHOLD 15:30 → MED/SURG 17:48 → OBSVTOIN 02-01 10:33
PROVIDERS: ADMIT Internal Medicine; ATTEND Internal Medicine
PROC: 5A1D70Z Performance of Urinary Filtration, Intermittent, Less than 6 Hours Per Day (ICD-10-PCS; principal; 2021-01-31)
PROC: 30233N1 Transfusion of Nonautologous Red Blood Cells into Peripheral Vein, Percutaneous Approach (ICD-10-PCS; 2021-02-02)
DX: I13.2 Hypertensive heart and chronic kidney disease with heart failure and with stage 5 chronic kidney disease, or end stage renal disease (principal); N18.6 End stage renal disease; I50.33 Acute on chronic diastolic (congestive) heart failure; B02.8 Zoster with other complications; I82.612 Acute embolism and thrombosis of superficial veins of left upper extremity; T82.868A Thrombosis due to vascular prosthetic devices, implants and grafts, initial encounter; M84.48XA Pathological fracture, other site, initial encounter for fracture; M48.54XA Collapsed vertebra, not elsewhere classified, thoracic region, initial encounter for fracture; E11.22 Type 2 diabetes mellitus with diabetic chronic kidney disease; Z99.2 Dependence on renal dialysis; E66.9 Obesity, unspecified; J44.9 Chronic obstructive pulmonary disease, unspecified; I48.0 Paroxysmal atrial fibrillation; Z68.25 Body mass index [BMI] 25.0-25.9, adult; R62.7 Adult failure to thrive; D50.0 Iron deficiency anemia secondary to blood loss (chronic); E11.42 Type 2 diabetes mellitus with diabetic polyneuropathy; E11.319 Type 2 diabetes mellitus with unspecified diabetic retinopathy without macular edema; E11.649 Type 2 diabetes mellitus with hypoglycemia without coma; L89.152 Pressure ulcer of sacral region, stage 2; N61.0 Mastitis without abscess; D63.1 Anemia in chronic kidney disease; L30.4 Erythema intertrigo; L21.9 Seborrheic dermatitis, unspecified; Z79.01 Long term (current) use of anticoagulants; Z95.1 Presence of aortocoronary bypass graft; Z95.5 Presence of coronary angioplasty implant and graft; Z95.810 Presence of automatic (implantable) cardiac defibrillator; Z87.891 Personal history of nicotine dependence
CPT/HCPCS: 36415; 71045; 71260; 80048; 80053; 82550; 82553; 82728; 82948; 83540; 83880; 84466; 84484; 85025; 85610; 85730; 86705; 86706; 86850; 86900; 86920; 87340; 90962; 93005; 93970; 94799; 97139; 99284; G0378; J1644; J1817; J2916; J7030; J7040; J7050; J7799; P9016; Q9967; U0002

== ENCOUNTER 2021-02-13 12:12 | Inpatient (IN) | payer MEDICARE ==
[2021-02-13] VITALS (10 sets, daily range): BP systolic 84–123; BP diastolic 30–99
[~2021-02-13] VITALS: Ht 157.5 cm; Wt 63.3 kg
[~2021-02-13 12:12] MED LIST changes: +MIDODRINE HCL5 MG PO
[2021-02-13] MEDS ORDERED: SODIUM CHLORIDE 0.9% 1000ML 500 ML IV STA (12:31)
[2021-02-13] MEDS ORDERED: FAMOTIDINE 20 MG/2 ML VIAL IV NR (12:37)
[2021-02-13] MEDS ORDERED: SODIUM CHLORIDE 0.9% 1000ML 500 ML IV ONE (12:45)
[2021-02-13 13:26] LABS: ALBUMIN 1.8 g/dL (3.5-5.0); ALBUMIN/GLOBULIN RATIO 0.8 (0.8-2.0); ANION GAP 12.5 mmol/L (8-16); CALCIUM 7.1 mg/dL (8.4-10.2); CREATININE, SERUM 2.4 mg/dL (0.57-1.11); POTASSIUM 3.5 mmol/L (3.5-5.1)
[2021-02-13 13:30] LABS: PARTIAL THROMBOPLASTIN TIME 118.8 seconds (23.8-35.5); PROTHROMBIN TIME > 120.0 seconds (11.9-14.5)
[2021-02-13] MEDS ORDERED: MEROPENEM 500 MG in SODIUM CHLORIDE 0.9% 50ML 50 ML IV ONE (13:30)
[2021-02-13] MEDS ORDERED: Vancomycin IV 1 GM in SODIUM CHLORIDE 0.9% 250ML 250 ML IV ONE (13:30)
[2021-02-13 13:33] LABS: CREATINE KINASE MB 15.7 ng/mL (0-5.0)
[2021-02-13 13:35] LABS: BASOPHILS % 0.5 % (0.0-1.0); EOSINOPHILS # (AUTO) 0.1 (0.0-0.4); EOSINOPHILS % 0.7 % (0.0-6.0); LYMPHOCYTES # (AUTO) 0.9 (1.0-3.2); LYMPHOCYTES % 10.5 % (18.0-39.1); MEAN CORPUSCULAR HEMOGLOBIN 32.8 pg (28-32); MEAN CORPUSCULAR HGB CONC 31.5 g/dL (31-35); MONOCYTES # (AUTO) 0.6 (0.2-0.8); MONOCYTES % 6.3 % (4.4-11.3); NEUTROPHILS # (AUTO) 7.2 (2.1-6.9); NEUTROPHILS % 81.4 % (38.7-80.0); PLATELET COUNT 196 x10e3/uL (140-360); RED BLOOD COUNT 1.74 x10e6/uL (3.6-5.1); RED CELL DISTRIBUTION WIDTH 18.7 % (11.7-14.4)
[2021-02-13 13:41] LABS: HEMATOCRIT 18.1 % (34.2-44.1); HEMOGLOBIN 5.7 g/dL (12.0-16.0)
[2021-02-13] MEDS ORDERED: SODIUM CHLORIDE 0.9% 250ML 250 ML IV ONE ×2 (13:45→16:15)
[2021-02-13] MEDS ORDERED: OCTREOTIDE ACETATE 0.05 MG/ML AMP IV STA (14:07)
[2021-02-13] MEDS ORDERED: DEXTROSE 50% SYRINGE 50 ML IV STA ×2 (14:15→14:16)
[2021-02-13 14:19] LABS: B-TYPE NATRIURETIC PEPTIDE2 860.7 pg/mL (0-100)
[2021-02-13] MEDS: OCTREOTIDE ACETATE 500 MCG in SODIUM CHLORIDE 0.9% 250ML 249 ML IV SCH ×2 (14:21→17:20)
[2021-02-13] MEDS ORDERED: Vancomycin IV 1 GM VIAL ONE (14:29)
[2021-02-13] MEDS ORDERED: PHYTONADIONE 10 MG/ML AMP SQ ONE (14:30)
[2021-02-13 14:36] LABS: CLARITY,URINE SL CLOUDY (CLEAR); COLOR,URINE AMBER (YELLOW)
[2021-02-13 14:37] LABS: KETONES,URINE TRACE (NEGATIVE); LEUKOCYTE ESTERASE ,URINE SMALL (NEGATIVE); NITRITE,URINE NEGATIVE (NEGATIVE); PROTEIN,URINE DIPSTICK 2+ (NEGATIVE); URINE UROBILINOGEN 0.2 mg/dL (0.2 - 1)
[2021-02-13 14:39] LABS: BACTERIA,URINE MANY /HPF; RBC,URINE 21-50 /HPF (0-5)
[2021-02-13] MEDS ORDERED: SODIUM CHLORIDE 0.9% 250ML 500 ML ONE (14:39)
[2021-02-13] MEDS: NOREPINEPHRINE 8 MG/D5W 250 ML 250 ML IV SCH ×2 (14:41→19:15)
[2021-02-13] MEDS ORDERED: NOREPINEPHRINE 8 MG/D5W 250 ML 250 ML ONE (14:47)
[2021-02-13] MEDS ORDERED: IOPAMIDOL 370 MG/ML 200 ML INFUS..BTL INJ ONE (15:58)
[2021-02-13] MEDS ORDERED: SODIUM CHLORIDE 0.9% 50ML 50 ML ONE (15:58)
[2021-02-13] MEDS ORDERED: ALBUTEROL SULFATE HFA 8GM INHALATION AEROSOL INH PRN (16:00)
[2021-02-13] MEDS ORDERED: IPRATROPIUM BROMIDE 0.02% 2.5 ML NEB NEB PRN (16:00)
[2021-02-13] MEDS ORDERED: LEVALBUTEROL HCL SOLN NEBU 0.63 MG/3 ML NEB INH PRN (16:00)
[2021-02-13] MEDS ORDERED: SODIUM CHLORIDE 0.9% 250ML 250 ML ONE (18:18)
[2021-02-13] MEDS ORDERED: SODIUM CHLORIDE 0.9% 1000ML 2,000 ML ONE (19:33)
[2021-02-13 19:57] LABS: BASOPHILS % 0.1 % (0.0-1.0); LYMPHOCYTES # (AUTO) 0.5 (1.0-3.2); LYMPHOCYTES % 2.6 % (18.0-39.1); MEAN CORPUSCULAR HEMOGLOBIN 31.7 pg (28-32); MEAN CORPUSCULAR HGB CONC 31.1 g/dL (31-35); MEAN CORPUSCULAR VOLUME 102.2 fL (81-99); MONOCYTES # (AUTO) 1.5 (0.2-0.8); MONOCYTES % 7.4 % (4.4-11.3); NEUTROPHILS # (AUTO) 18.4 (2.1-6.9); NEUTROPHILS % 88.3 % (38.7-80.0); PLATELET COUNT 205 x10e3/uL (140-360); RED BLOOD COUNT 1.86 x10e6/uL (3.6-5.1); RED CELL DISTRIBUTION WIDTH 20.2 % (11.7-14.4)
[2021-02-13 20:00] LABS: HEMOGLOBIN 5.9 g/dL (12.0-16.0)
[2021-02-13] MEDS: ATORVASTATIN 40 MG TAB PO SCH (20:25)
[2021-02-13 20:27] LABS: CREATINE KINASE MB 13.6 ng/mL (0-5.0)
[2021-02-13] MEDS ORDERED: AMIODARONE HCL 150 MG/100 ML BAG IV ONE (21:00)
[2021-02-13] MEDS ORDERED: AMIODARONE 900MG 500 ML IV ONE (21:00)
[2021-02-14] VITALS (25 sets, daily range): BP systolic 89–130; BP diastolic 43–106
[2021-02-14 00:10] LABS: BASOPHILS # (AUTO) 0.1 (0.0-0.1); BASOPHILS % 0.2 % (0.0-1.0); HEMATOCRIT 30.3 % (34.2-44.1); HEMOGLOBIN 9.5 g/dL (12.0-16.0); LYMPHOCYTES # (AUTO) 0.4 (1.0-3.2); LYMPHOCYTES % 1.5 % (18.0-39.1); MEAN CORPUSCULAR HEMOGLOBIN 29.1 pg (28-32); MEAN CORPUSCULAR HGB CONC 31.4 g/dL (31-35); MEAN CORPUSCULAR VOLUME 92.9 fL (81-99); MONOCYTES # (AUTO) 1.5 (0.2-0.8); MONOCYTES % 6.2 % (4.4-11.3); NEUTROPHILS # (AUTO) 22.3 (2.1-6.9); NEUTROPHILS % 91.1 % (38.7-80.0); PLATELET COUNT 184 x10e3/uL (140-360); RED BLOOD COUNT 3.26 x10e6/uL (3.6-5.1); RED CELL DISTRIBUTION WIDTH 18.7 % (11.7-14.4)
[2021-02-14 00:34] LABS: CREATINE KINASE MB 12.6 ng/mL (0-5.0)
[2021-02-14] MEDS ORDERED: SODIUM CHLORIDE 0.9% 100 ML ONE (03:14)
[2021-02-14] MEDS ORDERED: ACETAMINOPHEN 1000 MG/100 ML 100 ML IV ONE (03:31)
[2021-02-14] MEDS ORDERED: ACETAMINOPHEN 1000 MG/100 ML IV STA (03:32)
[2021-02-14] MEDS ORDERED: ONDANSETRON HCL INJ 2MG/ML 2ML 2 MG/ML VIAL ONE (03:36)
[2021-02-14] MEDS: Pantoprazole IV 80 MG in SODIUM CHLORIDE 0.9% 100 ML IV SCH ×5 (03:44→23:45)
[2021-02-14] MEDS: ONDANSETRON HCL INJ 2MG/ML 2ML 2 MG/ML VIAL IV PRN (03:45)
[2021-02-14] MEDS: NOREPINEPHRINE 8 MG/D5W 250 ML 250 ML IV SCH ×3 (04:00→20:26)
[2021-02-14 05:48] LABS: BASOPHILS # (AUTO) 0.1 (0.0-0.1); BASOPHILS % 0.3 % (0.0-1.0); HEMATOCRIT 29.7 % (34.2-44.1); HEMOGLOBIN 9.2 g/dL (12.0-16.0); LYMPHOCYTES # (AUTO) 0.4 (1.0-3.2); LYMPHOCYTES % 1.8 % (18.0-39.1); MEAN CORPUSCULAR HEMOGLOBIN 29.2 pg (28-32); MEAN CORPUSCULAR VOLUME 94.3 fL (81-99); MONOCYTES # (AUTO) 1.8 (0.2-0.8); MONOCYTES % 7.4 % (4.4-11.3); NEUTROPHILS # (AUTO) 21.3 (2.1-6.9); NEUTROPHILS % 88.9 % (38.7-80.0); PLATELET COUNT 179 x10e3/uL (140-360); RED BLOOD COUNT 3.15 x10e6/uL (3.6-5.1); RED CELL DISTRIBUTION WIDTH 19.8 % (11.7-14.4)
[2021-02-14 06:00] LABS: INR 2.56; PROTHROMBIN TIME 29.5 seconds (11.9-14.5)
[2021-02-14 06:01] LABS: PARTIAL THROMBOPLASTIN TIME 46.6 seconds (23.8-35.5)
[2021-02-14 06:09] LABS: ALBUMIN 2.2 g/dL (3.5-5.0); ALBUMIN/GLOBULIN RATIO 0.8 (0.8-2.0); ANION GAP 19.3 mmol/L (8-16); CALCIUM 7.2 mg/dL (8.4-10.2); CREATININE, SERUM 1.94 mg/dL (0.57-1.11); POTASSIUM 3.3 mmol/L (3.5-5.1)
[2021-02-14 06:40] LABS: CREATINE KINASE MB 10.4 ng/mL (0-5.0)
[2021-02-14] MEDS: AMIODARONE HCL 200 MG TAB PO SCH (07:38)
[2021-02-14] MEDS: METOPROLOL SUCCINATE 50 MG TAB XL PO SCH (07:39)
[2021-02-14] MEDS ORDERED: POTASSIUM CHLORIDE 20MEQ/100ML 100 ML IV ONE (07:45)
[2021-02-14 08:38] LABS: MAGNESIUM 1.7 MG/DL (1.3-2.1); PHOSPHORUS 3.3 MG/DL (2.3-4.7)
[2021-02-14] MEDS ORDERED: TIOTROPIUM 18 MCG INH POWDER INH SCH (09:00)
[2021-02-14] MEDS ORDERED: ACETAMINOPHEN 325 MG TAB PO PRN (09:00)
[2021-02-14] MEDS ORDERED: MEROPENEM 500 MG in SODIUM CHLORIDE 0.9% 50ML 50 ML IV SCH (09:30)
[2021-02-14] MEDS ORDERED: METOPROLOL TARTRATE INJ 1 MG/ML VIAL IV PRN (09:45)
[2021-02-14] MEDS ORDERED: Vancomycin IV 1 GM in SODIUM CHLORIDE 0.9% 250ML 250 ML IV ONE (12:30)
[2021-02-14] MEDS: MIDODRINE HCL 5 MG TABLET PO SCH ×2 (12:44→16:00)
[2021-02-14 13:29] LABS: LYMPHOCYTES % (MANUAL) 1 % (19-48); MONOCYTES % (MANUAL) 2 % (3.4-9.0); NEUTROPHILS % (MANUAL) 97 % (40-74); NUCLEATED RED BLOOD CELLS 1
[2021-02-14] MEDS ORDERED: SODIUM CHLORIDE 0.9% 1000ML 2,000 ML ONE (14:46)
[2021-02-14] MEDS ORDERED: HEPARIN SOD (PORCINE) 1000 UNIT/ML SDV ONE (14:47)
[2021-02-14] MEDS ORDERED: HEPARIN SOD (PORCINE) 1000 UNIT/ML SDV IV PRN (15:00)
[2021-02-14] MEDS ORDERED: ALBUMIN 25% 12.5GM 0.25 GM/ML BTL IV PRN (15:00)
[2021-02-14] MEDS ORDERED: ALBUMIN 25% 25GM 100ML 0.25 GM/ML BTL IV PRN (15:00)
[2021-02-14] MEDS ORDERED: SODIUM CHLORIDE 0.9% 1000ML 2,000 ML IV PRN (15:00)
[2021-02-14] MEDS: OCTREOTIDE ACETATE 500 MCG in SODIUM CHLORIDE 0.9% 250ML 249 ML IV SCH ×2 (18:44→20:15)
[2021-02-14] MEDS: CEFEPIME 1 GM in SODIUM CHLORIDE 0.9% 50ML 50 ML IV SCH (18:51)
[2021-02-14 19:09] LABS: BASOPHILS # (AUTO) 0.1 (0.0-0.1); BASOPHILS % 0.2 % (0.0-1.0); EOSINOPHILS # (AUTO) 0.2 (0.0-0.4); EOSINOPHILS % 0.7 % (0.0-6.0); HEMATOCRIT 28.5 % (34.2-44.1); HEMOGLOBIN 8.9 g/dL (12.0-16.0); LYMPHOCYTES # (AUTO) 0.7 (1.0-3.2); LYMPHOCYTES % 2.9 % (18.0-39.1); MEAN CORPUSCULAR HEMOGLOBIN 29.5 pg (28-32); MEAN CORPUSCULAR HGB CONC 31.2 g/dL (31-35); MEAN CORPUSCULAR VOLUME 94.4 fL (81-99); MONOCYTES # (AUTO) 0.8 (0.2-0.8); MONOCYTES % 3.3 % (4.4-11.3); NEUTROPHILS # (AUTO) 20.8 (2.1-6.9); NEUTROPHILS % 91.5 % (38.7-80.0); PLATELET COUNT 142 x10e3/uL (140-360); RED BLOOD COUNT 3.02 x10e6/uL (3.6-5.1); RED CELL DISTRIBUTION WIDTH 20.2 % (11.7-14.4)
[2021-02-14] MEDS: ATORVASTATIN 40 MG TAB PO SCH (20:58)
[2021-02-14 23:47] LABS: BASOPHILS # (AUTO) 0.1 (0.0-0.1); BASOPHILS % 0.2 % (0.0-1.0); EOSINOPHILS # (AUTO) 0.1 (0.0-0.4); EOSINOPHILS % 0.5 % (0.0-6.0); HEMATOCRIT 27.6 % (34.2-44.1); HEMOGLOBIN 8.5 g/dL (12.0-16.0); LYMPHOCYTES # (AUTO) 0.5 (1.0-3.2); LYMPHOCYTES % 1.9 % (18.0-39.1); MEAN CORPUSCULAR HEMOGLOBIN 29.3 pg (28-32); MEAN CORPUSCULAR HGB CONC 30.8 g/dL (31-35); MEAN CORPUSCULAR VOLUME 95.2 fL (81-99); MONOCYTES # (AUTO) 1.2 (0.2-0.8); MONOCYTES % 5.1 % (4.4-11.3); NEUTROPHILS # (AUTO) 22.1 (2.1-6.9); NEUTROPHILS % 90.7 % (38.7-80.0); PLATELET COUNT 126 x10e3/uL (140-360); RED CELL DISTRIBUTION WIDTH 20.4 % (11.7-14.4)
[2021-02-15] VITALS (24 sets, daily range): BP systolic 72–164; BP diastolic 42–136
[2021-02-15] MEDS: NOREPINEPHRINE 8 MG/D5W 250 ML 250 ML IV SCH
[2021-02-15] MEDS ORDERED: VASOPRESSIN 60 UNIT in DEXTROSE 5% 50ML 57 ML IV PRN (01:30)
[2021-02-15] MEDS: Pantoprazole IV 80 MG in SODIUM CHLORIDE 0.9% 100 ML IV SCH ×3 (05:16→15:39)
[2021-02-15 06:03] LABS: BASOPHILS # (AUTO) 0.1 (0.0-0.1); BASOPHILS % 0.2 % (0.0-1.0); EOSINOPHILS # (AUTO) 0.2 (0.0-0.4); EOSINOPHILS % 0.7 % (0.0-6.0); HEMATOCRIT 27.2 % (34.2-44.1); HEMOGLOBIN 8.3 g/dL (12.0-16.0); LYMPHOCYTES # (AUTO) 0.5 (1.0-3.2); LYMPHOCYTES % 2.2 % (18.0-39.1); MEAN CORPUSCULAR HEMOGLOBIN 29.2 pg (28-32); MEAN CORPUSCULAR HGB CONC 30.5 g/dL (31-35); MEAN CORPUSCULAR VOLUME 95.8 fL (81-99); MONOCYTES # (AUTO) 1.4 (0.2-0.8); MONOCYTES % 5.6 % (4.4-11.3); NEUTROPHILS # (AUTO) 21.9 (2.1-6.9); NEUTROPHILS % 89.3 % (38.7-80.0); PLATELET COUNT 106 x10e3/uL (140-360); RED BLOOD COUNT 2.84 x10e6/uL (3.6-5.1); RED CELL DISTRIBUTION WIDTH 20.7 % (11.7-14.4)
[2021-02-15 06:46] LABS: ALBUMIN 2.4 g/dL (3.5-5.0); ALBUMIN/GLOBULIN RATIO 0.9 (0.8-2.0); ANION GAP 17.5 mmol/L (8-16); POTASSIUM 3.5 mmol/L (3.5-5.1)
[2021-02-15 07:08] LABS: CREATININE, SERUM 1.49 mg/dL (0.57-1.11)
[2021-02-15] MEDS: MIDODRINE HCL 5 MG TABLET PO SCH ×3 (08:00→15:47)
[2021-02-15 08:07] LABS: LYMPHOCYTES % (MANUAL) 3 % (19-48); MONOCYTES % (MANUAL) 1 % (3.4-9.0); NEUTROPHILS % (MANUAL) 96 % (40-74); NUCLEATED RED BLOOD CELLS 1; PLATELET ESTIMATE SLIGHTLY DECREASED; PLATELET MORPHOLOGY COMMENT NORMAL; RBC MORPHOLOGY COMMENT NORMAL
[2021-02-15] MEDS ORDERED: CEFTRIAXONE 1 GM in SODIUM CHLORIDE 0.9% 50ML 50 ML IV SCH (09:00)
[2021-02-15] MEDS: METOPROLOL SUCCINATE 50 MG TAB XL PO SCH (09:00)
[2021-02-15] MEDS: AMIODARONE HCL 200 MG TAB PO SCH (09:00)
[2021-02-15] MEDS: OCTREOTIDE ACETATE 500 MCG in SODIUM CHLORIDE 0.9% 250ML 249 ML IV SCH ×3 (10:04→20:25)
[2021-02-15] MEDS: COLLAGENASE 5 GM TUBE TP SCH (10:04)
[2021-02-15] MEDS: ONDANSETRON HCL INJ 2MG/ML 2ML 2 MG/ML VIAL IV PRN (10:15)
[2021-02-15 11:10] LABS: ABG PCO2 50 mmHg (35-45); ABG PH 7.26 (7.35-7.45); ABG PO2 68 mmHg (80-105)
[2021-02-15 11:11] LABS: ABG HCO3 23 mmol/L (22-26); ABG TCO2 24
[2021-02-15 15:19] LABS: ABG PCO2 54 mmHg (35-45); ABG PH 7.28 (7.35-7.45)
[2021-02-15 15:20] LABS: ABG HCO3 24 mmol/L (22-26); ABG PO2 136 mmHg (80-105); ABG TCO2 26
[2021-02-15] MEDS: CEFEPIME 1 GM in SODIUM CHLORIDE 0.9% 50ML 50 ML IV SCH (18:06)
[2021-02-15 20:11] LABS: BASOPHILS # (AUTO) 0.1 (0.0-0.1); BASOPHILS % 0.3 % (0.0-1.0); HEMATOCRIT 27.3 % (34.2-44.1); HEMOGLOBIN 8.5 g/dL (12.0-16.0); LYMPHOCYTES # (AUTO) 0.5 (1.0-3.2); MEAN CORPUSCULAR HEMOGLOBIN 29.8 pg (28-32); MEAN CORPUSCULAR HGB CONC 31.1 g/dL (31-35); MEAN CORPUSCULAR VOLUME 95.8 fL (81-99); MONOCYTES # (AUTO) 0.9 (0.2-0.8); MONOCYTES % 3.7 % (4.4-11.3); NEUTROPHILS # (AUTO) 21.1 (2.1-6.9); NEUTROPHILS % 91.9 % (38.7-80.0); PLATELET COUNT 109 x10e3/uL (140-360); RED BLOOD COUNT 2.85 x10e6/uL (3.6-5.1); RED CELL DISTRIBUTION WIDTH 20.7 % (11.7-14.4)
[2021-02-15] MEDS: ATORVASTATIN 40 MG TAB PO SCH (20:27)
[2021-02-16] VITALS (26 sets, daily range): BP systolic 62–151; BP diastolic 28–101
[2021-02-16] MEDS: Pantoprazole IV 80 MG in SODIUM CHLORIDE 0.9% 100 ML IV SCH ×6 (00:45→20:45)
[2021-02-16] MEDS: NOREPINEPHRINE 8 MG/D5W 250 ML 250 ML IV SCH ×4 (05:20→22:57)
[2021-02-16 05:52] LABS: BASOPHILS # (AUTO) 0.1 (0.0-0.1); BASOPHILS % 0.2 % (0.0-1.0); EOSINOPHILS # (AUTO) 0.1 (0.0-0.4); EOSINOPHILS % 0.3 % (0.0-6.0); HEMATOCRIT 27.1 % (34.2-44.1); HEMOGLOBIN 8.5 g/dL (12.0-16.0); LYMPHOCYTES # (AUTO) 0.5 (1.0-3.2); LYMPHOCYTES % 1.8 % (18.0-39.1); MEAN CORPUSCULAR HEMOGLOBIN 29.8 pg (28-32); MEAN CORPUSCULAR HGB CONC 31.4 g/dL (31-35); MEAN CORPUSCULAR VOLUME 95.1 fL (81-99); MONOCYTES # (AUTO) 0.7 (0.2-0.8); MONOCYTES % 2.9 % (4.4-11.3); NEUTROPHILS # (AUTO) 22.7 (2.1-6.9); NEUTROPHILS % 92.7 % (38.7-80.0); PLATELET COUNT 120 x10e3/uL (140-360); RED BLOOD COUNT 2.85 x10e6/uL (3.6-5.1)
[2021-02-16 06:20] LABS: ALBUMIN 2.3 g/dL (3.5-5.0); ALBUMIN/GLOBULIN RATIO 0.9 (0.8-2.0); ANION GAP 14.3 mmol/L (8-16); CALCIUM 7.3 mg/dL (8.4-10.2); CREATININE, SERUM 2.4 mg/dL (0.57-1.11); POTASSIUM 3.3 mmol/L (3.5-5.1)
[2021-02-16 07:02] LABS: INR 3.41; PROTHROMBIN TIME 37.1 seconds (11.9-14.5)
[2021-02-16 07:03] LABS: PARTIAL THROMBOPLASTIN TIME 45.8 seconds (23.8-35.5)
[2021-02-16] MEDS: OCTREOTIDE ACETATE 500 MCG in SODIUM CHLORIDE 0.9% 250ML 249 ML IV SCH ×2 (07:11→16:50)
[2021-02-16] MEDS: MIDODRINE HCL 5 MG TABLET PO SCH ×3 (08:00→16:00)
[2021-02-16 08:15] LABS: BAND NEUTROPHILS % (MANUAL) 1 %; EOSINOPHILS % (MANUAL) 1 % (0-7); LYMPHOCYTES % (MANUAL) 3 % (19-48); MONOCYTES % (MANUAL) 2 % (3.4-9.0); NEUTROPHILS % (MANUAL) 93 % (40-74); PLATELET ESTIMATE SLIGHTLY DECREASED
[2021-02-16 08:16] LABS: PLATELET MORPHOLOGY COMMENT NORMAL; RBC MORPHOLOGY COMMENT NORMAL
[2021-02-16] MEDS: AMIODARONE HCL 200 MG TAB PO SCH (09:00)
[2021-02-16] MEDS: METOPROLOL SUCCINATE 50 MG TAB XL PO SCH (09:00)
[2021-02-16] MEDS ORDERED: SODIUM CHLORIDE 0.9% 250ML 250 ML ONE (09:32)
[2021-02-16] MEDS: COLLAGENASE 5 GM TUBE TP SCH (10:21)
[2021-02-16] MEDS ORDERED: ALBUMIN 25% 25GM 100ML 0.25 GM/ML BTL IV ONE (12:30)
[2021-02-16] MEDS ORDERED: SODIUM CHLORIDE 0.9% 100 ML ONE (14:14)
[2021-02-16] MEDS ORDERED: CALCIUM GLUCONATE 10% INJ 9.3 MEQ in SODIUM CHLORIDE 0.9% 100 ML 100 ML IV ONE (15:45)
[2021-02-16] MEDS: CEFEPIME 1 GM in SODIUM CHLORIDE 0.9% 50ML 50 ML IV SCH (16:21)
[2021-02-16 20:26] LABS: BASOPHILS % 0.2 % (0.0-1.0); EOSINOPHILS # (AUTO) 0.1 (0.0-0.4); EOSINOPHILS % 0.4 % (0.0-6.0); HEMATOCRIT 23.4 % (34.2-44.1); HEMOGLOBIN 7.2 g/dL (12.0-16.0); LYMPHOCYTES # (AUTO) 0.4 (1.0-3.2); LYMPHOCYTES % 2.2 % (18.0-39.1); MEAN CORPUSCULAR HEMOGLOBIN 29.4 pg (28-32); MEAN CORPUSCULAR HGB CONC 30.8 g/dL (31-35); MEAN CORPUSCULAR VOLUME 95.5 fL (81-99); MONOCYTES # (AUTO) 0.7 (0.2-0.8); MONOCYTES % 3.9 % (4.4-11.3); NEUTROPHILS # (AUTO) 16.8 (2.1-6.9); NEUTROPHILS % 91.3 % (38.7-80.0); PLATELET COUNT 78 x10e3/uL (140-360); RED BLOOD COUNT 2.45 x10e6/uL (3.6-5.1); RED CELL DISTRIBUTION WIDTH 20.3 % (11.7-14.4)
[2021-02-16] MEDS: ATORVASTATIN 40 MG TAB PO SCH (20:29)
[2021-02-17] VITALS (26 sets, daily range): BP systolic 67–117; BP diastolic 41–69
[2021-02-17] MEDS: Pantoprazole IV 80 MG in SODIUM CHLORIDE 0.9% 100 ML IV SCH ×5 (02:14→21:45)
[2021-02-17] MEDS ORDERED: SODIUM CHLORIDE 0.9% 250ML 250 ML ONE (05:14)
[2021-02-17 05:48] LABS: BASOPHILS % 0.3 % (0.0-1.0); EOSINOPHILS # (AUTO) 0.1 (0.0-0.4); EOSINOPHILS % 0.7 % (0.0-6.0); HEMATOCRIT 23.5 % (34.2-44.1); HEMOGLOBIN 7.4 g/dL (12.0-16.0); LYMPHOCYTES # (AUTO) 0.5 (1.0-3.2); LYMPHOCYTES % 2.8 % (18.0-39.1); MEAN CORPUSCULAR HEMOGLOBIN 29.7 pg (28-32); MEAN CORPUSCULAR HGB CONC 31.5 g/dL (31-35); MEAN CORPUSCULAR VOLUME 94.4 fL (81-99); MONOCYTES # (AUTO) 0.8 (0.2-0.8); MONOCYTES % 4.8 % (4.4-11.3); NEUTROPHILS # (AUTO) 14.1 (2.1-6.9); NEUTROPHILS % 88.2 % (38.7-80.0); PLATELET COUNT 77 x10e3/uL (140-360); RED BLOOD COUNT 2.49 x10e6/uL (3.6-5.1); RED CELL DISTRIBUTION WIDTH 20.4 % (11.7-14.4)
[2021-02-17 06:05] LABS: INR 2.49; PROTHROMBIN TIME 28.9 seconds (11.9-14.5)
[2021-02-17 06:06] LABS: PARTIAL THROMBOPLASTIN TIME 42.5 seconds (23.8-35.5)
[2021-02-17 06:09] LABS: ALBUMIN 2.8 g/dL (3.5-5.0); ALBUMIN/GLOBULIN RATIO 1.3 (0.8-2.0); ANION GAP 15.2 mmol/L (8-16); CALCIUM 7.9 mg/dL (8.4-10.2); CREATININE, SERUM 1.66 mg/dL (0.57-1.11); POTASSIUM 3.2 mmol/L (3.5-5.1)
[2021-02-17 06:38] LABS: B-TYPE NATRIURETIC PEPTIDE2 23854.7 pg/mL (0-100)
[2021-02-17] MEDS: COLLAGENASE 5 GM TUBE TP SCH (07:24)
[2021-02-17] MEDS: AMIODARONE HCL 200 MG TAB PO SCH (07:24)
[2021-02-17] MEDS: MIDODRINE HCL 5 MG TABLET PO SCH ×3 (07:24→15:15)
[2021-02-17] MEDS: METOPROLOL SUCCINATE 50 MG TAB XL PO SCH (07:24)
[2021-02-17] MEDS ORDERED: PHYTONADIONE 10 MG/ML AMP IV ONE (08:00)
[2021-02-17] MEDS ORDERED: PHYTONADIONE 10MG/ML 20 MG in SODIUM CHLORIDE 0.9% 100 ML 100 ML IV ONE (09:15)
[2021-02-17] MEDS ORDERED: POTASSIUM CHLORIDE 20 MEQ TAB CR PO NR (14:15)
[2021-02-17] MEDS ORDERED: POTASSIUM CHLORIDE 20MEQ/100ML 100 ML IV ONE (14:45)
[2021-02-17] MEDS: OCTREOTIDE ACETATE 500 MCG in SODIUM CHLORIDE 0.9% 250ML 249 ML IV SCH ×2 (15:12→18:15)
[2021-02-17] MEDS: CEFEPIME 1 GM in SODIUM CHLORIDE 0.9% 50ML 50 ML IV SCH (16:13)
[2021-02-17] MEDS: ATORVASTATIN 40 MG TAB PO SCH (21:00)
[2021-02-17] MEDS ORDERED: LORAZEPAM INJ 2 MG/ML VIAL IV PRN (21:00)
[2021-02-17] MEDS: Morphine 2mg Syringe 2 MG/ML SYR IV PRN (21:10)
[2021-02-18] VITALS (8 sets, daily range): BP systolic 39–83; BP diastolic 25–66
[2021-02-18] MEDS: Morphine 2mg Syringe 2 MG/ML SYR IV PRN (00:45)
[2021-02-18] MEDS: Pantoprazole IV 80 MG in SODIUM CHLORIDE 0.9% 100 ML IV SCH ×2 (02:45→07:14)
[2021-02-18] MEDS: OCTREOTIDE ACETATE 500 MCG in SODIUM CHLORIDE 0.9% 250ML 249 ML IV SCH (04:15)
[2021-02-18] MEDS: MIDODRINE HCL 5 MG TABLET PO SCH (07:14)
[2021-02-18] MEDS: COLLAGENASE 5 GM TUBE TP SCH (07:15)
[2021-02-18] MEDS: AMIODARONE HCL 200 MG TAB PO SCH (07:15)
[2021-02-18] MEDS ORDERED: IRON SUCROSE 100 MG in SODIUM CHLORIDE 0.9% 100 ML 100 ML IV SCH (07:15)
[2021-02-18] MEDS: METOPROLOL SUCCINATE 50 MG TAB XL PO SCH (07:15)
[2021-02-19] MEDS ORDERED: EPOETIN ALFA-EPBX 10,000 UNIT/ML VIAL SC SCH (06:00)
== END 2021-02-18 16:26 | disposition expired | DRG 698 ==
LOC: ER 12:37 → ERHOLD 14:53 → ICU 15:39
PROVIDERS: ADMIT Internal Medicine; ATTEND Internal Medicine
PROC: 02HV33Z Insertion of Infusion Device into Superior Vena Cava, Percutaneous Approach (ICD-10-PCS; principal; 2021-02-13)
PROC: 5A1D70Z Performance of Urinary Filtration, Intermittent, Less than 6 Hours Per Day (ICD-10-PCS; 2021-02-13)
PROC: 30243L1 Transfusion of Nonautologous Fresh Plasma into Central Vein, Percutaneous Approach (ICD-10-PCS; 2021-02-13)
PROC: 30243N1 Transfusion of Nonautologous Red Blood Cells into Central Vein, Percutaneous Approach (ICD-10-PCS; 2021-02-13)
PROC: 30243K1 Transfusion of Nonautologous Frozen Plasma into Central Vein, Percutaneous Approach (ICD-10-PCS; 2021-02-13)
PROC: 3E043XZ Introduction of Vasopressor into Central Vein, Percutaneous Approach (ICD-10-PCS; 2021-02-13)
DX: T83.511A Infection and inflammatory reaction due to indwelling urethral catheter, initial encounter (principal); A41.9 Sepsis, unspecified organism; N18.6 End stage renal disease; I21.A1 Myocardial infarction type 2; I50.23 Acute on chronic systolic (congestive) heart failure; J18.0 Bronchopneumonia, unspecified organism; G93.41 Metabolic encephalopathy; J96.01 Acute respiratory failure with hypoxia; R65.21 Severe sepsis with septic shock; K72.00 Acute and subacute hepatic failure without coma; K92.2 Gastrointestinal hemorrhage, unspecified; I13.2 Hypertensive heart and chronic kidney disease with heart failure and with stage 5 chronic kidney disease, or end stage renal disease; D62 Acute posthemorrhagic anemia; I48.20 Chronic atrial fibrillation, unspecified; E44.0 Moderate protein-calorie malnutrition; N10 Acute pyelonephritis; E11.22 Type 2 diabetes mellitus with diabetic chronic kidney disease; I50.9 Heart failure, unspecified; Z99.2 Dependence on renal dialysis; Z95.0 Presence of cardiac pacemaker; F41.9 Anxiety disorder, unspecified; Z95.1 Presence of aortocoronary bypass graft; E11.649 Type 2 diabetes mellitus with hypoglycemia without coma; J44.9 Chronic obstructive pulmonary disease, unspecified; Z99.81 Dependence on supplemental oxygen; Z87.891 Personal history of nicotine dependence; Z82.49 Family history of ischemic heart disease and other diseases of the circulatory system; R57.8 Other shock; T45.515A Adverse effect of anticoagulants, initial encounter; Z79.01 Long term (current) use of anticoagulants; Z68.25 Body mass index [BMI] 25.0-25.9, adult; I25.10 Atherosclerotic heart disease of native coronary artery without angina pectoris; E77.8 Other disorders of glycoprotein metabolism; E88.09 Other disorders of plasma-protein metabolism, not elsewhere classified; E87.6 Hypokalemia; N28.1 Cyst of kidney, acquired; B96.1 Klebsiella pneumoniae [K. pneumoniae] as the cause of diseases classified elsewhere; Z66 Do not resuscitate; Z20.822 Contact with and (suspected) exposure to COVID-19; L89.150 Pressure ulcer of sacral region, unstageable
CPT/HCPCS: 36415; 36600; 70450; 71045; 71250; 74174; 80053; 81001; 82140; 82550; 82553; 82805; 82948; 83605; 83735; 83880; 84100; 84132; 84484; 85025; 85610; 85730; 86677; 86704; 86705; 86706; 86850; 86900; 86920; 87040; 87071; 87086; 87186; 87205; 87340; 90962; 93005; 93306; 94660; 94799; 99251; 99285; J0610; J0692; J1644; J1756; J2060; J2185; J2270; J2353; J2354; J2405; J3370; J3430; J3480; J7030; J7050; J7799; P9016; P9017; P9047; Q9967; U0002